=== PATIENT | female | born 1980 | race Caucasian/White ===

== ENCOUNTER 2023-10-28 08:46 | Outpatient (AMB) | payer MEDICARE, MEDICAID, SELFPAY ==
--- NOTE | 2023-10-28 08:56 | A.OFFPC_ITS ---
Vital Signs 10/28/23 09:03 Height 5 ft 2 in Weight 204 lb 4 oz BMI 37.4 BP 128/88 Blood Pressure Location Rt brachial Position Sitting Respiration 16 Pulse 83 Pulse Source Pulse Oximeter Temp 98 F Temp Source Oral Pulse Oximetry (%) 98 Oxygen Delivery Method Room Air Intake Visit Reasons: Est. Care Intake Note: New patient visit. Discuss MRI of thoracic spine. 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 Care HPI Details Patient is a 43-year-old female with a significant past medical history of chronic neck and back pain, fibromyalgia, fatty liver, GERD, claudication, hypothyroidism, hypertension, hyperlipidemia, poorly-controlled type 2 diabetes with complications including peripheral neuropathy and [facility] insulin use, anxiety, depression and insomnia. She is transferring from [facility] and following. I last saw her a couple of months ago. No notes available. Endo: Last A1c was 7.1. At our last visit I did increase her Trulicity to 3 mg. She is currently on Trulicity, metformin 1000 mg twice a day and insulin glargine 68 units nightly. Last visit I did increase the Lyrica for ongoing peripheral neuropathy discomfort. She is on an acei. Last eye exam is overdue. She does not currently follow with a multi craft maintenance technician but has been referred many times. She recently lost her left great toenail due to paronychia and had to cut most of the nail off. She states she would now like to see them. She checks her feet regularly. Denies any sores. She is on levothyroxine 50 mcg daily. Last TSH was WNL. Seeing weight loss center on 11/18. CV: Blood pressure today is 128/88. She is currently on lisinopril 20 mg and metoprolol 50 mg b.i.d.. Last LDL was elevated above goal. Increased atorvastatin to 40 mg. Goal is less than 70. At our last visit at [facility] we did discuss that some of her leg pain sounds like claudication. She is seeing vascular surgery on 11/04. Psych: She is on 40 mg of prozac, 60 mg of duloxetine and tolerating this well. She is also 100 mg of hydroxyzine at night for insomnia which was started at our last visit and tolerating well. No SI/HI. She still does not feel like she sleeps well at night. She has a hard time falling asleep and staying asleep but the hydroxyzine does help for least a couple hours. She typically wakes up because of her mind or because of the pain. Her also states that she snores all the time. She was supposed to follow up with behavioral health but states that she skipped her appointment because it was not with a psychiatrist. She states that she did not realize that if the see a therapist 1st. She has never been hospitalized for her mental health. Musculoskeletal: At the last visit the duloxetine was increased. She was also started on baclofen as she did not feel that the tizanidine or Flexeril is helpful. She found the baclofen to be helpful. She is on meloxicam 15 mg and has been on this for quite some time and tolerating well. I also increased the Lyrica to 200 mg twice a day at our last visit. She does not feel tired with the lyrica. She is following with [facility] and did recently have an MRI of her thoracic spine on 10/23. She was noted to have a subtle left subarticular disc protrusion minimally indenting the ventral thecal sac at T8-T9. otherwise, unremarkable. They are discussing a spinal cord stimulator placement. She states that her pain is still overall just poorly controlled. It causes her to have a hard time sleeping at night. -14 mm left renal cyst noted incidentall y. GI: continues on omeprazole 20 mg daily. No breakthrough sx. No blood in stool or difficulty swallowing. Mammo: UTD 2022 Pap: s/p partial hysterectomy [facility] Medical History (Updated 10/28/23 @ 09:51 by Bettie Day PA-C) Renal cyst, left Hypothyroidism Claudication of both lower extremities GERD with esophagitis Major depression, recurrent, chronic Insomnia Fibromyalgia Hyperlipidemia Fatty liver Poorly controlled type 2 diabetes mellitus with peripheral neuropathy Uncontrolled type 2 diabetes mellitus with hyperglycemia, with long-term current use of insulin Mild intellectual disability Bilateral hearing loss HTN (hypertension), benign Migraines Chronic low back pain with bilateral sciatica Chronic neck pain Mild persistent asthma in adult without complication Generalized anxiety disorder with panic attacks Family History (Updated 10/28/23 @ 09:35 by Shandra Strickland CMA) Mother HTN (hypertension) Diabetes Father HTN (hypertension) Hypercholesteremia Diabetes Cardiovascular disease Maternal Grandmother Cardiovascular disease Skin cancer Anxiety Depression Maternal Grandmother Lung cancer Other FHx: mental illness Social History (Updated 10/28/23 @ 09:14 by Shandra Strickland CMA) Housing: Apartment Patient Tobacco Use Status: Never used Tobacco e-Cigarette/Vaping Use: Never Used Second Hand Smoke Exposure: No service: No Current occupational status: disabled Cognitive needs: No Hearing needs: Yes Vision needs: No Questionnaire PHQ-9 Over the last 2 weeks, how often have you been bothered by any of the following problems? 1. Little interest or pleasure in doing things: nearly every day 2. Feeling down, depressed, or hopeless: nearly every day 3. Trouble falling or staying asleep, or sleeping too much: nearly every day 4. Feeling tired or having little energy: nearly every day 5. Poor appetite or overeating: nearly every day 6. Feeling bad about yourself - or that you are a failure or have let yourself or your family down: nearly every day 7. Trouble concentrating on things, such as reading the newspaper or watching television: nearly every day 8. Moving or speaking so slowly that other people could have noticed. Or the opposite - being so fidgety or restless that you have been moving around a lot more than usual: nearly every day 9. Thoughts that you would be better off or of hurting yourself in some way: nearly every day Total score: 27 Depression Screening Interpretation: Positive Depression Screening Follow-up: Existing condition, In treatment, Community Mental Health Worker F/U and Follow- up Visit Requested Depression Screening Done: Yes 35892 - PHQ-9 Billing: Yes Source: Developed by Drs. Kade Prince, Meghan Montero, Michael Zuniga and colleagues, with an educational manoj from [employer]. Thrive Questionnaire Date Thrive assessed: 10/28/23 I am a: Patient What is your living situation today?: I have a steady place to live Within the past 12 months, did the food you bought not last and you didn't have the money to get more?: Sometimes True Within the past 12 months, did you worry whether your food would run out before you got money to buy more?: Never true Do you have trouble paying for medicines?: Yes Do you have trouble getting transportation to medical appointments?: Yes Do you have trouble paying your heating and electricity bill?: Yes Do you have trouble taking care of your child, family member or friend?: No Do you have trouble with day-to-day activities such as bathing, preparing meals, shopping, managing finances, etc.?: Yes Are you currently unemployed and looking for a job?: No Are you interested in more education?: No Please select the resources that you would like help with: Utilities Currently or been in a relationship where the following occur: no concerns reported THRIVE Score: 3 AUDIT C Alcohol Use Questionnaire (AUDIT-C) 1. How often do you have a drink containing alcohol?: Never 3. How often do you have six or more drinks on one occasion?: Never Total Score: 0 Score Reviewed/Action Taken: Yes GIBSON-7 AMB Questionnaire GIBSON-7 Date GIBSON - 7 assessed: 10/28/23 Feeling nervous, anxious, or on edge: 3 = Nearly every day Not being able to stop or control worryin = Nearly every day Worrying too much about different things: 2 = More than half the days Trouble relaxin = More than half the days Being so restless that it is hard to sit still: 2 = More than half the days Becoming easily annoyed or irritable: 3 = Nearly every day Feeling afraid as if something awful might happen: 1 = Several days Total GIBSON-7 score (0-4 normal; 5-9 mild; 10-14 moderate; 15-21 severe): 16 Source: Developed by Drs. Kade Prince, Meghan Montero, Michael Zuniga and colleagues, with an educational manoj from [employer]. GIBSON-7 Assessment Billing GIBSON-7 Assessment Tool: GIBSON-7 Assessment 65211 ACT Questionnaire In the past 4 weeks, how much of the time did your asthma keep you from getting as much done at work, school or at home?: A little of the time During the past 4 weeks, how often have you had shortness of breath?: 1-2 times a week During the past 4 weeks, how often did your asthma symptoms wake you up at night or earlier than usual in the morning?: Not at all During the past 4 weeks, how often have you had to use your rescue inhaler or nebulizer medication?: Not at all How would you rate your asthma control during the past 4 weeks?: Well controlled ACT Interpretation: Positive Score: 22 Physical exam (Primary Care) Vital Signs: Last Vital Signs Temp 98 F 10/28/23 09:03 Pulse 83 10/28/23 09:03 Resp 16 10/28/23 09:03 BP 128/88 10/28/23 09:03 Pulse Ox 98 10/28/23 09:03 Oxygen Delivery Method Room Air 10/28/23 09:03 BMI result Body Mass Index 37.4 Tobacco/Smoking Status: Tobacco use Status Tobacco use date assessed 10/28/23 10/28/23 09:06 Patient Tobacco Use Status Never used Tobacco 10/28/23 09:06 e-Cigarette/Vaping Use Never Used 10/28/23 09:06 PHQ-9: PHQ-9 Score PHQ-9: Total score 27 10/28/23 09:31 Depression Screening Interpretation: Positive Depression Screening Follow-up: Existing condition, In treatment, Community Mental Health Worker F/U and Follow- up Visit Requested Thrive Assessment: Date of Thrive Assessment Date Thrive assessed 10/28/23 10/28/23 09:16 Currently or been in a relationship where the following occur: no concerns reported Const Orientation/consciousness: patient oriented x3 HENMT Ears: hearing grossly normal bilaterally Neck Thyroid: Thyroid normal Lymphatic: no lymphadenopathy noted Resp Auscultation: clear to auscultation bilaterally Cardio Rate: regular rate Rhythm: regular rhythm Heart sounds: S1 normal heart sound present and S2 normal heart sound present GI Inspection: Yes normal to inspection Palpation (GI): Soft to palpation and Other GI palpation findings present (nontender, no cva tenderness) Auscultation: normoactive bowel sounds Rectal Exam - Female: deferred Skin General skin exam: no rashes or lesions noted Neuro General: patient oriented x3, gait normal and no focal motor deficits Assessment and Plan Assessment & Plan (1) Poorly controlled type 2 diabetes mellitus with peripheral neuropathy: Code(s): E11.42 - Type 2 diabetes mellitus with diabetic polyneuropathy; E11.65 - Type 2 diabetes mellitus with hyperglycemia Plan: Diabetes is improving. Labs ordered today. Reminded her to get an eye exam. Phone numbers of places were provided in the office. I have referred her to Podiatry. (2) Uncontrolled type 2 diabetes mellitus with hyperglycemia, with long-term current use of insulin: Code(s): E11.65 - Type 2 diabetes mellitus with hyperglycemia; Z79.4 - termite control representative (current) use of insulin Plan: Denies hypoglycemic events (3) HTN (hypertension), benign: Code(s): I10 - Essential (primary) hypertension Plan: Slightly elevated above goal today. Repeat blood pressure was WNL at 120/72. Continue current regimen (4) Hyperlipidemia: Code(s): E78.5 - Hyperlipidemia, unspecified Qualifiers: Hyperlipidemia type: mixed hyperlipidemia Qualified Code(s): E78.2 - Mixed hyperlipidemia Plan: Continue atorvastatin 40 mg. We will check lipids and LFTs. Discussed her goals less than 70. She will be following with weight management and is going to be starting a diet. I have strongly encouraged lifestyle modifications and weight loss. (5) Major depression, recurrent, chronic: Code(s): F33.9 - Major depressive disorder, recurrent, unspecified Plan: Referred again to behavioral health. Discussed the importance of follow-up. Ad vised to seek emergent medical treatment should she develop any SI/HI. (6) Insomnia: Code(s): G47.00 - Insomnia, unspecified Qualifiers: Insomnia type: unspecified Qualified Code(s): G47.00 - Insomnia, unspecified Plan: referral to again. sleep study ordered. (7) Generalized anxiety disorder with panic attacks: Code(s): F41.1 - Generalized anxiety disorder; F41.0 - Panic disorder [episodic paroxysmal anxiety] Plan: See above (8) Chronic low back pain with bilateral sciatica: Code(s): M54.41 - Lumbago with sciatica, right side; M54.42 - Lumbago with sciatica, left side; G89.29 - Other chronic pain Qualifiers: Back pain laterality: bilateral Qualified Code(s): M54.42 - Lumbago with sciatica, left side; M54.41 - Lumbago with sciatica, right side; G89.29 - Other chronic pain Plan: Following with [facility]. Continue current regimen. (9) Hypothyroidism: Code(s): E03.9 - Hypothyroidism, unspecified Qualifiers: Hypothyroidism type: acquired Qualified Code(s): E03.9 - Hypothyroidism, unspecified Plan: We will monitor TSH. Continue levothyroxine 50 mcg. (10) Claudication of both lower extremities: Comment: following with vascular surgeon Dr. Guerra 11/04. Code(s): I73.9 - Peripheral vascular disease, unspecified (11) Renal cyst, left: Code(s): N28.1 - Cyst of kidney, acquired Plan: Ultrasound ordered Plan Sleep study ordered. Referral to Behavioral Health and Podiatry placed. She does have upcoming appointments with specialists. Labs ordered today. We will follow up pending test results. Advised to follow up in 2 months. Sooner if needed. Patient understands and agrees with the plan. Orders: Orders RT home sleep study Today E03.9 - Hypothyroidism, unspecified, E11.42 - Type 2 diabetes mellitus with diabetic polyneuropathy, E11.65 - Type 2 diabetes mellitus with hyperglycemia, E78.2 - Mixed hyperlipidemia, G47.00 - Insomnia, unspecified, I73.9 - Peripheral vascular disease, unspecified, R06.83 - Snoring, Z79.4 - intermediate (current) use of insulin Complete Blood Count Auto Diff Today E03.9 - Hypothyroidism, unspecified, E11.42 - Type 2 diabetes mellitus with diabetic polyneuropathy, E11.65 - Type 2 diabetes mellitus with hyperglycemia, E78.2 - Mixed hyperlipidemia, I73.9 - Pe ripheral vascular disease, unspecified, Z00.00 - Encounter for general adult medical examination without abnormal findings, Z79.4 - termite control representative (current) use of insulin Hemoglobin A1c Today E03.9 - Hypothyroidism, unspecified, E11.42 - Type 2 diabetes mellitus with diabetic polyneuropathy, E11.65 - Type 2 diabetes mellitus with hyperglycemia, E78.2 - Mixed hyperlipidemia, I73.9 - Peripheral vascular disease, unspecified, Z79.4 - termite control representative (current) use of insulin Lipid Panel Today E03.9 - Hypothyroidism, unspecified, E11.42 - Type 2 diabetes mellitus with diabetic polyneuropathy, E11.65 - Type 2 diabetes mellitus with hyperglycemia, E78.2 - Mixed hyperlipidemia, I73.9 - Peripheral vascular disease, unspecified, Z79.4 - termite control representative (current) use of insulin Vitamin B12 Today E03.9 - Hypothyroidism, unspecified, E11.42 - Type 2 diabetes mellitus with diabetic polyneuropathy, E11.65 - Type 2 diabetes mellitus with hyperglycemia, E78.2 - Mixed hyperlipidemia, I73.9 - Peripheral vascular disease, unspecified, Z79.4 - intermediate (current) use of insulin Ferritin Today E03.9 - Hypothyroidism, unspecified, E11.42 - Type 2 diabetes mellitus with diabetic polyneuropathy, E11.65 - Type 2 diabetes mellitus with hyperglycemia, E78.2 - Mixed hyperlipidemia, I73.9 - Peripheral vascular diseas e, unspecified, Z79.4 - termite control representative (current) use of insulin IRON PROFILE Today E03.9 - Hypothyroidism, unspecified, E11.42 - Type 2 diabetes mellitus with diabetic polyneuropathy, E11.65 - Type 2 diabetes mellitus with hyperglycemia, E78.2 - Mixed hyperlipidemia, I73.9 - Peripheral vascular disease, unspecified, Z79.4 - termite control representative (current) use of insulin Comprehensive [place]. Panel Fast Today E03.9 - Hypothyroidism, unspecified, E11.42 - Type 2 diabetes mellitus with diabetic polyneuropathy, E11.65 - Type 2 diabetes mellitus with hyperglycemia, E78.2 - Mixed hyperlipidemia, I73.9 - Peripheral vascular disease, unspecified, Z79.4 - termite control representative (current) use of insulin TSH reflex Free T4 Today E03.9 - Hypothyroidism, unspecified, E11.42 - Type 2 diabetes mellitus with diabetic polyneuropathy, E11.65 - Type 2 diabetes mellitus with hyperglycemia, E78.2 - Mixed hyperlipidemia, I73.9 - Peripheral vascular disease, unspecified, Z79.4 - termite control representative (current) use of insulin Microalbumin, Random (w Creat) Today E03.9 - Hypothyroidism, unspecified, E11.42 - Type 2 diabetes mellitus with diabetic polyneuropathy, E11.65 - Type 2 diabetes mellitus with hyperglycemia, E78.2 - Mixed hyperlipidemia, I73.9 - Peripheral vascular disease, unspecified, Z79.4 - termite control representative (current) use of insulin US renal LT Today N28.1 - Cyst of kidney, acquired Referrals Podiatry Referral E03.9 - Hypothyroidism, unspecified, E11.42 - Type 2 diabetes mellitus with diabetic polyneuropathy, E11.65 - Type 2 diabetes mellitus with hyperglycemia, E78.2 - Mixed hyperlipidemia, I73.9 - Peripheral vascular disease, unspecified, S91.209A - Unspecified open wound of unspecified toe(s) with damage to nail, initial encounter, Z79.4 - intermediate (current) use of insulin Behavioral Health Referral F33.9 - Major depressive disorder, recurrent, unspecified, G47.00 - Insomnia, unspecified Coding Level of Care Code Est Pt Level 5 (48988) Diagnoses Poorly controlled type 2 diabetes mellitus with peripheral neuropathy E11.42; E11.65 Uncontrolled type 2 diabetes mellitus with hyperglycemia, with long-term current use of insulin E11.65; Z79.4 HTN (hypertension), benign I10 Mixed hyperlipidemia E78.2 Hyperlipidemia type: mixed hyperlipidemia Major depression, recurrent, chronic F33.9 Insomnia, unspecified type G47.00 Insomnia type: unspecified Generalized anxiety disorder with panic attacks F41.1; F41.0 Chronic bilateral low back pain with bilateral sciatica M54.42; M54.41; G89.29 Back pain laterality: bilateral Acquired hypothyroidism E03.9 Hypothyroidism type: acquired Claudication of both lower extremities I73.9 Renal cyst, left N28.1 Additional Codes GIBSON-7 Assessment Billing - GIBSON-7 Assessment Tool: GIBSON-7 Assessment [id number] ([id number]) Time Spent (min) 65
[2023-10-28 09:03] VITALS: BP 128/88; PULSE 83; RESP 16; TEMP 36.6; O2SAT 98; BMI 37.4
== END 2023-10-28 10:03 | disposition home or self-care (01) ==
PROVIDERS: PCP Physician Assistant; Visit Provider Physician Assistant
DX: E11.42 Type 2 diabetes mellitus with diabetic polyneuropathy (principal); E11.65 Type 2 diabetes mellitus with hyperglycemia; Z79.4 Long term (current) use of insulin; F33.9 Major depressive disorder, recurrent, unspecified; I73.9 Peripheral vascular disease, unspecified; I10 Essential (primary) hypertension; E78.2 Mixed hyperlipidemia; G47.00 Insomnia, unspecified; F41.1 Generalized anxiety disorder; F41.0 Panic disorder [episodic paroxysmal anxiety]; M54.42 Lumbago with sciatica, left side; M54.41 Lumbago with sciatica, right side
CPT/HCPCS: 99215

== ENCOUNTER 2023-11-06 08:06 | Outpatient (REF) | payer MEDICARE, MEDICAID, SELFPAY ==
--- NOTE | ~2023-11-06 | US_ITS ---
EXAMINATION: US RETROPERITONEAL LIMITED (RENAL ONLY) CLINICAL INFORMATION: Cyst of kidney, acquired. COMPARISON: None available. TECHNIQUE: Real-time imaging of the kidneys. FINDINGS: RIGHT KIDNEY: 12.5 x 5.5 x 5.6 cm (SAG x AP x TRV). The kidney is normal in size, contour, and echogenicity. Renal cortical thickness is normal. No calculi or focal parenchymal lesions. No hydronephrosis. LEFT KIDNEY: 11.8 x 6.8 x 5.6 cm (SAG x AP x TRV). The kidney is normal in size, contour, and echogenicity. Renal cortical thickness is normal. No renal calculi or hydronephrosis. 1.3 x 1.0 x 0.8 cm simple cyst in the mid kidney is seen. No imaging follow-up is recommended. US/US renal BI IMPRESSION: Normal appearance of the right kidney. No significant finding in the left kidney.
== END 2023-11-06 08:07 | disposition home or self-care (01) ==
LOC: HO.US 08:06
PROVIDERS: PCP Physician Assistant; Visit Provider Physician Assistant
DX: N28.1 Cyst of kidney, acquired (principal)
CPT/HCPCS: 76775

== ENCOUNTER 2023-12-28 07:49 | Outpatient (REF) | payer MEDICARE, MEDICAID, SELFPAY ==
[2023-12-28 08:07] LABS: MANUAL DIFF FLAG NO
[2023-12-28 08:23] LABS: Basophils Percent Auto 0.4 % (0-2); Eosinophils Absolute Auto 0.1 X10*3/uL (0.0-0.4); Eosinophils Percent Auto 0.9 % (0-4); Hematocrit 41.8 % (37.0-47.0); Hemoglobin 14.1 g/dl (12.0-16.0); Imm Gran Abs Auto 0.03 X10*3/uL (0.00-0.03); Imm Gran Pct Auto 0.3 % (0.0-0.4); Lymphocytes Absolute Auto 3.3 X10*3/uL (1.2-4.9); Mean Corpuscular HGB Conc 33.7 g/dl (31.0-35.0); Mean Corpuscular Hemoglobin 30.8 pg (27.0-33.0); Mean Corpuscular Volume 91.3 fL (80.0-98.0); Mean Platelet Volume 10.2 fL (9.4-12.3); Monocytes Absolute Auto 0.6 X10*3/uL (0.1-1.2); Monocytes Percent Auto 6.1 % (2-11); Neutrophils Absolute Auto 5.2 x10*3/uL (2.0-8.3); Neutrophils Percent Auto 56.3 % (45-73); Platelet Count 225 X10*3/uL (160-400); Red Blood Count 4.58 X10*6/uL (4.20-5.50); Red Cell Distribution Width 12.2 % (11.0-16.0); White Blood Count 9.2 X10*3/uL (4.8-10.8)
[2023-12-28 08:30] LABS: Estimated Average Glucose 154 mg/dL
[2023-12-28 08:50] LABS: Microalbum/Creatinine Ratio Ur 5.7 ug/mg cr (<30)
[2023-12-28 08:53] LABS: Alanine Aminotransferase 23 U/L (0-31); Albumin Level 3.8 g/dL (3.5-5.0); Alkaline Phosphatase 54 U/L (39-117); Anion Gap 14 (12-20); Aspartate Amino Transferase 17 U/L (5-31); Bilirubin Total 1.5 mg/dL (0.0-1.0); Blood Urea Nitrogen 8 mg/dL (9-16); Calcium 8.3 mg/dL (8.4-10.2); Carbon Dioxide 28 mmol/L (22-29); Chloride 103 mmol/L (96-108); Cholesterol 139 mg/dL (<200); Estimated Glomerular Filt Rate > 60; Glucose Fasting 177 mg/dL (60-99); HDL Cholesterol 43 mg/dL (>40); Iron 109 mcg/dL (30-160); LDL Cholesterol Calculated 73 mg/dL (<100); Percent Iron Saturation 38 % (15-50); Potassium 3.7 mmol/L (3.3-5.1); Sodium 141 mmol/L (135-145); Total Iron Binding Capacity 289 mcg/dL (228-428); Total Protein 6.4 g/dL (6.5-8.0); Triglycerides 115 mg/dL (<150); Unsaturated Iron Binding 180 ug/dL
[2023-12-28 09:10] LABS: Ferritin 106 ng/mL (10-250); TSH reflex Free T4 1.66 uIU/mL (0.32-4.0)
[2023-12-28 09:12] LABS: Vitamin B12 442 pg/mL (200-900)
== END 2023-12-28 07:50 | disposition home or self-care (01) ==
LOC: HO.LAB 07:49
PROVIDERS: PCP Physician Assistant; Visit Provider Physician Assistant
DX: Z00.00 Encounter for general adult medical examination without abnormal findings (principal); E11.42 Type 2 diabetes mellitus with diabetic polyneuropathy; E11.65 Type 2 diabetes mellitus with hyperglycemia; E11.51 Type 2 diabetes mellitus with diabetic peripheral angiopathy without gangrene; E78.2 Mixed hyperlipidemia; E03.9 Hypothyroidism, unspecified; Z79.4 Long term (current) use of insulin
CPT/HCPCS: 36415; 80053; 80061; 82043; 82570; 82607; 82728; 83036; 83540; 84443; 85025

== ENCOUNTER 2023-12-30 12:01 | Outpatient (REF) | payer MEDICARE, MEDICAID, SELFPAY ==
[2023-12-30 12:55] LABS: Alanine Aminotransferase 21 U/L (0-31); Albumin Level 3.9 g/dL (3.5-5.0); Alkaline Phosphatase 53 U/L (39-117); Aspartate Amino Transferase 17 U/L (5-31); Bilirubin Direct 0.4 mg/dL (0.0-0.5); Bilirubin Total 1.1 mg/dL (0.0-1.0); Gamma Glutamyl Transpeptidase 21 U/L (7-33); Total Protein 6.6 g/dL (6.5-8.0)
== END 2023-12-30 12:02 | disposition home or self-care (01) ==
LOC: HO.LAB 12:01
PROVIDERS: PCP Physician Assistant; Visit Provider Physician Assistant
DX: R79.89 Other specified abnormal findings of blood chemistry (principal); E78.2 Mixed hyperlipidemia; K76.0 Fatty (change of) liver, not elsewhere classified
CPT/HCPCS: 36415; 80076; 82977

== ENCOUNTER 2024-01-13 08:58 | Outpatient (REF) | payer MEDICARE, MEDICAID, SELFPAY ==
--- NOTE | ~2024-01-13 | US_ITS ---
EXAMINATION: US ABDOMEN COMPLETE CLINICAL INFORMATION: Unspecified jaundice. COMPARISON: Renal ultrasound 11/06/2023. TECHNIQUE: Real-time imaging of the abdominal viscera. Limited visualization due to bowel gas. FINDINGS: PANCREAS: Limited visualization of pancreatic tail and head. Imaged portion of pancreatic body is unremarkable. ABDOMINAL AORTA: Limited visualization. Imaged portions are nonaneurysmal. INFERIOR VENA CAVA: Visualized portions are normal. LIVER: Increased hepatic parenchymal heterogeneity and echogenicity could be associated with hepatocellular disease/hepatic steatosis and substantially limits visualization. Correlation with liver function tests and clinical exam recommended to determine further management. GALLBLADDER: No gallstones. No gallbladder wall thickening. COMMON BILE DUCT: Normal in caliber measuring 0.3 cm in diameter. RIGHT KIDNEY: No hydronephrosis. No renal calculi. Limited visualization. The kidney measures 14.0 cm in maximum dimension. LEFT KIDNEY: Redemonstration of 1.4 x 1.2 x 1.2 cm dmeak-ec-pbo pole cyst with benign features. There is no indication for follow-up imaging. No hydronephrosis or renal calculi. The kidney measures 12.5 cm in maximum dimension. SPLEEN: Normal. The spleen measures 10.5 cm in maximum dimension. FREE FLUID: None. US/US abdomen complete IMPRESSION: Increased hepatic parenchymal heterogeneity and echogenicity could be associated with hepatocellular disease/hepatic steatosis and substantially limits visualization. Correlation with liver function tests and clinical exam recommended to determine further management.
== END 2024-01-13 08:59 | disposition home or self-care (01) ==
LOC: HO.US 08:58
PROVIDERS: PCP Physician Assistant; Visit Provider Physician Assistant
DX: K76.0 Fatty (change of) liver, not elsewhere classified (principal)
CPT/HCPCS: 76700

== ENCOUNTER 2024-02-06 10:41 | Outpatient (AMB) | payer MEDICARE, MEDICAID, SELFPAY ==
--- NOTE | 2024-02-06 10:53 | A.OFFPC_ITS ---
Vital Signs 02/06/24 10:56 Height 5 ft 2 in Weight 199 lb 2 oz BMI 36.4 BP 128/88 Blood Pressure Location Rt brachial Position Sitting Pulse 83 Pulse Source Pulse Oximeter Pulse Oximetry (%) 98 Oxygen Delivery Method Room Air Intake Visit Reasons: pre op Intake Note: Pre op with Dr Conte at [facility]. Spinal cord stimulator implant. Allergies peanuts Allergy (Mild, Uncoded 02/06/24 10:55) itch in throat shell fish Allergy (Mild, Uncoded 02/06/24 10:55) itch in throat Medication List - Last Reconciled 02/06/24 by Bettie Day PA-C [accu-check compact lancets ] albuterol sulfate 90 mcg/actuation (Ventolin HFA) inhalation atorvastatin mg PO baclofen 10 mg PO TID blood-glucose meter ([employer] Ultra2 Meter) As directed blood-glucose meter,continuous ([employer] G7 Client Support Coordinator) As directed blood-glucose sensor (Dexcom G7 Sensor device) As directed buspirone 10 mg PO BID diazepam mg PO duloxetine 60 mg PO DAILY epinephrine IM fluoxetine 40 mg PO DAILY fluticasone propion-salmeterol 100-50 mcg/dose (Advair Diskus) 1 inh inhalation BID [freestyle lancets ] [freestyle monitor ] [freestyle test strips ] glucose 16 grams (4 x 4 gram) PO Q15M PRN hydroxyzine HCl mg PO insulin glargine (Lantus Solostar U-100 Insulin) 68 units subcut levothyroxine mcg PO lidocaine 5% patches topical lisinopril mg PO meloxicam mg PO metformin 1,000 mg PO BID metoprolol tartrate 50 mg PO BID omeprazole 20 mg PO BID pen needle, diabetic (BD Ultra-Fine Mini Pen Needle) As directed pregabalin mg PO tirzepatide (Mounjaro) 2.5 mg (0.5 mL) subcut QWEEK 4 weeks Tobacco use date assessed: 10/28/23 Dental Screening Dental Screen Date: 10/28/23 HPI pre op HPI Details Patient is a 43-year-old female with a significant past medical history of fatty liver, type 2 diabetes, hypertension, migraines, fibromyalgia, dyslipidemia, GERD, and chronic pain presenting today for a pre op for a back stimulator. Musculoskeletal: She has the surgery planned for 02/19/24 at [facility] for a back stimulator by Dr. Conte. She states that she has a preop with them next week. She states that they are requesting a letter that it is safe for her to proceed with surgery. She denies having any chest pain, shortness a breath or dizziness. She is able to walk up and down a few flights of stairs without any chest pain, dizziness or shortness on breath. She states that she has only limited due to her back pain. She is on meloxicam for her pain and states that she knows she is supposed to avoid taking NSAIDs prior to her procedure. She says that she has already stopped it but has pain. CV: Bp today is 128/88. She is currently on metoprolol 50 mg twice a day, and lisinopril daily. Cholesterol is controlled with atorvastatin. Endo: last A1c was 7. She states her insurance didn't cover the ed. She thinks it may covered Dexcom. She is not really sure. She states that her One Touch meter broke. She has not been checking her blood sugars. She denies any hypoglycemic events. She states that she does not even experienced symptoms of hypoglycemia because her blood sugars have not been ?low ?in 20 years. She is currently on Lantus 68 units, does not take anything with meals, she is on metformin 1000 mg twice a day, and Trulicity 3 mg once a week again. She states that last month her insurance covered Mounjaro and she tolerated this much better than Trulicity. She hates being on the Trulicity because it causes diarrhea. She wants to switch back to the Mounjaro. She states that when she was on the Mounjaro she also lost 4 lb which is helpful for her chronic conditions, especially her back pain. Psych: She is stable. No SI/HI. [facility] Medical History (Updated 12/30/23 @ 09:01 by Bettie Day PA-C) Elevated bilirubin Renal cyst, left Hypothyroidism Claudication of both lower extremities GERD with esophagitis Major depression, recurrent, chronic Insomnia Fibromyalgia Hyperlipidemia Fatty liver Poorly controlled type 2 diabetes mellitus with peripheral neuropathy Uncontrolled type 2 diabetes mellitus with hyperglycemia, with long-term current use of insulin Mild intellectual disability Bilateral hearing loss HTN (hypertension), benign Migraines Chronic low back pain with bilateral sciatica Chronic neck pain Mild persistent asthma in adult without complication Generalized anxiety disorder with panic attacks Family History (Updated 10/28/23 @ 09:35 by Shandra Strickland CMA) Mother HTN (hypertension) Diabetes Father HTN (hypertension) Hypercholesteremia Diabetes Cardiovascular disease Maternal Grandmother Cardiovascular disease Skin cancer Anxiety Depression Maternal Grandmother Lung cancer Other FHx: mental illness Social History (Updated 10/28/23 @ 09:14 by Shandra Strickland CMA) Housing: Apartment Patient Tobacco Use Status: Never used Tobacco e-Cigarette/Vaping Use: Never Used Second Hand Smoke Exposure: No service: No Current occupational status: disabled Cognitive needs: No Hearing needs: Yes Vision needs: No Questionnaire Thrive Questionnaire Date Thrive assessed: 10/28/23 GIBSON-7 AMB Questionnaire GIBSON-7 Date GIBSON - 7 assessed: 10/28/23 Source: Developed by Drs. Kade Prince, Meghan Montero, Michael Zuniga and colleagues, with an educational manoj from [employer]. Physical exam (Primary Care) Vital Signs: Last Vital Signs Pulse 83 02/06/24 10:56 BP 128/88 02/06/24 10:56 Pulse Ox 98 02/06/24 10:56 Oxygen Delivery Method Room Air 02/06/24 10:56 BMI result Body Mass Index 36.4 BMI Assessment/Plan discussion: High BMI High, discussed plan: lifestyle, weight reduction and dietary Tobacco/Smoking Status: Tobacco use Status Tobacco use date assessed 10/28/23 02/06/24 11:03 Patient Tobacco Use Status Never used Tobacco 02/06/24 11:03 e-Cigarette/Vaping Use Never Used 02/06/24 11:03 Thrive Assessment: Date of Thrive Assessment Date Thrive assessed 10/28/23 02/06/24 11:03 Const Orientation/consciousness: patient oriented x3 HENMT Ears: hearing grossly normal bilaterally Neck Thyroid: Thyroid normal Lymphatic: no lymphadenopathy noted Resp Auscultation: clear to auscultation bilaterally Cardio Rate: regular rate Rhythm: regular rhythm Heart sounds: S1 normal heart sound present and S2 normal heart sound present GI Inspection: Yes normal to inspection Palpation (GI): Soft to palpation and Other GI palpation findings present (nontender, no cva tenderness) Auscultation: normoactive bowel sounds Rectal Exam - Female: deferred Skin General skin exam: no rashes or lesions noted Neuro General: patient oriented x3, gait normal and no focal motor deficits Office Procedures EKG Details: EKG today is normal sinus rhythm at a rate of 84 beats per minute with nonspecific STT wave abnormalities. No prior study to compare. EKG interpreted by myself and Dr. Abarca. [id number], Complete Results Reviewed Results Reviewed: Laboratory Tests 12/28/23 12/28/23 12/30/23 08:00 08:06 12:11 WBC 9.2 RBC 4.58 Hgb 14.1 Hct 41.8 Sodium 141 Potassium 3.7 Chloride 103 Hemoglobin A1c % 7.0 H Total Bilirubin 1.1 H AST 17 ALT 23 Total Protein 6.6 Albumin 3.9 Triglycerides 115 Cholesterol 139 LDL Cholesterol, Calc 73 HDL Cholesterol 43 Vitamin B12 442 TSH 1.66 Urine Creatinine 364.88 Urine Microalbumin 21.0 Microalb/Creat Ratio 5.7 US/US abdomen complete IMPRESSION: Increased hepatic parenchymal heterogeneity and echogenicity could be associated with hepatocellular disease/hepatic steatosis and substantially limits visualization. Correlation with liver function tests and clinical exam recommended to determine further management. Assessment and Plan Assessment & Plan (1) Poorly controlled type 2 diabetes mellitus with peripheral neuropathy: Code(s): E11.42 - Type 2 diabetes mellitus with diabetic polyneuropathy; E11.65 - Type 2 diabetes mellitus with hyperglycemia Plan: We will switch from Trulicity to Mounjaro. Mounjaro was more effective and caused last symptoms. Trulicity caused diarrhea. I will try to get Dexcom approved. I have ordered her a One-Touch glucometer to use. Glucose tabs ordered. Rules of 15 discussed. I have referred her to endocrinology. (2) Uncontrolled type 2 diabetes mellitus with hyperglycemia, with long-term current use of insulin: Code(s): E11.65 - Type 2 diabetes mellitus with hyperglycemia; Z79.4 - [facility] (current) use of insulin Plan: As above. Advised to stop the Mounjaro/Trulicity 1 week prior to surgery (3) Chronic low back pain with bilateral sciatica: Code(s): M54.41 - Lumbago with sciatica, right side; M54.42 - Lumbago with sciatica, left side; G89.29 - Other chronic pain Qualifiers: Back pain laterality: bilateral Qualified Code(s): M54.42 - Lumbago with sciatica, left side; M54.41 - Lumbago with sciatica, right side; G89.29 - Other chronic pain Plan: Following with Dr. Conte for a back stimulator. (4) HTN (hypertension), benign: Code(s): I10 - Essential (primary) hypertension Plan: WNL. Continue current regimen. (5) Pre-op exam: Code(s): Z01.818 - Encounter for other preprocedural examination Plan: EKG listed above. Patient is considered average risk for this surgery. Her Mets score is >4. 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) use of insulin diclofenac sodium 1% (Voltaren Arthritis Pain) apply to single knee, ankle, foot; for foot includes sole/toes/top of foot 4 grams topical QID 100 grams 3RF blood-glucose meter,continuous (Dexcom G7 Client Support Coordinator) As directed 1 ea 0RF E11.42 - Type 2 diabetes mellitus with diabetic polyneuropathy, E11.65 - Type 2 diabetes mellitus with hyperglycemia, Z79.4 - [facility] (current) use of insulin tirzepatide (Mounjaro) 2.5 mg (0.5 mL) subcut QWEEK 4 weeks 2 mL 3RF glucose until symptoms of low blood sugar are controlled 16 grams (4 x 4 gram) PO Q15M PRN 30 tabs 3RF hypoglycemia Coding Level of Care Code Est Pt Level 4 (82599) Complex EM visit Add On G2211 Diagnoses Poorly controlled type 2 diabetes mellitus with peripheral neuropathy E11.42; E11.65 Uncontrolled type 2 diabetes mellitus with hyperglycemia, with long-term current use of insulin E11.65; Z79.4 Chronic bilateral low back pain with bilateral sciatica M54.42; M54.41; G89.29 Back pain laterality: bilateral HTN (hypertension), benign I10 Pre-op exam Z01.818 CPT Codes EKG - CPT: [id number]-[id number], Complete ([id number])
[2024-02-06 10:56] VITALS: BP 128/88; PULSE 83; O2SAT 98; BMI 36.4
== END 2024-02-06 11:58 | disposition home or self-care (01) ==
PROVIDERS: PCP Physician Assistant; Visit Provider Physician Assistant
DX: E11.42 Type 2 diabetes mellitus with diabetic polyneuropathy (principal); E11.65 Type 2 diabetes mellitus with hyperglycemia; Z79.4 Long term (current) use of insulin; M54.42 Lumbago with sciatica, left side; M54.41 Lumbago with sciatica, right side; G89.29 Other chronic pain; I10 Essential (primary) hypertension; Z01.818 Encounter for other preprocedural examination
CPT/HCPCS: 93000; 99214; G2211

== ENCOUNTER 2024-02-07 09:30 | Outpatient (AMB) | payer MEDICARE, MEDICAID, SELFPAY ==
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
[2024-02-07 09:57] VITALS: PULSE 76; O2SAT 98
== END 2024-02-07 11:30 | disposition home or self-care (01) ==
PROVIDERS: PCP Physician Assistant; Visit Provider Nurse Practitioner Family
DX: G43.709 Chronic migraine without aura, not intractable, without status migrainosus (principal); G43.109 Migraine with aura, not intractable, without status migrainosus; R53.83 Other fatigue; G47.9 Sleep disorder, unspecified
CPT/HCPCS: 99204

== ENCOUNTER → 2024-02-07 09:30 | Outpatient (BNVA) | payer MEDICARE, MEDICAID, SELFPAY | PROVIDERS: PCP Physician Assistant; Visit Provider Nurse Practitioner Family | DX: G43.709 Chronic migraine without aura, not intractable, without status migrainosus (principal); R53.83 Other fatigue; G47.9 Sleep disorder, unspecified | CPT/HCPCS: 99202 ==

== ENCOUNTER → 2024-04-09 09:24 | Outpatient (BNVA) | payer MEDICARE, MEDICAID, SELFPAY | PROVIDERS: PCP Physician Assistant; Visit Provider Nurse Practitioner Adult Health ==

== ENCOUNTER 2024-04-23 10:09 | Outpatient (AMB) | payer MEDICARE, MEDICAID, SELFPAY ==
--- NOTE | 2024-04-23 10:25 | A.OFFPC_ITS ---
Vital Signs 04/23/24 10:27 04/23/24 10:28 Height 5 ft 2 in Weight 199 lb BMI 36.4 BP 134/98 H 136/98 H Blood Pressure Location Rt brachial Rt brachial Position Sitting Sitting Respiration 14 Pulse 74 Pulse Source Pulse Oximeter Temp 98.4 F Temp Source Oral Pulse Oximetry (%) 99 Oxygen Delivery Method Room Air Intake Visit Reasons: Multiple concerns, see triage Intake Note: Body aches, hard time swallowing food. Covid test negative on 04/21/24. Allergies peanuts Allergy (Mild, Uncoded 04/23/24 10:26) itch in throat shell fish Allergy (Mild, Uncoded 04/23/24 10:26) itch in throat Medication List - Last Reconciled 04/23/24 by Bettie Day PA-C [accu-check compact lancets ] albuterol sulfate 90 mcg/actuation (Ventolin HFA) inhalation atorvastatin mg PO baclofen 10 mg PO TID blood-glucose meter (Hylete Ultra2 Meter) As directed blood-glucose meter,continuous ([email or web address] G7 Preventive Medicine Officer) As directed blood-glucose sensor ([email or web address] G7 Sensor device) As directed buspirone 10 mg PO BID diazepam mg PO diclofenac sodium 1% (Voltaren Arthritis Pain) 4 grams topical QID duloxetine 60 mg PO DAILY epinephrine IM fluoxetine 40 mg PO DAILY fluticasone propion-salmeterol 100-50 mcg/dose (Advair Diskus) 1 inh inhalation BID [freestyle lancets ] [freestyle monitor ] [freestyle test strips ] galcanezumab-gnlm (Emgality Pen) 240 mg (2 mL) subcut ONCE 30 days galcanezumab-gnlm (Emgality Pen) 120 mg subcut ONCE 30 days glucose 16 grams (4 x 4 gram) PO Q15M PRN hydroxyzine HCl mg PO insulin glargine (Lantus Solostar U-100 Insulin) 68 units subcut levothyroxine mcg PO lidocaine 5% patches topical lisinopril mg PO magnesium oxide 400 mg PO BEDTIME 30 days meloxicam mg PO metformin 1,000 mg PO BID metoprolol tartrate 50 mg PO BID omeprazole 20 mg PO BID pen needle, diabetic (BD Ultra-Fine Mini Pen Needle) As directed pregabalin mg PO riboflavin (vitamin B2) 400 mg PO DAILY 30 days tirzepatide (Mounjaro) 2.5 mg (0.5 mL) subcut QWEEK 4 weeks tramadol 50 mg PO DAILY PRN 30 days ubrogepant (Ubrelvy) 50 - 100 mg (0.5 - 1 x 100 mg) PO ONCE PRN 30 days Tobacco use date assessed: 10/28/23 Dental Screening Dental Screen Date: 10/28/23 HPI Multiple concerns, see triage HPI Details Patient is a 44-year-old female with a significant past medical history of type 2 diabetes, hypertension, hyperlipidemia, anxiety, depression, fibromyalgia, migraines, presenting today for an acute problem visit. Reports feeling sick. She states that a week ago she started with bodyaches, headache and sinus pain and pressure. No fever or chills. No n/v/d. Today does not have any body aches but she still has sinus pain and pressure. She says it feels like she has a sinus infection. No coughing. GI: She does complain today that she feels like her food is getting stuck in her throat for the last few weeks. She has had to cut her food a lot smaller. She is using water to flush it down. No weight loss. This has been just the last few weeks. No abdominal pain, nausea or vomiting. She does have GERD and uses omeprazole. Endo: She missed her appointment in endocrinology. She states that she never picked up the Dexcom because it was not covered. She believes the freestyle Sam 3 will be covered. She is currently on Lantus 68 units nightly and states that when she checks her blood sugars in the mid afternoon her blood sugars are still high. She is not on any mealtime insulin. Denies any hypoglycemic events. States that she knows how to treat her low blood sugars as we reviewed last time and she has glucose tabs at home. She continues on metformin 1000 mg twice a day. She states that when she took Trulicity it was ineffective. Her insurance covered Mounjaro for a short time and then stopped covering it. She has never tried Ozempic. Her last A1c was 7. She was diagnosed with diabetes 5 or 6 years ago. Everyone in her family has type 2 diabetes. Last TSH was WNL. She is on levothyroxine 50 mcg. CV: Blood pressure today in the office is elevated at 136/98. States that it is similar at home. She is on lisinopril 20 mg daily and metoprolol 25 mg twice a day. Cholesterol is controlled with atorvastatin 40 mg. Psych: Has recently been following with behavioral health. She is currently on duloxetine 60 mg daily, Prozac 40 mg daily in buspirone 10 mg twice a day. She takes hydroxyzine at bedtime if needed. She states that she has an upcoming appointment with psychiatry but not until May. She just got reestablished in his currently following with a therapist. She states that she has a sees a therapist 3 times before they will cover this. Rheum: States that her fibromyalgia is managed with Lyrica 200 mg twice a day. She does well with meloxicam daily and baclofen twice a day. She follows with [facility] for her back and joint pains. [facility] Medical History (Updated 04/23/24 @ 11:13 by Bettie Day PA-C) Elevated bilirubin Renal cyst, left Hypothyroidism Claudication of both lower extremities GERD with esophagitis Major depression, recurrent, chronic Insomnia Fibromyalgia Hyperlipidemia Fatty liver Poorly controlled type 2 diabetes mellitus with peripheral neuropathy Uncontrolled type 2 diabetes mellitus with hyperglycemia, with long-term current use of insulin Mild intellectual disability Bilateral hearing loss HTN (hypertension), benign Migraines Chronic low back pain with bilateral sciatica Chronic neck pain Mild persistent asthma in adult without complication Generalized anxiety disorder with panic attacks Family History Mother HTN (hypertension) Diabetes Father HTN (hypertension) Hypercholesteremia Diabetes Cardiovascular disease Maternal Grandmother Cardiovascular disease Skin cancer Anxiety Depression Maternal Grandmother Lung cancer Other FHx: mental illness Social History Housing: Apartment Patient Tobacco Use Status: Never used Tobacco e-Cigarette/Vaping Use: Never Used Second Hand Smoke Exposure: No service: No Current occupational status: disabled Cognitive needs: No Hearing needs: Yes Vision needs: No Questionnaire PHQ-9 Over the last 2 weeks, how often have you been bothered by any of the following problems? 1. Little interest or pleasure in doing things: several days 2. Feeling down, depressed, or hopeless: several days 3. Trouble falling or staying asleep, or sleeping too much: more than half the days 4. Feeling tired or having little energy: nearly every day 5. Poor appetite or overeating: more than half the days 6. Feeling bad about yourself - or that you are a failure or have let yourself or your family down: nearly every day 7. Trouble concentrating on things, such as reading the newspaper or watching television: nearly every day 8. Moving or speaking so slowly that other people could have noticed. Or the opposite - being so fidgety or restless that you have been moving around a lot more than usual: nearly every day 9. Thoughts that you would be better off or of hurting yourself in some way: not at all Total score: 18 Source: Developed by Drs. Kade Prince, Meghan Montero, Michael Zuniga and colleagues, with an educational manoj from [employer]. Thrive Questionnaire Date Thrive assessed: 10/28/23 I am a: Patient What is your living situation today?: I have a steady place to live Within the past 12 months, did the food you bought not last and you didn't have the money to get more?: I choose not to answer this question Within the past 12 months, did you worry whether your food would run out before you got money to buy more?: I choose not to answer this question Do you have trouble paying for medicines?: Yes Do you have trouble getting transportation to medical appointments?: I choose not to answer this question Do you have trouble paying your heating and electricity bill?: Yes Do you have trouble taking care of your child, family member or friend?: No Do you have trouble with day-to-day activities such as bathing, preparing meals, shopping, managing finances, etc.?: Yes Are you currently unemployed and looking for a job?: No Are you interested in more education?: No Please select the resources that you would like help with: None Currently or been in a relationship where the following occur: No concerns reported THRIVE Score: 1 AUDIT C Alcohol Use Questionnaire (AUDIT-C) 1. How often do you have a drink containing alcohol?: Monthly or less 2. How many drinks containing alcohol do you have on a typical day when you are drinking?: 1 or 2 3. How often do you have six or more drinks on one occasion?: Never Total Score: 1 GIBSON-7 AMB Questionnaire GIBSON-7 Date GIBSON - 7 assessed: 10/28/23 Feeling nervous, anxious, or on edge: 3 = Nearly every day Not being able to stop or control worryin = Nearly every day Worrying too much about different things: 3 = Nearly every day Trouble relaxin = Nearly every day Being so restless that it is hard to sit still: 3 = Nearly every day Becoming easily annoyed or irritable: 3 = Nearly every day Feeling afraid as if something awful might happen: 0 = Not at all Total GIBSON-7 score (0-4 normal; 5-9 mild; 10-14 moderate; 15-21 severe): 18 Source: Developed by Drs. Kade Prince, Meghan Montero, Michael Zuniga and colleagues, with an educational manoj from [employer]. Physical exam (Primary Care) Vital Signs: Last Vital Signs Temp 98.4 F 04/23/24 10:27 Pulse 74 04/23/24 10:27 Resp 14 04/23/24 10:27 BP 136/98 H 04/23/24 10:28 Pulse Ox 99 04/23/24 10:27 Oxygen Delivery Method Room Air 04/23/24 10:27 BMI result Body Mass Index 36.4 Tobacco/Smoking Status: Tobacco use Status Tobacco use date assessed 10/28/23 04/23/24 10:30 Patient Tobacco Use Status Never used Tobacco 04/23/24 10:30 e-Cigarette/Vaping Use Never Used 04/23/24 10:30 PHQ-9: PHQ-9 Score PHQ-9: Total score 18 04/23/24 10:30 Thrive Assessment: Date of Thrive Assessment Date Thrive assessed 10/28/23 04/23/24 10:30 Currently or been in a relationship where the following occur: No concerns reported Const Orientation/consciousness: patient oriented x3 HENMT Other: TMs dome-shaped a small air-fluid levels bilaterally. Nasal mucosa erythematous and edematous. Purulent drainage noted. Maxillary sinus tenderness present. Ears: hearing grossly normal bilaterally Neck Thyroid: Thyroid normal Lymphatic: no lymphadenopathy noted Resp Auscultation: clear to auscultation bilaterally Cardio Rate: regular rate Rhythm: regular rhythm Heart sounds: S1 normal heart sound present and S2 normal heart sound present GI Inspection: Yes normal to inspection Palpation (GI): Soft to palpation and Other GI palpation findings present (nontender, no cva tenderness) Auscultation: normoactive bowel sounds Rectal Exam - Female: deferred Skin General skin exam: no rashes or lesions noted Neuro General: patient oriented x3, gait normal and no focal motor deficits Results Reviewed Results Reviewed: Laboratory Tests 12/28/23 12/30/23 08:06 12:11 WBC 9.2 RBC 4.58 Hgb 14.1 Hct 41.8 Plt Count 225 Creatinine 0.69 Estimated GFR > 60 Hemoglobin A1c % 7.0 H AST 17 ALT 21 Cholesterol 139 LDL Cholesterol, Calc 73 HDL Cholesterol 43 Coding Level of Care Code Est Pt Level 5 (40023) Complex EM visit Add On G2211 Diagnoses Uncontrolled type 2 diabetes mellitus with hyperglycemia, with long-term current use of insulin E11.65; Z79.4 HTN (hypertension), benign I10 Acquired hypothyroidism E03.9 Hypothyroidism type: acquired Dysphagia R13.10 GERD (gastroesophageal reflux disease) K21.9 Bacterial sinusitis J32.9; B96.89 Assessment & Plan Assessment & Plan (1) Uncontrolled type 2 diabetes mellitus with hyperglycemia, with long-term cur rent use of insulin: Code(s): E11.65 - Type 2 diabetes mellitus with hyperglycemia; Z79.4 - intermission coordinator (current) use of insulin Category: Medical Plan: 50 minutes spent today in [id number] time with patient reviewing a list of her concerns, reconciling medications, reviewing her last labs, discussing her diabetes, diet changes, the pathophysiology of diabetes in the differences between type 1 and type 2 diabetes. We also reviewed signs and symptoms of hypo and hyperglycemia. Reviewed risks of complications associated with diabetes including neuropathy, increased risk of stroke, heart attack, blindness, infection, amputations etc. We will switch from Lantus to Toujeo. Sam 3 ordered. We will start Ozempic. Discussed risks and benefits and adverse effects such as nausea, vomiting, increased risk of pancreatitis. Continue metformin. Short term follow up in a couple of weeks. Sooner if needed. Reviewed again signs and symptoms of hyper and hypoglycemia that would require emergent medical treatment. Diabetic labs ordered. (2) HTN (hypertension), benign: Code(s): I10 - Essential (primary) hypertension Category: Medical Plan: Increase lisinopril to 40 mg. Continue metoprolol. (3) Hypothyroidism: Code(s): E03.9 - Hypothyroidism, unspecified Category: Medical Qualifiers: Hypothyroidism type: acquired Qualified Code(s): E03.9 - Hypothyroidism, unspecified Plan: We will recheck. (4) Dysphagia: Code(s): R13.10 - Dysphagia, unspecified Category: Medical Plan: Barium swallow ordered. Referral to GI. (5) GERD (gastroesophageal reflux disease): Code(s): K21.9 - Gastro-esophageal reflux disease without esophagitis Category: Medical Plan: As above. (6) Bacterial sinusitis: Code(s): J32.9 - Chronic sinusitis, unspecified; B96.89 - Other specified bacterial agents as the cause of diseases classified elsewhere Plan: We will start on Flonase and Augmentin. Discussed risks and benefits and adverse effects of this medication including GI upset. Orders: Orders Hemoglobin A1c Today E03.9 - Hypothyroidism, unspecified, E11.65 - Type 2 diabetes mellitus with hyperglycemia, I10 - Essential (primary) hypertension, R13.10 - Dysphagia, unspecified, Z79.4 - intermission coordinator (current) use of insulin Comprehensive Met. Panel Today E03.9 - Hypothyroidism, unspecified, E11.65 - T ype 2 diabetes mellitus with hyperglycemia, I10 - Essential (primary) hypertension, R13.10 - Dysphagia, unspecified, Z79.4 - intermission coordinator (current) use of insulin Complete Blood Count Auto Diff Today E03.9 - Hypothyroidism, unspecified, E11.65 - Type 2 diabetes mellitus with hyperglycemia, I10 - Essential (primary) hypertension, R13.10 - Dysphagia, unspecified, Z79.4 - intermission coordinator (current) use of insulin TSH reflex Free T4 Today E03.9 - Hypothyroidism, unspecified, E11.65 - Type 2 diabetes mellitus with hyperglycemia, I10 - Essential (primary) hypertension, R13.10 - Dysphagia, unspecified, Z79.4 - residential (current) use of insulin B Type Natriuretic Peptide Today E03.9 - Hypothyroidism, unspecified, E11.65 - Type 2 diabetes mellitus with hyperglycemia, I10 - Essential (primary) hypertension, R13.10 - Dysphagia, unspecified, Z79.4 - intermission coordinator (current) use of insulin FL barium swallow Today E03.9 - Hypothyroidism, unspecified, E11.65 - Type 2 diabetes mellitus with hyperglycemia, I10 - Essential (primary) hypertension, R13.10 - Dysphagia, unspecified, Z79.4 - residential (current) use of insulin Referrals Gastroenterology Referral K21.9 - Gastro-esophageal reflux disease without esophagitis, R13.10 - Dysphagia, unspecified Medications: New blood-glucose sensor (FreeStyle Sam 3 Sensor device) Apply every 14 days As directed to monitor blood glucose 2 ea 11RF E11.9 - Type 2 diabetes mellitus without complications, Z79.4 - intermission coordinator (current) use of insulin duloxetine 60 mg PO DAILY 90 caps 3RF fluticasone propion-salmeterol 100-50 mcg/dose (Advair Diskus) 1 inh inhalation BID 60 ea 11RF lisinopril 40 mg PO DAILY 90 tabs 2RF amoxicillin-pot clavulanate 875-125 mg 1 tab PO BID 20 tabs 0RF fluoxetine 40 mg PO DAILY 90 caps 3RF insulin glargine U-300 conc (Toujeo Max U-300 SoloStar) 60 units (0.2 mL) subcut DAILY 6 mL 5RF pen needle, diabetic (BD Haleigh 2nd Gen Pen Needle) use daily As directed 100 ea 3RF E11.65 - Type 2 diabetes mellitus with hyperglycemia, Z79.4 - residential (current) use of insulin metformin 1,000 mg PO BID 180 tabs 3RF semaglutide (Ozempic) for 4 weeks 0.25 mg (0.368 mL) subcut QWEEK 3 mL 1RF fluticasone propionate 50 mcg/actuation (Flonase Allergy Relief) administer into each nostril 1 spray intranasal BID 16 grams 0RF Changed From baclofen 10 mg PO TID To baclofen 10 mg PO BID 60 tabs 11RF From buspirone 10 mg PO BID To buspirone 10 mg PO BID 90 days 180 tabs 3RF From hydroxyzine HCl PO To hydroxyzine HCl 50 mg PO DAILY 90 tabs 3RF From levothyroxine PO To levothyroxine 50 mcg PO DAILY 90 tabs 3RF From metoprolol tartrate 50 mg PO BID To metoprolol tartrate 25 mg PO BID 90 days 180 tabs 3RF From atorvastatin PO To atorvastatin 40 mg PO QPM 90 days 90 tabs 3RF From meloxicam PO To meloxicam 7.5 mg PO DAILY 90 tabs 3RF From pregabalin PO To pregabalin 200 mg PO BID 90 days 180 caps 2RF From albuterol sulfate 90 mcg/actuation (Ventolin HFA) inhalation To albuterol sulfate 90 mcg/actuation (Ventolin HFA) 2 puffs inhalation Q8H PRN 8.5 grams 2RF shortness of breath or wheezing From pregabalin 200 mg PO BID 90 days 180 caps 2RF To pregabalin 200 mg PO BID 30 days 60 caps 2RF Refilled diclofenac sodium 1% (Voltaren Arthritis Pain) apply to single knee, ankle, foot; for foot includes sole/toes/top of foot 4 grams topical QID 100 grams 3RF Discontinued blood-glucose sensor (Dexcom G7 Sensor device) Discontinued Reason: Doctor's Order As directed 3 ea 6RF E11.42 - Type 2 diabetes mellitus with diabetic polyneuropathy, E11.65 - Type 2 diabetes mellitus with hyperglycemia, Z79.4 - intermission coordinator (current) use of insulin blood-glucose meter,continuous (Dexcom G7 Preventive Medicine Officer) Discontinued Reason: Doctor's Order As directed 1 ea 0RF E11.42 - Type 2 diabetes mellitus with diabetic polyneuropathy, E11.65 - Type 2 diabetes mellitus with hyperglycemia, Z79.4 - intermission coordinator (current) use of insulin tirzepatide (Mounjaro) Discontinued Reason: Doctor's Order 2.5 mg (0.5 mL) subcut QWEEK 4 weeks 2 mL 3RF
[2024-04-23 10:27] VITALS: BP 134/98; PULSE 74; RESP 14; TEMP 36.9; O2SAT 99; BMI 36.4
[2024-04-23 10:28] VITALS: BP 136/98
== END 2024-04-23 11:16 | disposition home or self-care (01) ==
PROVIDERS: PCP Physician Assistant; Visit Provider Physician Assistant
DX: E11.65 Type 2 diabetes mellitus with hyperglycemia (principal); Z79.4 Long term (current) use of insulin; I10 Essential (primary) hypertension; E03.9 Hypothyroidism, unspecified; R13.10 Dysphagia, unspecified; K21.9 Gastro-esophageal reflux disease without esophagitis; J32.9 Chronic sinusitis, unspecified; B96.89 Other specified bacterial agents as the cause of diseases classified elsewhere

== ENCOUNTER → 2024-04-23 10:09 | Outpatient (BNVA) | payer MEDICARE, MEDICAID, SELFPAY | PROVIDERS: PCP Physician Assistant; Visit Provider Physician Assistant | DX: E11.65 Type 2 diabetes mellitus with hyperglycemia (principal); I10 Essential (primary) hypertension; E03.9 Hypothyroidism, unspecified; R13.10 Dysphagia, unspecified; K21.9 Gastro-esophageal reflux disease without esophagitis; J32.9 Chronic sinusitis, unspecified; B96.89 Other specified bacterial agents as the cause of diseases classified elsewhere; Z79.4 Long term (current) use of insulin | CPT/HCPCS: 36415; 80053; 82607; 82746; 83036; 83735; 83880; 83921; 84443; 85025; 86618; 96127; 99212 ==

== ENCOUNTER 2024-04-23 11:29 | Outpatient (REF) | payer MEDICARE, MEDICAID, SELFPAY ==
[2024-04-23 14:07] LABS: MANUAL DIFF FLAG NO
[2024-04-23 14:09] LABS: Basophils Percent Auto 0.3 % (0-2); Eosinophils Percent Auto 0.4 % (0-4); Hematocrit 42.9 % (37.0-47.0); Hemoglobin 14.7 g/dl (12.0-16.0); Imm Gran Abs Auto 0.02 X10*3/uL (0.00-0.03); Imm Gran Pct Auto 0.2 % (0.0-0.4); Lymphocytes Absolute Auto 3.2 X10*3/uL (1.2-4.9); Lymphocytes Percent Auto 31.4 % (20-40); Mean Corpuscular HGB Conc 34.3 g/dl (31.0-35.0); Mean Corpuscular Hemoglobin 31.1 pg (27.0-33.0); Mean Corpuscular Volume 90.9 fL (80.0-98.0); Mean Platelet Volume 10.6 fL (9.4-12.3); Monocytes Absolute Auto 0.5 X10*3/uL (0.1-1.2); Monocytes Percent Auto 4.7 % (2-11); Neutrophils Absolute Auto 6.3 x10*3/uL (2.0-8.3); Platelet Count 249 X10*3/uL (160-400); Red Blood Count 4.72 X10*6/uL (4.20-5.50); Red Cell Distribution Width 12.1 % (11.0-16.0); White Blood Count 10.1 X10*3/uL (4.8-10.8)
[2024-04-23 14:24] LABS: Estimated Average Glucose 174 mg/dL; Hemoglobin A1C 228.7983 umol/L; Hemoglobin A1c % 7.7 % (<6.0); Total Hemoglobin (HGBA1C) 3752.0872 umol/L
[2024-04-23 14:26] LABS: Alanine Aminotransferase 21 U/L (0-31); Albumin Level 4.1 g/dL (3.5-5.0); Alkaline Phosphatase 77 U/L (39-117); Anion Gap 12 (12-20); Aspartate Amino Transferase 15 U/L (5-31); Bilirubin Total 1.7 mg/dL (0.0-1.0); Blood Urea Nitrogen 7 mg/dL (9-16); Carbon Dioxide 28 mmol/L (22-29); Chloride 101 mmol/L (96-108); Estimated Glomerular Filt Rate > 60; Glucose Random 239 mg/dL (60-115); Magnesium 1.6 mg/dL (1.6-2.6); Potassium 3.8 mmol/L (3.3-5.1); Sodium 137 mmol/L (135-145); Total Protein 7.1 g/dL (6.5-8.0)
[2024-04-23 14:36] LABS: B Type Natriuretic Peptide 31 pg/mL (<100)
[2024-04-23 14:56] LABS: Folate 4.6 ng/mL (> or = 4.0); Vitamin B12 525 pg/mL (200-900)
[2024-04-25 03:18] LABS: Lyme Abs Screen <0.90 index
[2024-04-27 08:14] LABS: Methylmalonic Acid 130 nmol/L (55-335)
== END 2024-04-23 11:30 | disposition home or self-care (01) ==
LOC: HO.WFDLDS 11:29
PROVIDERS: Referring Provider Nurse Practitioner Family; Visit Provider Physician Assistant
DX: Z13.89 Encounter for screening for other disorder (principal)
CPT/HCPCS: 36415; 80053; 82607; 82746; 83036; 83735; 83880; 83921; 84443; 85025; 86617; 86618

== ENCOUNTER 2024-05-07 15:06 | Outpatient (AMB) | payer MEDICARE, MEDICAID, SELFPAY ==
--- NOTE | 2024-05-07 09:05 | A.OFFVIS_ITS ---
Vital Signs 05/07/24 15:13 Height 5 ft 2 in Weight 196 lb 3.382 oz BMI 35.9 BP 142/90 H Blood Pressure Location Rt brachial Position Sitting Pulse 99 Pulse Source Pulse Oximeter Intake Visit Reasons: T2DM/CONFIRMED Intake Note: NEW Patient presents today to establish treatment for Type 2 Diabetes Mellitus: Last Diabetic eye exam was on: 03/07/2024, Diabetes, next appt June Last Podiatry exam was on: Does not see a Data Management Manager Most recent HbA1c: 7.7%, 04/23/2024 Random Glucose- 117 mg/dL, Today Office Analyst Required: No Accompanied by: Self / Same As Patient Allergies peanuts Allergy (Mild, Uncoded 05/07/24 15:15) itch in throat shell fish Allergy (Mild, Uncoded 05/07/24 15:15) itch in throat HPI Comments Details: [age] YO female who is seen in consultation for T2DM at the request of PCP. Lantus insulin was recently changed to Toujeo by her PCP. most recent A1c 04/23/24 7.7% up from 7% earlier in the year. Initially diagnosed with T2DM 19 years ago gestational never went away Was initially started on treatment with: Metformin, trulicity ineffective and had nausea, diarrhea, fatigue and felt poorly. mounjaro: issues with insurance coverage:had worked well and was able to get A1C from 11% down to 7%. She was on this until mid February and glucose readings were in good control. Then was not able to get Mounjaro. She started trulicity again and is again having side effects. A prescription for ozempic was written by her PCP and that was not covered. Current regimen: Toujeo 60 units Metformin 1000 mg b.i.d. Running 200 average Reports low sugars never Has glucose tablets in case of low. Family history of T2DM in multiple relatives Has retinopathy: last eye exam 02/2024 to see if she may need laser treatment [Denies ] neuropathy, last foot exam today, sees podiatry. No nephropathy, on ENRIQUE-inhibitor Microalbumin 21.0 as measured on 12/2023. EGFR>60 04/2024 Has HLD, on statin. Last LDL 73 as measured on 12/30/2023. [Denies] CAD. Diet:trys to balance PFSH Medical History Elevated bilirubin Renal cyst, left Hypothyroidism Claudication of both lower extremities GERD with esophagitis Major depression, recurrent, chronic Insomnia Fibromyalgia Hyperlipidemia Fatty liver Poorly controlled type 2 diabetes mellitus with peripheral neuropathy Uncontrolled type 2 diabetes mellitus with hyperglycemia, with long-term current use of insulin Mild intellectual disability Bilateral hearing loss HTN (hypertension), benign Migraines Chronic low back pain with bilateral sciatica Chronic neck pain Mild persistent asthma in adult without complication Generalized anxiety disorder with panic attacks Family History Mother HTN (hypertension) Diabetes Father HTN (hypertension) Hypercholesteremia Diabetes Cardiovascular disease Maternal Grandmother Cardiovascular disease Skin cancer Anxiety Depression Maternal Grandmother Lung cancer Other FHx: mental illness Social History Housing: Apartment Patient Tobacco Use Status: Never used Tobacco e-Cigarette/Vaping Use: Never Used Second Hand Smoke Exposure: No service: No Current occupational status: disabled Cognitive needs: No Hearing needs: Yes Vision needs: No Physical Exam Vital Signs: Last Vital Signs Pulse 99 05/07/24 15:13 BP 142/90 H 05/07/24 15:13 BMI result Body Mass Index 35.9 Absence of Cushingoid features. Absence of acromegalic features. Neck exam reveals nl size thyroid about 15 gms. No thyroid nodules palpable. No carotid bruits present. Lungs CTA. Heart S1 S2, Reg R/R. No M/R/ G. Skin exam reveals absence of vitiligo or acanthosis nigricans. Abdominal exam reveals Soft NT/ND with NA BS. No organomegaly present. Const Other: Absence of Cushingoid features. Absence of acromegalic features. Neck exam reveals nl size thyroid about 15 gms. No thyroid nodules palpable. No carotid bruits present. Lungs CTA. Heart S1 S2, Reg R/R. No M/R G. Skin exam reveals absence of vitiligo or acanthosis nigricans. No edema Visual exam of foot performed. No ulcerations or open lesions. No inter digit maceration or fissuring. No onychomycosis, no callouses. Sensation intact to monofilament exam. Vibratory sensation is normal with 128 Hz tuning fork. Neck Other: . Extrem Other: Visual exam of foot performed. No ulcerations or open lesions. No onchomycosis, no callouses.Pulses 2 + distally Sensation intact to monofilament exam. Vibratory sensation sensed is intact with 128 Hz tuning fork Results Reviewed Results Reviewed: Laboratory Last Values Glucose (Clinic) 117 mg/dL (60-115) H 05/07/24 15:20 Assessment & Plan Assessment & Plan (1) Uncontrolled type 2 diabetes mellitus with hyperglycemia, with long-term current use of insulin: Code(s): E11.65 - Type 2 diabetes mellitus with hyperglycemia; Z79.4 - cloth washer back tender (current) use of insulin Category: Medical Plan: 44-year-old type 2 diabetic with retinopathy who previously was well controlled with an A1c of 7% on Mounjaro. Pre Mounjaro her A1c was 11%. Her A1c is again creeping upward in his at 7.7%. We will start the patient on Mounjaro and see her back in 2 months' time. The patient had an opportunity to ask questions regarding treatment plan. The patient expressed understanding and agreement with the above treatment plan. The patient is aware they should contact our office by phone for worsening glucose readings or for any low blood sugars which may warrant a change in diabetes medication. Compliance is encouraged with medications and any followup testing/consults which may have been ordered. Medications: New tirzepatide (Mounjaro) 5 mg (0.5 mL) subcut QWEEK 2 mL 11RF 28 days Discontinued semaglutide (Ozempic) for 4 weeks Discontinued Reason: Doctor's Order 0.25 mg (0.368 mL) subcut QWEEK 3 mL 1RF Patient Instructions: The patient was counseled to achieve a target A1C of 7% (154 avg). Fasting blood sugars should be 90-130 in the morning and less than 180 two hours after meals. Reviewed the relationship between poor diabetic control and the development of complications. The patient was counseled to always carry a source of sugar and on the rule of 15's: Take 3 glucose tablets and repeat again in 15 minutes if blood sugar is not in normal range. Continue to repeat every 15 minutes until blood sugar is normal. Coding Level of Care Code Est Pt Level 5 (70988) Complex EM visit Add On G2211 Diagnoses Uncontrolled type 2 diabetes mellitus with hyperglycemia, with long-term current use of insulin E11.65; Z79.4 Time Spent (min) 50 Comment Time spent reviewing labs/provider notes, face to face, chart doc
[2024-05-07 15:13] VITALS: BP 142/90; PULSE 99; BMI 35.9
[2024-05-07 15:25] LABS: Glucose, Whole Blood 117 mg/dL (60-115)
== END 2024-05-07 15:48 | disposition home or self-care (01) ==
PROVIDERS: PCP Physician Assistant; Visit Provider Nurse Practitioner Adult Health
DX: E11.65 Type 2 diabetes mellitus with hyperglycemia (principal); Z79.4 Long term (current) use of insulin
CPT/HCPCS: 99215; G2211

== ENCOUNTER → 2024-05-07 15:06 | Outpatient (BNVA) | payer MEDICARE, MEDICAID, SELFPAY | PROVIDERS: PCP Physician Assistant; Visit Provider Nurse Practitioner Adult Health | DX: E11.65 Type 2 diabetes mellitus with hyperglycemia (principal); Z79.4 Long term (current) use of insulin | CPT/HCPCS: 82947; 99212 ==

== ENCOUNTER → 2024-05-20 14:33 | Outpatient (REF) | payer MEDICARE, MEDICAID, SELFPAY | LOC: HO.SL 14:33 | PROVIDERS: PCP Physician Assistant; Visit Provider Nurse Practitioner Family | DX: G47.10 Hypersomnia, unspecified (principal); R06.81 Apnea, not elsewhere classified; R06.83 Snoring; R53.83 Other fatigue; G47.9 Sleep disorder, unspecified | CPT/HCPCS: 95806 ==

== ENCOUNTER → 2024-05-20 14:41 | Outpatient (BNV) | payer MEDICARE, MEDICAID, SELFPAY | PROVIDERS: PCP Physician Assistant; Visit Provider Psychiatry & Neurology Neurology | DX: R06.83 Snoring (principal) | CPT/HCPCS: 95806 ==

== ENCOUNTER 2024-07-29 10:48 | Outpatient (REF) | payer MEDICARE, MEDICAID, SELFPAY ==
--- NOTE | ~2024-07-29 | XR_ITS ---
CLINICAL HISTORY: M54.2 - Cervicalgia 5 views cervical spine Comparison: None Findings: Normal alignment. No acute fractures or dislocation. No significant degenerative change. No prevertebral soft tissue swelling. IMPRESSION: No acute findings. This document has been electronically signed by: Federico Catalan MD on 07/31/2024 07:58:14
== END 2024-07-29 10:49 | disposition home or self-care (01) ==
LOC: HO.XRAY 10:48
PROVIDERS: PCP Physician Assistant; Visit Provider Physician Assistant
DX: M54.2 Cervicalgia (principal); G89.29 Other chronic pain; M54.12 Radiculopathy, cervical region; M62.81 Muscle weakness (generalized); E11.65 Type 2 diabetes mellitus with hyperglycemia; E11.42 Type 2 diabetes mellitus with diabetic polyneuropathy
CPT/HCPCS: 72040; 96127; 99212

== ENCOUNTER 2024-07-29 10:48 | Outpatient (AMB) | payer MEDICARE, MEDICAID, SELFPAY ==
--- NOTE | 2024-07-29 11:00 | MHC.PC.OV ---
Vital Signs 07/29/24 11:02 Height 5 ft 2 in Weight 192 lb 2 oz BMI 35.1 BP 124/80 Blood Pressure Location Rt brachial Position Sitting Pulse 77 Pulse Source Pulse Oximeter Pulse Oximetry (%) 97 Oxygen Delivery Method Room Air Intake Visit Reasons: Sick visit Intake Note: Neck pain Non Destructive Evaluation Manager Required: No Allergies peanuts Allergy (Mild, Uncoded 07/29/24 11:01) itch in throat shell fish Allergy (Mild, Uncoded 07/29/24 11:01) itch in throat Medication List - Last Reconciled 07/29/24 by Bettie Day PA-C [accu-check compact lancets ] albuterol sulfate 90 mcg/actuation (Ventolin HFA) 2 puffs inhalation Q8H PRN albuterol sulfate 2.5 mg (3 mL) inhalation Q4-6H PRN atorvastatin 40 mg PO QPM 90 days baclofen 10 mg PO BID blood-glucose meter (Eqalixuch Ultra2 Meter) As directed blood-glucose sensor (FreeStyle Sam 3 Sensor device) Apply every 14 days As directed to monitor blood glucose buspirone 10 mg PO BID 90 days compressor, for nebulizer use As directed diclofenac sodium 1% (Voltaren Arthritis Pain) 4 grams topical QID duloxetine 60 mg PO DAILY epinephrine IM fluoxetine 40 mg PO DAILY fluticasone furoate-vilanterol 100-25 mcg/dose (Breo Ellipta) 1 inh inhalation DAILY 30 days fluticasone propionate 50 mcg/actuation 1 spray intranasal BID [freestyle lancets ] [freestyle monitor ] [freestyle test strips ] galcanezumab-gnlm (Emgality Pen) 240 mg (2 mL) subcut ONCE 30 days galcanezumab-gnlm (Emgality Pen) 120 mg subcut ONCE 30 days glucose 16 grams (4 x 4 gram) PO Q15M PRN hydroxyzine HCl 50 mg PO DAILY insulin glargine U-300 conc (Toujeo Max U-300 SoloStar) 60 units (0.2 mL) subcut DAILY levothyroxine 50 mcg PO DAILY lidocaine 5% patches topical lisinopril 40 mg PO DAILY magnesium oxide 400 mg PO BEDTIME 30 days meloxicam 7.5 mg PO DAILY metformin 1,000 mg PO BID metoprolol tartrate 25 mg PO BID 90 days nebulizer accessories use As directed omeprazole 20 mg PO BID pen needle, diabetic (BD Haleigh 2nd Gen Pen Needle) use daily As directed pregabalin 200 mg PO BID 30 days riboflavin (vitamin B2) 400 mg PO DAILY 30 days tramadol 50 mg PO DAILY PRN 30 days ubrogepant (Ubrelvy) 50 - 100 mg (0.5 - 1 x 100 mg) PO ONCE PRN 30 days Tobacco use date assessed: 10/28/23 Dental Screening Dental Screen Date: 10/28/23 HPI Sick visit HPI Details Patient is a 44-year-old female who presents today for an acute problem visit. She states that she has been experiencing an increase in her chronic neck pain. She complains today of neck pain that is radiating down her left arm. She denies any injury. She states it started the last couple weeks and has been worsening. She is following physiatry ([facility]) but has not seen them since summer time. She states that she can move her arm but at times it just feels weak and she thinks it is due to the pain. At times she is also getting numbness and tingling. No persistent symptoms. It does not appear to be affecting the right side. No chest pain or shortness on breath. She states a few years [facility] showed a pinched nerve from the cervical region. Her pain is at baseline managed with baclofen intermittently, tramadol once a day if needed, Lyrica 200 mg twice a day and meloxicam 7.5 mg. Endo: States that her blood sugars are around ?high 100s . She is tolerating the Mounjaro well at the 5 mg. She has noticed some weight loss with this. She is compliant with Toujeo 60 units, metformin 1000 mg twice a day. Denies any hypoglycemic events. CV: Blood pressure today in the office is 124/80. She is still compliant with the lisinopril 40 mg. Cholesterol is controlled with atorvastatin 40 mg. [facility] Medical History Elevated bilirubin Renal cyst, left Hypothyroidism Claudication of both lower extremities GERD with esophagitis Major depression, recurrent, chronic Insomnia Fibromyalgia Hyperlipidemia Fatty liver Poorly controlled type 2 diabetes mellitus with peripheral neuropathy Uncontrolled type 2 diabetes mellitus with hyperglycemia, with long-term current use of insulin Mild intellectual disability Bilateral hearing loss HTN (hypertension), benign Migraines Chronic low back pain with bilateral sciatica Chronic neck pain Mild persistent asthma in adult without complication Generalized anxiety disorder with panic attacks Family History Mother HTN (hypertension) Diabetes Father HTN (hypertension) Hypercholesteremia Diabetes Cardiovascular disease Maternal Grandmother Cardiovascular disease Skin cancer Anxiety Depression Maternal Grandmother Lung cancer Other FHx: mental illness Social History (Updated 07/29/24 @ 11:07 by Shandra Strickland CMA) Housing: Apartment Alcohol intake: never Patient Tobacco Use Status: Never used Tobacco e-Cigarette/Vaping Use: Never Used Second Hand Smoke Exposure: No service: No Current occupational status: disabled Cognitive needs: No Hearing needs: Yes Vision needs: No Questionnaire PHQ-9 Over the last 2 weeks, how often have you been bothered by any of the following problems? 1. Little interest or pleasure in doing things: nearly every day 2. Feeling down, depressed, or hopeless: more than half the days 3. Trouble falling or staying asleep, or sleeping too much: nearly every day 4. Feeling tired or having little energy: nearly every day 5. Poor appetite or overeating: several days 6. Feeling bad about yourself - or that you are a failure or have let yourself or your family down: more than half the days 7. Trouble concentrating on things, such as reading the newspaper or watching television: nearly every day 8. Moving or speaking so slowly that other people could have noticed. Or the opposite - being so fidgety or restless that you have been moving around a lot more than usual: more than half the days 9. Thoughts that you would be better off or of hurting yourself in some way: not at all Total score: 19 Depression Screening Interpretation: Positive Depression Screening Done: Yes [id number] - PHQ-9 Billing: Yes Source: Developed by Drs. Kade Prince, Meghan Montero, Michael Zuniga and colleagues, with an educational manoj from [employer]. Thrive Questionnaire Date Thrive assessed: 07/29/24 I am a: Patient What is your living situation today?: I have a steady place to live Within the past 12 months, did the food you bought not last and you didn't have the money to get more?: Sometimes True Within the past 12 months, did you worry whether your food would run out before you got money to buy more?: Sometimes True Do you have trouble paying for medicines?: Yes Do you have trouble getting transportation to medical appointments?: Yes Do you have trouble paying your heating and electricity bill?: Yes Do you have trouble taking care of your child, family member or friend?: No Do you have trouble with day-to-day activities such as bathing, preparing meals, shopping, managing finances, etc.?: Yes Are you currently unemployed and looking for a job?: Yes Are you interested in more education?: No Please select the resources that you would like help with: None Currently or been in a relationship where the following occur: No concerns reported THRIVE Score: 4 AUDIT C Alcohol Use Questionnaire (AUDIT-C) 1. How often do you have a drink containing alcohol?: Never Total Score: 0 GIBSON-7 AMB Questionnaire GIBSON-7 Date GIBSON - 7 assessed: 07/29/24 Feeling nervous, anxious, or on edge: 3 = Nearly every day Not being able to stop or control worryin = Nearly every day Worrying too much about different things: 3 = Nearly every day Trouble relaxin = Nearly every day Being so restless that it is hard to sit still: 3 = Nearly every day Becoming easily annoyed or irritable: 3 = Nearly every day Feeling afraid as if something awful might happen: 1 = Several days Total GIBSON-7 score (0-4 normal; 5-9 mild; 10-14 moderate; 15-21 severe): 19 Source: Developed by Drs. Kade Prince, Meghan Montero, Michael Zuniga and colleagues, with an educational manoj from [employer]. GIBSON-7 Assessment Billing GIBSON-7 Assessment Tool: GIBSON-7 Assessment 59089 Physical exam (Primary Care) Vital Signs: Last Vital Signs Pulse 77 07/29/24 11:02 BP 124/80 07/29/24 11:02 Pulse Ox 97 07/29/24 11:02 Oxygen Delivery Method Room Air 07/29/24 11:02 BMI result Body Mass Index 35.1 Tobacco/Smoking Status: Tobacco use Status Tobacco use date assessed 10/28/23 07/29/24 11:07 Patient Tobacco Use Status Never used Tobacco 07/29/24 11:07 e-Cigarette/Vaping Use Never Used 07/29/24 11:07 PHQ-9: PHQ-9 Score PHQ-9: Total score 19 07/29/24 11:07 Depression Screening Interpretation: Positive Thrive Assessment: Date of Thrive Assessment Date Thrive assessed 07/29/24 07/29/24 11:07 Currently or been in a relationship where the following occur: No concerns reported Const Orientation/consciousness: patient oriented x3 HENMT Ears: hearing grossly normal bilaterally Neck Neck: Yes normal visual inspection and Yes full ROM Thyroid: Thyroid normal Lymphatic: no lymphadenopathy noted Resp Auscultation: clear to auscultation bilaterally Cardio Rate: regular rate Rhythm: regular rhythm Heart sounds: S1 normal heart sound present and S2 normal heart sound present GI Inspection: Yes normal to inspection Palpation (GI): Soft to palpation and Other GI palpation findings present (nontender, no cva tenderness) Auscultation: normoactive bowel sounds Rectal Exam - Female: deferred Back/Spine/Pelvis Other: DTRs of the upper extremities are intact. There is full range of motion of the bilateral upper extremities. Strength of the left upper extremity when compared to the left is 4/5. Community Leader strength is 4/5. Sensation intact. Radial pulses 2+ bilaterally Cervical Spine: cervical ROM normal, cervical muscular tenderness and No Cervical spine tenderness Skin General skin exam: no rashes or lesions noted Neuro General: patient oriented x3, gait normal and no focal motor deficits Coding Level of Care Code Est Pt Level 4 (74142) Complex EM visit Add On G2211 Diagnoses Chronic neck pain M54.2; G89.29 Muscle weakness of left upper extremity M62.81 Poorly controlled type 2 diabetes mellitus with peripheral neuropathy E11.42; E11.65 Additional Codes GIBSON-7 Assessment Billing - GIBSON-7 Assessment Tool: GIBSON-7 Assessment 28503 ([id number]) PHQ-9 - 27931 - PHQ-9 Billing: Yes ([id number]) Assessment & Plan Assessment & Plan (1) Chronic neck pain: Code(s): M54.2 - Cervicalgia; G89.29 - Other chronic pain Category: Medical Plan: X-ray ordered today. We will try prednisone taper. Did discuss that this can elevate her blood sugars and to monitor this closely. I have advised her to contact her software quality automation engineer. (2) Muscle weakness of left upper extremity: Code(s): M62.81 - Muscle weakness (generalized) Category: Medical Plan: MRI ordered of the neck. (3) Poorly controlled type 2 diabetes mellitus with peripheral neuropathy: Code(s): E11.42 - Type 2 diabetes mellitus with diabetic polyneuropathy; E11.65 - Type 2 diabetes mellitus with hyperglycemia Category: Medical Plan: Increase Mounjaro. Continue regimen otherwise Plan Short term follow up within 1 month. Sooner if anything worsens or changes. Orders: Orders XR cervical spine 3V Today M54.2 - Cervicalgia MR cervical spine wo con Today M54.12 - Radiculopathy, cervical region, M62.81 - Muscle weakness (generalized) Medications: New prednisone take 3 tab po x 3 days, take 2 tab po x 3 days, 1 tab po x 3 days 18 tabs 0RF tirzepatide (Mounjaro) 7.5 mg (0.5 mL) subcut QWEEK 2 mL 4RF Changed From tramadol 50 mg PO DAILY 30 days PRN 30 tabs 0RF pain To tramadol 50 mg PO Q12H 30 days PRN 60 tabs 0RF pain Refilled tramadol 50 mg PO DAILY 30 days PRN 30 tabs 0RF pain Discontinued baclofen Discontinued Reason: Doctor's Order 10 mg PO BID 60 tabs 11RF
[2024-07-29 11:02] VITALS: BP 124/80; PULSE 77; O2SAT 97; BMI 35.1
== END 2024-07-29 12:02 | disposition home or self-care (01) ==
PROVIDERS: PCP Physician Assistant; Visit Provider Physician Assistant
DX: M54.2 Cervicalgia (principal); G89.29 Other chronic pain; M62.81 Muscle weakness (generalized); E11.42 Type 2 diabetes mellitus with diabetic polyneuropathy; E11.65 Type 2 diabetes mellitus with hyperglycemia

== ENCOUNTER → 2024-07-29 12:35 | Outpatient (BNV) | payer MEDICARE, MEDICAID, SELFPAY | PROVIDERS: PCP Physician Assistant; Visit Provider Specialist | DX: M54.2 Cervicalgia (principal) | CPT/HCPCS: 72040 ==

== ENCOUNTER 2024-08-11 17:36 | Outpatient (REF) | payer MEDICARE, MEDICAID, SELFPAY ==
--- OUTSIDE RECORDS SUMMARY | 2024-08-11 17:38 | XMS_ITS | Clinical Summary ---
Author Organization Patient Business [facility] Address [address] [place] [id number] Care Team Providers Care Terrazzo Helper Name Role Phone Esme Valdivia MD Primary Care Provider [phone] Allergies Active Allergy Reactions Criticality Noted Date Comments Peanut 01/14/2024 Shellfish Containing Products 2023 Medications Medication Sig Dispensed Refills Start Date End Date Status pen needle, diabetic (BD Ultra-Fine Short Pen Needle) 31 gauge x 5/16 needle B-D ULTRAFINE III SHORT PEN 31 G X 8 MM USE DIRECTED TO INJECT INSULIN EVERY NIGHT 06/30/2018 Active blood glucose ctl high,nml,low solution BLOOD GLUCOSE CALIBRATION (OT ULTRA/FASTTK CNTRL SOLN) SOLUTION 1 Each by In Vitro route daily. 11/09/2014 Active ciclopirox (PENLAC) 8 % solution Apply daily to nails clean medication residue off of nail plate every 3 days with rubbing alcohol 01/14/2024 Active clotrimazole (LOTRIMIN) 1 % cream Apply to skin and toenails daily for 12 weeks 01/14/2024 Active OneTouch Ultra Test test strip USE DIRECTED THREE TIMES DAILY 01/04/2017 Active glyBURIDE-metFORMIN (GLUCOVANCE) 2.5-500 mg per tablet Take 2 tablets by mouth 2 times daily (with meals). 05/15/2018 Active hydrOXYzine HCL (ATARAX) 25 mg tablet TAKE 1 TABLET BY MOUTH EVERY 8 HOURS NEEDED FOR ITCHING 04/02/2017 Active insulin glargine (Lantus Solostar U-100 Insulin) 100 unit/mL (3 mL) injection pen 22 untis at night 10/11/2016 Acti ve lisinopriL (PRINIVIL,ZESTRIL) 5 mg tablet TAKE 1 TABLET BY MOUTH DAILY 12/03/2017 Active LORazepam (ATIVAN) 1 mg tablet TAKE 1 TABLET BY MOUTH EVERY DAY 05/01/2017 Active nabumetone (RELAFEN) 500 mg tablet TAKE 1 TABLET BY MOUTH DAILY NEEDED FOR PAIN 12/19/2016 Active tirzepatide, weight loss, (Zepbound) 2.5 mg/0.5 mL injection Inject 2.5 mg into the skin once a week. 04/10/2024 Active traZODone (DESYREL) 50 mg tablet Take one tablet at bedtime 10/11/2016 Active albuterol HFA (Ventolin HFA) 90 mcg/actuation inhaler INHALE 2 PUFFS BY MOUTH FOUR TIMES DAILY NEEDED FOR COUGH OR WHEEZING 04/02/2017 Active ONETOUCH DELICA LANCETS MISC ONETOUCH DELICA LANCETS FINE MISC Apply 1 Stick topically 2 times daily. 11/09/2014 Active ONETOUCH ULTRASOFT LANCETS MISC 1 Each by Does not apply route 3 times daily. 11/09/2014 Active Active Problems Problem Noted Date Diagnosed Date Poorly controlled type 2 diabetes mellitus with neuropathy 06/13/2016 Noncompliance 06/12/2016 Obesity (BMI 30-39.9) 06/12/2016 Poorly controlled type 2 diabetes mellitus 04/28 Fatty liver 09/14/2010 Tension headache 11/24/2009 Hypertension 05/19/2009 Asthma 05/19/2009 Unspecified abnormal cytolog ical findings in specimens from cervix uteri 05/19/2009 Overview (06/30/2024): 2007 MANI. Patient follow with Dr Cruz Anxiety 05/19/2009 Insomnia 05/19/2009 Migraines 05/19/2009 Immunizations Name Administration Dates Next Due H1N1 Inj Preservative Free 04/28/2009 Influenza trivalent, 0.5mL, preservative free (Fluarix; FluLaval; Fluzone) ages 6mo and older (Afluria) 3 years and older 04/28/2013,07/30/2012,03/29/2010,04/14 Pfizer SARS-CoV-2 COVID-19, mRNA, LNP-S, preservative free 11/20/2020,10/30/2020 Pneumococcal polysaccharide 23 valent (Pneumovax 23) 2yo and older 04/28/2013 Td Tetanus diptheria (Tdvax) 7yo and older 07/15/2006 Tdap Tetanus diptheria acell ular pertussis (Boostrix; Adacel) 7yo and older 07/30/2012 Surgical History Surgery Date Site/Laterality Comments SECTION PROCEDURE: HISTORICAL DELIVERY; COMMENT: times 3 OTHER SURGICAL HISTORY PROCEDURE: VT DILATION & CURETTAGE DX&/THER NONOBSTETRIC CERVICAL BIOPSY W/ LOOP ELECTRODE EXCISION PROCEDURE: VT CONIZATION CERVIX W/WO D&C RPR ELTRD EXC; COMMENT: LEEP TUBAL LIGATION PROCEDURE: HISTORICAL TUBAL LIGATION WISDOM TOOTH EXTRACTION PROCEDURE: HISTORICAL WISDOM TEETH EXTRACTION Medical History Medical History Date Comments Hypothyroid 05/19/2009 DX:Hypothyroid Diabetes mellitus type II, c ontrolled ([facility]) 05/19/2009 DX:Diabetes mellitus type II , controlled ([facility]) Asthma 05/19/2009 DX:Asthma Migraines 05/19/2009 DX:Migraines Hypertension 05/19/2009 DX:Hypertension Insomnia 05/19/2009 DX:Insomnia Anxiety 05/19/2009 DX:Anxiety Historical Medical DX 05/19/2009 DX:Abnorma l Pap smear 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; 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, lyme neg Neuropathy DX:Neuropathy Family History Medical History Relation Name Comments Ovarian cancer Maternal Grandmother Pancreatic cancer Maternal Grandmother Diabetes Mother Relation Name Status Comments Aunt Alive SLE, paternal a unt Brother Alive DM Daughter Alive Maternal Grandmother Mother Alive djd, dm Son 1 Alive Son 2 Alive Son 3 Alive Social History Tobacco Use Types Packs/Day Years Used Date Smoking Tobacco: Never Smokeless Tobacco: Never Alcohol Use Standard Drinks/Week Comments No 0 (1 standard drink = 0.6 oz pur e alcohol) Sex and Gender Information Value Date Recorded Sex Assigned at Not on file Gender Identity Not on file Sexual Orientation Not on file Job Start Date Occupation Industry Not on file Not on file Not on file Obstetrics History Last Filed Vital Signs Vital Sign Reading Time Taken Comments Blood Pressure 138/88 01/28/2024 10:42 AM EDT Pulse 68 01/28/2024 10:42 AM EDT Temperature - - Respiratory Rate - - Oxygen Saturation - - Inhaled Oxygen Concentration - - Weight 91.2 kg (201 lb) 01/28/2024 10:42 AM EDT Height 160 cm (5' 3 ) 01/28/2024 10:42 AM EDT Body Mass Index 35.61 01/28/2024 10:42 AM EDT Plan of Treatment Health Maintenance Due Date Last Done Comments Breast Cancer Screening 1980 Diabetes: Annual Foot Exam 1990 Diabetes: Annual Retina Eye Exam 1990 Hepatitis B Vaccines (1 of 3 - 19+ 3-dose series) 1999 Cervical Cancer Screening: Pap Smear 2001 Pneumococcal Vaccine: Pediatrics (0 to 5 Years) and At-Risk Patients (6 to 64 Years) (2 of 2 - PCV) 04/28/2014 04/28/2013 Diabetes: Annual GFR (Glomerular Filtration Rate) 06/12/2017 06/12/2016 DTaP,Tdap,and Td Vaccines (4 - Td or Tdap) 07/30/2022 07/30/2012, 07/15/2006, 04/12/2005 Cholesterol Screening (Lipid Panel) 02/11/2024 11/09/2014 Depression Screening 02/11/2024 Diabetes: Annual Urine Albumin-Creatinine Ratio (uACR) 02/11/2024 06/12/2016 Diabetes: Blood Sugar Control Test (HGBA1C) 02/11/2024 06/12/2016 Hypertension/CHF/CAD Annual BMP Blood Test 02/11/2024 06/12/2016 Social Influencers of Health Screening 02/11/2024 COVID-19 Vaccine ( season) 2024 09/25/2021, 11/20/2020, 10/30/2020 Influenza Vaccine (#1) 2024 3, 07/30/2012, 03/29/2010, Additional history exists Hepatitis C Screening Completed 11/24/2009 HIV Screening Completed 04/28/2013 HIB Vaccines Aged Out No longer eligi ble based on patient's age to complete this topic HPV Vaccines Aged Out No longer eligi ble based on patient's age to complete this topic Hepatitis A Vaccines Aged Out No long er eligible based on patient's age to complete this topic IPV Vaccines Aged Out No longer eligi ble based on patient's age to complete this topic MMR Vaccines Aged Out No longer eligi ble based on patient's age to complete this topic Meningococcal ACWY Vaccine Aged Out N o longer eligible based on patient's age to complete this topic RSV Immunization Patients Under 20 months Aged Out No longer eligible based on patient's age to complete this topic Varicella Vaccines Aged Out No longer eligible based on patient's age to complete this topic Procedures Procedure Name Priority Date/Time Associated Diagnosis Comments LUTEINIZING HORMONE Routine 08/11/2024 1 0:12 AM EST Hot flashes Vaginal dryness FOLLICLE STIMULATING HORMONE Routine 08/11/2024 10:12 AM EST Hot flashes Vaginal dryness PROGESTERONE Routine 08/11/2024 10:12 AM EST Hot flashes Vaginal dryness SEX HORMONE BINDING GLOBULIN Routine 08/11/2024 10:12 AM EST Hot flashes Vaginal dryness ESTRADIOL Routine 08/11/2024 10:12 AM EST Hot flashes Vaginal dryness TESTOSTERONE FREE, BIOAVAILABLE AND TOTAL Routine 08/11/2024 10:12 AM EST Hot flashes Vaginal dryness URINE ALBUMIN CREATININE RATIO Routine 06/12/2016 ANNUAL BMP BLOOD TEST Routine 06/12/2016 HEMOGLOBIN A1C Routine 06/12/2016 LIPID PANEL Routine 11/09/2014 HIV SCREENING Routine 04/28/2013 HEPATITIS C SCREENING Routine 11/24/2009 from Last 3 Months or Most Recently Relevant to Health Maintenance Results * Testosterone free, bioavailable and total (08/11/2024 10:12 AM EST) Testosterone 14 9 - 48 ng/dL LAB CHEMISTRY METHOD 08/11/2024 12:54 PM EST [facility] Testosterone, Free 0.2 0.0 - 0.5 ng/dL LAB CHEMISTRY METHOD 08/11/2024 12:54 PM EST [facility] Testosterone, Bioavailable 4 1 - 9 ng/dL LAB CHEMISTRY METHOD 08/11/2024 12:54 PM [facility] Sex Hormone Binding 40.1 See Comment nmol/L LAB CHEMISTRY METHOD 08/11/2024 12:54 PM EST [facility] Comment: FEMALES: ??pre-menopausal ?? 10.8 - >180 ??post-menopausal ??23.2 - 159.1 MALES: ?? 21-49 years ? 14.6 - 94.6 ?? 50-89 years ? 21.6 - 113.1 CHILDREN: ??No established reference range Over the counter supplements containing high doses of biotin may interfere with this assay. ??If interference is suspected, patients should be retested after refraining from biotin supplements for 72 hours. Albumin 3.8 3.2 - 5.0 g/dL LAB CHEMISTRY METHOD 08/11/2024 12:54 PM [facility] Blood Venous blood specimen / Unknown Venipuncture / Unknown 08/11/2024 10:12 AM EST 08/11/2024 11:55 AM EST Mary Nunez MD LAB BLOOD ORDERA BLES Performing Organization Address City/State/[facility] Co de Phone Number [facility] [address] [place] [address], * Sex hormone binding globulin (08/11/2024 10:12 AM EST) Sex Hormone Binding 40.1 See Comment nmol/L LAB CHEMISTRY METHOD 08/11/2024 12:54 PM EST [facility] Comment: FEMALES: ??pre-menopausal ?? 10.8 - >180 ??post-menopausal ??23.2 - 159.1 MALES: ?? 21-49 years ? 14.6 - 94.6 ?? 50-89 years ? 21.6 - 113.1 CHILDREN: ??No established reference range Over the counter supplements containing high doses of biotin may interfere with this assay. ??If interference is suspected, patients should be retested after refraining from biotin supplements for 72 hours. Blood Venous blood specimen / Unknown Venipuncture / Unknown 08/11/2024 10:12 AM EST 08/11/2024 11:55 AM EST Mary Nunez MD LAB BLOOD ORDERA BLES Performing Organization Address [facility]/ZIP Co de Phone Number [facility] [address] [place] [address], * Progesterone (08/11/2024 10:12 AM EST) [facility] Progesterone 2.0 ng/mL LAB CHEMISTRY METHOD 08/11/2024 1:18 PM EST [facility] Comment: PROGESTERONE REFERENCE RANGES (NG/ML) FEMALES NORMALLY MENSTRUATING: FOLLICULAR PHASE 0.2 - ??1.7 MIDCYCLE PEAK ?2.3 - ??242 LUTEAL PHASE ? 8.8 - 21.6 POSTMENOPAUSAL ?<0.2 - ??0.9 : FIRST TRIMESTER ??11.4 - 41.0 SECOND TRIMESTER 13.5 - ??156 THIRD TRIMESTER ??51.4 - >200 This assay should not be used in patients taking DHEA supplements as part of IVF treatment. ??A metabolite (DHEA-S) of this supplement has been shown to cross- react with the progesterone assay and cause falsely elevated results. Blood Venous blood specimen / Unknown Venipuncture / Unknown 08/11/2024 10:12 AM EST 08/11/2024 11:55 AM EST Mary Nunez MD LAB BLOOD ORDERA BLES Performing Organization Address [facility]/ZIP Co de Phone Number [facility] [address] [place] [address], * Estradiol (08/11/2024 10:12 AM EST) Estradiol 47 See below pcg/mL LAB CHEMISTRY METHOD 08/11/2024 1:18 PM EST [facility] Comment: ESTRADIOL REFERENCE RANGES (PG/ML) FEMALES NORMALLY MENSTRUATING: FOLLICULAR PHASE 21.4 - 164.8 MIDCYCLE PEAK ?49.9 - 367.2 LUTEAL PHASE ? 40.2 - 259.0 POSTMENOPAUSAL: ON HRT ?<11 - 462.1 UNTREATED ? <11 - ??58.3 Fulvestrant has been shown to cross-react with the estradiol assay and cause falsely elevated results. For patients being treated with fulvestrant, Estradiol ultrasensitive should be ordered. ??This test is performed by LC/MS and is not expected to show cross reactivity to fulvestrant. Blood Venous blood specimen / Unknown Venipuncture / Unknown 08/11/2024 10:12 AM EST 08/11/2024 11:55 AM EST Mary Nunez MD LAB BLOOD ORDERA BLES [facility] [address] [place] [address], * Luteinizing hormone (08/11/2024 10:12 AM EST) Pathologist [facility] Luteinizing Hormone 1.8 See Comment mIU/mL LAB CHEMISTRY METHOD 08/11/2024 1:18 PM EST [facility] Blood Venous blood specimen / Unknown Venipuncture / Unknown 08/11/2024 10:12 AM EST 08/11/2024 11:55 AM EST Narrative [facility] - 08/11/2024 1:18 PM EST LH REFERENCE RANGES (MIU/ML) FEMALES NORMALLY MENSTRUATING: FOLLICULAR PHASE ??1.9 - 12.8 MIDCYCLE PEAK ?22.8 - 76.1 LUTEAL PHASE ?0.6 - 13.5 POSTMENOPAUSAL: ON HRT ?1.1 - ??52.4 UNTREATED ? 8.6 - ??61.8 Mary Nunez MD LAB BLOOD ORDERA BLES Performing Organization Address [facility] de Phone Number [facility] [address] [place] [address], * Follicle stimulating hormone (08/11/2024 10:12 AM EST) [facility] Follicle Stimulating Hormone 4.9 See Comment mIU/mL LAB CHEMISTRY METHOD 08/11/2024 1:18 PM EST [facility] Comment: FSH REFERENCE RANGES (MIU/ML) FEMALES NORMALLY MENSTRUATING: FOLLICULAR PHASE ??2.3 - 12.6 MIDCYCLE PEAK ? 5.2 - 17.5 LUTEAL PHASE ?1.7 - ??9.5 POSTMENOPAUSAL: ON HRT ?5.9 - ??72.8 UNTREATED ?12.7 - 132.2 Blood Venous blood specimen / Unknown Venipuncture / Unknown 08/11/2024 10:12 AM EST 08/11/2024 11:55 AM EST Mary Nunez MD LAB BLOOD ORDERA BLES Performing Organization Address [facility] Co de Phone Number [facility] [address] [place] [address], * Urine Albumin Creatinine Ratio (06/12/2016) Pathologist [facility] Urine Albumin Creatinine Ratio Abstracted Historical Provider MD KENNETH VALLADARES E * Annual BMP Blood Test (06/12/2016) Pathologist [facility] Annual BMP Blood Test Abstracted Historical Provider MD KENNETH VALLADARES E * (ABNORMAL) Hemoglobin A1c (06/12/2016) Pathologist [facility] Hemoglobin A1C 10.4(A) 4.0 - 6.0 % Blood Venous blood specimen / Unknown Historical Provider LAB BLOOD ORDERAB LES * Lipid panel (11/09/2014) Pathologist [facility] LDL/HDL Ratio 3 0 - 4 Triglycerides 146 0 - 150 mg/dL Cholesterol 161 0 - 200 mg/dL HDL 52 40 mg/dL LDL Cholesterol 80 0 - 100 mg/dL Blood Venous blood specimen / Unknown Historical Provider LAB BLOOD ORDERAB LES * HIV Screening (04/28/2013) Pathologist [facility] HIV Screening Abstracted Historical Provider MD COOPER MAINTENANC E * Hepatitis C Screening (11/24/2009) Pathologist [facility] Hepatitis C Screening Abstracted Historical Provider MD COOPER MAINTENANC E from Last 3 Months or Most Recently Relevant to Health Maintenance Care Teams Terrazzo Helper Relationship Specialty Start Date End Date Esme Valdivia MD [address] [place] [id number] PCP - General Internal Medicine 08/17/15
== END 2024-08-11 17:37 | disposition home or self-care (01) ==
LOC: HO.MRI 17:36
PROVIDERS: PCP Physician Assistant; Visit Provider Physician Assistant
DX: Z13.89 Encounter for screening for other disorder (principal)

== ENCOUNTER 2024-09-01 14:35 | Outpatient (REF) | payer MEDICARE, MEDICAID, SELFPAY ==
--- OUTSIDE RECORDS SUMMARY | 2024-09-01 15:35 | XMS_ITS | Clinical Summary ---
Author Organization Patient Business [facility] Address [address] [place] [id number] Care Team Providers Care Director Intelligence Analysis Programs Name Role Phone Esme Valdivia MD Primary Care Provider [phone] Allergies Active Allergy Reactions Criticality Noted Date Comments Peanut 01/14/2024 Shellfish Containing Products 2023 Medications pen needle, diabetic (BD Ultra-Fine Short Pen Needle) 31 gauge x 5/16 needle B-D ULTRAFINE III SHORT PEN 31 G X 8 MM USE DIRECTED TO INJECT INSULIN EVERY NIGHT 8 Active blood glucose ctl high,nml,low solution BLOOD GLUCOSE CALIBRATION (OT ULTRA/FASTTK CNTRL SOLN) SOLUTION 1 Each by In Vitro route daily. 5 Active ciclopirox (PENLAC) 8 % solution Apply daily to nails clean medication residue off of nail plate every 3 days with rubbing alcohol 4 Active clotrimazole (LOTRIMIN) 1 % cream Apply to skin and toenails daily for 12 weeks 4 Active OneTouch Ultra Test test strip USE DIRECTED THREE TIMES DAILY 7 Active glyBURIDE-metFO RMIN (GLUCOVANCE) 2.5-500 mg per tablet Take 2 tablets by mouth 2 times daily (with meals). 8 Active hydrOXYzine HCL (ATARAX) 25 mg tablet TAKE 1 TABLET BY MOUTH EVERY 8 HOURS NEEDED FOR ITCHING 7 Active insulin glargine (Lantus Solostar U-100 Insulin) 100 unit/mL (3 mL) injection pen 22 untis at night 7 Active lisinopriL (PRINIVIL,ZESTR IL) 5 mg tablet TAKE 1 TABLET BY MOUTH DAILY 8 Active LORazepam (ATIVAN) 1 mg tablet TAKE 1 TABLET BY MOUTH EVERY DAY 7 Active nabumetone (RELAFEN) 500 mg tablet TAKE 1 TABLET BY MOUTH DAILY NEEDED FOR PAIN 7 Active tirzepatide, weight loss, (Zepbound) 2.5 mg/0.5 mL injection Inject 2.5 mg into the skin once a week. 4 Active traZODone (DESYREL) 50 mg tablet Take one tablet at bedtime 7 Active albuterol HFA (Ventolin HFA) 90 mcg/actuation inhaler INHALE 2 PUFFS BY MOUTH FOUR TIMES DAILY NEEDED FOR COUGH OR WHEEZING 7 Active ONETOUCH DELICA LANCETS MISC ONETOUCH DELICA LANCETS FINE MISC Apply 1 Stick topically 2 times daily. 5 Active ONETOUCH ULTRASOFT LANCETS MISC 1 Each by Does not apply route 3 times daily. 5 Active Active Problems Problem Noted Date Diagnosed Date Poorly controlled type 2 diabetes mellitus with neuropathy 06/13/2016 Noncompliance 06/12/2016 Obesity (BMI 30-39.9) 06/12/2016 Poorly controlled type 2 diabetes mellitus 04/28 Fatty liver 09/14/2010 Tension headache 11/24/2009 Hypertension 05/19/2009 Asthma 05/19/2009 Unspecified abnormal cytolog ical findings in specimens from cervix uteri 05/19/2009 Overview (06/30/2024): 2006 MANI. Patient follow with Dr Cruz Anxiety 05/19/2009 Insomnia 05/19/2009 Migraines 05/19/2009 Encounters Date Type Department Care Team Description 08/12/2024 Lab Requisition [facility] - Main Lab [address] [facility] [place] [address] Mary Nunez MD Encounter for gynecological examination (general) (routine) without abnormal findings from Last 3 Months Immunizations Name Administration Dates Next Due H1N1 [...] COMMENT: times 3 OTHER SURGICAL HISTORY PROCEDURE: CO DILATION & CURETTAGE DX&/THER NONOBSTETRIC CERVICAL BIOPSY W/ LOOP ELECTRODE EXCISION PROCEDURE: CO CONIZATION CERVIX W/WO D&C RPR ELTRD EXC; COMMENT: LEEP TUBAL LIGATION PROCEDURE: HISTORICAL TUBAL LIGATION WISDOM TOOTH EXTRACTION PROCEDURE: HISTORICAL WISDOM TEETH EXTRACTION Medical History Medical History Date Comments Hypothyroid 05/19/2009 DX:Hypothyroid Diabetes mellitus type II, c ontrolled ([facility]) 05/19/2009 DX:Diabetes mellitus type II , controlled ([facility]) Asthma 05/19/2009 DX:Asthma Migraines 05/19/2009 DX:Migraines Hypertension [...] drink = 0.6 oz pur e alcohol) Comments Unknown Sex and Gender Information Value Date Recorded Sex Assigned at Not on file Legal Sex Female 10:25 AM EST Gender Identity Not on file Sexual Orientation Not on file Obstetrics History Last Filed [...] of 3 - 19+ 3-dose series) 1999 Pneumococcal Vaccine: Pediatrics (0 to 5 Years) [...] Hypertension/CHF/CAD Annual BMP Blood Test 02/11/2024 06/12/2016 Medicare Annual Wellness Visit 02/11/2024 Social Influencers of Health Screening 02/11/2024 COVID-19 Vaccine ( season) 2024 09/25/2021, 11/20/2020, 10/30/2020 Influenza Vaccine (#1) 2024 3, 07/30/2012, 03/29/2010, Additional history exists Cervical Cancer Screening: Pap Smear 08/11/2027 08/11/2024 Hepatitis C Screening Completed 11/24/2009 HIV Screening [...] patient's age to complete this topic Meningococcal B Vacine Aged Out No lo nger eligible based on patient's age to complete [...] 10:12 AM EST Hot flashes Vaginal dryness PAP SMEAR Routine 08/11/2024 12:00 AM EST Encounter for gynecological examination (general) (routine) without abnormal findings URINE ALBUMIN CREATININE RATIO Routine 06/12/2016 ANNUAL BMP BLOOD TEST Routine 06/12/2016 HEMOGLOBIN A1C Routine 06/12/2016 LIPID PANEL Routine 11/09/2014 HIV SCREENING Routine 04/28/2013 HEPATITIS C SCREENING Routine 11/24/2009 from Last 3 Months or Most Recently Relevant to Health Maintenance Results * Testosterone free, bioavailable and total (08/11/2024 10:12 AM EST) Pathologist [facility] Testosterone 14 9 - 48 ng/dL LAB CHEMISTRY METHOD 08/11/2024 12:54 PM [facility] Testosterone, Free 0.2 0.0 - 0.5 ng/dL LAB CHEMISTRY METHOD 08/11/2024 12:54 PM [facility] Testosterone, Bioavailable 4 1 - 9 ng/dL LAB CHEMISTRY METHOD 08/11/2024 12:54 PM [facility] Sex Hormone Binding 40.1 See Comment nmol/L LAB CHEMISTRY METHOD 08/11/2024 12:54 PM [facility] Comment: FEMALES: ??pre-menopausal ?? 10.8 - [...] g/dL LAB CHEMISTRY METHOD 08/11/2024 12:54 PM [facility] Blood Venous blood specimen / Unknown Venipuncture / Unknown 08/11/2024 10:12 AM EST 08/11/2024 11:55 AM EST Mary Nunez MD LAB BLOOD ORDERABLES Fin al Result Performing Organization Address [facility]/ZIP Co de Phone Number [facility] [address] [place] [address], * Sex hormone binding globulin (08/11/2024 10:12 AM EST) Sex Hormone Binding 40.1 See Comment nmol/L LAB CHEMISTRY METHOD 08/11/2024 12:54 PM EST [facility] Comment: FEMALES: ??pre-menopausal ?? 10.8 - [...] AM EST Mary Nunez MD LAB BLOOD ORDERABLES Fin al Result Performing Organization Address [facility]/ZIP Co de Phone Number [facility] [address] [place] [address], * Progesterone (08/11/2024 10:12 AM EST) Progesterone 2.0 ng/mL LAB CHEMISTRY METHOD 08/11/2024 1:18 PM EST [facility] Comment: PROGESTERONE REFERENCE RANGES (NG/ML) FEMALES [...] AM EST Mary Nunez MD LAB BLOOD ORDERABLES Fin al Result Performing Organization Address [facility] de Phone Number [facility] [address] [place] [address], * Estradiol (08/11/2024 10:12 AM EST) [facility] Estradiol 47 See below pcg/mL LAB CHEMISTRY METHOD 08/11/2024 1:18 PM EST [facility] Comment: ESTRADIOL REFERENCE RANGES (PG/ML) FEMALES [...] AM EST Mary Nunez MD LAB BLOOD ORDERABLES Fin al Result Performing Organization Address [facility]/ZIP Co de Phone Number [facility] [address] [place] [address], * Luteinizing hormone (08/11/2024 10:12 AM EST) Luteinizing Hormone 1.8 See Comment mIU/mL LAB CHEMISTRY METHOD 08/11/2024 1:18 PM EST [facility] Blood Venous blood specimen / Unknown Venipuncture / Unknown 08/11/2024 10:12 AM EST 08/11/2024 11:55 AM EST Narrative [facility] - 08/11/2024 1:18 PM EST LH REFERENCE RANGES (MIU/ML) FEMALES NORMALLY MENSTRUATING: FOLLICULAR PHASE ??1.9 - 12.8 MIDCYCLE PEAK ?22.8 - 76.1 LUTEAL PHASE ?0.6 - 13.5 POSTMENOPAUSAL: ON HRT ?1.1 - ??52.4 UNTREATED ? 8.6 - ??61.8 us Mary Nunez MD LAB BLOOD ORDERABLES Fin al Result [facility] [address] [place] [address], * Follicle stimulating hormone (08/11/2024 10:12 AM EST) Follicle Stimulating Hormone 4.9 See Comment mIU/mL LAB CHEMISTRY METHOD 08/11/2024 1:18 PM EST [facility] Comment: FSH REFERENCE RANGES (MIU/ML) FEMALES NORMALLY MENSTRUATING: FOLLICULAR PHASE ??2.3 - 12.6 MIDCYCLE PEAK ? 5.2 - 17.5 LUTEAL PHASE ?1.7 - ??9.5 POSTMENOPAUSAL: ON HRT ?5.9 - ??72.8 UNTREATED ?12.7 - 132.2 Blood Venous blood specimen / Unknown Venipuncture / Unknown 08/11/2024 10:12 AM EST 08/11/2024 11:55 AM EST Mary Nunez MD LAB BLOOD ORDERABLES Fin al Result [facility] [address] [place] [address], * Pap smear (08/11/2024 12:00 AM EST) Interpretation Negative for intraepithelial lesion or malignancy 08/17/2024 11:08 AM [facility] General Categorization Negative 08/17/2024 11:08 AM [facility] Other Findings Shift in brenton suggestive of bacterial vaginosis Keratotic cellular changes, hyperkeratosis 08/17/2024 11:08 AM [facility] Specimen Adequacy Satisfactory for evaluation 08/17/2024 11:08 AM [facility] Pap Methodology Liquid Based Pap Test 08/17/2024 11:08 AM [facility] Disclaimer Note: This pap test could not be imaged utilizing the [employer] System and required a manual review. The Pap test is a screening test which carries an inherent false negative rate. These test results should be correlated with the patient's clinical findings and history. This Pap test was processed using an automated screening system. Technical cytopathology services provided by [facility], at [address] [place] [address] (CLIA # [id number]/Melissa Reeves MD, Circuits Engineer.) 08/17/2024 11:08 AM [facility] Console Pap Interpretation Reported 08/17/2024 11:08 AM [facility] Brushing/Spatula Vaginal structure / Unknown 08/11/2024 08/12/2024 6:44 AM EST Mary Nunez MD LAB CYTOLOGY ORDERABLES Final Result [facility]) [facility] [address] [place] [address], [place] [phone] * Urine Albumin Creatinine Ratio (06/12/2016) Pathologist [facility] Urine Albumin Creatinine Ratio Abstracted Historical Provider HEALTH MAINTENANCE Final Result * Annual BMP Blood Test (06/12/2016) Pathologist [facility] Annual BMP Blood Test Abstracted Result [facility] Historical Provider HEALTH MAINTENANCE Final Result * (ABNORMAL) Hemoglobin A1c (06/12/2016) [facility] Hemoglobin A1C 10.4(A) 4.0 - 6.0 % Blood Venous blood specimen / Unknown Result [facility] Historical Provider LAB BLOOD ORDERABLES Mariel l Result * Lipid panel (11/09/2014) [facility] LDL/HDL Ratio 3 0 - 4 Triglycerides 146 0 - 150 mg/dL Cholesterol 161 0 - 200 mg/dL HDL 52 >=40 mg/dL LDL Cholesterol 80 0 - 100 mg/dL Blood Venous blood specimen / Unknown Historical Provider LAB BLOOD ORDERABLES Mariel l Result * HIV Screening (04/28/2013) [facility] HIV Screening Abstracted Historical Provider HEALTH MAINTENANCE Final Result * Hepatitis C Screening (11/24/2009) [facility] Hepatitis C Screening Abstracted Historical Provider HEALTH MAINTENANCE Final Result from Last 3 Months or Most Recently Relevant to Health Maintenance Insurance MEDICAID - [place] MEDICARE Care Teams Director Intelligence Analysis Programs Relationship Specialty Start Date End Date Esme Valdivia MD [address] [place] [id number] PCP - General Internal Medicine 08/17/15
--- OUTSIDE RECORDS SUMMARY | 2024-09-01 15:35 | XMS_ITS | Encounter Summary ---
Author Organization [facility] Address [address] [place] [address] Care Team Providers Care Senior It Security Analyst Name Role Phone Esme Valdivia MD Primary Care Provider [phone] Encounter Details Date Type Department Care Team (Latest Contact Info) Description 08/12/2024 Lab Requisition [facility] - Main Lab [address] [facility] [place] [address] Mary Nunez MD [address] [facility] [address] [place] [phone] Encounter for gynecological examination (general) (routine) without abnormal findings Social History Tobacco Use Types Packs/Day Years Used Date Smoking Tobacco: Never Smokeless Tobacco: Never Alcohol Use Standard Drinks/Week Comments No 0 (1 standard drink = 0.6 oz pur e alcohol) Comments Unknown Sex and Gender Information Value Date Recorded Sex Assigned at Not on file Legal Sex Female 10:25 AM EST Gender Identity Not on file Sexual Orientation Not on file documented as of this encounter Plan of Treatment Not on file documented as of this encounter Procedures Procedure Name Priority Date/Time Associated Diagnosis Comments PAP SMEAR Routine 08/11/2024 12:00 AM EST Encounter for gynecological examination (general) (routine) without abnormal findings documented in this encounter Results * Pap smear (08/11/2024 12:00 AM EST) Interpretation Negative for intraepithelial lesion or malignancy 08/17/2024 11:08 AM [facility] General Categorization Negative 08/17/2024 11:08 AM [facility] Other Findings Shift in brenton suggestive of bacterial vaginosis Keratotic cellular changes, hyperkeratosis 08/17/2024 11:08 AM [facility] Specimen Adequacy Satisfactory for evaluation 08/17/2024 11:08 AM [facility] Pap Methodology Liquid Based Pap Test 08/17/2024 11:08 AM [facility] Disclaimer Note: This pap test could not be imaged utilizing the [employer] System and required a manual review. The Pap test is a screening test which carries an inherent false negative rate. These test results should be correlated with the patient's clinical findings and history. This Pap test was processed using an automated screening system. Technical cytopathology services provided by [facility], at [address] [place] [address] (CLIA # [id number]/Melissa Reeves MD, Personnel And Payroll Technician.) 08/17/2024 11:08 AM [facility] Console Pap Interpretation Reported 08/17/2024 11:08 AM [facility] Brushing/Spatula Vaginal structure / Unknown 08/11/2024 08/12/2024 6:44 AM EST us Mary Nunez MD LAB CYTOLOGY ORDERABLES Final Result [facility]) [facility] [address] [place] [address], documented in this encounter Visit Diagnoses Diagnosis Encounter for gynecological examination (general) (routine) without abnormal findings documented in this encounter Care Teams Senior It Security Analyst Relationship Specialty Start Date End Date Esme Valdivia MD [address] [place] [phone] PCP - General Internal Medicine 08/17/15 documented as of this encounter
[2024-09-01 15:41] LABS: Appearance Urine Turbid; Color Urine Dark Yellow; Glucose Urine UA 100 mg/dL (Negative); Leukocyte Esterase Urine Negative (Negative); Nitrite Urine Negative (Negative); Specific Gravity - Urine >= 1.030 (1.005-1.025); UMIC TRIGGER UACC YES; Urine Blood Trace (Negative); Urine Ketones Trace mg/dL (Negative); Urine Protein 100 (2+) mg/dL (Neg-Trace)
[2024-09-01 15:54] LABS: Bacteria Urine 4+ (None Seen); Hyaline Casts Urine 0-2 /LPF (0-2); RBC Urine 0-2 /HPF (0-2); Squamous Epithelial Cell Urine >20 /HPF (0-2); WBC Urine 0-5 /HPF (0-5)
[2024-09-02 18:27] LABS: Homocysteine 13.6 umol/L (<10.4)
== END 2024-09-01 14:36 | disposition home or self-care (01) ==
LOC: HO.LAB 14:35
PROVIDERS: Nurse Practitioner Family; PCP Physician Assistant; Visit Provider Physician Assistant
DX: R20.0 Anesthesia of skin (principal); R53.83 Other fatigue; G43.109 Migraine with aura, not intractable, without status migrainosus; E11.42 Type 2 diabetes mellitus with diabetic polyneuropathy; E11.65 Type 2 diabetes mellitus with hyperglycemia; Z86.2 Personal history of diseases of the blood and blood-forming organs and certain disorders involving the immune mechanism; R25.2 Cramp and spasm; Z13.6 Encounter for screening for cardiovascular disorders
CPT/HCPCS: 36415; 81001; 83090

== ENCOUNTER 2024-09-09 15:34 | Outpatient (AMB) | payer MEDICARE, MEDICAID, SELFPAY ==
[2024-09-09 16:19] VITALS: BP 134/89; PULSE 78; O2SAT 98; BMI 33.7
--- NOTE | 2024-09-09 16:19 | HO.NEPHOV_ITS ---
Vital Signs 09/09/24 16:19 Height 5 ft 2 in Weight 184 lb BMI 33.7 BP 134/89 Blood Pressure Location Lt brachial Position Sitting Pulse 78 Pulse Source Pulse Oximeter Pulse Oximetry (%) 98 Oxygen Delivery Method Room Air Intake Visit Reasons: INP: Hematuria/Proteinuria Electrocardiograph Operator Required: No Accompanied by: Spouse Allergies peanuts Allergy (Mild, Uncoded 10/15/24 08:28) itch in throat shell fish Allergy (Mild, Uncoded 10/15/24 08:28) itch in throat Do you need a note to return to daycare/school/sports/work: No HPI Comments Details: I had the privilege of seeing Anushka who is a 44 year old female for consultation and follow up of renal cyst, hypertension and H/O protienuria. She has DM and HTN for a long time and has been on medical management. Her BP has been close to goal on metoprolol as well as lisinopril. She denies using excess jackie PO NSAID's. She is currently on Toujeo 60 units, metformin 1000 mg twice a day and Mounjaro 7.5 mg weekly. She states that the addition of the Mounjaro feels very effective. Blood sugars have finally been closer to a normal range. She does have a history of hypothyroidism in his on levothyroxine 50 mcg. She has H/O urinary incontinence and microscopic hematuria & has seen Urology. She has no flank pain, macroscopic hematuria, recurrent UTI's, renal calculi, epistaxis, photosensitivity, new skin rashes or joint swelling. Her serum creatinine has been normal. 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 Mild intellectual disability Bilateral hearing loss HTN (hypertension), benign Migraines Chronic low back pain with bilateral sciatica Chronic neck pain Mild persistent asthma in adult without complication Generalized anxiety disorder with panic attacks Family History Mother HTN (hypertension) Diabetes Father HTN (hypertension) Hypercholesteremia Diabetes Cardiovascular disease Maternal Grandmother Cardiovascular disease Skin cancer Anxiety Depression Maternal Grandmother Lung cancer Other FHx: mental illness Social History Housing: Apartment Alcohol intake: never Patient Tobacco Use Status: Never used Tobacco e-Cigarette/Vaping Use: Never Used Second Hand Smoke Exposure: No service: No Current occupational status: disabled Cognitive needs: No Hearing needs: Yes Vision needs: No Review of Systems Const All systems reviewed & are unremarkable except as noted in HPI and below Physical Exam Vital Signs: Last Vital Signs Pulse 78 09/09/24 16:19 BP 134/89 09/09/24 16:19 Pulse Ox 98 09/09/24 16:19 Oxygen Delivery Method Room Air 09/09/24 16:19 BMI result Body Mass Index 33.7 Const General: comfortable and no acute distress Orientation/consciousness: patient oriented x3 HEENT Head: Yes normocephalic Mouth: Normal oral and palatal mucosa present Eyes EOM: EOMs intact bilaterally Neck Neck: Yes supple Resp Auscultation: clear to auscultation bilaterally Cardio Jugular venous distension: no JVD Rate: regular rate GI Palpation (GI): Soft to palpation Auscultation: normal bowel sounds General: Yes no CVA tenderness Back/Spine/Pelvis Back: no CVA tenderness Skin General skin exam: no rashes or lesions noted Neuro General: patient oriented x3 and moves all extremities Extrem General: Yes no pedal edema Results Reviewed Nephrology Results: Hgb 13.8 g/dl (12.0-16.0) 09/10/24 WBC 9.1 X10*3/uL (4.8-10.8) 09/10/24 Plt Count 240 X10*3/uL (160-400) 09/10/24 Sodium 141 mmol/L (135-145) 09/10/24 Potassium 3.9 mmol/L (3.3-5.1) 09/10/24 Chloride 105 mmol/L (96-108) 09/10/24 Carbon Dioxide 30 mmol/L (22-29) H 09/10/24 BUN 8 mg/dL (9-16) L 09/10/24 Creatinine 0.66 mg/dL (0.5-1.4) 09/10/24 Urine Protein Trace mg/dL (Neg-Trace) 09/10/24 Assessment & Plan Assessment & Plan (1) Renal cyst, left: Code(s): N28.1 - Cyst of kidney, acquired Category: Medical (2) Proteinuria: Code(s): R80.9 - Proteinuria, unspecified Category: Medical Qualifiers: Proteinuria type: other Qualified Code(s): R80.8 - Other proteinuria (3) HTN (hypertension), benign: Code(s): I10 - Essential (primary) hypertension Category: Medical Plan Anushka has benign renal cyst by imaging. She has no flank pain, night sweats, renal calculi, macroscopic hematuria. She has no H/O cyst infection or cyst rupture. She has no family H/O cystic renal disease, ESRD or renal transplantation. She has normal renal function. Her BP needs to be kept at goal. She is tolerating ACEI well. She needs to loose more weight. She had some proteinuria likely from diabetes & hypertension. I have ordered W/U including 24 hour urine collection. I did not make any medication changes. All these have been explained in detail. Answered all questions. Further management is pending evolving data Orders: Orders Protein, 24 Hr Urine Group 3 Weeks N28.1 - Cyst of kidney, acquired, R80.9 - Proteinuria, unspecified UA and rflx microscopic 09/10/24 N28.1 - Cyst of kidney, acquired, R80.9 - Proteinuria, unspecified Creatinine 09/10/24 N28.1 - Cyst of kidney, acquired, R80.9 - Proteinuria, unspecified Electrolytes 09/10/24 N28.1 - Cyst of kidney, acquired, R80.9 - Proteinuria, unspecified Complete Blood Count Auto Diff 09/10/24 N28.1 - Cyst of kidney, acquired, R80.9 - Proteinuria, unspecified Anti DNA DS Antibody 09/10/24 N28.1 - Cyst of kidney, acquired, R80.9 - Proteinuria, unspecified Myeloperoxidase Antibody 09/10/24 N28.1 - Cyst of kidney, acquired, R80.9 - Proteinuria, unspecified Anti Glomerular Basement Memb 09/10/24 N28.1 - Cyst of kidney, acquired, R80.9 - Proteinuria, unspecified Complement C3 09/10/24 N28.1 - Cyst of kidney, acquired, R80.9 - Proteinuria, unspecified Complement C4 09/10/24 N28.1 - Cyst of kidney, acquired, R80.9 - Proteinuria, unspecified Phospholipase A2 Receptor Pnl 09/10/24 N28.1 - Cyst of kidney, acquired, R80.9 - Proteinuria, unspecified Prothrombin Time INR 09/10/24 N28.1 - Cyst of kidney, acquired, R80.9 - Proteinuria, unspecified Blood Urea Nitrogen 09/10/24 N28.1 - Cyst of kidney, acquired, R80.9 - Proteinuria, unspecified Immunofixation Pnl, Serum 09/10/24 N28.1 - Cyst of kidney, acquired, R80.9 - Proteinuria, unspecified Immunofixation, Random Urine 09/10/24 N28.1 - Cyst of kidney, acquired, R80.9 - Proteinuria, unspecified Proteinase 3 PR3 Antibodies 09/10/24 N28.1 - Cyst of kidney, acquired, R80.9 - Proteinuria, unspecified Coding Level of Care Code New Pt Level 4 (96031) Diagnoses Renal cyst, left N28.1 Other proteinuria R80.8 Proteinuria type: other HTN (hypertension), benign I10
--- OUTSIDE RECORDS SUMMARY | 2024-09-09 19:08 | XMS_ITS | Encounter Summary ---
Author Organization [facility] Address [address] [place] [address] Care Team Providers Care Sales Route Driver Helper Name Role Phone Esme Valdivia MD Primary Care Provider [phone] Encounter Details Date Type Department Care Team (Latest Contact Info) Description 08/12/2024 Lab Requisition [facility] - Main Lab 299 [facility] [place] [address] Mary Nunez MD 299 [facility] [address] [place] [phone] Encounter for gynecological examination (general) (routine) without [...] intraepithelial lesion or malignancy 08/17/2024 11:08 AM [facility] General Categorization Negative 08/17/2024 11:08 AM [facility] Other Findings Shift in brenton suggestive of bacterial vaginosis Keratotic cellular changes, hyperkeratosis 08/17/2024 11:08 AM [facility] Specimen Adequacy Satisfactory for evaluation 08/17/2024 11:08 AM [facility] Pap Methodology Liquid Based Pap Test 08/17/2024 11:08 AM [facility] Disclaimer Note: This pap test could not be imaged utilizing the [employer] System and required a manual review. The Pap test is a screening test which carries an inherent false negative rate. These test results should be correlated with the patient's clinical findings and history. This Pap test was processed using an automated screening system. Technical cytopathology services provided by [facility], at [address] [place] [address] (CLIA # [id number]/Melissa Reeves MD, Medical Record Technician.) 08/17/2024 11:08 AM [facility] Console Pap Interpretation Reported 08/17/2024 11:08 AM [facility] Brushing/Spatula Vaginal structure / Unknown 08/11/2024 08/12/2024 6:44 AM EST us Mary Nunez MD LAB CYTOLOGY ORDERABLES Final Result [facility] [address] [place] [address], documented in this encounter Visit Diagnoses Diagnosis Encounter for gynecological examination (general) (routine) without abnormal findings documented in this encounter Care Teams Sales Route Driver Helper Relationship Specialty Start Date End Date Esme Valdivia MD [address] [place] [id number] PCP - General Internal Medicine 08/17/15 documented as of this encounter
--- OUTSIDE RECORDS SUMMARY | 2024-09-09 19:08 | XMS_ITS | Clinical Summary ---
Author Organization Patient Business [facility] Address [address] [place] [phone] Care Team Providers Care Data Modeling Architect Name Role Phone Esme Valdivia MD Primary Care Provider [phone] Allergies Active Allergy Reactions Criticality Noted Date [...] Department Care Team Description 08/12/2024 Lab Requisition [facility] - Main Lab 299 [facility] [place] [address] Mary Nunez MD Encounter for [...] COMMENT: times 3 OTHER SURGICAL HISTORY PROCEDURE: [place] DILATION & CURETTAGE DX&/THER NONOBSTETRIC CERVICAL BIOPSY W/ LOOP ELECTRODE EXCISION PROCEDURE: DC CONIZATION CERVIX W/WO D&C RPR ELTRD EXC; COMMENT: LEEP TUBAL LIGATION PROCEDURE: HISTORICAL TUBAL LIGATION WISDOM TOOTH EXTRACTION PROCEDURE: HISTORICAL WISDOM TEETH EXTRACTION Medical History Medical History Date Comments Hypothyroid 05/19/2009 DX:Hypothyroid Diabetes mellitus type II, c ontrolled ([facility]) 05/19/2009 DX:Diabetes mellitus type II , controlled ([facility]) Asthma 05/19/2009 DX:Asthma Migraines 05/19/2009 [...] and total (08/11/2024 10:12 AM EST) Pathologist [facility] Testosterone 14 9 - 48 ng/dL LAB CHEMISTRY METHOD 08/11/2024 12:54 PM [facility] Testosterone, Free 0.2 0.0 - 0.5 ng/dL LAB CHEMISTRY METHOD 08/11/2024 12:54 PM [facility] Testosterone, Bioavailable 4 1 - 9 ng/dL LAB CHEMISTRY METHOD 08/11/2024 12:54 PM [facility] Sex Hormone Binding 40.1 See Comment nmol/L LAB CHEMISTRY METHOD 08/11/2024 12:54 PM [facility] Comment: FEMALES: ??pre-menopausal [...] g/dL LAB CHEMISTRY METHOD 08/11/2024 12:54 PM [facility] Blood Venous blood specimen / Unknown Venipuncture / Unknown 08/11/2024 10:12 AM EST 08/11/2024 11:55 AM EST Mary Nunez MD LAB BLOOD ORDERABLES Fin al Result Performing Organization Address [facility]/ZIP Co de Phone Number [facility] [address] [place] [address], * Sex hormone binding globulin (08/11/2024 10:12 AM EST) Sex Hormone Binding 40.1 See Comment nmol/L LAB CHEMISTRY METHOD 08/11/2024 12:54 PM EST [facility] Comment: FEMALES: ??pre-menopausal ?? 10.8 [...] ORDERABLES Fin al Result Performing Organization Address [facility]/ZIP Co de Phone Number [facility] [address] [place] [address], * Progesterone (08/11/2024 10:12 AM EST) Progesterone 2.0 ng/mL LAB CHEMISTRY METHOD 08/11/2024 1:18 PM EST [facility] Comment: PROGESTERONE REFERENCE RANGES (NG/ML) [...] ORDERABLES Fin al Result Performing Organization Address [facility] de Phone Number [facility] [address] [place] [address], * Estradiol (08/11/2024 10:12 AM EST) [facility] Estradiol 47 See below pcg/mL LAB CHEMISTRY METHOD 08/11/2024 1:18 PM EST [facility] Comment: ESTRADIOL REFERENCE RANGES (PG/ML) [...] ORDERABLES Fin al Result Performing Organization Address [facility]/ZIP Co de Phone Number [facility] [address] [place] [address], * Luteinizing hormone (08/11/2024 10:12 AM EST) Luteinizing Hormone 1.8 See Comment mIU/mL LAB CHEMISTRY METHOD 08/11/2024 1:18 PM EST [facility] Blood Venous blood specimen / Unknown Venipuncture / Unknown 08/11/2024 10:12 AM EST 08/11/2024 11:55 AM EST Narrative [facility] - 08/11/2024 1:18 PM EST LH REFERENCE RANGES (MIU/ML) FEMALES NORMALLY MENSTRUATING: FOLLICULAR PHASE ??1.9 - 12.8 MIDCYCLE PEAK ?22.8 - 76.1 LUTEAL PHASE ?0.6 - 13.5 POSTMENOPAUSAL: ON HRT ?1.1 - ??52.4 UNTREATED ? 8.6 - ??61.8 us Mary Nunez MD LAB BLOOD ORDERABLES Fin al Result [facility] [address] [place] [address], * Follicle stimulating hormone (08/11/2024 10:12 AM EST) Follicle Stimulating Hormone 4.9 See Comment mIU/mL LAB CHEMISTRY METHOD 08/11/2024 1:18 PM EST [facility] Comment: FSH REFERENCE RANGES (MIU/ML) FEMALES NORMALLY MENSTRUATING: FOLLICULAR PHASE ??2.3 - 12.6 MIDCYCLE PEAK ? 5.2 - 17.5 LUTEAL PHASE ?1.7 - ??9.5 POSTMENOPAUSAL: ON HRT ?5.9 - ??72.8 UNTREATED ?12.7 - 132.2 Blood Venous blood specimen / Unknown Venipuncture / Unknown 08/11/2024 10:12 AM EST 08/11/2024 11:55 AM EST Mary Nunez MD LAB BLOOD ORDERABLES Fin al Result [facility] [address] [place] [address], * Pap smear (08/11/2024 12:00 AM EST) Interpretation Negative for intraepithelial lesion or malignancy 08/17/2024 11:08 AM [facility] General Categorization Negative 08/17/2024 11:08 AM [facility] Other Findings Shift in brenton suggestive of bacterial vaginosis Keratotic cellular changes, hyperkeratosis 08/17/2024 11:08 AM [facility] Specimen Adequacy Satisfactory for evaluation 08/17/2024 11:08 AM [facility] Pap Methodology Liquid Based Pap Test 08/17/2024 11:08 AM [facility] Disclaimer Note: This pap test could not be imaged utilizing the [employer] Imaging System and required a manual review. The Pap test is a screening test which carries an inherent false negative rate. These test results should be correlated with the patient's clinical findings and history. This Pap test was processed using an automated screening system. Technical cytopathology services provided by [facility], at [address] [place] [address] (CLIA # [id number]/Melissa Reeves MD, Quality Assurance Supervisor Chassis.) 08/17/2024 11:08 AM [facility] Console Pap Interpretation Reported 08/17/2024 11:08 AM [facility] Brushing/Spatula Vaginal structure / Unknown 08/11/2024 08/12/2024 6:44 AM EST Mary Nunez MD LAB CYTOLOGY ORDERABLES Final Result [facility] [address] [place] [address], [place] [phone] * Urine Albumin Creatinine Ratio (06/12/2016) Pathologist [facility] Urine Albumin Creatinine Ratio Abstracted Historical Provider HEALTH MAINTENANCE Final Result * Annual BMP Blood Test (06/12/2016) Pathologist [facility] Annual BMP Blood Test Abstracted Result [facility] Historical Provider HEALTH MAINTENANCE Final Result * (ABNORMAL) Hemoglobin A1c (06/12/2016) [facility] Hemoglobin A1C 10.4(A) 4.0 - 6.0 % Blood Venous blood specimen / Unknown Result [facility] Historical Provider LAB BLOOD ORDERABLES Mariel l Result * Lipid panel (11/09/2014) [facility] LDL/HDL Ratio 3 0 - 4 Triglycerides 146 0 - 150 mg/dL Cholesterol 161 0 - 200 mg/dL HDL 52 >=40 mg/dL LDL Cholesterol 80 0 - 100 mg/dL Blood Venous blood specimen / Unknown Historical Provider LAB BLOOD ORDERABLES Mariel l Result * HIV Screening (04/28/2013) [facility] HIV Screening Abstracted Historical Provider HEALTH MAINTENANCE Final Result * Hepatitis C Screening (11/24/2009) [facility] Hepatitis C Screening Abstracted Historical Provider HEALTH MAINTENANCE Final Result from Last 3 Months or Most Recently Relevant to Health Maintenance Insurance MEDICAID - [place] MEDICARE Care Teams Data Modeling Architect Relationship Specialty Start Date End Date Esme Valdivia MD [address] [place] [phone] PCP - General Internal Medicine 08/17/15
== END 2024-09-09 16:51 | disposition home or self-care (01) ==
PROVIDERS: PCP Physician Assistant; Referring Provider Physician Assistant; Visit Provider Internal Medicine Nephrology
DX: N28.1 Cyst of kidney, acquired (principal); R80.8 Other proteinuria; I10 Essential (primary) hypertension
CPT/HCPCS: 99204

== ENCOUNTER 2024-09-09 15:34 | Outpatient (REF) | payer MEDICARE, MEDICAID, SELFPAY ==
--- OUTSIDE RECORDS SUMMARY | 2024-09-10 08:03 | XMS_ITS | Encounter Summary ---
Author Organization [facility] Address [address] [place] [address] Care Team Providers Care Automatic Wheel Line Operator Name Role Phone Esme Valdivia MD Primary Care Provider [phone] Encounter Details Date Type Department Care Team (Latest Contact Info) Description 08/12/2024 Lab Requisition [facility] - Main Lab [address] [facility] [place] [address] Mary Nunez MD 299 [facility] [address] [place] [phone] Encounter for gynecological examination (general) (routine) without [...] test could not be imaged utilizing the [employer] Imaging System and required a manual review. The Pap test is a screening test which carries an inherent false negative rate. These test results should be correlated with the patient's clinical findings and history. This Pap test was processed using an automated screening system. Technical cytopathology services provided by [facility], at [address] [place] [address] (CLIA # [id number]/Melissa Reeves MD, Immersion Metal Cleaner.) 08/17/2024 11:08 AM [facility] Console Pap Interpretation Reported 08/17/2024 11:08 AM [facility] Brushing/Spatula Vaginal structure / Unknown 08/11/2024 08/12/2024 6:44 AM EST us Mary Nunez MD LAB CYTOLOGY ORDERABLES Final Result [facility] [address] [place] [address], documented in this encounter Visit Diagnoses Diagnosis Encounter for gynecological examination (general) (routine) without abnormal findings documented in this encounter Care Teams Automatic Wheel Line Operator Relationship Specialty Start Date End Date Esme Valdivia MD [address] [place] [phone] PCP - General Internal Medicine 08/17/15 documented as of this encounter
--- OUTSIDE RECORDS SUMMARY | 2024-09-10 08:03 | XMS_ITS | Clinical Summary ---
Author Organization Patient Business [facility] Address [address] [place] [phone] Care Team Providers Care Classification Clerk Name Role Phone Esme Valdivia MD Primary Care Provider [phone] Allergies Active Allergy Reactions Criticality Noted Date [...] Department Care Team Description 08/12/2024 Lab Requisition [facility] - Main Lab 299 [facility] [place] [address] Mary Nunez MD Encounter for [...] COMMENT: times 3 OTHER SURGICAL HISTORY PROCEDURE: [place] DILATION & CURETTAGE DX&/THER NONOBSTETRIC CERVICAL BIOPSY W/ LOOP ELECTRODE EXCISION PROCEDURE: [place] CONIZATION CERVIX W/WO D&C RPR ELTRD EXC; COMMENT: LEEP TUBAL LIGATION PROCEDURE: HISTORICAL TUBAL LIGATION WISDOM TOOTH EXTRACTION PROCEDURE: HISTORICAL WISDOM TEETH EXTRACTION Medical History Medical History Date Comments Hypothyroid 05/19/2009 DX:Hypothyroid Diabetes mellitus type II, c ontrolled ([facility]) 05/19/2009 DX:Diabetes mellitus type II , controlled ([facility]) Asthma 05/19/2009 DX:Asthma Migraines 05/19/2009 DX:Migraines Hypertension [...] and total (08/11/2024 10:12 AM EST) Pathologist [facility] Testosterone 14 9 - 48 ng/dL LAB CHEMISTRY METHOD 08/11/2024 12:54 PM [facility] Testosterone, Free 0.2 0.0 - 0.5 ng/dL LAB CHEMISTRY METHOD 08/11/2024 12:54 PM [facility] Testosterone, Bioavailable 4 1 - 9 ng/dL LAB CHEMISTRY METHOD 08/11/2024 12:54 PM [facility] Sex Hormone Binding 40.1 See Comment nmol/L LAB CHEMISTRY METHOD 08/11/2024 12:54 PM [facility] Comment: FEMALES: ??pre-menopausal ?? 10.8 [...] g/dL LAB CHEMISTRY METHOD 08/11/2024 12:54 PM [facility] Blood Venous blood specimen / Unknown Venipuncture / Unknown 08/11/2024 10:12 AM EST 08/11/2024 11:55 AM EST Mary Nunez MD LAB BLOOD ORDERABLES Fin al Result Performing Organization Address [facility]/ZIP Co de Phone Number [facility] [address] [place] [address], * Sex hormone binding globulin (08/11/2024 10:12 AM EST) Sex Hormone Binding 40.1 See Comment nmol/L LAB CHEMISTRY METHOD 08/11/2024 12:54 PM EST [facility] Comment: FEMALES: ??pre-menopausal ?? 10.8 [...] ORDERABLES Fin al Result Performing Organization Address [facility]/ZIP Co de Phone Number [facility] [address] [place] [address], * Progesterone (08/11/2024 10:12 AM EST) Progesterone 2.0 ng/mL LAB CHEMISTRY METHOD 08/11/2024 1:18 PM EST [facility] Comment: PROGESTERONE REFERENCE RANGES (NG/ML) [...] ORDERABLES Fin al Result Performing Organization Address [facility] de Phone Number [facility] [address] [place] [address], * Estradiol (08/11/2024 10:12 AM EST) [facility] Estradiol 47 See below pcg/mL LAB CHEMISTRY METHOD 08/11/2024 1:18 PM EST [facility] Comment: ESTRADIOL REFERENCE RANGES (PG/ML) [...] ORDERABLES Fin al Result Performing Organization Address [facility]/ZIP Co de Phone Number [facility] [address] [place] [address], * Luteinizing hormone (08/11/2024 10:12 AM EST) Luteinizing Hormone 1.8 See Comment mIU/mL LAB CHEMISTRY METHOD 08/11/2024 1:18 PM EST [facility] Blood Venous blood specimen / Unknown Venipuncture / Unknown 08/11/2024 10:12 AM EST 08/11/2024 11:55 AM EST Narrative [facility] - 08/11/2024 1:18 PM EST LH REFERENCE RANGES (MIU/ML) FEMALES NORMALLY MENSTRUATING: FOLLICULAR PHASE ??1.9 - 12.8 MIDCYCLE PEAK ?22.8 - 76.1 LUTEAL PHASE ?0.6 - 13.5 POSTMENOPAUSAL: ON HRT ?1.1 - ??52.4 UNTREATED ? 8.6 - ??61.8 us Mary Nunez MD LAB BLOOD ORDERABLES Fin al Result [facility] [address] [place] [address], * Follicle stimulating hormone (08/11/2024 10:12 AM EST) Follicle Stimulating Hormone 4.9 See Comment mIU/mL LAB CHEMISTRY METHOD 08/11/2024 1:18 PM EST [facility] Comment: FSH REFERENCE RANGES (MIU/ML) FEMALES NORMALLY MENSTRUATING: FOLLICULAR PHASE ??2.3 - 12.6 MIDCYCLE PEAK ? 5.2 - 17.5 LUTEAL PHASE ?1.7 - ??9.5 POSTMENOPAUSAL: ON HRT ?5.9 - ??72.8 UNTREATED ?12.7 - 132.2 Blood Venous blood specimen / Unknown Venipuncture / Unknown 08/11/2024 10:12 AM EST 08/11/2024 11:55 AM EST Mary Nunez MD LAB BLOOD ORDERABLES Fin al Result [facility] [address] [place] [address], * Pap smear (08/11/2024 12:00 AM EST) [...] test could not be imaged utilizing the [employer] Imaging System and required a manual review. The Pap test is a screening test which carries an inherent false negative rate. These test results should be correlated with the patient's clinical findings and history. This Pap test was processed using an automated screening system. Technical cytopathology services provided by [facility], at [address] [place] [address] (CLIA # [id number]/Melissa Reeves MD, Cylinder Press Operator.) 08/17/2024 11:08 AM [facility] Console Pap Interpretation Reported 08/17/2024 11:08 AM [facility] Brushing/Spatula Vaginal structure / Unknown 08/11/2024 08/12/2024 6:44 AM EST Mary Nunez MD LAB CYTOLOGY ORDERABLES Final Result [facility] [address] [place] [address], [place] [phone] * Urine Albumin Creatinine Ratio (06/12/2016) Pathologist [facility] Urine Albumin Creatinine Ratio Abstracted Historical Provider HEALTH MAINTENANCE Final Result * Annual BMP Blood Test (06/12/2016) Pathologist [facility] Annual BMP Blood Test Abstracted Result [facility] Historical Provider HEALTH MAINTENANCE Final Result * (ABNORMAL) Hemoglobin A1c (06/12/2016) [facility] Hemoglobin A1C 10.4(A) 4.0 - 6.0 % Blood Venous blood specimen / Unknown Result [facility] Historical Provider LAB BLOOD ORDERABLES Mariel l Result * Lipid panel (11/09/2014) [facility] LDL/HDL Ratio 3 0 - 4 Triglycerides 146 0 - 150 mg/dL Cholesterol 161 0 - 200 mg/dL HDL 52 >=40 mg/dL LDL Cholesterol 80 0 - 100 mg/dL Blood Venous blood specimen / Unknown Historical Provider LAB BLOOD ORDERABLES Mariel l Result * HIV Screening (04/28/2013) [facility] HIV Screening Abstracted Historical Provider HEALTH MAINTENANCE Final Result * Hepatitis C Screening (11/24/2009) [facility] Hepatitis C Screening Abstracted Historical Provider HEALTH MAINTENANCE Final Result from Last 3 Months or Most Recently Relevant to Health Maintenance Insurance [place] - [place]ARE Care Teams Classification Clerk Relationship Specialty Start Date End Date Esme Valdivia MD [address] [place] [id number] PCP - General Internal Medicine 08/17/15
== END 2024-09-09 15:35 | disposition home or self-care (01) ==
LOC: HO.LAB 15:34
PROVIDERS: PCP Physician Assistant; Referring Provider Physician Assistant; Visit Provider Internal Medicine Nephrology
DX: N28.1 Cyst of kidney, acquired (principal); I10 Essential (primary) hypertension; R80.8 Other proteinuria; E11.9 Type 2 diabetes mellitus without complications; Z79.4 Long term (current) use of insulin; Z79.84 Long term (current) use of oral hypoglycemic drugs; Z79.899 Other long term (current) drug therapy
CPT/HCPCS: 99202

== ENCOUNTER 2024-09-10 07:27 | Outpatient (REF) | payer MEDICARE, MEDICAID, SELFPAY ==
--- NOTE | ~2024-09-10 | CT_ITS ---
EXAMINATION: CT SOFT TISSUE NECK WITHOUT CONTRAST CLINICAL INFORMATION: Other chronic pain. No further clinical information provided. COMPARISON: None available. TECHNIQUE: Spiral CT imaging of the neck was performed in the axial plane, without IV contrast. Multiplanar reformatted images were constructed from the axial data set. This CT examination was performed using dose optimization techniques as appropriate, variously including the following: *Automated exposure control *Adjustment of mA and/or kV according to patient size (this includes techniques or standardized protocols for targeted exams where dose is matched to indication/reason for exam; i.e. extremities or head) *Use of iterative reconstruction technique FINDINGS: Please note, evaluation of neck soft tissue structures is significantly limited without the benefit of IV contrast. Lymph Nodes: -None enlarged by size criteria. There are normal reactive appearing anterior and posterior cervical chain lymph nodes. Carotid Sheath Structures: -Normal. Salivary Glands: -Normal unenhanced appearance. No lesions. Mucosal Space: -Limited evaluation without contrast. Grossly normal in appearance. -Epiglottis, area epiglottic folds, and oropharyngeal/hypopharyngeal structures appear normal. Visceral Space: -Thyroid gland: Mildly bulky in appearance without definite definable nodule on this noncontrast exam. -Suggestion of mild thickening of the superior esophagus, which esophagitis is a consideration. -Normal larynx and laryngeal structures. -Visceral space otherwise normal.. Retropharangeal Space: - Normal. Parapharyngeal Fat Planes: -Normal. Dress Fitter Spaces: -Normal. Imaged Intracranial Contents: -No mass effect or edema. No remarkable findings. -Skull base is normal. Globes and Orbits: -Normal. Paranasal Sinuses/Mastoids/Tympanic Spaces: -Normally aerated bilaterally. Lung Apices and Superior Mediastinal Structures: -Imaged lung apices are clear and superior mediastinal structures are normal. Bony Structures: Cervical spine: -There is straightening of the normal lordosis, nonspecific. There is a small osteophyte immediately inferior to the anterior C1 ring, without soft tissue surrounding abnormality (series 5, image 45). This is likely degenerative. Differential consideration is calcific tendinopathy of the longus coli muscle, although this usually has accompanying soft tissue abnormalities. -There are no subluxations. There is normal facet alignment. There is no significant degenerative facet change.-Disc spaces are largely preserved with only minimal narrowing. Allowing for modality, there is no significant neural foraminal or central canal encroachment identified. No large disc herniation. -Normal TM joint alignment with minimal degenerative change. CT/CT soft tissue neck wo IV con IMPRESSION: 1. No acute or abnormal findings in the neck soft tissues. Limited soft tissue neck exam without the benefit of IV contrast. 2. Mildly bulky appearing thyroid gland without discrete nodules seen on this noncontrast exam. 3. No acute findings of the cervical spine. See above. 4. If symptoms of neck pain continue, depending on type and location, correlation with MRI of the cervical spine or MR soft tissue neck could be considered. Electronically signed by: Jose Luis Guerra MD 09/10/2024 08:35 AM [place]
[2024-09-10 08:16] LABS: MANUAL DIFF FLAG NO
[2024-09-10 08:32] LABS: Anion Gap 10 (12-20); Blood Urea Nitrogen 8 mg/dL (9-16); Carbon Dioxide 30 mmol/L (22-29); Chloride 105 mmol/L (96-108); Estimated Glomerular Filt Rate > 60; Potassium 3.9 mmol/L (3.3-5.1); Sodium 141 mmol/L (135-145)
[2024-09-10 09:18] LABS: Basophils Absolute Auto 0.1 X10*3/uL (0.0-0.2); Basophils Percent Auto 0.5 % (0-2); Eosinophils Percent Auto 0.3 % (0-4); Hematocrit 38.9 % (37.0-47.0); Hemoglobin 13.8 g/dl (12.0-16.0); Imm Gran Abs Auto 0.02 X10*3/uL (0.00-0.03); Imm Gran Pct Auto 0.2 % (0.0-0.4); Lymphocytes Absolute Auto 2.9 X10*3/uL (1.2-4.9); Lymphocytes Percent Auto 32.2 % (20-40); Mean Corpuscular HGB Conc 35.5 g/dl (31.0-35.0); Mean Corpuscular Hemoglobin 32.1 pg (27.0-33.0); Mean Corpuscular Volume 90.5 fL (80.0-98.0); Mean Platelet Volume 10.3 fL (9.4-12.3); Monocytes Absolute Auto 0.5 X10*3/uL (0.1-1.2); Monocytes Percent Auto 5.2 % (2-11); Neutrophils Absolute Auto 5.6 x10*3/uL (2.0-8.3); Neutrophils Percent Auto 61.6 % (45-73); Platelet Count 240 X10*3/uL (160-400); Red Cell Distribution Width 12.8 % (11.0-16.0); White Blood Count 9.1 X10*3/uL (4.8-10.8)
[2024-09-10 09:24] LABS: INTERNATIONAL NORM RATIO 0.9 (0.9-1.1)
[2024-09-10 09:31] LABS: Appearance Urine Hazy; Color Urine Yellow; Glucose Urine UA 100 mg/dL (Negative); Leukocyte Esterase Urine Negative (Negative); Nitrite Urine Negative (Negative); PH >= 9.0 (5.0-9.0); Specific Gravity - Urine 1.015 (1.005-1.025); Urine Blood Negative (Negative); Urine Ketones Trace mg/dL (Negative); Urine Protein Trace mg/dL (Neg-Trace)
[2024-09-11 19:18] LABS: Complement C3 142 mg/dL (83-193); IgA 238 mg/dL (47-310); IgG 956 mg/dL (600-1640); IgM 100 mg/dL (50-300)
== END 2024-09-10 07:28 | disposition home or self-care (01) ==
LOC: HO.CT 07:27
PROVIDERS: Absent Provider Internal Medicine Nephrology; PCP Physician Assistant; Visit Provider Physician Assistant
DX: M54.2 Cervicalgia (principal); N28.1 Cyst of kidney, acquired; R80.9 Proteinuria, unspecified; G89.29 Other chronic pain
CPT/HCPCS: 70490; 80051; 81003; 82565; 82784; 83520; 84520; 85025; 85610; 86021; 86160; 86225; 86255; 86334; 86335

== ENCOUNTER → 2024-09-10 07:28 | Outpatient (BNV) | payer MEDICARE, MEDICAID, SELFPAY | PROVIDERS: Absent Provider Internal Medicine Nephrology; PCP Physician Assistant; Visit Provider Radiology Diagnostic Radiology | DX: M54.2 Cervicalgia (principal); G89.29 Other chronic pain | CPT/HCPCS: 70490 ==

== ENCOUNTER 2024-09-10 11:01 | Outpatient (AMB) | payer MEDICARE, MEDICAID, SELFPAY ==
--- NOTE | 2024-09-10 11:11 | A.OFFPC_ITS ---
Vital Signs 09/10/24 11:15 09/10/24 11:23 Height 5 ft 2 in Weight 184 lb BMI 33.7 BP 130/100 H 142/98 H Blood Pressure Location Rt brachial Rt brachial Position Sitting Sitting Respiration 14 Pulse 77 Pulse Source Pulse Oximeter Pulse Oximetry (%) 99 Oxygen Delivery Method Room Air Intake Visit Reasons: neck pain Intake Note: Follow up Acetaldehyde Converter Operator Required: No Allergies peanuts Allergy (Mild, Uncoded 09/10/24 11:11) itch in throat shell fish Allergy (Mild, Uncoded 09/10/24 11:11) itch in throat Medication List - Last Reconciled 09/10/24 by Bettie Day PA-C [accu-check compact lancets ] albuterol sulfate 90 mcg/actuation (Ventolin HFA) 2 puffs inhalation Q8H PRN albuterol sulfate 2.5 mg (3 mL) inhalation Q4-6H PRN atorvastatin 40 mg PO QPM 90 days blood-glucose meter (CABIRI - [employer] Ultra2 Meter) As directed blood-glucose sensor (FreeStyle Sam 3 Sensor device) Apply every 14 days As directed to monitor blood glucose buspirone 10 mg PO BID 90 days compressor, for nebulizer use As directed cyanocobalamin (vitamin B-12) 500 mcg PO DAILY 30 days diclofenac sodium 1% (Voltaren Arthritis Pain) 4 grams topical QID duloxetine 60 mg PO DAILY epinephrine IM estradiol transdermal estradiol 0.01%(0.1mg/gram) vaginal estradiol cypionate 5 mg IM Q4W fluoxetine 40 mg PO DAILY fluticasone furoate-vilanterol 100-25 mcg/dose (Breo Ellipta) 1 inh inhalation Q24H fluticasone propionate 50 mcg/actuation 1 spray intranasal BID folic acid 400 mcg PO DAILY 30 days [freestyle lancets ] [freestyle monitor ] [freestyle test strips ] galcanezumab-gnlm (Emgality Pen) 240 mg (2 mL) subcut ONCE 30 days galcanezumab-gnlm (Emgality Pen) 120 mg subcut ONCE 30 days glucose 16 grams (4 x 4 gram) PO Q15M PRN hydroxyzine HCl 50 mg PO DAILY insulin glargine U-300 conc (Toujeo Max U-300 SoloStar) 60 units (0.2 mL) subcut DAILY levothyroxine 50 mcg PO DAILY lisinopril 40 mg PO DAILY magnesium oxide 400 mg PO BEDTIME 30 days meloxicam 7.5 mg PO DAILY metformin 1,000 mg PO BID metoprolol tartrate 25 mg PO BID 90 days nebulizer accessories use As directed omeprazole 20 mg PO BID pen needle, diabetic (BD Haleigh 2nd Gen Pen Needle) use daily As directed pregabalin 200 mg PO BID 30 days riboflavin (vitamin B2) 400 mg PO DAILY 30 days tirzepatide (Mounjaro) 7.5 mg (0.5 mL) subcut QWEEK tramadol 50 mg PO Q12H PRN 30 days ubrogepant (Ubrelvy) 50 - 100 mg (0.5 - 1 x 100 mg) PO ONCE PRN 30 days Tobacco use date assessed: 10/28/23 Dental Screening Dental Screen Date: 10/28/23 HPI neck pain HPI Details History of Present Illness The patient is a 44-year-old female presenting for a follow-up visit primarily to address ongoing management of chronic conditions. neuro: The patient has a history of elevated homocysteine levels, which were previously addressed by neurology with the prescription of Vitamin B12 supplements. GI: The patient reports consistent symptoms indicative of gastroesophageal reflux, with a history suggestive of acid reflux, but has not yet established care with a decal transferrer. She also has rescheduled her barium swallow multiple times. She says that she stopped taking the omeprazole despite it being effective because there were no refills. Musculoskeletal: Had a neck CT this morning for ongoing neck pain. This is ordered by myself as she is also following with [facility] for this. - The CT showed degeneration however mi ld. It also showed possible enlargement of the thyroid gland. No discrete nodule noted. Uro: The patient's urinary issues, reported as polyuria coupled with incontinence symptoms, are under workup, with anticipated follow-up involving urologist input to further assess these symptoms. Psych: For anxiety, previous attempts inclusive of buspirone and fluoxetine therapies rendered ineffective, prompting dosage adjustments to buspirone and reconsideration for escalated mental health support by psychiatry. The patient has experienced barriers in accessing consistent psychiatric evaluation for medication management and further assessment. Health Maintenance - Omeprazole restarted for acid reflux m anagement. - Regular monitoring of blood glucose le vels. - Planned ultrasound examination of thyr oid for goiter evaluation. - Rehabilitation and physical therapy bustos ggested for neck and shoulder symptoms due to cervical degenerative changes. - Vitamin B12 supplementation continues for elevated homocysteine levels. - Psychosocial intervention through psyc hiatry referral reinforced for anxiety management. - Ongoing use of levothyroxine for hypot hyroidism treatment. Social History - Attempts to cease consumption of dark sodas. - Dietary intake modifications aimed at improving diabetes control. - Barriers to effective psychiatric foll ow-up noted due to inconsistencies in scheduling. - Sedentary lifestyle possibly limited b y chronic pain associated with neck condition. Review of Systems - GI: Reports dysphagia and chronic symp toms consistent with acid reflux. - Urogenital: Reports symtoms of polyuri a and inability to hold urine. - Musculoskeletal: Reports neck stiffnes s and enduring pain suggestive of limited motion. - Psychological: Reports persistent anxi ety with ongoing pharmacotherapy adjustments. - Endocrine: Reports cold intolerance, p ossible symptoms of secondary hypothyroid manifestations. Physical Exam General: Well developed, well nourished, in no acute distress. Appears stated age. Cardiac: RRR, no murmurs Lungs: clear, equal breath sounds Abdomen: soft, nontender, no CVA tenderness Extremities: no edema Neuro: alert, oriented x3, mood appropriate Plan - Follow-up thyroid ultrasound to assess suspected enlargement and review current thyroid function tests to adjust levothyroxine dosage accordingly. - Management of acid reflux by restartin g omeprazole and recommendation for GI specialist consultation to further evaluate symptoms of esophagitis. - Polyuria and incontinence to be furthe r assessed by urology, pending consultation. - Anxiety to be managed through increase d buspirone dosage to 15 mg twice daily, with psychiatry referral for comprehensive mental health treatment. - Evaluation of neck pain and related ce rvical spine changes suggests physical therapy as a suitable intervention for symptomatic relief. - Start physical therapy for the neck p ain. Continue following with [facility] Medical History Elevated bilirubin Renal cyst, left Hypothyroidism Claudication of both lower extremities GERD with esophagitis Major depression, recurrent, chronic Insomnia Fibromyalgia Hyperlipidemia Fatty liver Poorly controlled type 2 diabetes mellitus with peripheral neuropathy Uncontrolled type 2 diabetes mellitus with hyperglycemia, with long-term current use of insulin Mild intellectual disability Bilateral hearing loss HTN (hypertension), benign Migraines Chronic low back pain with bilateral sciatica Chronic neck pain Mild persistent asthma in adult without complication Generalized anxiety disorder with panic attacks Family History Mother HTN (hypertension) Diabetes Father HTN (hypertension) Hypercholesteremia Diabetes Cardiovascular disease Maternal Grandmother Cardiovascular disease Skin cancer Anxiety Depression Maternal Grandmother Lung cancer Other FHx: mental illness Social History (Updated 09/10/24 @ 11:19 by Shandra Strickland CMA) Housing: Apartment Alcohol intake: never Patient Tobacco Use Status: Never used Tobacco e-Cigarette/Vaping Use: Never Used Second Hand Smoke Exposure: No Use of substances other than those prescribed or required for medical reasons: No service: No Current occupational status: disabled Cognitive needs: No Hearing needs: Yes Vision needs: No Questionnaire Thrive Questionnaire Date Thrive assessed: 07/29/24 I am a: Patient What is your living situation today?: I have a steady place to live Within the past 12 months, did the food you bought not last and you didn't have the money to get more?: Sometimes True Within the past 12 months, did you worry whether your food would run out before you got money to buy more?: Sometimes True Do you have trouble paying for medicines?: Yes Do you have trouble getting transportation to medical appointments?: Yes Do you have trouble paying your heating and electricity bill?: Yes Do you have trouble taking care of your child, family member or friend?: No Do you have trouble with day-to-day activities such as bathing, preparing meals, shopping, managing finances, etc.?: Yes Are you currently unemployed and looking for a job?: Yes Are you interested in more education?: No Please select the resources that you would like help with: None Currently or been in a relationship where the following occur: No concerns reported THRIVE Score: 4 GIBSON-7 AMB Questionnaire GIBSON-7 Date GIBSON - 7 assessed: 07/29/24 Source: Developed by Drs. Kade Prince, Meghan Montero, Michael Zuniga and colleagues, with an educational manoj from [employer]. Physical exam (Primary Care) Vital Signs: Last Vital Signs Pulse 77 09/10/24 11:15 Resp 14 09/10/24 11:15 BP 142/98 H 09/10/24 11:23 Pulse Ox 99 09/10/24 11:15 Oxygen Delivery Method Room Air 09/10/24 11:15 BMI result Body Mass Index 33.7 Tobacco/Smoking Status: Tobacco use Status Tobacco use date assessed 10/28/23 09/10/24 11:19 Patient Tobacco Use Status Never used Tobacco 09/10/24 11:19 e-Cigarette/Vaping Use Never Used 09/10/24 11:19 Thrive Assessment: Date of Thrive Assessment Date Thrive assessed 07/29/24 09/10/24 11:19 Currently or been in a relationship where the following occur: No concerns reported Results Reviewed Results Reviewed: Report Number: [id number]: Total DLP = 374.00 mGy-cm EXAMINATION: CT SOFT TISSUE NECK WITHOUT CONTRAST CLINICAL INFORMATION: Other chronic pain. No further clinical information provided. COMPARISON: None available. TECHNIQUE: Spiral CT imaging of the neck was performed in the axial plane, without IV contrast. Multiplanar reformatted images were constructed from the axial data set. This CT examination was performed using dose optimization techniques as appropriate, variously including the following: *Automated exposure control *Adjustment of mA and/or kV according to patient size (this includes techniques or standardized protocols for targeted exams where dose is matched to indication/reason for exam; i.e. extremities or head) *Use of iterative reconstruction technique FINDINGS: Please note, evaluation of neck soft tissue structures is significantly limited without the benefit of IV contrast. Lymph Nodes: -None enlarged by size criteria. There are normal reactive appearing anterior and posterior cervical chain lymph nodes. Carotid Sheath Structures: -Normal. Salivary Glands: -Normal unenhanced appearance. No lesions. Mucosal Space: -Limited evaluation without contrast. Grossly normal in appearance. -Epiglottis, area epiglottic folds, and oropharyngeal/hypopharyngeal structures appear normal. Visceral Space: -Thyroid gland: Mildly bulky in appearance without definite definable nodule on this noncontrast exam. -Suggestion of mild thickening of the superior esophagus, which esophagitis is a consideration. -Normal larynx and laryngeal structures. -Visceral space otherwise normal.. Retropharangeal Space: - Normal. Parapharyngeal Fat Planes: -Normal. Insulation Hoseman Spaces: -Normal. Imaged Intracranial Contents: -No mass effect or edema. No remarkable findings. -Skull base is normal. Globes and Orbits: -Normal. Paranasal Sinuses/Mastoids/Tympanic Spaces: -Normally aerated bilaterally. Lung Apices and Superior Mediastinal Structures: -Imaged lung apices are clear and superior mediastinal structures are normal. Bony Structures: Cervical spine: -There is straightening of the normal lordosis, nonspecific. There is a small osteophyte immediately inferior to the anterior C1 ring, without soft tissue surrounding abnormality (series 5, image 45). This is likely degenerative. Differential consideration is calcific tendinopathy of the longus coli muscle, although this usually has accompanying soft tissue abnormalities. -There are no subluxations. There is normal facet alignment. There is no significant degenerative facet change.-Disc spaces are largely preserved with only minimal narrowing. Allowing for modality, there is no significant neural foraminal or central canal encroachment identified. No large disc herniation. -Normal TM joint alignment with minimal degenerative change. CT/CT soft tissue neck wo IV con IMPRESSION: 1. No acute or abnormal findings in the neck soft tissues. Limited soft tissue neck exam without the benefit of IV contrast. 2. Mildly bulky appearing thyroid gland without discrete nodules seen on this noncontrast exam. 3. No acute findings of the cervical spine. See above. 4. If symptoms of neck pain continue, depending on type and location, correlation with MRI of the cervical spine or MR soft tissue neck could be considered. Laboratory Tests 09/10/24 08:14 Sodium 141 Potassium 3.9 Chloride 105 Creatinine 0.66 Estimated GFR > 60 Coding Level of Care Code Est Pt Level 4 (26112) Complex EM visit Add On G2211 Diagnoses GERD (gastroesophageal reflux disease) K21.9 Chronic neck pain M54.2; G89.29 Chronic bilateral low back pain with bilateral sciatica M54.42; M54.41; G89.29 Back pain laterality: bilateral HTN (hypertension), benign I10 Acquired hypothyroidism E03.9 Hypothyroidism type: acquired Generalized anxiety disorder with panic attacks F41.1; F41.0 Insomnia, unspecified type G47.00 Insomnia type: unspecified Major depression, recurrent, chronic F33.9 Assessment & Plan Assessment & Plan (1) GERD (gastroesophageal reflux disease): Code(s): K21.9 - Gastro-esophageal reflux disease without esophagitis Category: Medical (2) Chronic neck pain: Code(s): M54.2 - Cervicalgia; G89.29 - Other chronic pain Category: Medical (3) Chronic low back pain with bilateral sciatica: Code(s): M54.41 - Lumbago with sciatica, right side; M54.42 - Lumbago with sciatica, left side; G89.29 - Other chronic pain Category: Medical Qualifiers: Back pain laterality: bilateral Qualified Code(s): M54.42 - Lumbago with sciatica, left side; M54.41 - Lumbago with sciatica, right side; G89.29 - Other chronic pain (4) HTN (hypertension), benign: Code(s): I10 - Essential (primary) hypertension Category: Medical (5) Hypothyroidism: Code(s): E03.9 - Hypothyroidism, unspecified Category: Medical Qualifiers: Hypothyroidism type: acquired Qualified Code(s): E03.9 - Hypothyroidism, unspecified (6) Generalized anxiety disorder with panic attacks: Code(s): F41.1 - Generalized anxiety disorder; F41.0 - Panic disorder [episodic paroxysmal anxiety] Category: Medical (7) Insomnia: Code(s): G47.00 - Insomnia, unspecified Category: Medical Qualifiers: Insomnia type: unspecified Qualified Code(s): G47.00 - Insomnia, unspecified (8) Major depression, recurrent, chronic: Code(s): F33.9 - Major depressive disorder, recurrent, unspecified Category: Medical Plan . Orders: Orders PT Evaluation and Treatment Today G89.29 - Other chronic pain, M54.2 - Cervicalgia, M54.41 - Lumbago with sciatica, right side, M54.42 - Lumbago with sciatica, left side thyroid Today E03.9 - Hypothyroidism, unspecified, E04.9 - Nontoxic goiter, unspecified TSH reflex Free T4 Today E03.9 - Hypothyroidism, unspecified Referrals Psychiatry Referral F33.9 - Major depressive disorder, recurrent, unspecified, F41.0 - Panic disorder [episodic paroxysmal anxiety], F41.1 - Generalized anxiety disorder, G47.00 - Insomnia, unspecified Medications: New omeprazole 20 mg PO DAILY 90 caps 0RF buspirone 15 mg PO BID 180 tabs 3RF Discontinued buspirone Discontinued Reason: Doctor's Order 10 mg PO BID 90 days 180 tabs 3RF fluoxetine Discontinued Reason: Doctor's Order 40 mg PO DAILY 90 caps 3RF
[2024-09-10 11:15] VITALS: BP 130/100; PULSE 77; RESP 14; O2SAT 99; BMI 33.7
[2024-09-10 11:23] VITALS: BP 142/98
--- OUTSIDE RECORDS SUMMARY | 2024-09-10 13:15 | XMS_ITS | Clinical Summary ---
Author Organization Patient Business [facility] Address [address] [place] [id number] Care Team Providers Care Sofa Back Upholsterer Name Role Phone Esme Valdivia MD Primary Care Provider Allergies Active Allergy Reactions Criticality Noted Date [...] Department Care Team Description 08/12/2024 Lab Requisition [facility] - Main Lab [address] [facility] [place] [address] Mary Nunez MD Encounter for [...] DX:Hypothyroid Diabetes mellitus type II, c ontrolled ([facility]) 05/19/2009 DX:Diabetes mellitus type II , controlled ([facility]) Asthma 05/19/2009 DX:Asthma Migraines 05/19/2009 DX:Migraines Hypertension [...] and total (08/11/2024 10:12 AM EST) Pathologist [facility] Testosterone 14 9 - 48 ng/dL LAB CHEMISTRY METHOD 08/11/2024 12:54 PM [facility] Testosterone, Free 0.2 0.0 - 0.5 ng/dL LAB CHEMISTRY METHOD 08/11/2024 12:54 PM [facility] Testosterone, Bioavailable 4 1 - 9 ng/dL LAB CHEMISTRY METHOD 08/11/2024 12:54 PM [facility] Sex Hormone Binding 40.1 See Comment nmol/L LAB CHEMISTRY METHOD 08/11/2024 12:54 PM [facility] Comment: FEMALES: ??pre-menopausal ?? 10.8 [...] g/dL LAB CHEMISTRY METHOD 08/11/2024 12:54 PM [facility] Blood Venous blood specimen / Unknown Venipuncture / Unknown 08/11/2024 10:12 AM EST 08/11/2024 11:55 AM EST Mary Nunez MD LAB BLOOD ORDERABLES Fin al Result Performing Organization Address [facility]/ZIP Co de Phone Number [facility] [address] [place] [address], * Sex hormone binding globulin (08/11/2024 10:12 AM EST) Sex Hormone Binding 40.1 See Comment nmol/L LAB CHEMISTRY METHOD 08/11/2024 12:54 PM EST [facility] Comment: FEMALES: ??pre-menopausal ?? 10.8 [...] ORDERABLES Fin al Result Performing Organization Address [facility]/ZIP Co de Phone Number [facility] [address] [place] [address], * Progesterone (08/11/2024 10:12 AM EST) Progesterone 2.0 ng/mL LAB CHEMISTRY METHOD 08/11/2024 1:18 PM EST [facility] Comment: PROGESTERONE REFERENCE RANGES (NG/ML) [...] ORDERABLES Fin al Result Performing Organization Address [facility] de Phone Number [facility] [address] [place] [address], * Estradiol (08/11/2024 10:12 AM EST) [facility] Estradiol 47 See below pcg/mL LAB CHEMISTRY METHOD 08/11/2024 1:18 PM EST [facility] Comment: ESTRADIOL REFERENCE RANGES (PG/ML) [...] ORDERABLES Fin al Result Performing Organization Address [facility]/ZIP Co de Phone Number [facility] [address] [place] [address], * Luteinizing hormone (08/11/2024 10:12 AM EST) Luteinizing Hormone 1.8 See Comment mIU/mL LAB CHEMISTRY METHOD 08/11/2024 1:18 PM EST [facility] Blood Venous blood specimen / Unknown Venipuncture / Unknown 08/11/2024 10:12 AM EST 08/11/2024 11:55 AM EST Narrative [facility] - 08/11/2024 1:18 PM EST LH REFERENCE RANGES (MIU/ML) FEMALES NORMALLY MENSTRUATING: FOLLICULAR PHASE ??1.9 - 12.8 MIDCYCLE PEAK ?22.8 - 76.1 LUTEAL PHASE ?0.6 - 13.5 POSTMENOPAUSAL: ON HRT ?1.1 - ??52.4 UNTREATED ? 8.6 - ??61.8 us Mary Nunez MD LAB BLOOD ORDERABLES Fin al Result [facility] [address] [place] [address], * Follicle stimulating hormone (08/11/2024 10:12 AM EST) Follicle Stimulating Hormone 4.9 See Comment mIU/mL LAB CHEMISTRY METHOD 08/11/2024 1:18 PM EST [facility] Comment: FSH REFERENCE RANGES (MIU/ML) FEMALES NORMALLY MENSTRUATING: FOLLICULAR PHASE ??2.3 - 12.6 MIDCYCLE PEAK ? 5.2 - 17.5 LUTEAL PHASE ?1.7 - ??9.5 POSTMENOPAUSAL: ON HRT ?5.9 - ??72.8 UNTREATED ?12.7 - 132.2 Blood Venous blood specimen / Unknown Venipuncture / Unknown 08/11/2024 10:12 AM EST 08/11/2024 11:55 AM EST Mary Nunez MD LAB BLOOD ORDERABLES Fin al Result [facility] [address] [place] [address], * Pap smear (08/11/2024 12:00 AM EST) Interpretation Negative for intraepithelial lesion or malignancy 08/17/2024 11:08 AM [facility] General Categorization Negative 08/17/2024 11:08 AM [facility] Other Findings Shift in brenton suggestive of bacterial vaginosis Keratotic cellular changes, hyperkeratosis 08/17/2024 11:08 AM [facility] Specimen Adequacy Satisfactory for evaluation 08/17/2024 11:08 AM [facility] Pap Methodology Liquid Based Pap Test 08/17/2024 11:08 AM [facility] Disclaimer Note: This pap test could not be imaged utilizing the [employer] System and required a manual review. The Pap test is a screening test which carries an inherent false negative rate. These test results should be correlated with the patient's clinical findings and history. This Pap test was processed using an automated screening system. Technical cytopathology services provided by [facility], at [address] [place] [address] (CLIA # [id number]/Melissa Reeves MD, Rolling Mill Operator Helper.) 08/17/2024 11:08 AM [facility] Console Pap Interpretation Reported 08/17/2024 11:08 AM [facility] Brushing/Spatula Vaginal structure / Unknown 08/11/2024 08/12/2024 6:44 AM EST Mary Nunez MD LAB CYTOLOGY ORDERABLES Final Result [facility] [address] [place] [address], [place] [phone] * Urine Albumin Creatinine Ratio (06/12/2016) Pathologist [facility] Urine Albumin Creatinine Ratio Abstracted Historical Provider HEALTH MAINTENANCE Final Result * Annual BMP Blood Test (06/12/2016) Pathologist Critical [facility] hospital Annual BMP Blood Test Abstracted Result [facility] Historical Provider HEALTH MAINTENANCE Final Result * (ABNORMAL) Hemoglobin A1c (06/12/2016) [facility] Hemoglobin A1C 10.4(A) 4.0 - 6.0 % Blood Venous blood specimen / Unknown Result [facility] Historical Provider LAB BLOOD ORDERABLES Mariel l Result * Lipid panel (11/09/2014) [facility] LDL/HDL Ratio 3 0 - 4 Triglycerides 146 0 - 150 mg/dL Cholesterol 161 0 - 200 mg/dL HDL 52 >=40 mg/dL LDL Cholesterol 80 0 - 100 mg/dL Blood Venous blood specimen / Unknown Historical Provider LAB BLOOD ORDERABLES Mariel l Result * HIV Screening (04/28/2013) [facility] HIV Screening Abstracted Historical Provider HEALTH MAINTENANCE Final Result * Hepatitis C Screening (11/24/2009) [facility] Hepatitis C Screening Abstracted Historical Provider HEALTH MAINTENANCE Final Result from Last 3 Months or Most Recently Relevant to Health Maintenance Insurance MEDICAID - [place] MEDICARE Care Teams Sofa Back Upholsterer Relationship Specialty Start Date End Date Esme Valdivia MD [address] [place] [id number] PCP - General Internal Medicine 08/17/15
--- OUTSIDE RECORDS SUMMARY | 2024-09-10 13:15 | XMS_ITS | Encounter Summary ---
Author Organization [facility] Address [address] [place] [address] Care Team Providers Care Safety And Security Officer Name Role Phone Esme Valdivia MD Primary Care Provider [phone] Encounter Details Date Type Department Care Team (Latest Contact Info) Description 08/12/2024 Lab Requisition [facility] - Main Lab [address] [facility] [place] [address] Mary Nunez MD 299 [facility] [address] [place] [phone] Encounter for gynecological examination (general) (routine) without [...] intraepithelial lesion or malignancy 08/17/2024 11:08 AM [facility] General Categorization Negative 08/17/2024 11:08 AM [facility] Other Findings Shift in brenton suggestive of bacterial vaginosis Keratotic cellular changes, hyperkeratosis 08/17/2024 11:08 AM [facility] Specimen Adequacy Satisfactory for evaluation 08/17/2024 11:08 AM [facility] Pap Methodology Liquid Based Pap Test 08/17/2024 11:08 AM [facility] Disclaimer Note: This pap test could not be imaged utilizing the [employer] System and required a manual review. The Pap test is a screening test which carries an inherent false negative rate. These test results should be correlated with the patient's clinical findings and history. This Pap test was processed using an automated screening system. Technical cytopathology services provided by [facility], at [address] [place] [address] (CLIA # [id number]/Melissa Reeves MD, Superintendent Division.) 08/17/2024 11:08 AM [facility] Console Pap Interpretation Reported 08/17/2024 11:08 AM [facility] Brushing/Spatula Vaginal structure / Unknown 08/11/2024 08/12/2024 6:44 AM EST us Mary Nunez MD LAB CYTOLOGY ORDERABLES Final Result [facility]) [facility] [address] [place] [address], documented in this encounter Visit Diagnoses Diagnosis Encounter for gynecological examination (general) (routine) without abnormal findings documented in this encounter Care Teams Safety And Security Officer Relationship Specialty Start Date End Date Esme Valdivia MD [address] [place] [id number] PCP - General Internal Medicine 08/17/15 documented as of this encounter
== END 2024-09-10 14:13 | disposition home or self-care (01) ==
PROVIDERS: PCP Physician Assistant; Visit Provider Physician Assistant
DX: K21.9 Gastro-esophageal reflux disease without esophagitis (principal); F33.9 Major depressive disorder, recurrent, unspecified; M54.2 Cervicalgia; G89.29 Other chronic pain; M54.42 Lumbago with sciatica, left side; M54.41 Lumbago with sciatica, right side; I10 Essential (primary) hypertension; E03.9 Hypothyroidism, unspecified; F41.1 Generalized anxiety disorder; F41.0 Panic disorder [episodic paroxysmal anxiety]; G47.00 Insomnia, unspecified

== ENCOUNTER 2024-10-12 16:10 | Outpatient (REF) | payer MEDICARE, MEDICAID, SELFPAY ==
--- NOTE | ~2024-10-12 | US_ITS ---
EXAMINATION: US THYROID HISTORY: E03.9 - Hypothyroidism, unspecified TECHNIQUE: Real-time grayscale ultrasound imaging was performed and images were reviewed. COMPARISON: There are no prior studies for comparison. FINDINGS: SIZE: The right thyroid lobe measures 5.0 x 2.6 x 2.1 cm. The left thyroid lobe measures 3.9 x 2.0 x 1.6 cm. The isthmus measures 4 mm. FLOW: Flow to the gland is normal. ECHOGENICITY: The echotexture of the gland is heterogeneous. NODULES: There are nodules bilaterally with imaging characteristics as follows: Nodule #: 1 Location: Midportion of the right thyroid lobe measuring 7 x 3 x 6 mm. Shape: Wider than tall (0 points) Margins: Ill-defined (0 points) Echotexture: Indeterminate (1 point) Composition: Mixed (1 point) Calcifications: None (0 points) Total points: 2 TIRADS: TR2: Not suspicious Nodule #: 2 Location: Lower pole of the right thyroid lobe measuring 13 x 11 x 14 mm. Shape: Wider than tall (0 points) Margins: Smooth (0 points) Echotexture: Isoechoic (1 point) Composition: Solid (2 points) Calcifications: None (0 points) Total points: 3 TIRADS: TR3: Mildly suspicious. Nodule #: 3 Location: Left isthmus measuring 8 x 4 x 7 mm. Shape: Wider than tall (0 points) Margins: Smooth (0 points) Echotexture: Hypoechoic (2 points) Composition: Mixed (1 point) Calcifications: None (0 points) Total points: 3 TIRADS: TR3: Mildly suspicious. US/US thyroid IMPRESSION: Scattered bilateral thyroid nodules as described. Please see ACR TI-RADS guidelines below. ACR TI-RADS Guidelines TR1 (0 points): Benign, No follow-up or biopsy required TR2 (2 points): Not Suspicious, No biopsy or follow up indicated TR3 (3 points): Mildly Suspicious, FNA if >= 2.5 cm, Follow if >= 1.5 cm TR4 (4-6 points): Moderately Suspicious, FNA if >= 1.5 cm, Follow if >= 1.0 cm TR5 (>=7 points): Highly Suspicious, FNA if >= 1.0 cm, Follow if >= 0.5 cm Electronically signed by: Kade Gomez MD 10/13/2024 07:58 AM EDT
--- OUTSIDE RECORDS SUMMARY | 2024-10-12 17:52 | XMS_ITS | Encounter Summary ---
Author Organization [facility] Address [address] [place] [address] Care Team Providers Care Pot Fluxer Name Role Phone Esme Valdivia MD Primary Care Provider [phone] Encounter Details Date Type Department Care Team (Latest Contact Info) Description 08/12/2024 Lab Requisition [facility] - Main Lab 299 [facility] [place] [address] Mary Nunez MD 299 [facility] [address] [place] [phone] Encounter for gynecological examination (general) (routine) without [...] intraepithelial lesion or malignancy 08/17/2024 11:08 AM [facility] General Categorization Negative 08/17/2024 11:08 AM [facility] Other Findings Shift in brenton suggestive of bacterial vaginosis Keratotic cellular changes, hyperkeratosis 08/17/2024 11:08 AM [facility] Specimen Adequacy Satisfactory for evaluation 08/17/2024 11:08 AM [facility] Pap Methodology Liquid Based Pap Test 08/17/2024 11:08 AM [facility] Disclaimer Note: This pap test could not be imaged utilizing the [employer] Imaging System and required a manual review. The Pap test is a screening test which carries an inherent false negative rate. These test results should be correlated with the patient's clinical findings and history. This Pap test was processed using an automated screening system. Technical cytopathology services provided by [facility], at [address] [place] [address] (CLIA # [id number]/Melissa Reeves MD, Instrumentation Fitter.) 08/17/2024 11:08 AM [facility] Console Pap Interpretation Reported 08/17/2024 11:08 AM [facility] Brushing/Spatula Vaginal structure / Unknown 08/11/2024 08/12/2024 6:44 AM EST us Mary Nunez MD LAB CYTOLOGY ORDERABLES Final Result [facility]) [facility] [address] [place] [address], documented in this encounter Visit Diagnoses Diagnosis Encounter for gynecological examination (general) (routine) without abnormal findings documented in this encounter Care Teams Pot Fluxer Relationship Specialty Start Date End Date Esme Valdivia MD [address] [place] [phone] PCP - General Internal Medicine 08/17/15 documented as of this encounter
--- OUTSIDE RECORDS SUMMARY | 2024-10-12 17:52 | XMS_ITS | Clinical Summary ---
Author Organization [facility] Address [address] [place] [phone] Care Team Providers Care Clinical Resource Nurse Name Role Phone Esme Valdivia MD Primary Care Provider [phone] Allergies Active Allergy Reactions Criticality Noted Date [...] Department Care Team Description 08/12/2024 Lab Requisition [facility] - Main Lab 299 [facility] [place] [address] Mary Nunez MD Encounter for [...] COMMENT: times 3 OTHER SURGICAL HISTORY PROCEDURE: MS DILATION & CURETTAGE DX&/THER NONOBSTETRIC CERVICAL BIOPSY W/ LOOP ELECTRODE EXCISION PROCEDURE: MS CONIZATION CERVIX W/WO D&C RPR ELTRD EXC; COMMENT: LEEP TUBAL LIGATION PROCEDURE: HISTORICAL TUBAL LIGATION WISDOM TOOTH EXTRACTION PROCEDURE: HISTORICAL WISDOM TEETH EXTRACTION Medical History Medical History Date Comments Hypothyroid 05/19/2009 DX:Hypothyroid Diabetes mellitus type II, c ontrolled ([facility]) 05/19/2009 DX:Diabetes mellitus type II , controlled ([facility]) Asthma 05/19/2009 DX:Asthma Migraines 05/19/2009 DX:Migraines [...] and total (08/11/2024 10:12 AM EST) Pathologist [facility] [place] Testosterone 14 9 - 48 ng/dL LAB [...] al Result Performing Organization Address [facility]/ZIP Co de Phone Number [facility] [address] [place] [address], * Sex hormone binding globulin (08/11/2024 10:12 AM EST) Sex Hormone Binding 40.1 See Comment nmol/L LAB CHEMISTRY METHOD 08/11/2024 12:54 PM EST [facility] Comment: FEMALES: ??pre-menopausal [...] al Result Performing Organization Address [facility]/ZIP Co de Phone Number [facility] [address] [place] [address], * Progesterone (08/11/2024 10:12 AM EST) Progesterone 2.0 ng/mL LAB CHEMISTRY METHOD 08/11/2024 1:18 PM EST [facility] Comment: PROGESTERONE REFERENCE RANGES (NG/ML) [...] al Result Performing Organization Address [facility] de Phone Number [facility] [address] [place] [address], * Estradiol (08/11/2024 10:12 AM EST) [facility] Estradiol 47 See below pcg/mL LAB CHEMISTRY METHOD 08/11/2024 1:18 PM EST [facility] Comment: ESTRADIOL REFERENCE RANGES (PG/ML) [...] al Result Performing Organization Address [facility]/ZIP Co de Phone Number [facility] [address] [place] [address], * Luteinizing hormone (08/11/2024 10:12 AM EST) Luteinizing Hormone 1.8 See Comment mIU/mL LAB CHEMISTRY METHOD 08/11/2024 1:18 PM EST [facility] Blood Venous blood specimen / Unknown Venipuncture / Unknown 08/11/2024 10:12 AM EST 08/11/2024 11:55 AM EST Narrative [facility] - 08/11/2024 1:18 PM EST LH REFERENCE RANGES (MIU/ML) FEMALES NORMALLY MENSTRUATING: FOLLICULAR PHASE ??1.9 - 12.8 MIDCYCLE PEAK ?22.8 - 76.1 LUTEAL PHASE ?0.6 - 13.5 POSTMENOPAUSAL: ON HRT ?1.1 - ??52.4 UNTREATED ? 8.6 - ??61.8 us Mary Nunez MD LAB BLOOD ORDERABLES Fin al Result [facility] [address] [place] [address], * Follicle stimulating hormone (08/11/2024 10:12 AM EST) Follicle Stimulating Hormone 4.9 See Comment mIU/mL LAB CHEMISTRY METHOD 08/11/2024 1:18 PM EST [facility] Comment: FSH REFERENCE RANGES (MIU/ML) FEMALES NORMALLY MENSTRUATING: FOLLICULAR PHASE ??2.3 - 12.6 MIDCYCLE PEAK ? 5.2 - 17.5 LUTEAL PHASE ?1.7 - ??9.5 POSTMENOPAUSAL: ON HRT ?5.9 - ??72.8 UNTREATED ?12.7 - 132.2 Blood Venous blood specimen / Unknown Venipuncture / Unknown 08/11/2024 10:12 AM EST 08/11/2024 11:55 AM EST Mary Nunez MD LAB BLOOD ORDERABLES Fin al Result [facility] [address] [place] [address], * Pap smear (08/11/2024 12:00 AM EST) [...] test could not be imaged utilizing the [employer] System and required a manual review. The Pap test is a screening test which carries an inherent false negative rate. These test results should be correlated with the patient's clinical findings and history. This Pap test was processed using an automated screening system. Technical cytopathology services provided by [facility], at [address] [place] [address] (CLIA # [id number]/Melissa Reeves MD, Remodeler.) 08/17/2024 11:08 AM [facility] Console Pap Interpretation Reported 08/17/2024 11:08 AM [facility] Brushing/Spatula Vaginal structure / Unknown 08/11/2024 08/12/2024 6:44 AM EST Mary Nunez MD LAB CYTOLOGY ORDERABLES Final Result [facility]) [facility] [address] [place] [address], [place] [phone] * Urine Albumin Creatinine Ratio (06/12/2016) Pathologist [facility] Urine Albumin Creatinine Ratio Abstracted Historical Provider HEALTH MAINTENANCE Final Result * Annual BMP Blood Test (06/12/2016) Pathologist [facility] Annual BMP Blood Test Abstracted Result [facility] Historical Provider HEALTH MAINTENANCE Final Result * (ABNORMAL) Hemoglobin A1c (06/12/2016) [facility] Hemoglobin A1C 10.4(A) 4.0 - 6.0 % Blood Venous blood specimen / Unknown Result [facility] Historical Provider LAB BLOOD ORDERABLES Mariel l Result * Lipid panel (11/09/2014) [facility] LDL/HDL Ratio 3 0 - 4 Triglycerides 146 0 - 150 mg/dL Cholesterol 161 0 - 200 mg/dL HDL 52 >=40 mg/dL LDL Cholesterol 80 0 - 100 mg/dL Blood Venous blood specimen / Unknown Historical Provider LAB BLOOD ORDERABLES Mariel l Result * HIV Screening (04/28/2013) [facility] HIV Screening Abstracted Historical Provider HEALTH MAINTENANCE Final Result * Hepatitis C Screening (11/24/2009) [facility] Hepatitis C Screening Abstracted Historical Provider HEALTH MAINTENANCE Final Result from Last 3 Months or Most Recently Relevant to Health Maintenance Insurance [address] [place] [address] MEDICAID - [place] MEDICARE Care Teams Clinical Resource Nurse Relationship Specialty Start Date End Date Esme Valdivia MD [address] [place] [id number] PCP - General Internal Medicine 08/17/15
== END 2024-10-12 16:11 | disposition home or self-care (01) ==
LOC: HO.US 16:10
PROVIDERS: PCP Physician Assistant; Visit Provider Physician Assistant
DX: E03.9 Hypothyroidism, unspecified (principal); E04.9 Nontoxic goiter, unspecified
CPT/HCPCS: 76536

== ENCOUNTER → 2024-10-12 16:13 | Outpatient (BNV) | payer MEDICARE, MEDICAID, SELFPAY | PROVIDERS: PCP Physician Assistant; Visit Provider Radiology Diagnostic Radiology | DX: E04.2 Nontoxic multinodular goiter (principal) | CPT/HCPCS: 76536 ==

== ENCOUNTER 2024-10-14 15:02 | Outpatient (AMB) | payer MEDICARE, MEDICAID, SELFPAY ==
--- NOTE | 2024-10-14 15:07 | A.OFFPC_ITS ---
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 CV: Blood pressure today in the office is 132/86. She is currently on metoprolol 25 mg twice a day and lisinopril 40 mg daily. Checks her blood pressures at home and states that they are a little bit on the higher side there is well. Cholesterol is controlled with atorvastatin 40 mg. neuro: Following with urology for migraines. She is on Emgality as a preventative. GI: She has a barium swallow scheduled next week. She states that she has been more compliant with the omeprazole but does not know that this is working for her.. Musculoskeletal: Had a neck CT this morning for ongoing neck pain. Following closely with [facility]. Pain is managed with tramadol and Lyrica. - The CT showed degeneration however mi ld. It also showed possible enlargement of the thyroid gland. No discrete nodule noted. Endo: Dm-following with endocrinology for her diabetes which has been recently better managed. She is currently on Toujeo 60 units, metformin 1000 mg twice a day and Mounjaro 7.5 mg weekly. She states that the addition of the Mounjaro feels very effective. Blood sugars have finally been closer to a normal range. Thyroid-recent neck CT did show enlargement of the thyroid gland. A subsequent thyroid ultrasound was done this week which showed to mildly suspicious nodules and 1 small nodule. She does have a history of hypothyroidism in his on levothyroxine 50 mcg. Last TSH was WNL. Uro: Following with urology for mixed urinary incontinence and microscopic hematuria. Nephrology: Following with Nephrology for the proteinuria. Psych: She is supposed to be following with Psychiatry. She is currently on duloxetine 60 mg daily, hydroxyzine 50 mg daily for anxiety, and buspirone 15 mg twice a day. No SI/HI. Mammo: due -ordered today Pap: Follows with gynecology, s/p partial hysterectomy. [facility] Medical History Elevated bilirubin Renal cyst, left Hypothyroidism Claudication of both lower extremities GERD with esophagitis Major depression, recurrent, chronic Insomnia Fibromyalgia Hyperlipidemia Fatty liver Poorly controlled type 2 diabetes mellitus with peripheral neuropathy Mild intellectual disability Bilateral hearing loss HTN (hypertension), benign Migraines Chronic low back pain with bilateral sciatica Chronic neck pain Mild persistent asthma in adult without complication Generalized anxiety disorder with panic attacks Family History Mother HTN (hypertension) Diabetes Father HTN (hypertension) Hypercholesteremia Diabetes Cardiovascular disease Maternal Grandmother Cardiovascular disease Skin cancer Anxiety Depression Maternal Grandmother Lung cancer Other FHx: mental illness Social History Housing: Apartment Alcohol intake: never Patient Tobacco Use Status: Never used Tobacco e-Cigarette/Vaping Use: Never Used Second Hand Smoke Exposure: No service: No Current occupational status: disabled Cognitive needs: No Hearing needs: Yes Vision needs: No Questionnaire PHQ-9 Over the last 2 weeks, how often have you been bothered by any of the following problems? 1. Little interest or pleasure in doing things: nearly every day 2. Feeling down, depressed, or hopeless: nearly every day 3. Trouble falling or staying asleep, or sleeping too much: nearly every day 4. Feeling tired or having little energy: nearly every day 5. Poor appetite or overeating: nearly every day 6. Feeling bad about yourself - or that you are a failure or have let yourself or your family down: more than half the days 7. Trouble concentrating on things, such as reading the newspaper or watching television: nearly every day 8. Moving or speaking so slowly that other people could have noticed. Or the opposite - being so fidgety or restless that you have been moving around a lot more than usual: nearly every day 9. Thoughts that you would be better off or of hurting yourself in some way: several days Total score: 24 Depression Screening Interpretation: Positive Depression Screening Follow-up: Existing condition, In treatment, Community Mental Health Worker F/U and Follow- up Visit Requested Depression Screening Done: Yes 13272 - PHQ-9 Billing: Yes Source: Developed by Drs. Kade Prince, Meghan Montero, Michael Zuniga and colleagues, with an educational manoj from [employer]. Thrive Questionnaire Date Thrive assessed: 07/29/24 I am a: Patient What is your living situation today?: I have a steady place to live Within the past 12 months, did the food you bought not last and you didn't have the money to get more?: Sometimes True Within the past 12 months, did you worry whether your food would run out before you got money to buy more?: Sometimes True Do you have trouble paying for medicines?: Yes Do you have trouble getting transportation to medical appointments?: Yes Do you have trouble paying your heating and electricity bill?: Yes Do you have trouble taking care of your child, family member or friend?: No Do you have trouble with day-to-day activities such as bathing, preparing meals, shopping, managing finances, etc.?: Yes Are you currently unemployed and looking for a job?: Yes Are you interested in more education?: No Please select the resources that you would like help with: None Currently or been in a relationship where the following occur: No concerns reported THRIVE Score: 4 AUDIT C Alcohol Use Questionnaire (AUDIT-C) 2. How many drinks containing alcohol do you have on a typical day when you are drinking?: 1 or 2 3. How often do you have six or more drinks on one occasion?: Never Total Score: 0 Score Reviewed/Action Taken: Yes GIBSON-7 AMB Questionnaire GIBSON-7 Date GIBSON - 7 assessed: 07/29/24 Feeling nervous, anxious, or on edge: 3 = Nearly every day Not being able to stop or control worryin = Nearly every day Worrying too much about different things: 3 = Nearly every day Trouble relaxin = Nearly every day Being so restless that it is hard to sit still: 3 = Nearly every day Becoming easily annoyed or irritable: 3 = Nearly every day Feeling afraid as if something awful might happen: 3 = Nearly every day Total GIBSON-7 score (0-4 normal; 5-9 mild; 10-14 moderate; 15-21 severe): 21 Source: Developed by Drs. Kade Prince, Meghan Montero, Michael Zuniga and colleagues, with an educational manoj from [employer]. GIBSON-7 Assessment Billing GIBSON-7 Assessment Tool: GIBSON-7 Assessment 27963 Physical exam (Primary Care) Vital Signs: Last Vital Signs Pulse 73 10/14/24 15:17 Resp 14 10/14/24 15:17 BP 132/86 10/14/24 15:30 Pulse Ox 98 10/14/24 15:17 Oxygen Delivery Method Room Air 10/14/24 15:17 BMI result Body Mass Index 33.5 Tobacco/Smoking Status: Tobacco use Status Tobacco use date assessed 10/14/24 10/14/24 15:15 Patient Tobacco Use Status Never used Tobacco 10/14/24 15:32 e-Cigarette/Vaping Use Never Used 10/14/24 15:32 PHQ-9: PHQ-9 Score PHQ-9: Total score 24 10/14/24 15:45 Depression Screening Interpretation: Positive Depression Screening Follow-up: Existing condition, In treatment, Community Mental Health Worker F/U and Follow- up Visit Requested Thrive Assessment: Date of Thrive Assessment Date Thrive assessed 07/29/24 10/14/24 15:08 Currently or been in a relationship where the following occur: No concerns reported Const Orientation/consciousness: patient oriented x3 HENMT Ears: hearing grossly normal bilaterally and TM's normal bilaterally General nose exam: No nasal polyps present Face and sinus: Yes sinuses nontender Mouth: Normal oral and palatal mucosa present Eyes Pupils: Equal, round and reactive pupils present EOM: EOMs intact bilaterally Neck Neck: Yes full ROM and Yes no lymphadenopathy Thyroid: Thyroid normal Chest Chest palpation & inspection: normal inspection of the chest Resp Auscultation: clear to auscultation bilaterally Cardio Rate: regular rate Rhythm: regular rhythm Heart sounds: S1 normal heart sound present and S2 normal heart sound present Peripheral pulses: Peripheral pulses 2+ throughout GI Other: Soft, nontender Auscultation: normal bowel sounds Rectal Exam - Female: deferred General: Yes no CVA tenderness Back/Spine/Pelvis Other: Nontender Back: no CVA tenderness Skin General skin exam: no rashes or lesions noted Neuro General: patient oriented x3, gait normal, CN's II-XI intact bilaterally and deep tendon reflexes 2+ bilaterally Cranial nerves: Yes Equal, round and reactive pupils present Motor exam (neuro): 5/5 motor strength present throughout Sensory Exam: double simultaneous stimulation for sensation normal Coordination: [id number]-pa-nwno test normal and Romberg test negative Extrem General: Yes normal to inspection and Yes full ROM Psych Affect: normal affect Attitude: cooperative Thought process: Normal thought process present Thought content: Normal thought content present Insight: Good insight present (Psych) Judgement: Good judgement present (Psych) Coding Level of Care Code Est Pt Level 3 (12730) Est Pt Prev Care 40-64y(50947) Diagnoses Routine general medical examination at a health care facility Z00.00 HTN (hypertension), benign I10 Poorly controlled type 2 diabetes mellitus with peripheral neuropathy E11.42; E11.65 Dysphagia R13.10 Multiple thyroid nodules E04.2 Additional Codes GIBSON-7 Assessment Billing - GIBSON-7 Assessment Tool: GIBSON-7 Assessment 95966 ([id number]) PHQ-9 - 20992 - PHQ-9 Billing: Yes ([id number]) Assessment & Plan Assessment & Plan (1) Routine general medical examination at a health care facility: Code(s): Z00.00 - Encounter for general adult medical examination without abnormal findings Plan: Health maintenance reviewed. Mammogram ordered. Labs ordered today. We will follow up pending test results (2) HTN (hypertension), benign: Code(s): I10 - Essential (primary) hypertension Category: Medical Plan: Add amlodipine. Continue with the lisinopril and the metoprolol. Follow up in 1 month to be reassessed. Sooner if needed. (3) Poorly controlled type 2 diabetes mellitus with peripheral neuropathy: Code(s): E11.42 - Type 2 diabetes mellitus with diabetic polyneuropathy; E11.65 - Type 2 diabetes mellitus with hyperglycemia Category: Medical Plan: Currently under better control but not quite at goal. Continue following with endocrinology. (4) Dysphagia: Code(s): R13.10 - Dysphagia, unspecified Category: Medical Plan: Barium swallow scheduled next week. We will follow up pending test results. (5) Multiple thyroid nodules: Code(s): E04.2 - Nontoxic multinodular goiter Category: Medical Plan: I have referred her to endocrinology. Orders: Orders MM screening mammo BI 10/14/24 Z12.31 - Encounter for screening mammogram for malignant neoplasm of breast TSH reflex Free T4 10/14/24 E04.2 - Nontoxic multinodular goiter, E11.42 - Type 2 diabetes mellitus with diabetic polyneuropathy, E11.65 - Type 2 diabetes mellitus with hyperglycemia, I10 - Essential (primary) hypertension, R13.10 - Dysphagia, unspecified, Z00.00 - Encounter for general adult medical examination without abnormal findings Lipid Panel 10/14/24 E04.2 - Nontoxic multinodular goiter, E11.42 - Type 2 diabetes mellitus with diabetic polyneuropathy, E11.65 - Type 2 diabetes mellitu s with hyperglycemia, I10 - Essential (primary) hypertension, R13.10 - Dysphagia, unspecified, Z00.00 - Encounter for general adult medical examination without abnormal findings Comprehensive [place]. Panel Fast 10/14/24 E04.2 - Nontoxic multinodular goiter, E11.42 - Type 2 diabetes mellitus with diabetic polyneuropathy, E11.65 - Type 2 diabetes mellitus with hyperglycemia, I10 - Essential (primary) hypertension, R13.10 - Dysphagia, unspecified, Z00.00 - Encounter for general adult medical examination without abnormal findings Complete Blood Count Auto Diff 10/14/24 E04.2 - Nontoxic multinodular goiter, E11.42 - Type 2 diabetes mellitus with diabetic polyneuropathy, E11.65 - Type 2 diabetes mellitus with hyperglycemia, I10 - Essential (primary) hypertension, R13.10 - Dysphagia, unspecified, Z00.00 - Encounter for general adult medical examination without abnormal findings Hemoglobin A1c 10/14/24 E04.2 - Nontoxic multinodular goiter, E11.42 - Type 2 diabetes mellitus with diabetic polyneuropathy, E11.65 - Type 2 diabetes mellitus with hyperglycemia, I10 - Essential (primary) hypertension, R13.10 - Dysphagia, unspecified, R73.01 - Impaired fasting glucose, Z00.00 - Encounter for general adult medical examination without abnormal findings Microalbumin, Random (w Creat) 10/14/24 E04.2 - Nontoxic multinodular goiter, E11.42 - Type 2 diabetes mellitus with diabetic polyneuropathy, E11.65 - Type 2 diabetes mellitus with hyperglycemia, I10 - Essential (primary) hypertension, R13.10 - Dysphagia, unspecified, Z00.00 - Encounter for general adult medical examination without abnormal findings Medications: New amlodipine 5 mg PO DAILY 90 tabs 1RF
[2024-10-14 15:17] VITALS: BP 142/94; PULSE 73; RESP 14; O2SAT 98; BMI 33.5
[2024-10-14 15:30] VITALS: BP 132/86
--- OUTSIDE RECORDS SUMMARY | 2024-10-14 17:32 | XMS_ITS | Encounter Summary ---
Author Organization [facility] Address [address] [place] [address] Care Team Providers Care Drum Sprayer Name Role Phone Esme Valdivia MD Primary Care Provider [phone] Encounter Details Date Type Department Care Team (Latest Contact Info) Description 08/12/2024 Lab Requisition [facility] - Main Lab [address] [facility] [place] [address] Mary Nunez MD [address] [facility] [address] [place] [phone] Encounter for gynecological examination (general) (routine) without [...] intraepithelial lesion or malignancy 08/17/2024 11:08 AM [facility] General Categorization Negative 08/17/2024 11:08 AM [facility] Other Findings Shift in brenton suggestive of bacterial vaginosis Keratotic cellular changes, hyperkeratosis 08/17/2024 11:08 AM [facility] Specimen Adequacy Satisfactory for evaluation 08/17/2024 11:08 AM [facility] Pap Methodology Liquid Based Pap Test 08/17/2024 11:08 AM [facility] Disclaimer Note: This pap test could not be imaged utilizing the [employer] Imaging System and required a manual review. The Pap test is a screening test which carries an inherent false negative rate. These test results should be correlated with the patient's clinical findings and history. This Pap test was processed using an automated screening system. Technical cytopathology services provided by [facility], at [address] [place] [address] (CLIA # [id number]/Melissa Reeves MD, Senior Computer Specialist.) 08/17/2024 11:08 AM [facility] Console Pap Interpretation Reported 08/17/2024 11:08 AM [facility] Brushing/Spatula Vaginal structure / Unknown 08/11/2024 08/12/2024 6:44 AM EST us Mary Nunez MD LAB CYTOLOGY ORDERABLES Final Result [facility]) [facility] [address] [place] [address], documented in this encounter Visit Diagnoses Diagnosis Encounter for gynecological examination (general) (routine) without abnormal findings documented in this encounter Care Teams Drum Sprayer Relationship Specialty Start Date End Date Esme Valdivia MD [address] [place] [id number] PCP - General Internal Medicine 08/17/15 documented as of this encounter
--- OUTSIDE RECORDS SUMMARY | 2024-10-14 17:32 | XMS_ITS | Clinical Summary ---
Author Organization Patient Business [facility] Address [address] [place] [id number] Care Team Providers Care Sole Leveler Machine Name Role Phone Esme Valdivia MD Primary Care Provider [phone] Allergies Active Allergy Reactions Criticality Noted Date [...] Department Care Team Description 08/12/2024 Lab Requisition [facility] - Main Lab [address] [facility] [place] [address] Mary Nunez MD Encounter for [...] COMMENT: times 3 OTHER SURGICAL HISTORY PROCEDURE: DE DILATION & CURETTAGE DX&/THER NONOBSTETRIC CERVICAL BIOPSY W/ LOOP ELECTRODE EXCISION PROCEDURE: DE CONIZATION CERVIX W/WO D&C RPR ELTRD EXC; COMMENT: LEEP TUBAL LIGATION PROCEDURE: HISTORICAL TUBAL LIGATION WISDOM TOOTH EXTRACTION PROCEDURE: HISTORICAL WISDOM TEETH EXTRACTION Medical History Medical History Date Comments Hypothyroid 05/19/2009 DX:Hypothyroid Diabetes mellitus type II, c ontrolled ([facility]) 05/19/2009 DX:Diabetes mellitus type II , controlled ([facility]) Asthma 05/19/2009 DX:Asthma Migraines 05/19/2009 DX:Migraines [...] total (08/11/2024 10:12 AM EST) Pathologist [facility] Testosterone 14 9 - 48 ng/dL LAB CHEMISTRY METHOD 08/11/2024 12:54 PM [facility] Testosterone, Free 0.2 0.0 - 0.5 ng/dL LAB CHEMISTRY METHOD 08/11/2024 12:54 PM [facility] Testosterone, Bioavailable 4 1 - 9 ng/dL LAB CHEMISTRY METHOD 08/11/2024 12:54 PM [facility] Sex Hormone Binding 40.1 See Comment nmol/L LAB CHEMISTRY METHOD 08/11/2024 12:54 PM [facility] Comment: FEMALES: ??pre-menopausal ?? [...] g/dL LAB CHEMISTRY METHOD 08/11/2024 12:54 PM [facility] Blood Venous blood specimen / Unknown Venipuncture / Unknown 08/11/2024 10:12 AM EST 08/11/2024 11:55 AM EST Mary Nunez MD LAB BLOOD ORDERABLES Fin al Result Performing Organization Address [facility]/ZIP Co de Phone Number [facility] [address] [place] [address], * Sex hormone binding globulin (08/11/2024 10:12 AM EST) Sex Hormone Binding 40.1 See Comment nmol/L LAB CHEMISTRY METHOD 08/11/2024 12:[address] [facility] Comment: FEMALES: ??pre-menopausal ?? 10.8 [...] al Result Performing Organization Address [facility]/ZIP Co de Phone Number [facility] [address] [place] [address], * Progesterone (08/11/2024 10:12 AM EST) Progesterone 2.0 ng/mL LAB CHEMISTRY METHOD 08/11/2024 1:[address] [facility] Comment: PROGESTERONE REFERENCE RANGES (NG/ML) [...] al Result Performing Organization Address [facility] de Phone Number [facility] [address] [place] [address], * Estradiol (08/11/2024 10:12 AM EST) [facility] Estradiol 47 See below pcg/mL LAB CHEMISTRY METHOD 08/11/2024 1:[address] [facility] Comment: ESTRADIOL REFERENCE RANGES (PG/ML) [...] al Result Performing Organization Address [facility]/ZIP Co de Phone Number [facility] [address] [place] [address], * Luteinizing hormone (08/11/2024 10:12 AM EST) Luteinizing Hormone 1.8 See Comment mIU/mL LAB CHEMISTRY METHOD 08/11/2024 1:[address] [facility] Blood Venous blood specimen / Unknown Venipuncture / Unknown 08/11/2024 10:12 AM EST 08/11/2024 11:[address] [facility] - 08/11/2024 1:18 PM EST LH REFERENCE RANGES (MIU/ML) FEMALES NORMALLY MENSTRUATING: FOLLICULAR PHASE ??1.9 - 12.8 MIDCYCLE PEAK ?22.8 - 76.1 LUTEAL PHASE ?0.6 - 13.5 POSTMENOPAUSAL: ON HRT ?1.1 - ??52.4 UNTREATED ? 8.6 - ??61.8 us Mary Nunez MD LAB BLOOD ORDERABLES Fin al Result [facility] [address] [place] [address], * Follicle stimulating hormone (08/11/2024 10:12 AM EST) Follicle Stimulating Hormone 4.9 See Comment mIU/mL LAB CHEMISTRY METHOD 08/11/2024 1:[address] [facility] Comment: FSH REFERENCE RANGES (MIU/ML) FEMALES NORMALLY MENSTRUATING: FOLLICULAR PHASE ??2.3 - 12.6 MIDCYCLE PEAK ? 5.2 - 17.5 LUTEAL PHASE ?1.7 - ??9.5 POSTMENOPAUSAL: ON HRT ?5.9 - ??72.8 UNTREATED ?12.7 - 132.2 Blood Venous blood specimen / Unknown Venipuncture / Unknown 08/11/2024 10:12 AM EST 08/11/2024 11:55 AM EST Mary Nunez MD LAB BLOOD ORDERABLES Fin al Result [facility] [address] [place] [address], * Pap smear (08/11/2024 12:00 AM EST) [...] test could not be imaged utilizing the [employer] System and required a manual review. The Pap test is a screening test which carries an inherent false negative rate. These test results should be correlated with the patient's clinical findings and history. This Pap test was processed using an automated screening system. Technical cytopathology services provided by [facility], at [address] [place] [address] (CLIA # [id number]/Melissa Reeves MD, Post Office Clerk.) 08/17/2024 11:08 AM [facility] Console Pap Interpretation Reported 08/17/2024 11:08 AM [facility] Brushing/Spatula Vaginal structure / Unknown 08/11/2024 08/12/2024 6:44 AM EST Mary Nunez MD LAB CYTOLOGY ORDERABLES Final Result [facility] ([facility]) [facility] [address] [place] [address], [place] [phone] * Urine Albumin Creatinine Ratio (06/12/2016) Pathologist [facility] Urine Albumin Creatinine Ratio Abstracted Historical Provider HEALTH MAINTENANCE Final Result * Annual BMP Blood Test (06/12/2016) Pathologist [facility] Annual BMP Blood Test Abstracted Result [facility] Historical Provider HEALTH MAINTENANCE Final Result * (ABNORMAL) Hemoglobin A1c (06/12/2016) [facility] Hemoglobin A1C 10.4(A) 4.0 - 6.0 % Blood Venous blood specimen / Unknown Result [facility] Historical Provider LAB BLOOD ORDERABLES Mariel l Result * Lipid panel (11/09/2014) [facility] LDL/HDL Ratio 3 0 - 4 Triglycerides 146 0 - 150 mg/dL Cholesterol 161 0 - 200 mg/dL HDL 52 >=40 mg/dL LDL Cholesterol 80 0 - 100 mg/dL Blood Venous blood specimen / Unknown Historical Provider LAB BLOOD ORDERABLES Mariel l Result * HIV Screening (04/28/2013) [facility] HIV Screening Abstracted Historical Provider HEALTH MAINTENANCE Final Result * Hepatitis C Screening (11/24/2009) [facility] Hepatitis C Screening Abstracted Historical Provider HEALTH MAINTENANCE Final Result from Last 3 Months or Most Recently Relevant to Health Maintenance Insurance [id number] [place] [address] MEDICAID - [place] MEDICARE Care Teams Sole Leveler Machine Relationship Specialty Start Date End Date Esme Valdivia MD [address] [place] [id number] PCP - General Internal Medicine 08/17/15
== END 2024-10-14 16:08 | disposition home or self-care (01) ==
LOC: HO.HMCFM 15:03
PROVIDERS: PCP Physician Assistant; Visit Provider Physician Assistant
DX: Z00.00 Encounter for general adult medical examination without abnormal findings (principal); I10 Essential (primary) hypertension; E11.42 Type 2 diabetes mellitus with diabetic polyneuropathy; E11.65 Type 2 diabetes mellitus with hyperglycemia; R13.10 Dysphagia, unspecified; E04.2 Nontoxic multinodular goiter

== ENCOUNTER → 2024-10-14 15:02 | Outpatient (BNVA) | payer MEDICARE, MEDICAID, SELFPAY | PROVIDERS: PCP Physician Assistant; Visit Provider Physician Assistant | DX: Z00.01 Encounter for general adult medical examination with abnormal findings (principal); I10 Essential (primary) hypertension; E11.42 Type 2 diabetes mellitus with diabetic polyneuropathy; E11.65 Type 2 diabetes mellitus with hyperglycemia; R13.10 Dysphagia, unspecified; E04.2 Nontoxic multinodular goiter | CPT/HCPCS: 96127; 99212; 99396 ==

== ENCOUNTER 2024-10-15 07:46 | Outpatient (AMB) | payer MEDICARE, MEDICAID, SELFPAY ==
--- OUTSIDE RECORDS SUMMARY | 2024-10-15 07:51 | XMS_ITS | Clinical Summary ---
Author Organization Patient Business [facility] Address [address] [place] [id number] Care Team Providers Care Supervisor [employer]intering [employer] Name Role Phone Esme Valdivia MD Primary Care Provider [phone] Allergies Active Allergy Reactions Criticality Noted Date [...] Department Care Team Description 08/12/2024 Lab Requisition [facility] - Main Lab [address] [facility] [place] [address] Mary Nunez MD Encounter for [...] DX:Hypothyroid Diabetes mellitus type II, c ontrolled ([facility]) 05/19/2009 DX:Diabetes mellitus type II , controlled ([facility]) Asthma 05/19/2009 DX:Asthma Migraines 05/19/2009 [...] total (08/11/2024 10:12 AM EST) Pathologist [facility] Testosterone 14 9 - 48 ng/dL LAB CHEMISTRY METHOD 08/11/2024 12:54 PM [facility] Testosterone, Free 0.2 0.0 - 0.5 ng/dL LAB CHEMISTRY METHOD 08/11/2024 12:54 PM [facility] Testosterone, Bioavailable 4 1 - 9 ng/dL LAB CHEMISTRY METHOD 08/11/2024 12:54 PM [facility] Sex Hormone Binding 40.1 See Comment nmol/L LAB CHEMISTRY METHOD 08/11/2024 12:54 PM [facility] Comment: FEMALES: ??pre-menopausal ?? [...] g/dL LAB CHEMISTRY METHOD 08/11/2024 12:54 PM [facility] Blood Venous blood specimen / Unknown Venipuncture / Unknown 08/11/2024 10:12 AM EST 08/11/2024 11:55 AM EST Mary Nunez MD LAB BLOOD ORDERABLES Fin al Result Performing Organization Address [facility]/ZIP Co de Phone Number [facility] [address] [place] [address], * Sex hormone binding globulin (08/11/2024 10:12 [...] ORDERABLES Fin al Result Performing Organization Address [facility]/ZIP Co de Phone Number [facility] [address] [place] [address], * Progesterone (08/11/2024 10:12 AM EST) Progesterone [...] ORDERABLES Fin al Result Performing Organization Address [facility] de Phone Number [facility] [address] [place] [address], * Estradiol (08/11/2024 10:12 AM EST) [facility] Estradiol 47 See below pcg/mL LAB CHEMISTRY [...] ORDERABLES Fin al Result Performing Organization Address [facility]/ZIP Co de Phone Number [facility] [address] [place] [address], * Luteinizing hormone (08/11/2024 10:12 AM EST) [...] Result [facility] [address] [place] [address], * Follicle stimulating hormone (08/11/2024 10:12 AM [...] Result [facility] [address] [place] [address], * Pap smear (08/11/2024 12:00 AM EST) Interpretation Negative for intraepithelial lesion or malignancy 08/17/2024 11:08 AM [facility] General Categorization Negative 08/17/2024 11:08 AM [facility] Other Findings Shift in brenton suggestive of bacterial vaginosis Keratotic cellular changes, hyperkeratosis 08/17/2024 11:08 AM [facility] Specimen Adequacy Satisfactory for evaluation 08/17/2024 11:08 AM [facility] Pap Methodology Liquid Based Pap Test 08/17/2024 11:08 AM [facility] Disclaimer Note: This pap test could not be imaged utilizing the [employer] System and required a manual review. The Pap test is a screening test which carries an inherent false negative rate. These test results should be correlated with the patient's clinical findings and history. This Pap test was processed using an automated screening system. Technical cytopathology services provided by [facility], at [address] [place] [address] (CLIA # [id number]/Melissa Reeves MD, Medical Policy Specialist.) 08/17/2024 11:08 AM [facility] Console Pap Interpretation Reported 08/17/2024 11:08 AM [facility] Brushing/Spatula Vaginal structure / Unknown 08/11/2024 08/12/2024 6:44 AM EST Mary Nunez MD LAB CYTOLOGY ORDERABLES Final Result [facility] [address] [place] [address], [place] [phone] * Urine Albumin Creatinine Ratio (06/12/2016) Pathologist [facility] Urine Albumin Creatinine Ratio Abstracted Historical Provider HEALTH MAINTENANCE Final Result * Annual BMP Blood Test (06/12/2016) Pathologist [facility] Annual BMP Blood Test Abstracted Result [facility] Historical Provider HEALTH MAINTENANCE Final Result * (ABNORMAL) Hemoglobin A1c (06/12/2016) [facility] Hemoglobin A1C 10.4(A) 4.0 - 6.0 % Blood Venous blood specimen / Unknown Result [facility] Historical Provider LAB BLOOD ORDERABLES Mariel l Result * Lipid panel (11/09/2014) [facility] LDL/HDL Ratio 3 0 - 4 Triglycerides 146 0 - 150 mg/dL Cholesterol 161 0 - 200 mg/dL HDL 52 >=40 mg/dL LDL Cholesterol 80 0 - 100 mg/dL Blood Venous blood specimen / Unknown Historical Provider LAB BLOOD ORDERABLES Mariel l Result * HIV Screening (04/28/2013) [facility] HIV Screening Abstracted Historical Provider HEALTH MAINTENANCE Final Result * Hepatitis C Screening (11/24/2009) [facility] Hepatitis C Screening Abstracted Historical Provider HEALTH MAINTENANCE Final Result from Last 3 Months or Most Recently Relevant to Health Maintenance Insurance [address] [place] [address] MEDICAID - [place] MEDICARE Care Teams Supervisor [employer] Relationship Specialty Start Date End Date Esme Valdivia MD [address] [place] [id number] PCP - General Internal Medicine 08/17/15
--- OUTSIDE RECORDS SUMMARY | 2024-10-15 07:51 | XMS_ITS | Encounter Summary ---
Author Organization [facility] Address [address] [place] [address] Care Team Providers Care Rod Straightener Name Role Phone Esme Valdivia MD Primary Care Provider [phone] Encounter Details Date Type Department Care Team (Latest Contact Info) Description 08/12/[address] [facility] - Main Lab [address] [facility] [place] [address] Mary Nunez MD [address] [facility] [address] [place] [phone] Encounter for gynecological examination (general) (routine) without [...] intraepithelial lesion or malignancy 08/17/2024 11:08 AM [facility] General Categorization Negative 08/17/2024 11:08 AM [facility] Other Findings Shift in brenton suggestive of bacterial vaginosis Keratotic cellular changes, hyperkeratosis 08/17/2024 11:08 AM [facility] Specimen Adequacy Satisfactory for evaluation 08/17/2024 11:08 AM [facility] Pap Methodology Liquid Based Pap Test 08/17/2024 11:08 AM [facility] Disclaimer Note: This pap test could not be imaged utilizing the [employer] System and required a manual review. The Pap test is a screening test which carries an inherent false negative rate. These test results should be correlated with the patient's clinical findings and history. This Pap test was processed using an automated screening system. Technical cytopathology services provided by [facility], at [address] [place] [address] (CLIA # [id number]/Melissa Reeves MD, Specialty Department Supervisor.) 08/17/2024 11:08 AM [facility] Console Pap Interpretation Reported 08/17/2024 11:08 AM [facility] Brushing/Spatula Vaginal structure / Unknown 08/11/2024 08/12/2024 6:44 AM EST us Mary Nunez MD LAB CYTOLOGY ORDERABLES Final Result [facility] [address] [place] [address], documented in this encounter Visit Diagnoses Diagnosis Encounter for gynecological examination (general) (routine) without abnormal findings documented in this encounter Care Teams Rod Straightener Relationship Specialty Start Date End Date Esme Valdivia MD [address] [place] [id number] PCP - General Internal Medicine 08/17/15 documented as of this encounter
--- NOTE | 2024-10-15 07:59 | A.OFFVIS_ITS ---
Intake Visit Reasons: microscopic hematuria Intake Note: New Patient presents for initial visit for microscopic hematuria Urology Medications: estrace cream Blood Thinner: none Smoker: never Senior Materials Analyst Required: No Accompanied by: Self / Same As Patient Allergies peanuts Allergy (Mild, Uncoded 10/15/24 08:28) itch in throat shell fish Allergy (Mild, Uncoded 10/15/24 08:28) itch in throat Medication List - Last Reconciled 10/15/24 by DENTON LevinBC [accu-check compact lancets ] albuterol sulfate 90 mcg/actuation (Ventolin HFA) 2 puffs inhalation Q8H PRN albuterol sulfate 2.5 mg (3 mL) inhalation Q4-6H PRN amlodipine 5 mg PO DAILY atorvastatin 40 mg PO QPM 90 days benzonatate 100 mg PO TID PRN blood-glucose meter (ZeroPoint Clean Tech Ultra2 Meter) As directed blood-glucose sensor (FreeStyle Sam 3 Sensor device) Apply every 14 days As directed to monitor blood glucose buspirone 15 mg PO BID compressor, for nebulizer use As directed cyanocobalamin (vitamin B-12) 500 mcg PO DAILY 30 days diclofenac sodium 1% (Voltaren Arthritis Pain) 4 grams topical QID duloxetine 60 mg PO DAILY epinephrine IM estradiol transdermal estradiol 0.01%(0.1mg/gram) vaginal fluticasone furoate-vilanterol 100-25 mcg/dose (Breo Ellipta) 1 inh inhalation Q24H fluticasone propionate 50 mcg/actuation 1 spray intranasal BID folic acid 400 mcg PO DAILY 30 days [freestyle lancets ] [freestyle monitor ] [freestyle test strips ] galcanezumab-gnlm (Emgality Pen) 240 mg (2 mL) subcut ONCE 30 days glucose 16 grams (4 x 4 gram) PO Q15M PRN hydroxyzine HCl 50 mg PO DAILY insulin glargine U-300 conc (Toujeo Max U-300 SoloStar) 60 units (0.2 mL) subcut DAILY levothyroxine 50 mcg PO DAILY lisinopril 40 mg PO DAILY magnesium oxide 400 mg PO BEDTIME 30 days meloxicam 7.5 mg PO DAILY metformin 1,000 mg PO BID metoprolol tartrate 25 mg PO BID 90 days nebulizer accessories use As directed omeprazole 20 mg PO DAILY pen needle, diabetic (BD Haleigh 2nd Gen Pen Needle) use daily As directed pregabalin 200 mg PO BID 30 days riboflavin (vitamin B2) 400 mg PO DAILY 30 days tirzepatide (Mounjaro) 7.5 mg (0.5 mL) subcut QWEEK tramadol 50 mg PO Q12H PRN 30 days ubrogepant (Ubrelvy) 50 - 100 mg (0.5 - 1 x 100 mg) PO ONCE PRN 30 days HPI Comments Details: Venessa is a very pleasant 44-year-old female patient of Dr. Day. She has a past medical history of renal cysts, hypothyroidism, GERD, depression, insomnia, fibromyalgia, hyperlipidemia, type 2 diabetes, neuropathy, mild intellectual disability, bilateral hearing last, hypertension, migraines, chronic low-back pain with bilateral sciatica, anxiety, and mild persistent a sthma. She presents to the office today as a new patient for microscopic hematuria. In discussion with the patient today she reports previously following up with a urologist many years ago through [facility] as well as [facility] for symptoms of overactive bladder and underwent potential cystoscopy under sedation however does not recall findings. In office urinalysis results reviewed with the patient today no microscopic hematuria noted. In review of patient's chart it does appear patient with recent abdominal ultrasound 02/04 noting kidneys bilateral kidneys with no hydronephrosis or renal calculi. Redemonstration of 1.4 cm upper to mid pole cyst with benign features. She reports feeling symptoms of urinary urgency, urinary frequency, and mixed urinary incontinence. We discussed at length potential causes of these lower urinary tract symptoms as well as microscopic hematuria. We discussed further treatment options and risks and benefits of these treatment options. We discussed importance of management and diabetes for improvement in lower urinary tract symptoms as well as overall health and well-being. In review of patient's chart it appears A1c 05/07 7.7. PVR 39 mL. We discussed bladder triggers/irritants. She otherwise offers no other issues or concerns at this time. Plan Patient was informed and verbally consented to the use of an ambient scribe for clinic note documentation during this visit. Discussion Notes In our consultation, I addressed the ongoing urinary symptoms and management options. A pharmaceutical therapy was chosen for overactive bladder symptoms, ensuring patient consent, which I documented. We explored pelvic floor therapy as a potential adjunct treatment. Future steps include scheduled bladder ultrasonography, with subsequent evaluation. I elaborated on alternative interventions should initial treatments prove insufficient, outlining both non- invasive and surgical options. We agreed to monitor symptoms post-medication initiation, with a follow-up scheduled after diagnostic results. The patient understood the proposed diagnostic and therapeutic pathways, consenting to proceed with the agreed plan. [facility] Medical History Elevated bilirubin Renal cyst, left Hypothyroidism Claudication of both lower extremities GERD with esophagitis Major depression, recurrent, chronic Insomnia Fibromyalgia Hyperlipidemia Fatty liver Poorly controlled type 2 diabetes mellitus with peripheral neuropathy Mild intellectual disability Bilateral hearing loss HTN (hypertension), benign Migraines Chronic low back pain with bilateral sciatica Chronic neck pain Mild persistent asthma in adult without complication Generalized anxiety disorder with panic attacks Family History Mother HTN (hypertension) Diabetes Father HTN (hypertension) Hypercholesteremia Diabetes Cardiovascular disease Maternal Grandmother Cardiovascular disease Skin cancer Anxiety Depression Maternal Grandmother Lung cancer Other FHx: mental illness Social History Housing: Apartment Alcohol intake: never Patient Tobacco Use Status: Never used Tobacco e-Cigarette/Vaping Use: Never Used Second Hand Smoke Exposure: No service: No Current occupational status: disabled Cognitive needs: No Hearing needs: Yes Vision needs: No Review of Systems Const All systems reviewed & are unremarkable except as noted in HPI and below Physical Exam Const General: cooperative, healthy appearing, comfortable, no acute distress, well developed, alert and awake Orientation/consciousness: patient oriented x3 Limitations: no limitations HEENT Head: Yes normal to inspection, Yes normocephalic and Yes atraumatic Ears: hearing grossly normal bilaterally Eyes General: appearance normal, both eyes and all related structures Neck Neck: Yes normal visual inspection and Yes trachea midline Chest Chest palpation & inspection: normal inspection of the chest Resp Effort & Inspection: normal respiratory effort and able to speak in complete sentences Cardio Rate: regular rate GI Inspection: Yes normal to inspection General: Yes no CVA tenderness Back/Spine/Pelvis Back: no CVA tenderness Skin General skin exam: no rashes or lesions noted Neuro General: patient oriented x3 Extrem General: Yes normal to inspection Psych Appearance: grossly normal and well kempt Mental Status: mental status grossly normal Speech and movement: Normal speech and movement present and Clear speech present Affect: normal affect Attitude: cooperative Thought process: Normal thought process present Thought content: Normal thought content present Insight: Fair insight present (Psych) Judgement: Fair judgement present (Psych) Office Procedures Post Void Residual Post Residual Void Post Void Residual (PVR): 39 [id number] Void Residual by ultrasound Results AMB Urinalysis, Automated UA Leukoctes 0 Frank/uL Last Edit by Mohini Aparicio on 10/15/24 08:21 UA Nitrite Last Edit by Riane-channelkrysten BarajasPiperScout on 10/15/24 08:21 UA Urobilinogen 0.2 mg/dL Last Edit by Mohini Aparicio on 10/15/24 08:21 UA Protein 15 mg/dL Last Edit by Riane-channelkrysten BarajasPiperScout on 10/15/24 08:21 UA pH 8.0 Last Edit by Riane-channelkrysten Aparicio on 10/15/24 08:21 UA Blood 0 Gerson/uL Last Edit by Riane-channelkrysten Aparicio on 10/15/24 08:21 UA Specific Sunbright 1.010 Last Edit by [employer] JennPiperScout on 10/15/24 08:21 UA Ketone Last Edit by Riane-channelkrysten Aparicio on 10/15/24 08:21 UA Bilirubin 1 mg/dL Last Edit by [employer] JennPiperScout on 10/15/24 08:21 UA Glucose 0 mg/dL Last Edit by [employer] on 10/15/24 08:21 Results Reviewed Results Reviewed: Laboratory Last Values Urine pH (Auto) 8.0 10/15/24 08:17 Specific Sunbright (Auto) 1.010 10/15/24 08:17 Urine Protein (Auto) 15 mg/dL 10/15/24 08:17 Glucose (UA)(Auto) 0 mg/dL 10/15/24 08:17 Urine Blood (Auto) 0 Gerson/uL 10/15/24 08:17 Urine Bilirubin (Auto) 1 mg/dL 10/15/24 08:17 Urine Urobilinogen (Auto) 0.2 mg/dL 10/15/24 08:17 Leukocyte Esterase (Auto) 0 Frank/uL 10/15/24 08:17 Date of Service: 01/13/24 Procedure(s): US abdomen complete FINDINGS: PANCREAS: Limited visualization of pancreatic tail and head. Imaged portion of pancreatic body is unremarkable. ABDOMINAL AORTA: Limited visualization. Imaged portions are nonaneurysmal. INFERIOR VENA CAVA: Visualized portions are normal. LIVER: Increased hepatic parenchymal heterogeneity and echogenicity could be associated with hepatocellular disease/hepatic steatosis and substantially limits visualization. Correlation with liver function tests and clinical exam recommended to determine further management. GALLBLADDER: No gallstones. No gallbladder wall thickening. COMMON BILE DUCT: Normal in caliber measuring 0.3 cm in diameter. RIGHT KIDNEY: No hydronephrosis. No renal calculi. Limited visualization. The kidney measures 14.0 cm in maximum dimension. LEFT KIDNEY: Redemonstration of 1.4 x 1.2 x 1.2 cm mmorb-sw-aqo pole cyst with benign features. There is no indication for follow-up imaging. No hydronephrosis or renal calculi. The kidney measures 12.5 cm in maximum dimension. SPLEEN: Normal. The spleen measures 10.5 cm in maximum dimension. FREE FLUID: None. IMPRESSION: Increased hepatic parenchymal heterogeneity and echogenicity could be associated with hepatocellular disease/hepatic steatosis and substantially limits visualization. Correlation with liver function tests and clinical exam recommended to determine further management. Assessment & Plan Assessment & Plan (1) Lower urinary tract symptoms: Code(s): R39.9 - Unspecified symptoms and signs involving the genitourinary system Category: Medical (2) Renal cyst, left: Code(s): N28.1 - Cyst of kidney, acquired Category: Medical (3) Microscopic hematuria: Code(s): R31.29 - Other microscopic hematuria Category: Medical (4) Mixed incontinence urge and stress: Code(s): N39.46 - Mixed incontinence Category: Medical Plan In office urinalysis results reviewed with the patient today; as noted above. PVR 39 mL. Will obtain bladder ultrasound for further assessment evaluation. Recent abdominal ultrasound results reviewed with the patient today; as noted above. We discussed at length potential causes of lower urinary tract symptoms patient was experiencing as well as further treatment options and risks and benefits of these treatment options. We discussed bladder triggers/irritants. We discussed importance of management and diabetes for improvement lower urinary tract symptoms as well as overall health and well-being. Start oxybutynin as discussed and prescribed. We discussed potential near future in office urodynamics for further assessment evaluation. Follow-up in 1-3 months with imaging and PVR; or sooner with any issues, concerns, and or questions. Orders: Orders AMB Urinalysis Automated Today Z13.9 - Encounter for screening, unspecified US bladder Today R39.12 - Poor urinary stream AMB Post Void Residual by ultrasound Today Z13.9 - Encounter for screening, unspecified Medications: New oxybutynin chloride ER 10 mg PO DAILY 30 days 30 tabs 3RF N32.81 - Overactive bladder Patient Instructions: The patient had an opportunity to ask questions regarding the treatment plan. All questions were answered. Physical exam, labs, and imaging were discussed and reviewed in detail. As well as risks, benefits, and discussion of treatment choices. No major barriers to understanding were identified. The patient expressed understanding and agreement with the above treatment plan. The patient was made aware they should contact our office by phone for worsening of their current condition, the appearance of new symptoms, or with any questions or concerns. Compliance is encouraged with any medications and follow up testing that is ordered. It is a privilege to be allowed the opportunity to participate in? your urological care.? Again, if you have any questions or concerns If you have any questions or concerns please do not hesitate to contact me. The office is [phone]. This note is constructed using voice recognition software. While every effort has been made to ensure accuracy glaze handler errors may have been included. Yours sincerely, REECE Levin Coding Level of Care Code New Pt Level 4 (29383) Diagnoses Lower urinary tract symptoms R39.9 Renal cyst, left N28.1 Microscopic hematuria R31.29 Mixed incontinence urge and stress N39.46 CPT Codes Post Residual Void - PVR CPT Code: 27611-Dhpl Void Residual by ultrasound ([id number])
== END 2024-10-15 08:27 | disposition home or self-care (01) ==
LOC: HO.HUSH 07:47
PROVIDERS: PCP Physician Assistant; Visit Provider Nurse Practitioner Family
DX: R39.9 Unspecified symptoms and signs involving the genitourinary system (principal); N28.1 Cyst of kidney, acquired; R31.29 Other microscopic hematuria; N39.46 Mixed incontinence; Z13.9 Encounter for screening, unspecified
CPT/HCPCS: 99204

== ENCOUNTER 2024-10-15 07:46 | Outpatient (REF) | payer MEDICARE, MEDICAID, SELFPAY ==
--- OUTSIDE RECORDS SUMMARY | 2024-10-15 09:07 | XMS_ITS | Encounter Summary ---
Author Organization [facility] Address [address] [place] [address] Care Team Providers Care Ethnology Professor Name Role Phone Esme Valdivia MD Primary Care Provider [phone] Encounter Details Date Type Department Care Team (Latest Contact Info) Description 08/12/2024 Lab Requisition [facility] - Main Lab 299 [facility] [place] [address] Mary Nunez MD 299 [facility] [address] [place] [phone] Encounter for gynecological examination (general) (routine) without [...] intraepithelial lesion or malignancy 08/17/2024 11:08 AM [facility] General Categorization Negative 08/17/2024 11:08 AM [facility] Other Findings Shift in brenton suggestive of bacterial vaginosis Keratotic cellular changes, hyperkeratosis 08/17/2024 11:08 AM [facility] Specimen Adequacy Satisfactory for evaluation 08/17/2024 11:08 AM [facility] Pap Methodology Liquid Based Pap Test 08/17/2024 11:08 AM [facility] Disclaimer Note: This pap test could not be imaged utilizing the [employer] Imaging System and required a manual review. The Pap test is a screening test which carries an inherent false negative rate. These test results should be correlated with the patient's clinical findings and history. This Pap test was processed using an automated screening system. Technical cytopathology services provided by [facility], at [address] [place] [address] (CLIA # [id number]/Melissa Reeves MD, Systems Software Designer.) 08/17/2024 11:08 AM [facility] Console Pap Interpretation Reported 08/17/2024 11:08 AM [facility] Brushing/Spatula Vaginal structure / Unknown 08/11/2024 08/12/2024 6:44 AM EST us Mary Nunez MD LAB CYTOLOGY ORDERABLES Final Result [facility]) [facility] [address] [place] [address], documented in this encounter Visit Diagnoses Diagnosis Encounter for gynecological examination (general) (routine) without abnormal findings documented in this encounter Care Teams Ethnology Professor Relationship Specialty Start Date End Date Esme Valdivia MD [address] [place] [address] PCP - General Internal Medicine 08/17/15 documented as of this encounter
--- OUTSIDE RECORDS SUMMARY | 2024-10-15 09:07 | XMS_ITS | Clinical Summary ---
Author Organization [facility] Address [address] [place] [address] Care Team Providers Care Youth Program Director Name Role Phone Esme Valdivia MD Primary Care Provider [phone] Allergies Active Allergy Reactions Criticality Noted Date [...] Department Care Team Description 08/12/2024 Lab Requisition [facility] - Main Lab 299 [facility] [place] [address] Mary Nunez MD Encounter for [...] COMMENT: times 3 OTHER SURGICAL HISTORY PROCEDURE: [place] DILATION & CURETTAGE DX&/THER NONOBSTETRIC CERVICAL BIOPSY W/ LOOP ELECTRODE EXCISION PROCEDURE: SC CONIZATION CERVIX W/WO D&C RPR ELTRD EXC; COMMENT: LEEP TUBAL LIGATION PROCEDURE: HISTORICAL TUBAL LIGATION WISDOM TOOTH EXTRACTION PROCEDURE: HISTORICAL WISDOM TEETH EXTRACTION Medical History Medical History Date Comments Hypothyroid 05/19/2009 DX:Hypothyroid Diabetes mellitus type II, c ontrolled ([facility]) 05/19/2009 DX:Diabetes mellitus type II , controlled ([facility]) Asthma 05/19/2009 DX:Asthma Migraines [...] season) 2024 09/25/2021, 11/20/2020, 10/30/2020 Influenza Vaccine (Season Ended) 2025 04/28/2013, 07/30/2012, 03/29/2010, Additional history exists Cervical Cancer [...] (08/11/2024 10:12 AM EST) Pathologist [facility] Testosterone 14 9 - 48 ng/dL LAB CHEMISTRY METHOD 08/11/2024 12:54 PM [facility] Testosterone, Free 0.2 0.0 - 0.5 ng/dL LAB CHEMISTRY METHOD 08/11/2024 12:54 PM [facility] Testosterone, Bioavailable 4 1 - 9 ng/dL LAB CHEMISTRY METHOD 08/11/2024 12:54 PM [facility] Sex Hormone Binding 40.1 See Comment nmol/L LAB CHEMISTRY METHOD 08/11/2024 12:54 PM [facility] Comment: FEMALES: ??pre-menopausal ?? 10.8 [...] g/dL LAB CHEMISTRY METHOD 08/11/2024 12:54 PM [facility] Blood Venous blood specimen / Unknown Venipuncture / Unknown 08/11/2024 10:12 AM EST 08/11/2024 11:55 AM EST Mary Nunez MD LAB BLOOD ORDERABLES Fin al Result Performing Organization Address [facility]/ZIP Co de Phone Number [facility] [address] [place] [address], * Sex hormone binding globulin (08/11/2024 10:12 [...] ORDERABLES Fin al Result Performing Organization Address [facility] Co de Phone Number [facility] [address] [place] [address], * Progesterone (08/11/2024 10:12 AM EST) Progesterone [...] ORDERABLES Fin al Result Performing Organization Address [facility] de Phone Number [facility] [address] [place] [address], * Estradiol (08/11/2024 10:12 AM EST) [facility] Estradiol 47 See below pcg/mL LAB [...] ORDERABLES Fin al Result Performing Organization Address [facility]/ZIP Co de Phone Number [facility] [address] [place] [address], * Luteinizing hormone (08/11/2024 10:12 AM EST) [...] al Result [facility] [address] [place] [address], * Follicle stimulating hormone (08/11/2024 10:12 AM [...] 10:12 AM EST 08/11/2024 11:55 AM EST us Mary Nunez MD LAB BLOOD ORDERABLES Fin al Result [facility] [address] [place] [address], * Pap smear (08/11/2024 12:00 AM EST) Interpretation Negative for intraepithelial lesion or malignancy 08/17/2024 11:08 AM EST [facility] General Categorization Negative 08/17/2024 11:08 [...] test could not be imaged utilizing the [employer] Imaging System and required a manual review. The Pap test is a screening test which carries an inherent false negative rate. These test results should be correlated with the patient's clinical findings and history. This Pap test was processed using an automated screening system. Technical cytopathology services provided by [facility], at [address] [place] [address] (CLIA # [id number]/Melissa Reeves MD, Dental Hygienist Mobile Coordinator.) 08/17/2024 11:08 AM [facility] Console Pap Interpretation Reported 08/17/2024 11:08 AM [facility] Brushing/Spatula Vaginal structure / Unknown 08/11/2024 08/12/2024 6:44 AM EST Mary Nunez MD LAB CYTOLOGY ORDERABLES Final Result [facility]) [facility] [address] [place] [address], [place] [phone] * Urine Albumin Creatinine Ratio (06/12/2016) Pathologist [facility] Urine Albumin Creatinine Ratio Abstracted Historical Provider HEALTH MAINTENANCE Final Result * Annual BMP Blood Test (06/12/2016) Pathologist [facility] Annual BMP Blood Test Abstracted Result [facility] Provider HEALTH MAINTENANCE Final Result * (ABNORMAL) Hemoglobin A1c (06/12/2016) [facility] Hemoglobin A1C 10.4(A) 4.0 - 6.0 % Blood Venous blood specimen / Unknown Result [facility] Historical Provider LAB BLOOD ORDERABLES Mariel l Result * Lipid panel (11/09/2014) [facility] LDL/HDL Ratio 3 0 - 4 Triglycerides 146 0 - 150 mg/dL Cholesterol 161 0 - 200 mg/dL HDL 52 >=40 mg/dL LDL Cholesterol 80 0 - 100 mg/dL Blood Venous blood specimen / Unknown Result [facility] Historical Provider LAB BLOOD ORDERABLES Mariel l Result * HIV Screening (04/28/2013) [facility] HIV Screening Abstracted Historical Provider HEALTH MAINTENANCE Final Result * Hepatitis C Screening (11/24/2009) [facility] Hepatitis C Screening Abstracted Result [facility] Historical Provider HEALTH MAINTENANCE Final Result from Last 3 Months or Most Recently Relevant to Health Maintenance Insurance [address] [place] [phone] MEDICAID - [place] MEDICARE Care Teams Youth Program Director Relationship Specialty Start Date End Date Esme Valdivia MD [address] [place] [address] PCP - General Internal Medicine 08/17/15
[2024-10-15 17:07] LABS: Urine Cytology See Pathology rpt
== END 2024-10-15 07:47 | disposition home or self-care (01) ==
LOC: HO.LNP 07:46
PROVIDERS: PCP Physician Assistant; Visit Provider Nurse Practitioner Family
DX: R31.29 Other microscopic hematuria (principal); R39.9 Unspecified symptoms and signs involving the genitourinary system; Z13.9 Encounter for screening, unspecified; N32.81 Overactive bladder; Z79.899 Other long term (current) drug therapy
CPT/HCPCS: 51798; 81003; 88112; 99202

== ENCOUNTER 2024-11-17 14:43 | Outpatient (REF) | payer MEDICARE, MEDICAID, SELFPAY ==
--- NOTE | ~2024-11-17 | US_ITS ---
EXAMINATION: US BLADDER HISTORY: R39.12 - Poor urinary stream COMPARISON: There are no prior studies for comparison. FINDINGS: Sonographic examination of the urinary bladder was performed before and after voiding. Before voiding, the urinary bladder measured 7.7 x 7.6 x 5.8, for an estimated volume of176 mL. After voiding, the urinary bladder measured 3.6 x 3.6 x 1.6, for an estimated volume of 11 mL. No intrinsic bladder abnormality is identified. Bilateral ureteral jets are identified. US/US bladder IMPRESSION: Unremarkable ultrasound evaluation of the urinary bladder. Post void bladder residual of 11 mL. Electronically signed by: Kade Gomez MD 11/17/2024 03:04 PM EDT
--- OUTSIDE RECORDS SUMMARY | 2024-11-17 15:55 | XMS_ITS | Encounter Summary ---
Author Organization [facility] Address [address] [place] [address] Care Team Providers Care Rn Neurosurgical Name Role Phone Esme Valdivia MD Primary Care Provider [phone] Encounter Details Date Type Department Care Team (Latest Contact Info) Description 08/12/2024 Lab Requisition [facility] - Main Lab 299 [facility] [place] [address] Mary Nunez MD 299 [facility] [address] [place] [phone] Encounter for gynecological examination (general) (routine) without [...] test could not be imaged utilizing the [employer] Imaging System and required a manual review. The Pap test is a screening test which carries an inherent false negative rate. These test results should be correlated with the patient's clinical findings and history. This Pap test was processed using an automated screening system. Technical cytopathology services provided by [facility], at [address] [place] [address] (CLIA # [id number]/Melissa Reeves MD, Carpenter Repair.) 08/17/2024 11:08 AM [facility] Console Pap Interpretation Reported 08/17/2024 11:08 AM [facility] Brushing/Spatula Vaginal structure / Unknown 08/11/2024 08/12/2024 6:44 AM EST us Mary Nunez MD LAB CYTOLOGY ORDERABLES Final Result [facility]) [facility] [address] [place] [address], documented in this encounter Visit Diagnoses Diagnosis Encounter for gynecological examination (general) (routine) without abnormal findings documented in this encounter Care Teams Rn Neurosurgical Relationship Specialty Start Date End Date Esme Valdivia MD [address] [place] [address] PCP - General Internal Medicine 08/17/15 documented as of this encounter
--- OUTSIDE RECORDS SUMMARY | 2024-11-17 15:55 | XMS_ITS | Clinical Summary ---
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 V24, [facility] V28) 06/13/2016 Noncompliance 06/12/2016 Obesity (BMI 30-39.9) 06/12/2016 Poorly controlled type 2 peg betes mellitus ([facility] V24, [facility] V28) 04/28/2013 Fatty liver 09/14/2010 Tension headache 11/24/2009 Hypertension 05/19/2009 Asthma 05/19/2009 Unspecified abnormal cytolog ical findings in specimens from cervix uteri 05/19/2009 Overview (06/30/2024): Melani SINGLETON. Patient follow with Dr Anthony Velazquez 05/19/2009 Insomnia 05/19/2009 Migraines 05/19/2009 Immunizations Name [...] COMMENT: times 3 OTHER SURGICAL HISTORY PROCEDURE: [place] DILATION & CURETTAGE DX&/THER NONOBSTETRIC CERVICAL BIOPSY W/ LOOP ELECTRODE EXCISION PROCEDURE: [place] CONIZATION CERVIX W/WO D&C RPR ELTRD EXC; COMMENT: LEEP TUBAL LIGATION PROCEDURE: HISTORICAL TUBAL LIGATION WISDOM TOOTH EXTRACTION PROCEDURE: HISTORICAL WISDOM TEETH EXTRACTION Medical History Medical History Date Comments Hypothyroid 05/19/2009 DX:Hypothyroid Diabetes mellitus type II, c ontrolled ([facility] V24, [facility] V28) 05/19/2009 DX:Diabetes mellitus type I I, controlled ([facility]) [...] age to complete this topic Meningococcal B Vaccine Aged Out No l onger eligible based on patient's age to complete [...] Recently Relevant to Health Maintenance Results * Pap smear (08/11/2024 12:00 AM EST) Interpretation Negative for intraepithelial lesion or malignancy 08/17/2024 11:08 AM EST [facility] General Categorization Negative 08/17/2024 11:08 AM EST [facility]) [facility] Other Findings Shift in brenton suggestive of bacterial vaginosis Keratotic cellular changes, hyperkeratosis 08/17/2024 11:08 AM [facility] Specimen Adequacy Satisfactory for evaluation 08/17/2024 11:08 AM [facility] Pap Methodology Liquid Based Pap Test 08/17/2024 11:08 AM [facility] Disclaimer Note: This pap test could not be imaged utilizing the [employer] Imaging System and required a manual review. The Pap test is a screening test which carries an inherent false negative rate. These test results should be correlated with the patient's clinical findings and history. This Pap test was processed using an automated screening system. Technical cytopathology services provided by [facility], at [address] [place] [address] (CLIA # [id number]/Melissa Reeves MD, Manufacturing Scheduler.) 08/17/2024 11:08 AM [facility] Console Pap Interpretation Reported 08/17/2024 11:08 AM [facility] Brushing/Spatula Vaginal structure / Unknown 08/11/2024 08/12/2024 6:44 AM EST Mary Nunez MD LAB CYTOLOGY ORDERABLES Final Result [facility] [address] [place] [address], * Urine Albumin Creatinine Ratio (06/12/2016) Urine Albumin Creatinine Ratio Abstracted Historical Provider HEALTH MAINTENANCE Final Result * Annual BMP Blood Test (06/12/2016) Pathologist [facility] Annual BMP Blood Test Abstracted Historical Provider HEALTH MAINTENANCE Final Result * (ABNORMAL) Hemoglobin A1c (06/12/2016) Hemoglobin A1C 10.4(A) 4.0 - 6.0 % Blood Venous blood specimen / Unknown Historical Provider LAB BLOOD ORDERABLES Mariel l Result * Lipid panel (11/09/2014) Pathologist [facility] LDL/HDL Ratio 3 0 - 4 Triglycerides 146 0 - 150 mg/dL Cholesterol 161 0 - 200 mg/dL HDL 52 >=40 mg/dL LDL Cholesterol 80 0 - 100 mg/dL Blood Venous blood specimen / Unknown Result [facility] Historical Provider LAB BLOOD ORDERABLES Mariel l Result * HIV Screening (04/28/2013) Pathologist [facility] HIV Screening Abstracted [facility] Provider HEALTH MAINTENANCE Final Result * Hepatitis C Screening (11/24/2009) Pathologist [facility] Hepatitis C Screening Abstracted [facility] Provider HEALTH MAINTENANCE Final Result from Last 3 Months or Most Recently Relevant to Health Maintenance Insurance [place]ICARE Care Teams Ring Striker Relationship Specialty Start Date End Date Esme Valdivia MD [address] [place] [address] PCP - General Internal Medicine 08/17/15
== END 2024-11-17 14:44 | disposition home or self-care (01) ==
LOC: HO.HMGCX 14:43
PROVIDERS: PCP Physician Assistant; Visit Provider Nurse Practitioner Family
DX: R39.12 Poor urinary stream (principal)
CPT/HCPCS: 76857

== ENCOUNTER → 2024-11-17 14:44 | Outpatient (BNV) | payer MEDICARE, MEDICAID, SELFPAY | PROVIDERS: PCP Physician Assistant; Visit Provider Radiology Diagnostic Radiology | DX: R39.14 Feeling of incomplete bladder emptying (principal) | CPT/HCPCS: 76857 ==

== ENCOUNTER 2024-11-27 09:32 | Outpatient (REF) | payer MEDICARE, MEDICAID, SELFPAY ==
--- NOTE | ~2024-11-27 | FL_ITS ---
EXAMINATION: XR BARIUM SWALLOW CLINICAL INFORMATION: Dysphagia COMPARISON: None available. TECHNIQUE: Routine barium swallow was performed in upright and lying position. FINDINGS: Following administration of thick barium normal propagation of bolus from the oral cavity through the pharynx, esophagus into stomach without any obstruction, narrowing or stricture. No extrinsic compression seen. On oral administration of solid food/saltine crackers coated with barium there is normal oral mastication and propagation of food through the esophagus into stomach. On placing patient in prone position and oral administration of thin barium there is good distention of entire stomach without any obstruction or narrowing. On supine position there is a small sliding hiatal hernia without gastroesophageal reflux. FLUOROSCOPY TIME: 2 minutes 50 seconds DOSE AREA PRODUCT: 64.91 uGy-m2 (microgray-meter squared) FL/FL barium swallow IMPRESSION: Small sliding hiatal hernia without gastroesophageal reflux. Widely patent esophagus without any of obstruction or intraluminal filling defect. Electronically signed by: Niraj Reynolds MD 11/27/2024 11:53 AM EDT
--- OUTSIDE RECORDS SUMMARY | 2024-11-27 09:45 | XMS_ITS | Encounter Summary ---
Author Organization [facility] Address [address] [place] [address] Care Team Providers Care Residential Care Officer Name Role Phone Esme Valdivia MD Primary Care Provider [phone] Encounter Details Date Type Department Care Team (Latest Contact Info) Description 08/12/2024 Lab Requisition [facility] - Main Lab 299 [facility] [place] [address] Mary Nunez MD 299 [facility] [address] [place] [phone] Encounter for gynecological examination (general) (routine) without [...] intraepithelial lesion or malignancy 08/17/2024 11:08 AM [facility] General Categorization Negative 08/17/2024 11:08 AM [facility] Other Findings Shift in brenton suggestive of bacterial vaginosis Keratotic cellular changes, hyperkeratosis 08/17/2024 11:08 AM [facility] Specimen Adequacy Satisfactory for evaluation 08/17/2024 11:08 AM [facility] Pap Methodology Liquid Based Pap Test 08/17/2024 11:08 AM [facility] Disclaimer Note: This pap test could not be imaged utilizing the [employer] Imaging System and required a manual review. The Pap test is a screening test which carries an inherent false negative rate. These test results should be correlated with the patient's clinical findings and history. This Pap test was processed using an automated screening system. Technical cytopathology services provided by [facility], at [address] [place] [address] (CLIA # [id number]/Melissa Reeves MD, Iuss Analyst.) 08/17/2024 11:08 AM [facility] Console Pap Interpretation Reported 08/17/2024 11:08 AM [facility] Brushing/Spatula Vaginal structure / Unknown 08/11/2024 08/12/2024 6:44 AM EST us Mary Nunez MD LAB CYTOLOGY ORDERABLES Final Result [facility]) [facility] [address] [place] [address], documented in this encounter Visit Diagnoses Diagnosis Encounter for gynecological examination (general) (routine) without abnormal findings documented in this encounter Care Teams Residential Care Officer Relationship Specialty Start Date End Date Esme Valdivia MD [address] [place] [address] PCP - General Internal Medicine 08/17/15 documented as of this encounter
--- OUTSIDE RECORDS SUMMARY | 2024-11-27 09:45 | XMS_ITS | Clinical Summary ---
Author Organization [facility] Address [address] [place] [address] Care Team Providers Care Support Coordinator Name Role Phone Esme Valdivia MD Primary Care Provider [phone] Allergies Active Allergy Reactions Criticality Noted Date [...] type 2 peg betes mellitus with neuropathy ([facility] V24, [facility] V28) 06/13/2016 Noncompliance 06/12/2016 Obesity (BMI 30-39.9) 06/12/2016 Poorly controlled type 2 peg betes mellitus ([facility] V24, [facility] V28) 04/28/2013 Fatty liver 09/14/2010 Tension headache [...] COMMENT: times 3 OTHER SURGICAL HISTORY PROCEDURE: [place] DILATION & CURETTAGE DX&/THER NONOBSTETRIC CERVICAL BIOPSY W/ LOOP ELECTRODE EXCISION PROCEDURE: [place] CONIZATION CERVIX W/WO D&C RPR ELTRD EXC; COMMENT: LEEP TUBAL LIGATION PROCEDURE: HISTORICAL TUBAL LIGATION WISDOM TOOTH EXTRACTION PROCEDURE: HISTORICAL WISDOM TEETH EXTRACTION Medical History Medical History Date Comments Hypothyroid 05/19/2009 DX:Hypothyroid Diabetes mellitus type II, c ontrolled ([facility] V24, [facility] V28) 05/19/2009 DX:Diabetes mellitus type I I, controlled ([facility]) Asthma 05/19/2009 DX:Asthma Migraines 05/19/2009 DX:Migraines [...] or malignancy 08/17/2024 11:08 AM EST [facility] General Categorization Negative 08/17/2024 11:[address] [facility] ([facility]) [facility] Other Findings Shift in brenton suggestive of bacterial vaginosis Keratotic cellular changes, hyperkeratosis 08/17/2024 11:08 AM [facility] Specimen Adequacy Satisfactory for evaluation 08/17/2024 11:08 AM [facility] Pap Methodology Liquid Based Pap Test 08/17/2024 11:08 AM [facility] Disclaimer Note: This pap test could not be imaged utilizing the [employer] Imaging System and required a manual review. The Pap test is a screening test which carries an inherent false negative rate. These test results should be correlated with the patient's clinical findings and history. This Pap test was processed using an automated screening system. Technical cytopathology services provided by [facility], at [address] [place] [address] (CLIA # [id number]/Melissa Reeves MD, Corduroy Cutter Operator.) 08/17/2024 11:08 AM [facility] Console Pap Interpretation Reported 08/17/2024 11:08 AM [facility] Brushing/Spatula Vaginal structure / Unknown 08/11/2024 08/12/2024 6:44 AM EST Mary Nunez MD LAB CYTOLOGY ORDERABLES Final Result [facility] [address] [place] [address], * Urine Albumin Creatinine Ratio (06/12/2016) Urine Albumin Creatinine Ratio Abstracted Historical Provider HEALTH MAINTENANCE Final Result * Annual BMP Blood Test (06/12/2016) Pathologist [facility] Annual BMP Blood Test Abstracted Historical Provider HEALTH MAINTENANCE Final Result * (ABNORMAL) Hemoglobin A1c (06/12/2016) Hemoglobin A1C 10.4(A) 4.0 - 6.0 % Blood Venous blood specimen / Unknown Historical Provider LAB BLOOD ORDERABLES Mariel l Result * Lipid panel (11/09/2014) Pathologist [facility] LDL/HDL Ratio 3 0 - 4 Triglycerides 146 0 - 150 mg/dL Cholesterol 161 0 - 200 mg/dL HDL 52 >=40 mg/dL LDL Cholesterol 80 0 - 100 mg/dL Blood Venous blood specimen / Unknown Result [facility] Historical Provider LAB BLOOD ORDERABLES Mariel l Result * HIV Screening (04/28/2013) Pathologist [facility] HIV Screening Abstracted [facility] Provider HEALTH MAINTENANCE Final Result * Hepatitis C Screening (11/24/2009) Pathologist [facility] Hepatitis C Screening Abstracted [facility] Provider HEALTH MAINTENANCE Final Result from Last 3 Months or Most Recently Relevant to Health Maintenance Insurance [place] - [place] MEDICARE Care Teams Support Coordinator Relationship Specialty Start Date End Date Esme Valdivia MD [address] [place] [address] PCP - General Internal Medicine 08/17/15
== END 2024-11-27 09:33 | disposition home or self-care (01) ==
LOC: HO.XRAY 09:32
PROVIDERS: PCP Physician Assistant; Visit Provider Physician Assistant
DX: R13.10 Dysphagia, unspecified (principal); E03.9 Hypothyroidism, unspecified; I10 Essential (primary) hypertension; E11.65 Type 2 diabetes mellitus with hyperglycemia; Z79.4 Long term (current) use of insulin
CPT/HCPCS: 74220

== ENCOUNTER → 2024-11-27 09:35 | Outpatient (BNV) | payer MEDICARE, MEDICAID, SELFPAY | PROVIDERS: PCP Physician Assistant; Visit Provider Radiology Diagnostic Radiology | DX: R13.10 Dysphagia, unspecified (principal) | CPT/HCPCS: 74246 ==

== ENCOUNTER 2025-02-24 09:47 | Emergency (ER) | payer MEDICARE, MEDICAID, SELFPAY ==
[2025-02-24] VITALS (7 sets, daily range): BP systolic 151–182; BP diastolic 89–99; PULSE 71–85; RESP 12–18; TEMP 36.7; O2SAT 97–98; BMI 32.7
--- NOTE | ~2025-02-24 | XR_ITS ---
EXAMINATION: XR CHEST CLINICAL INFORMATION: CP COMPARISON: None available. TECHNIQUE: 2 views of the chest were obtained. FINDINGS: Pulmonary reticular pattern. No consolidation, pleural fissure pneumothorax. No hyperinflation. Cardiomediastinal silhouette size is normal with a round shaped cardiac apex. There are 2 electrode neurostimulator device overlapping the mid to lower thoracic spine and tip ends at T8 level. XR/XR chest 2V IMPRESSION: No acute airspace disease. Probable hypertensive cardiomyopathy Electronically signed by: Everardo Mace MD 02/24/2025 12:30 PM EDT
--- NOTE | 2025-02-24 09:48 | ECG_ITS ---
Test Reason : CP Blood Pressure : */* mmHG Vent. Rate : 79 BPM Atrial Rate : 79 BPM P-R Int : 132 ms QRS Dur : 88 ms QT Int : 396 ms P-R-T Axes : 29 4 16 degrees QTcB Int : 454 ms Normal sinus rhythm Cannot rule out Anterior infarct , age undetermined Abnormal ECG No previous ECGs available Referred By: Generic ED Physician Electronically Signed By: Jasbir Benítez
--- NOTE | 2025-02-24 10:27 | ED.CHESTPAIN ---
HPI - Chest Pain General Chief Complaint: Chest Pain Stated Complaint: CP, Dizzy, Headache Time Seen by Provider: 02/24/25 10:17 Source: patient and RN notes reviewed Mode of arrival: ambulatory Limitations: no limitations History of Present Illness ED Provider: Lissett Pina PA-C HPI narrative: This is a 44-year-old female, with a past medical history of thyroid nodules, hypothyroidism, GERD, fibromyalgia, hyperlipidemia, diabetes, hypertension, 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 Patient reports that over the last 2 days she has had constant chest pain which waxes and wanes in severity. States that the pain worsens with exertion. Patient also endorses some dizziness, and headache. She also reports numbness and tingling down her left arm. She denies any recent illness. No fevers or chills. No cough. She denies any abdominal pain, vomiting or diarrhea. No urinary symptoms. Denies taking any medications at home to treat her current symptoms. She denies any recent travel, surgery, or hospitalizations. She is a nonsmoker. No history of drug or alcohol use. No other complaints or concerns at this time. MD complaint: chest pain Pertinent past history: coronary artery disease Onset (ago): day(s) Timing of current episode: constant Prior episodes: No Onset: during exertion Pain location: substernal Pain radiation: left arm Severity: moderate Quality: aching Relieving factors: nothing Exacerbating factors: exertion Associated symptoms: nausea Risk Factors Coronary artery disease risk factors: diabetes, hyperlipidemia, hypertension and family history of CAD before age 50 Thoracic aortic dissection risk factors: none Related Data On Oral Contraceptives: No Home Medications ?Medication ?Instructions ?Recorded ?Confirmed accu-check compact lancets 10/28/23 10/15/24 epinephrine 0.3 mg/0.3 mL IM 10/28/23 10/15/24 injection, auto-injector freestyle lancets 10/28/23 10/15/24 freestyle monitor 10/28/23 10/15/24 freestyle test strips 10/28/23 10/15/24 estradiol 0.01% (0.1 mg/gram) vaginal 09/10/24 10/15/24 vaginal cream estradiol 0.05 mg/24 hr semiweekly transdermal 09/10/24 10/15/24 transdermal patch Previous Rx's ?Medication ?Instructions ?Recorded blood-glucose meter (OneTouch #1 ea 02/06/24 Ultra2 Meter) glucose 4 gram chewable tablet 16 g (4 x 4 gram) PO Q15M PRN 02/06/24 hypoglycemia #30 tabs magnesium oxide 400 mg (241.3 mg 400 mg PO BEDTIME 30 days #30 tabs 02/07/24 magnesium) tablet riboflavin (vitamin B2) 400 mg 400 mg PO DAILY 30 days #30 tabs 02/07/24 tablet ubrogepant 100 mg tablet (Ubrelvy) 50 - 100 mg (0.5 - 1 x 100 mg) PO 04/04/24 ONCE PRN migraine headache 30 days #16 tabs galcanezumab-gnlm 120 mg/mL 240 mg (2 mL) subcut ONCE 30 days 04/08/24 subcutaneous pen injector #2 mL (Emgality Pen) albuterol sulfate 90 mcg/actuation 2 puff inhalation Q8H PRN 04/23/24 aerosol inhaler (Ventolin HFA) shortness of breath or wheezing #8.5 grams atorvastatin 40 mg tablet 40 mg PO QPM 90 days #90 tabs 04/23/24 blood-glucose sensor (FreeStyle #2 ea 04/23/24 Sam 3 Sensor device) diclofenac sodium 1 % topical gel 4 g topical QID #100 grams 04/23/24 (Voltaren Arthritis Pain) duloxetine 60 mg capsule,delayed 60 mg PO DAILY #90 caps 04/23/24 release hydroxyzine HCl 50 mg tablet 50 mg PO DAILY #90 tabs 04/23/24 levothyroxine 50 mcg tablet 50 mcg PO DAILY #90 tabs 04/23/24 meloxicam 7.5 mg tablet 7.5 mg PO DAILY #90 tabs 04/23/24 metformin 1,000 mg tablet 1,000 mg PO BID #180 tabs 04/23/24 metoprolol tartrate 25 mg tablet 25 mg PO BID 90 days #180 tabs 04/23/24 pen needle, diabetic 32 gauge x #100 ea 04/23/24 (BD Haleigh 2nd Gen Pen Needle) pregabalin 200 mg capsule 200 mg PO BID 30 days #60 caps 04/23/24 fluticasone propionate 50 1 spray intranasal BID #48 mL 05/15/24 mcg/actuation nasal spray,suspension albuterol sulfate 2.5 mg/3 mL 2.5 mg (3 mL) inhalation Q4-6H PRN 07/17/24 (0.083 %) solution for nebulization shortness of breath or wheezing #90 mL nebulizer accessories #1 ea 07/17/24 fluticasone furoate 100 1 inh inhalation Q24H #60 ea 08/26/24 mcg-vilanterol 25 mcg/dose inhalation powder (Breo Ellipta) cyanocobalamin (vitamin B-12) 500 500 mcg PO DAILY 30 days #30 tabs 09/09/24 mcg tablet buspirone 15 mg tablet 15 mg PO BID #180 tabs 09/10/24 benzonatate 100 mg capsule 100 mg PO TID PRN cough #30 caps 09/16/24 compressor, for nebulizer #1 ea 09/16/24 amlodipine 5 mg tablet 5 mg PO DAILY #90 tabs 10/14/24 diazepam 2 mg tablet (Valium) 2 mg PO BID PRN anxiety #5 tabs 10/23/24 diazepam 5 mg tablet (Valium) 5 mg PO BID PRN anxiety 5 days #5 10/23/24 tabs insulin glargine U-300 conc 300 60 unit (0.2 mL) subcut DAILY #6 mL 10/30/24 unit/mL (3 mL) subcutaneous pen (Toujeo Max U-300 SoloStar) folic acid 400 mcg tablet 400 mcg PO DAILY 30 days #30 tabs 12/02/24 tramadol 50 mg tablet 50 mg PO Q12H PRN pain 30 days #60 12/02/24 tabs omeprazole 20 mg capsule,delayed 20 mg PO DAILY #90 caps 12/14/24 release lisinopril 40 mg tablet 40 mg PO DAILY #90 tabs 01/11/25 oxybutynin chloride 10 mg 10 mg PO DAILY 30 days #30 tabs 01/11/25 tablet,extended release 24 hr tirzepatide 7.5 mg/0.5 mL 7.5 mg (0.5 mL) subcut QWEEK #2 mL 02/04/25 subcutaneous pen injector (Gene) Allergies Allergy/AdvReac Type Severity Reaction Status Date / Time peanuts Allergy Mild itch in Uncoded 02/24/25 09:58 throat shell fish Allergy Mild itch in Uncoded 02/24/25 09:58 throat Review of Systems Review of Systems: Yes all other systems are reviewed and are negative Constitutional: Constitutional: Reports as per [facility] Past Medical History Medical History Elevated bilirubin Renal cyst, left Hypothyroidism Claudication of both lower extremities GERD with esophagitis Major depression, recurrent, chronic Insomnia Fibromyalgia Hyperlipidemia Fatty liver Poorly controlled type 2 diabetes mellitus with peripheral neuropathy Mild intellectual disability Bilateral hearing loss HTN (hypertension), benign Migraines Chronic low back pain with bilateral sciatica Chronic neck pain Mild persistent asthma in adult without complication Generalized anxiety disorder with panic attacks Family History Family History Mother HTN (hypertension) Diabetes Father HTN (hypertension) Hypercholesteremia Diabetes Cardiovascular disease Maternal Grandmother Cardiovascular disease Skin cancer Anxiety Depression Maternal Grandmother Lung cancer Other FHx: mental illness Social History Social History Housing: Apartment Alcohol intake: never Patient Tobacco Use Status: Never used Tobacco e-Cigarette/Vaping Use: Never Used Second Hand Smoke Exposure: No service: No Current occupational status: disabled Cognitive needs: No Hearing needs: Yes Vision needs: No Physical Exam Vital Signs: Vital Signs: Last Vital Signs Temp 98.0 F 02/24/25 16:04 Pulse 71 02/24/25 16:04 Resp 18 02/24/25 16:04 BP 156/91 H 02/24/25 16:04 Pulse Ox 97 02/24/25 16:04 O2 Del Method Room Air 02/24/25 16:04 BMI result Body Mass Index 32.7 Const: General: cooperative, comfortable and no acute distress Orientation/consciousness: patient oriented x3 Limitations: no limitations HEENT: Head: Yes normal to inspection, Yes normocephalic and Yes atraumatic Ears: hearing grossly normal bilaterally General nose exam: Normal external nose present Face and sinus: Yes normal facial exam Mouth: Normal oral and palatal mucosa present, oropharynx normal and moist mucous membranes Throat: Yes posterior oropharynx normal Eyes: General: appearance normal, both eyes and all related structures Eyelids: Yes eyelids normal Conjunctivae: conjunctivae normal Sclerae: sclerae normal Pupils: Equal, round and reactive pupils present EOM: EOMs intact bilaterally Neck: Neck: Yes normal visual inspection, Yes full ROM and Yes no lymphadenopathy Lymphatic: no lymphadenopathy noted Chest: Chest palpation & inspection: normal inspection of the chest Resp: Effort & Inspection: normal respiratory effort and able to speak in complete sentences Auscultation: clear to auscultation bilaterally, no crackles, no rales, no rhonchi and no wheezes Cardio: Rate: regular rate Rhythm: regular rhythm Heart sounds: S1 normal heart sound present and S2 normal heart sound present GI: Inspection: Yes normal to inspection Skin: General skin exam: no rashes or lesions noted Trauma: no lacerations or abrasions Wounds: no wounds Neuro: General: patient oriented x3 and moves all extremities Cranial nerves: Yes Equal, round and reactive pupils present Extrem: General: Yes normal to inspection Right upper extremity: normal to inspection Left upper extremity: normal to inspection Right lower extremity: normal to inspection Left lower extremity: normal to inspection Medications Administered Discontinued Medications Generic Name Dose Route Start Last Admin Trade Name Freq PRN Reason Stop Dose Admin Acetaminophen 1,000 mg in 100 mls @ 400 mls/hr 02/24/25 11:16 02/24/25 13:24 Ofirmev IV 02/24/25 11:30 Infused ONCE ONE Infusion Sodium Chloride 1,000 mls @ 999 mls/hr 02/24/25 11:16 02/24/25 13:25 Ns IV 02/24/25 12:16 Infused .Q1H1M ONE Infusion Medical Decision Making Medical Decision Making [facility] Narrative: This is a 44-year-old female, with a past medical history of thyroid nodules, hypothyroidism, GERD, fibromyalgia, hyperlipidemia, diabetes, hypertension, 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 On arrival, patient hypertensive at 182/96, all other vital signs within normal limits. She is speaking in full sentences under no acute distress. Differential diagnoses include NSTEMI, STEMI, costochondritis, pneumothorax. Plan: Labs, EKG, chest x-ray, we will continue to closely monitor. 1313 - labs returned, she has no leukocytosis, stable H&H, T bili 1.8 (similar to previous), D-dimer negative at 159, troponin less than 2.7, will repeat trop. Pt reporting pain slightly improved, will continue to monitor. 1515 - 2nd troponin negative. Patient's overall workup today was reassuring. Discussed workup with pt. advised to follow up w/ pcp and given return precautions. She understands and agrees with plan. Pt stable for d.c. Differential Diagnosis Differential Diagnoses: The differential diagnosis associated with the presentation includes see above Lab Data MDM Lab Attestation statement: I reviewed the patient's lab results. No leukocytosis, stable H&H, chemistry revealing slight elevation in T bili at 1.8, similar to previous. 02/24/25 10:28 02/24/25 10:28 Labs: Lab Results 02/24/25 02/24/25 02/24/25 Range/Units 10:28 11:25 14:18 WBC 7.8 (4.8-10.8) X10*3/uL RBC 4.35 (4.20-5.50) X10*6/uL Hgb 14.1 (12.0-16.0) g/dl Hct 40.1 (37.0-47.0) % MCV 92.2 (80.0-98.0) fL MCH 32.4 (27.0-33.0) pg MCHC 35.2 H (31.0-35.0) g/dl RDW 12.1 (11.0-16.0) % Plt Count 243 (160-400) X10*3/uL MPV 9.6 (9.4-12.3) fL Immature Gran % (Auto) 0.3 (0.0-0.4) % Neut % (Auto) 63.8 (45-73) % Lymph % (Auto) 30.2 (20-40) % [place] % (Auto) 4.4 (2-11) % Eos % (Auto) 0.9 (0-4) % Baso % (Auto) 0.4 (0-2) % Lymph # (Auto) 2.3 (1.2-4.9) X10*3/uL [place] # (Auto) 0.3 (0.1-1.2) X10*3/uL Eos # (Auto) 0.1 (0.0-0.4) X10*3/uL Baso # (Auto) 0.0 (0.0-0.2) X10*3/uL Abs Immat Gran (auto) 0.02 (0.00-0.03) X10*3/uL Absolute Neuts (auto) 5.0 (2.0-8.3) x10*3/uL Absolute Nucleated RBC 0.000 (0.0-0.012) X10*3/uL Nucleated RBC % (auto) 0.0 (0.0-0.2) /100WBC D-Dimer High Sensitivty 159 NG/ML Sodium 141 (135-145) mmol/L Potassium 3.9 (3.3-5.1) mmol/L Chloride 107 (96-108) mmol/L Carbon Dioxide 25 (22-29) mmol/L Anion Gap 13 (12-20) BUN 8 L (9-16) mg/dL Creatinine 0.67 (0.5-1.4) mg/dL Estim Creat Clear Calc 105.7 Estimated GFR > 60 Random Glucose 100 (60-115) mg/dL Calcium 8.5 (8.4-10.2) mg/dL Total Bilirubin 1.8 H (0.0-1.0) mg/dL AST 18 (5-31) U/L ALT 12 (0-31) U/L Alkaline Phosphatase 44 (39-117) U/L Troponin I High Sens < 2.7 < 2.7 (<3.5-17.0) ng/L Total Protein 6.9 (6.5-8.0) g/dL Albumin 4.4 (3.5-5.0) g/dL Independent Interpretation I performed an independent interpretation of an: EKG Interpretation: EKG normal sinus rhythm at a ventricular rate of 79 beats per minute, CT interval 132, QT QTC 396/454. No STEMI Radiology Impression Discussion of test interpretation with radiology: I have reviewed the radiologist's reading. Radiologist Impression: COMPARISON: None available. TECHNIQUE: 2 views of the chest were obtained. FINDINGS: Pulmonary reticular pattern. No consolidation, pleural fissure pneumothorax. No hyperinflation. Cardiomediastinal silhouette size is normal with a round shaped cardiac apex. There are 2 electrode neurostimulator device overlapping the mid to lower thoracic spine and tip ends at T8 level. XR/XR chest 2V IMPRESSION: No acute airspace disease. Probable hypertensive cardiomyopathy Electronically signed by: Everardo Mace MD 02/24/2025 12:30 PM EDT RP Dictated By: Everardo Jackson MD Scores Heart Score History: -0- slightly suspicious ECG: -0- normal Age: -0- < or = 45 Risk factory: -2- 3 or more risk factors or treated atherosclerosis Troponin: -0- < or = normal limit Score: 2 Risk: 1.7% Discharge Plan Discharge Clinical Impression: Chest pain Patient Disposition: Home, Self-Care Instructions: Chest Pain (ED), Noncardiac Chest Pain (ED), Chest Wall Pain (ED) Additional Instructions: You were seen in the ER today and your overall workup was reasurring. It is unclear what is causing you to have the symptoms however we were able to rule out that this was not a heart attack. It is very important that you prioritized doing well hydrated, getting plenty of rest, and returning with any new or worsening symptoms. 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 Call today to make an appointment. If any new or worsening symptoms occur including but not limited to severe chest pain, shortness of breath, please seek emergent care. Prescriptions: No Action Ubrelvy 100 mg tablet 50 - 100 mg PO ONCE PRN (Reason: migraine headache) 30 Days Qty: 16 3RF Rx Instructions: take at onset of migraine, may repeat in 2hrs (may take w/ Tylenol) Emgality Pen 120 mg/mL pen injector 240 mg subcut ONCE 30 Days Qty: 2 0RF Rx Instructions: Loading dose: 120 mg subcu injection x2 in alternate sites (total 240 mg). To be followed by maintenance dose of 120 mg subcu q.month. fluticasone propionate 50 mcg/actuation spray,suspension 1 spray intranasal BID Qty: 48 1RF (DME) nebulizer accessories Misc See Rx Instructions .Route Qty: 1 0RF Rx Instructions: use As directed albuterol sulfate 2.5 mg /3 mL (0.083 %) solution for nebulization 2.5 mg inhalation Q4-6H PRN (Reason: shortness of breath or wheezing) Qty: 90 0RF fluticasone furoate-vilanterol [Breo Ellipta] 100-25 mcg/dose blister with device 1 inh inhalation Q24H Qty: 60 2RF cyanocobalamin (vitamin B-12) 500 mcg tablet 500 mcg PO DAILY 30 Days Qty: 30 6RF (DME) compressor, for nebulizer Device See Rx Instructions .Route Qty: 1 0RF Rx Instructions: use As directed benzonatate 100 mg capsule 100 mg PO TID PRN (Reason: cough) Qty: 30 0RF diazepam [Valium] 2 mg tablet 2 mg PO BID PRN (Reason: anxiety) Qty: 5 0RF diazepam [Valium] 5 mg tablet 5 mg PO BID PRN (Reason: anxiety) 5 Days Qty: 5 0RF insulin glargine U-300 conc [Toujeo Max U-300 SoloStar] 300 unit/mL (3 mL) insulin pen 60 unit subcut DAILY Qty: 6 5RF tramadol 50 mg tablet 50 mg PO Q12H PRN (Reason: pain) 30 Days Qty: 60 0RF folic acid 400 mcg tablet 400 mcg PO DAILY 30 Days Qty: 30 6RF omeprazole 20 mg capsule,delayed release(DR/EC) 20 mg PO DAILY Qty: 90 0RF oxybutynin chloride 10 mg tablet extended release 24hr 10 mg PO DAILY 30 Days Qty: 30 3RF lisinopril 40 mg tablet 40 mg PO DAILY Qty: 90 1RF Mounjaro 7.5 mg/0.5 mL pen injector 7.5 mg subcut QWEEK Qty: 2 4RF (DME) blood-glucose meter [OneTouch Ultra2 Meter] Misc See Rx Instructions .Route Qty: 1 0RF Rx Instructions: As directed glucose 4 gram tablet,chewable 16 g PO Q15M PRN (Reason: hypoglycemia) Qty: 30 3RF Rx Instructions: until symptoms of low blood sugar are controlled epinephrine 0.3 mg/0.3 mL auto-injector IM (DME) freestyle monitor 0 .Route .MEDSUPPLY (DME) freestyle lancets 0 .Route .MEDSUPPLY (DME) accu-check compact lancets 0 .Route .MEDSUPPLY (DME) freestyle test strips 0 .Route .MEDSUPPLY riboflavin (vitamin B2) 400 mg tablet 400 mg PO DAILY 30 Days Qty: 30 6RF magnesium oxide 400 mg (241.3 mg magnesium) tablet 400 mg PO BEDTIME 30 Days Qty: 30 6RF Rx Instructions: may hold for loose stools (DME) FreeStyle Sam 3 Sensor Device See Rx Instructions .ROUTE .MEDSUPPLY Qty: 2 11RF Rx Instructions: Apply every 14 days As directed to monitor blood glucose atorvastatin 40 mg tablet 40 mg PO QPM 90 Days Qty: 90 3RF diclofenac sodium [Voltaren Arthritis Pain] 1 % gel 4 g topical QID Qty: 100 3RF Rx Instructions: apply to single knee, ankle, foot; for foot includes sole/toes/top of foot duloxetine 60 mg capsule,delayed release(DR/EC) 60 mg PO DAILY Qty: 90 3RF hydroxyzine HCl 50 mg tablet 50 mg PO DAILY Qty: 90 3RF (DME) pen needle, diabetic [BD Haleigh 2nd Gen Pen Needle] 32 gauge x 5/32 needle See Rx Instructions .Route Qty: 100 3RF Rx Instructions: use daily As directed levothyroxine 50 mcg tablet 50 mcg PO DAILY Qty: 90 3RF meloxicam 7.5 mg tablet 7.5 mg PO DAILY Qty: 90 3RF metformin 1,000 mg tablet 1,000 mg PO BID Qty: 180 3RF metoprolol tartrate 25 mg tablet 25 mg PO BID 90 Days Qty: 180 3RF albuterol sulfate [Ventolin HFA] 90 mcg/actuation HFA aerosol inhaler 2 puff inhalation Q8H PRN (Reason: shortness of breath or wheezing) Qty: 8.5 2RF pregabalin 200 mg capsule 200 mg PO BID 30 Days Qty: 60 2RF amlodipine 5 mg tablet 5 mg PO DAILY Qty: 90 1RF estradiol 0.01 % (0.1 mg/gram) cream vaginal estradiol 0.05 mg/24 hr patch semiweekly transdermal buspirone 15 mg tablet 15 mg PO BID Qty: 180 3RF Interventions: ED Discharge Assessment Last Done: 02/24/25 16:04 Discharge Date/Time: 02/24/25 16:05 Print Language: Yakut
[2025-02-24 10:32] LABS: MANUAL DIFF FLAG NO
[2025-02-24 10:34] LABS: Hematocrit 40.1 % (37.0-47.0); Hemoglobin 14.1 g/dl (12.0-16.0); Imm Gran Abs Auto 0.02 X10*3/uL (0.00-0.03); Imm Gran Pct Auto 0.3 % (0.0-0.4); Lymphocytes Absolute Auto 2.3 X10*3/uL (1.2-4.9); Mean Corpuscular HGB Conc 35.2 g/dl (31.0-35.0); Mean Corpuscular Hemoglobin 32.4 pg (27.0-33.0); Mean Corpuscular Volume 92.2 fL (80.0-98.0); NRBC Abs Auto 0.000 X10*3/uL (0.0-0.012); NRBC Pct Auto 0.0 /100WBC (0.0-0.2); Platelet Count 243 X10*3/uL (160-400); Red Blood Count 4.35 X10*6/uL (4.20-5.50); White Blood Count 7.8 X10*3/uL (4.8-10.8)
[2025-02-24 10:56] LABS: Alanine Aminotransferase 12 U/L (0-31); Albumin Level 4.4 g/dL (3.5-5.0); Alkaline Phosphatase 44 U/L (39-117); Anion Gap 13 (12-20); Aspartate Amino Transferase 18 U/L (5-31); Blood Urea Nitrogen 8 mg/dL (9-16); Calcium 8.5 mg/dL (8.4-10.2); Carbon Dioxide 25 mmol/L (22-29); Chloride 107 mmol/L (96-108); Creatinine Clr Calc Pharmacy 105.7; Estimated Glomerular Filt Rate > 60; Potassium 3.9 mmol/L (3.3-5.1); Sodium 141 mmol/L (135-145); Total Protein 6.9 g/dL (6.5-8.0)
[2025-02-24 11:08] LABS: Troponin-I High Sensitivity < 2.7 ng/L (<3.5-17.0)
--- OUTSIDE RECORDS SUMMARY | 2025-02-24 11:17 | XMS_ITS | Clinical Summary ---
Author Organization Patient Business [facility] Address [address] [place] [id number] Care Team Providers Care Instrument Sterilizer Name Role Phone Esme Valdivia MD Primary Care Provider [phone] Allergies Active Allergy Reactions Criticality Noted Date [...] type 2 peg betes mellitus with neuropathy ([facility] V24, [facility] V28) 06/13/2016 Noncompliance 06/12/2016 Obesity (BMI 30-39.9) 06/12/2016 Poorly controlled type 2 peg betes mellitus ([facility] V24, [facility] V28) 04/28/2013 Fatty liver 09/14/2010 [...] COMMENT: times 3 OTHER SURGICAL HISTORY PROCEDURE: NC DILATION & CURETTAGE DX&/THER NONOBSTETRIC CERVICAL BIOPSY W/ LOOP ELECTRODE EXCISION PROCEDURE: NC CONIZATION CERVIX W/WO D&C RPR ELTRD EXC; COMMENT: LEEP TUBAL LIGATION PROCEDURE: HISTORICAL TUBAL LIGATION WISDOM TOOTH EXTRACTION PROCEDURE: HISTORICAL WISDOM TEETH EXTRACTION Medical History Medical History Date Comments Hypothyroid 05/19/2009 DX:Hypothyroid Diabetes mellitus type II, c ontrolled ([facility] V24, [facility] V28) 05/19/2009 DX:Diabetes mellitus type I I, controlled ([facility]) Asthma 05/19/2009 [...] 5 Years) and At-Risk Patients (6 to 49 Years) (2 of 2 - PCV) 04/28/2014 04/28/2013 Diabetes: Annual GFR (Glomerular Filtration Rate) 06/12/2017 06/12/2016 DTaP,Tdap,and Td Vaccines (4 - Td or Tdap) 07/30/2022 07/30/2012, 07/15/2006, 04/12/2005 Cholesterol Screening (Lipid Panel) 02/11/2024 11/09/2014 Diabetes: Annual Urine Albumin-Creatinine Ratio (uACR) 02/11/2024 06/12/2016 Diabetes: Blood Sugar Control Test (HGBA1C) 02/11/2024 06/12/2016 Hypertension/CHF/CAD Annual BMP Blood Test 02/11/2024 06/12/2016 Medicare Annual Wellness Visit 02/11/2024 Social Influencers of Health Screening 02/11/2024 COVID-19 Vaccine ( season) 2024 09/25/2021, 11/20/2020, 10/30/2020 Depression Screening 07/15/2024 Influenza Vaccine (#1) 2025 3, 07/30/2012, 03/29/2010, Additional history exists Cervical [...] or malignancy 08/17/2024 11:08 AM EST RADHA PABLO [place] ([facility]) [facility] General Categorization Negative 08/17/2024 11:08 AM EST [facility] Other Findings Shift in brenton suggestive of bacterial vaginosis Keratotic cellular changes, hyperkeratosis 08/17/2024 11:08 AM [facility] Specimen Adequacy Satisfactory for evaluation 08/17/2024 11:08 AM [facility] Pap Methodology Liquid Based Pap Test 08/17/2024 11:08 AM [facility] Disclaimer Note: This pap test could not be imaged utilizing the [employer] Imaging System and required a manual review. The Pap test is a screening test which carries an inherent false negative rate. These test results should be correlated with the patient's clinical findings and history. This Pap test was processed using an automated screening system. Technical cytopathology services provided by [facility], at [address] [place] [id number] (CLIA # [id number]/Melissa Reeves MD, Hollow Core Door Frame Assembler.) 08/17/2024 11:08 AM [facility] Console Pap Interpretation Reported 08/17/2024 11:08 AM [facility] Brushing/Spatula Vaginal structure / Unknown 08/11/2024 08/12/2024 6:44 AM EST Mary Nunez MD LAB CYTOLOGY ORDERABLES Final Result [facility] [address] [place] [address], * Urine Albumin Creatinine Ratio (06/12/2016) Urine Albumin Creatinine Ratio Abstracted Historical Provider HEALTH MAINTENANCE Final Result * Annual BMP Blood Test (06/12/2016) Pathologist [facility] Annual BMP Blood Test Abstracted Historical Provider HEALTH MAINTENANCE Final Result * (ABNORMAL) Hemoglobin A1c (06/12/2016) Hemoglobin A1C 10.4(A) 4.0 - 6.0 % Blood Venous blood specimen / Unknown Historical Provider LAB BLOOD ORDERABLES Mariel l Result * Lipid panel (11/09/2014) Pathologist [facility] LDL/HDL Ratio 3 0 - 4 Triglycerides 146 0 - 150 mg/dL Cholesterol 161 0 - 200 mg/dL HDL 52 >=40 mg/dL LDL Cholesterol 80 0 - 100 mg/dL Blood Venous blood specimen / Unknown Result [facility] Historical Provider LAB BLOOD ORDERABLES Mariel l Result * HIV Screening (04/28/2013) Pathologist [facility] HIV Screening Abstracted [facility] Provider HEALTH MAINTENANCE Final Result * Hepatitis C Screening (11/24/2009) Pathologist [facility] Hepatitis C Screening Abstracted [facility] Provider HEALTH MAINTENANCE Final Result from Last 3 Months or Most Recently Relevant to Health Maintenance Insurance MEDICA[place] - [place] MEDICARE Care Teams Instrument Sterilizer Relationship Specialty Start Date End Date Esme Valdivia MD [address] [place] [phone] PCP - General Internal Medicine 08/17/15
[2025-02-24 11:41] LABS: D Dimer High Sensitivity 159 NG/ML
[2025-02-24 14:47] LABS: Troponin-I High Sensitivity < 2.7 ng/L (<3.5-17.0)
== END 2025-02-24 16:05 | disposition home or self-care (01) ==
PROVIDERS: Physician Assistant Medical; Emergency Provider Emergency Medicine; PCP Physician Assistant
DX: R07.89 Other chest pain (principal); R51.9 Headache, unspecified; R42 Dizziness and giddiness; R11.0 Nausea; I25.10 Atherosclerotic heart disease of native coronary artery without angina pectoris; I10 Essential (primary) hypertension; Z79.899 Other long term (current) drug therapy
CPT/HCPCS: 36415; 71046; 80053; 84484; 85025; 85379; 93005; 96361; 96374; 99284; 99285; J0131

== ENCOUNTER → 2025-02-24 09:48 | Outpatient (BNV) | payer MEDICARE, MEDICAID, SELFPAY | PROVIDERS: Emergency Provider Emergency Medicine; PCP Physician Assistant; Visit Provider Internal Medicine Cardiovascular Disease | DX: R94.31 Abnormal electrocardiogram [ECG] [EKG] (principal); R07.89 Other chest pain | CPT/HCPCS: 93010 ==

== ENCOUNTER → 2025-02-24 11:46 | Outpatient (BNV) | payer MEDICARE, MEDICAID, SELFPAY | PROVIDERS: Emergency Provider Emergency Medicine; PCP Physician Assistant; Visit Provider Radiology Diagnostic Radiology | DX: R07.9 Chest pain, unspecified (principal) | CPT/HCPCS: 71046 ==

== ENCOUNTER 2025-03-03 15:34 | Outpatient (AMB) | payer MEDICARE, MEDICAID, SELFPAY ==
--- NOTE | 2025-03-03 15:21 | A.OFFPC_ITS ---
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 Required: No Allergies peanuts Allergy (Mild, Uncoded 03/03/25 15:21) itch in throat shell fish Allergy (Mild, Uncoded 03/03/25 15:21) itch in throat Medication List - Last Reconciled 03/03/25 by Bettie Day PA-C [accu-check compact lancets ] albuterol sulfate 90 mcg/actuation (Ventolin HFA) 2 puffs inhalation Q8H PRN albuterol sulfate 2.5 mg (3 mL) inhalation Q4-6H PRN amlodipine 5 mg PO DAILY atorvastatin 40 mg PO QPM 90 days blood-glucose meter ([employer] Ultra2 Meter) As directed blood-glucose sensor (FreeStyle Sam 3 Sensor device) Apply every 14 days As directed to monitor blood glucose buspirone 15 mg PO BID compressor, for nebulizer use As directed cyanocobalamin (vitamin B-12) 500 mcg PO DAILY 30 days diclofenac sodium 1% (Voltaren Arthritis Pain) 4 grams topical QID duloxetine 60 mg PO DAILY epinephrine IM estradiol transdermal estradiol 0.01%(0.1mg/gram) vaginal fluticasone furoate-vilanterol 100-25 mcg/dose (Breo Ellipta) 1 inh inhalation Q24H fluticasone propionate 50 mcg/actuation 1 spray intranasal BID folic acid 400 mcg PO DAILY 30 days [freestyle lancets ] [freestyle monitor ] [freestyle test strips ] galcanezumab-gnlm (Emgality Pen) 240 mg (2 mL) subcut ONCE 30 days glucose 16 grams (4 x 4 gram) PO Q15M PRN hydroxyzine HCl 50 mg PO DAILY insulin glargine U-300 conc (Toujeo Max U-300 SoloStar) 60 units (0.2 mL) subcut DAILY levothyroxine 50 mcg PO DAILY lisinopril 40 mg PO DAILY lorazepam 0.5 mg PO DAILY PRN 30 days magnesium oxide 400 mg PO BEDTIME 30 days meloxicam 7.5 mg PO DAILY metformin 1,000 mg PO BID metoprolol tartrate 25 mg PO BID 90 days nebulizer accessories use As directed omeprazole 20 mg PO DAILY oxybutynin chloride ER 10 mg PO DAILY 30 days pen needle, diabetic (BD Haleigh 2nd Gen Pen Needle) use daily As directed pregabalin 200 mg PO BID 30 days riboflavin (vitamin B2) 400 mg PO DAILY 30 days tirzepatide (Mounjaro) 7.5 mg (0.5 mL) subcut QWEEK tramadol 50 mg PO Q12H PRN 30 days ubrogepant (Ubrelvy) 50 - 100 mg (0.5 - 1 x 100 mg) PO ONCE PRN 30 days Tobacco use date assessed: 10/14/24 Dental Screening Dental Screen Date: 10/28/23 HPI anxiety medication review HPI Details The patient is a 44-year-old female presenting for an ed f/u. CV: Blood pressure is managed with antihypertensives. She says that they have been elevated more recently. She says that she recently went to the ER because she had chest pain and shortness a breath. She had a chest x-ray which showed hypertensive cardiomyopathy. She is currently on metoprolol 25 mg twice a day and lisinopril 40 mg daily. Checks her blood pressures at home and states that they are a little bit on the higher side there is well. Cholesterol is controlled with atorvastatin 40 mg. neuro: Following with urology for migraines. She is on Emgality as a preventative. Endo: Dm-following with endocrinology for her diabetes which has been recently better managed. She is currently on Toujeo 60 units, metformin 1000 mg twice a day and Mounjaro 7.5 mg weekly. She states that the addition of the Mounjaro feels very effective. Blood sugars have finally been closer to a normal range. Thyroid-recent neck CT did show enlargement of the thyroid gland. A subsequent thyroid ultrasound was done this week which showed to mildly suspicious nodules and 1 small nodule. She does have a history of hypothyroidism in his on levothyroxine 50 mcg. Last TSH was WNL. Uro: Following with urology for mixed urinary incontinence and microscopic hematuria. Nephrology: Following with Nephrology for the proteinuria. Psych: She is supposed to be following with Psychiatry. She is currently on duloxetine 60 mg daily, hydroxyzine 50 mg daily for anxiety, and buspirone 15 mg twice a day. No SI/HI. She states that her anxiety has been exacerbated and sh e wonders if that is why she had the chest pain. She says that she is finding herself having panic attacks but now she is even more anxious because of the abnormalities noted on imaging with her heart. Mammo: due -ordered today Pap: Follows with gynecology, s/p partial hysterectomy. [facility] Medical History Elevated bilirubin Renal cyst, left Hypothyroidism Claudication of both lower extremities GERD with esophagitis Major depression, recurrent, chronic Insomnia Fibromyalgia Hyperlipidemia Fatty liver Poorly controlled type 2 diabetes mellitus with peripheral neuropathy Mild intellectual disability Bilateral hearing loss HTN (hypertension), benign Migraines Chronic low back pain with bilateral sciatica Chronic neck pain Mild persistent asthma in adult without complication Generalized anxiety disorder with panic attacks Family History Mother HTN (hypertension) Diabetes Father HTN (hypertension) Hypercholesteremia Diabetes Cardiovascular disease Maternal Grandmother Cardiovascular disease Skin cancer Anxiety Depression Maternal Grandmother Lung cancer Other FHx: mental illness Social History Housing: Apartment Alcohol intake: never Patient Tobacco Use Status: Never used Tobacco e-Cigarette/Vaping Use: Never Used Second Hand Smoke Exposure: No service: No Current occupational status: disabled Cognitive needs: No Hearing needs: Yes Vision needs: No Questionnaire PHQ-9 Over the last 2 weeks, how often have you been bothered by any of the following problems? 1. Little interest or pleasure in doing things: nearly every day 2. Feeling down, depressed, or hopeless: nearly every day 3. Trouble falling or staying asleep, or sleeping too much: nearly every day 4. Feeling tired or having little energy: nearly every day 5. Poor appetite or overeating: nearly every day 6. Feeling bad about yourself - or that you are a failure or have let yourself or your family down: more than half the days 7. Trouble concentrating on things, such as reading the newspaper or watching television: nearly every day 8. Moving or speaking so slowly that other people could have noticed. Or the opposite - being so fidgety or restless that you have been moving around a lot more than usual: nearly every day 9. Thoughts that you would be better off or of hurting yourself in some way: not at all Total score: 23 Depression Screening Interpretation: Positive Depression Screening Done: Yes 69170 - PHQ-9 Billing: Yes Source: Developed by Drs. Kade Prince, Meghan Montero, Michael Zuniga and colleagues, with an educational manoj from [employer]. Thrive Questionnaire Date Thrive assessed: 07/29/24 GIBSON-7 AMB Questionnaire GIBSON-7 Date GIBSON - 7 assessed: 03/03/25 Feeling nervous, anxious, or on edge: 3 = Nearly every day Not being able to stop or control worryin = Nearly every day Worrying too much about different things: 3 = Nearly every day Trouble relaxin = More than half the days Being so restless that it is hard to sit still: 2 = More than half the days Becoming easily annoyed or irritable: 3 = Nearly every day Feeling afraid as if something awful might happen: 3 = Nearly every day Total GIBSON-7 score (0-4 normal; 5-9 mild; 10-14 moderate; 15-21 severe): 19 Source: Developed by Drs. Kade Prince, Meghan Montero, Michael Zuniga and colleagues, with an educational manoj from [employer]. Physical exam (Primary Care) Tobacco/Smoking Status: Tobacco use Status Tobacco use date assessed 10/14/24 03/03/25 15:30 Patient Tobacco Use Status Never used Tobacco 03/03/25 15:30 e-Cigarette/Vaping Use Never Used 03/03/25 15:30 PHQ-9: PHQ-9 Score PHQ-9: Total score 23 03/03/25 15:49 Depression Screening Interpretation: Positive Thrive Assessment: Date of Thrive Assessment Date Thrive assessed 07/29/24 03/03/25 15:30 Telehealth Telehealth Telehealth Platform: Telephone Location of provider rendering services: practice address Location of patient: address on file Patient Identification confirmed using: Name, : Yes Telehealth method: voice only Patient verbally consented to treatment: Yes Patient verbally consented to billing insurance company: Yes Patient informed of any privacy concerns related to visit: Yes Minutes spent on Phone/Video with Pt.: 20 Results Reviewed Results Reviewed: Laboratory Tests 02/24/25 02/24/25 10:28 14:18 WBC 7.8 RBC 4.35 Hgb 14.1 Hct 40.1 Plt Count 243 Creatinine 0.67 Estimated GFR > 60 Random Glucose 100 Calcium 8.5 AST 18 ALT 12 Alkaline Phosphatase 44 Troponin I High Sens < 2.7 < 2.7 XR/XR chest 2V IMPRESSION: No acute airspace disease. Probable hypertensive cardiomyopathy Coding Level of Care Code Tele Est Pt Level 3 (74919) Diagnoses HTN (hypertension), benign I10 Hypertensive cardiomyopathy I11.9; I43 Chest pain R07.9 Generalized anxiety disorder with panic attacks F41.1; F41.0 Major depression, recurrent, chronic F33.9 Additional Codes PHQ-9 - 83026 - PHQ-9 Billing: Yes ([id number]) Assessment & Plan Assessment & Plan (1) HTN (hypertension), benign: Code(s): I10 - Essential (primary) hypertension Category: Medical Plan: We will add amlodipine. Advised short term follow up so I can reassess her in person. Continue with the metoprolol and the lisinopril. (2) Hypertensive cardiomyopathy: Code(s): I11.9 - Hypertensive heart disease without heart failure; I43 - Cardiomyopathy in diseases classified elsewhere Category: Medical Plan: Echo ordered. This was noted on imaging. (3) Chest pain: Code(s): R07.9 - Chest pain, unspecified Plan: Stress tests ordered. We will follow up pending test results. (4) Generalized anxiety disorder with panic attacks: Code(s): F41.1 - Generalized anxiety disorder; F41.0 - Panic disorder [episodic paroxysmal anxiety] Category: Medical Plan: Referral again to Psychiatry Has been having increased panic. We will prescribe lorazepam to use if needed for breakthrough panic attacks. She will continue with the hydroxyzine, buspirone and Cymbalta (5) Major depression, recurrent, chronic: Code(s): F33.9 - Major depressive disorder, recurrent, unspecified Category: Medical Plan: As above. Orders: Orders CA stress test 03/03/25 I10 - Essential (primary) hypertension, I11.9 - Hyp ertensive heart disease without heart failure, I43 - Cardiomyopathy in diseases classified elsewhere Complete Blood Count Auto Diff 03/03/25 E11.42 - Type 2 diabetes mellitus with diabetic polyneuropathy, E11.65 - Type 2 diabetes mellitus with hyperglycemia, I10 - Essential (primary) hypertension, I11.9 - Hypertensive heart disease without heart failure, I43 - Cardiomyopathy in diseases classified elsewhere Comprehensive [place]. Panel Fast 03/03/25 E11.42 - Type 2 diabetes mellitus with diabetic polyneuropathy, E11.65 - Type 2 diabetes mellitus with hyperglycemia, I10 - Essential (primary) hypertension, I11.9 - Hypertensive heart disease without heart failure, I43 - Cardiomyopathy in diseases classified elsewhere Hemoglobin A1c 03/03/25 E11.42 - Type 2 diabetes mellitus with diabetic polyneuropathy, E11.65 - Type 2 diabetes mellitus with hyperglycemia, I10 - Essential (primary) hypertension, I11.9 - Hypertensive heart disease without heart failure, I43 - Cardiomyopathy in diseases classified elsewhere, R73.01 - Impaired fasting glucose Lipid Panel 03/03/25 E11.42 - Type 2 diabetes mellitus with diabetic polyneuropathy, E11.65 - Type 2 diabetes mellitus with hyperglycemia, I10 - Essential (primary) hypertension, I11.9 - Hypertensive heart disease without heart failure, I43 - Cardiomyopathy in diseases classified elsewhere CA echo transthoracic complete 03/03/25 I10 - Essential (primary) hypertension, I11.9 - Hypertensive heart disease without heart failure, I43 - Cardiomyopathy in diseases classified elsewhere NM cardiolite stress test 03/03/25 I10 - Essential (primary) hypertension, I11.9 - Hypertensive heart disease without heart failure, I43 - Cardiomyopathy in diseases classified elsewhere, R07.9 - Chest pain, unspecified TSH reflex Free T4 03/03/25 E11.42 - Type 2 diabetes mellitus with diabetic polyneuropathy, E11.65 - Type 2 diabetes mellitus with hyperglycemia, I10 - Essential (primary) hypertension, I11.9 - Hypertensive heart disease without heart failure, I43 - Cardiomyopathy in diseases classified elsewhere Referrals Psychiatry Referral F33.9 - Major depressive disorder, recurrent, unspecified, F41.0 - Panic disorder [episodic paroxysmal anxiety], F41.1 - Generalized anxiety disorder Cardiology Referral I10 - Essential (primary) hypertension, I11.9 - Hypertensive heart disease without heart failure, I43 - Cardiomyopathy in diseases classified elsewhere Medications: New amlodipine 5 mg PO DAILY 90 tabs 0RF lorazepam 0.5 mg PO DAILY PRN 30 tabs 0RF anxiety 30 days
--- OUTSIDE RECORDS SUMMARY | 2025-03-03 16:22 | XMS_ITS | Clinical Summary ---
Author Organization Patient Business [facility] Address [address] [place] [phone] Care Team Providers Care Pump Runner Name Role Phone Esme Valdivia MD Primary Care Provider [phone] Allergies Active Allergy Reactions Criticality Noted Date [...] type 2 peg betes mellitus with neuropathy ([facility] V24, [facility] V28) 06/13/2016 Noncompliance 06/12/2016 Obesity (BMI 30-39.9) 06/12/2016 Poorly controlled type 2 peg betes mellitus ([facility] V24, [facility] V28) 04/28/2013 Fatty liver 09/14/2010 Tension [...] type II, c ontrolled ([facility] V24, [facility] V28) 05/19/2009 DX:Diabetes mellitus type I I, controlled ([facility]) Asthma 05/19/2009 DX:Asthma Migraines 05/19/2009 DX:Migraines [...] malignancy 08/17/2024 11:08 AM EST RADHA PABLO [place] ([facility]) [facility] General Categorization Negative 08/17/2024 11:08 AM EST [facility] Other Findings Shift in brenton suggestive of bacterial vaginosis Keratotic cellular changes, hyperkeratosis 08/17/2024 11:08 AM [facility] Specimen Adequacy Satisfactory for evaluation 08/17/2024 11:08 AM [facility] Pap Methodology Liquid Based Pap Test 08/17/2024 11:08 AM [facility] Disclaimer Note: This pap test could not be imaged utilizing the [employer] Imaging System and required a manual review. The Pap test is a screening test which carries an inherent false negative rate. These test results should be correlated with the patient's clinical findings and history. This Pap test was processed using an automated screening system. Technical cytopathology services provided by [facility], at [address] [place] [id number] (CLIA # [id number]/Melissa Reeves MD, Parking Inspector.) 08/17/2024 11:08 AM [facility] Console Pap Interpretation Reported 08/17/2024 11:08 AM [facility] Brushing/Spatula Vaginal structure / Unknown 08/11/2024 08/12/2024 6:44 AM EST Mary Nunez MD LAB CYTOLOGY ORDERABLES Final Result [facility] [address] [place] [address], * Urine Albumin Creatinine Ratio (06/12/2016) Urine Albumin Creatinine Ratio Abstracted Historical Provider HEALTH MAINTENANCE Final Result * Annual BMP Blood Test (06/12/2016) Pathologist [facility] Annual BMP Blood Test Abstracted Historical Provider HEALTH MAINTENANCE Final Result * (ABNORMAL) Hemoglobin A1c (06/12/2016) Hemoglobin A1C 10.4(A) 4.0 - 6.0 % Blood Venous blood specimen / Unknown Historical Provider LAB BLOOD ORDERABLES Mariel l Result * Lipid panel (11/09/2014) Pathologist [facility] LDL/HDL Ratio 3 0 - 4 Triglycerides 146 0 - 150 mg/dL Cholesterol 161 0 - 200 mg/dL HDL 52 >=40 mg/dL LDL Cholesterol 80 0 - 100 mg/dL Blood Venous blood specimen / Unknown Result [facility] Historical Provider LAB BLOOD ORDERABLES Mariel l Result * HIV Screening (04/28/2013) Pathologist [facility] HIV Screening Abstracted [facility] Provider HEALTH MAINTENANCE Final Result * Hepatitis C Screening (11/24/2009) Pathologist [facility] Hepatitis C Screening Abstracted [facility] Provider HEALTH MAINTENANCE Final Result from Last 3 Months or Most Recently Relevant to Health Maintenance Insurance MEDICA[place] - [place] MEDICARE Care Teams Pump Runner Relationship Specialty Start Date End Date Esme Valdivia MD [address] [place] [id number] PCP - General Internal Medicine 08/17/15
== END 2025-03-03 17:05 | disposition home or self-care (01) ==
LOC: HO.HMCFM 15:34
PROVIDERS: PCP Physician Assistant; Visit Provider Physician Assistant
DX: I10 Essential (primary) hypertension (principal); I11.9 Hypertensive heart disease without heart failure; I43 Cardiomyopathy in diseases classified elsewhere; R07.9 Chest pain, unspecified; F41.1 Generalized anxiety disorder; F41.0 Panic disorder [episodic paroxysmal anxiety]; F33.9 Major depressive disorder, recurrent, unspecified

== ENCOUNTER → 2025-03-03 15:34 | Outpatient (BNVA) | payer MEDICARE, MEDICAID, SELFPAY | PROVIDERS: PCP Physician Assistant; Visit Provider Physician Assistant | DX: I11.9 Hypertensive heart disease without heart failure (principal); I43 Cardiomyopathy in diseases classified elsewhere; R07.9 Chest pain, unspecified; F41.1 Generalized anxiety disorder; F41.0 Panic disorder [episodic paroxysmal anxiety]; F33.9 Major depressive disorder, recurrent, unspecified | CPT/HCPCS: 96127 ==

== ENCOUNTER 2025-03-05 09:39 | Outpatient (REF) | payer MEDICARE, MEDICAID, SELFPAY ==
--- OUTSIDE RECORDS SUMMARY | 2025-03-05 09:44 | XMS_ITS | Clinical Summary ---
Author Organization Patient Business [facility] Address [address] [place] [id number] Care Team Providers Care Boarding House Cook Name Role Phone Esme Valdivia MD Primary Care Provider [phone] Allergies Active Allergy Reactions Criticality Noted Date [...] type 2 peg betes mellitus with neuropathy ([facility] V24, [facility] V28) 06/13/2016 Noncompliance 06/12/2016 Obesity (BMI 30-39.9) 06/12/2016 Poorly controlled type 2 peg betes mellitus ([facility] V24, [facility] V28) 04/28/2013 Fatty liver 09/14/2010 [...] COMMENT: times 3 OTHER SURGICAL HISTORY PROCEDURE: MD DILATION & CURETTAGE DX&/THER NONOBSTETRIC CERVICAL BIOPSY W/ LOOP ELECTRODE EXCISION PROCEDURE: MD CONIZATION CERVIX W/WO D&C RPR ELTRD EXC; COMMENT: LEEP TUBAL LIGATION PROCEDURE: HISTORICAL TUBAL LIGATION WISDOM TOOTH EXTRACTION PROCEDURE: HISTORICAL WISDOM TEETH EXTRACTION Medical History Medical History Date Comments Hypothyroid 05/19/2009 DX:Hypothyroid Diabetes mellitus type II, c ontrolled ([facility] V24, [facility] V28) 05/19/2009 DX:Diabetes mellitus type I I, controlled ([facility]) Asthma 05/19/2009 DX:Asthma Migraines 05/19/2009 [...] malignancy 08/17/2024 11:08 AM EST RADHA PABLO [place] ([facility]) [facility] General Categorization Negative 08/17/2024 11:08 AM EST [facility] Other Findings Shift in brenton suggestive of bacterial vaginosis Keratotic cellular changes, hyperkeratosis 08/17/2024 11:08 AM [facility] Specimen Adequacy Satisfactory for evaluation 08/17/2024 11:08 AM [facility] Pap Methodology Liquid Based Pap Test 08/17/2024 11:08 AM [facility] Disclaimer Note: This pap test could not be imaged utilizing the [employer] Imaging System and required a manual review. The Pap test is a screening test which carries an inherent false negative rate. These test results should be correlated with the patient's clinical findings and history. This Pap test was processed using an automated screening system. Technical cytopathology services provided by [facility], at [address] [place] [address] (CLIA # [id number]/Melissa Reeves MD, Weight Clerk.) 08/17/2024 11:08 AM [facility] Console Pap Interpretation Reported 08/17/2024 11:08 AM [facility] Brushing/Spatula Vaginal structure / Unknown 08/11/2024 08/12/2024 6:44 AM EST Mary Nunez MD LAB CYTOLOGY ORDERABLES Final Result [facility] [address] [place] [address], * Urine Albumin Creatinine Ratio (06/12/2016) Urine Albumin Creatinine Ratio Abstracted Historical Provider HEALTH MAINTENANCE Final Result * Annual BMP Blood Test (06/12/2016) Pathologist [facility] Annual BMP Blood Test Abstracted Historical Provider [...] Blood Venous blood specimen / Unknown Result [facility] Historical Provider LAB BLOOD ORDERABLES Mariel l Result * HIV Screening (04/28/2013) Pathologist [facility] HIV Screening Abstracted [facility] Provider HEALTH MAINTENANCE Final Result * Hepatitis C Screening (11/24/2009) Pathologist [facility] Hepatitis C Screening Abstracted [facility] Provider HEALTH MAINTENANCE Final Result from Last 3 Months or Most Recently Relevant to Health Maintenance Insurance [place] - [place] MEDICARE Care Teams Boarding House Cook Relationship Specialty Start Date End Date Esme Valdivia MD [address] [place] [phone] PCP - General Internal Medicine 08/17/15
[2025-03-05 10:04] LABS: MANUAL DIFF FLAG NO
[2025-03-05 10:25] LABS: Hematocrit 40.6 % (37.0-47.0); Hemoglobin 14.2 g/dl (12.0-16.0); Imm Gran Abs Auto 0.01 X10*3/uL (0.00-0.03); Imm Gran Pct Auto 0.1 % (0.0-0.4); Lymphocytes Absolute Auto 2.8 X10*3/uL (1.2-4.9); Mean Corpuscular HGB Conc 35.0 g/dl (31.0-35.0); Mean Corpuscular Hemoglobin 32.5 pg (27.0-33.0); Mean Corpuscular Volume 92.9 fL (80.0-98.0); NRBC Abs Auto 0.000 X10*3/uL (0.0-0.012); NRBC Pct Auto 0.0 /100WBC (0.0-0.2); Platelet Count 241 X10*3/uL (160-400); Red Blood Count 4.37 X10*6/uL (4.20-5.50); White Blood Count 8.4 X10*3/uL (4.8-10.8)
[2025-03-05 10:44] LABS: Appearance Urine Clear; Glucose Urine UA Negative (Negative); PH 6.5 (5.0-9.0); Specific Gravity - Urine 1.025 (1.005-1.025); UMIC TRIGGER UACC YES
[2025-03-05 10:57] LABS: Hemoglobin A1C 136.5414 umol/L; Total Hemoglobin (HGBA1C) 3792.4873 umol/L
[2025-03-05 11:11] LABS: Alanine Aminotransferase 14 U/L (0-31); Albumin Level 4.4 g/dL (3.5-5.0); Alkaline Phosphatase 41 U/L (39-117); Anion Gap 11 (12-20); Aspartate Amino Transferase 22 U/L (5-31); Blood Urea Nitrogen 8 mg/dL (9-16); Calcium 8.8 mg/dL (8.4-10.2); Carbon Dioxide 28 mmol/L (22-29); Chloride 104 mmol/L (96-108); Cholesterol 177 mg/dL (<200); Estimated Glomerular Filt Rate > 60; HDL Cholesterol 54 mg/dL (>40); Potassium 3.8 mmol/L (3.3-5.1); Sodium 139 mmol/L (135-145); Total Protein 6.8 g/dL (6.5-8.0); Triglycerides 116 mg/dL (<150)
[2025-03-05 11:44] LABS: Microalbum/Creatinine Ratio Ur 5.4 ug/mg cr (<30)
== END 2025-03-05 09:40 | disposition home or self-care (01) ==
LOC: HO.LAB 09:39
PROVIDERS: PCP Physician Assistant; Visit Provider Physician Assistant
DX: Z00.00 Encounter for general adult medical examination without abnormal findings (principal); E11.42 Type 2 diabetes mellitus with diabetic polyneuropathy; E11.65 Type 2 diabetes mellitus with hyperglycemia; I11.9 Hypertensive heart disease without heart failure; I43 Cardiomyopathy in diseases classified elsewhere; E04.2 Nontoxic multinodular goiter; R13.10 Dysphagia, unspecified; E03.9 Hypothyroidism, unspecified
CPT/HCPCS: 36415; 80053; 80061; 81001; 82043; 82570; 83036; 84443; 85025

== ENCOUNTER 2025-03-29 12:45 | Outpatient (REF) | payer MEDICARE, MEDICAID, SELFPAY ==
--- NOTE | ~2025-03-29 | US_ITS ---
EXAMINATION(S): 1. MM DIAGNOSTIC DIGITAL BREAST TOMOSYNTHESIS, BILATERAL 2. Targeted ultrasound of the right breast 3. Targeted ultrasound of the left breast CLINICAL INFORMATION: Right breast lump at 11:00. Left breast lump at 2:00 COMPARISON: left mammogram on June 13, 2023, and bilateral mammogram on July 13, 2022. TECHNIQUE: Digital breast tomosynthesis is performed in both the mediolateral oblique and craniocaudal views along with computer-aided detection (CAD). Synthesized 2D images are generated from the tomosynthesis. Spot compression tomosynthesis were obtained. Skin BB marker was placed in each breast, indicating the location of the palpable concern per patient. FINDINGS: BREAST COMPOSITION: The breasts are heterogeneously dense, which may obscure small masses (ACR BI-RADS breast composition Category c). RIGHT BREAST: No significant masses, suspicious calcifications or other abnormalities are seen. In particular, no suspicious mammographic findings adjacent to the skin BB marker placed in the upper outer quadrant. Targeted ultrasound of the right breast was performed at the location of the palpable concern. The survey along the 11:00 and 2:00 axis did not reveal suspicious sonographic findings. LEFT BREAST: -No suspicious mammographic findings adjacent to the skin BB marker placed in the upper outer quadrant. -Asymmetry in the upper breast middle depth is pliable with spot compression; this correlates with the asymmetry described in June 2022. -Asymmetry on the CC view associated with possible suggestion of architectural distortion in the central breast/retroareolar plane middle depth, better seen on the full-field CC 32/62, is not well seen with spot compression. -No suspicious calcifications are seen. Targeted ultrasound of the left breast was performed at the location of the palpable concern. The survey performed along the 2:00 axis did not reveal suspicious sonographic findings. Targeted ultrasound of the left breast was performed at the location of the focal asymmetry in the upper breast middle depth. The survey performed throughout the 11:00-1:00 axis did not reveal suspicious sonographic correlate. US/US breast BI limited mamm only IMPRESSION: RIGHT BREAST: Negative, no evidence of malignancy. In particular, no imaging findings to accounts for patient's palpable concern. Clinical follow-up is recommended. Otherwise, normal interval follow-up mammogram is recommended in 12 months. LEFT BREAST: 1. No imaging findings to accounts for patient's palpable concern. Clinical follow-up is recommended. 2. Asymmetry with possible architectural distortion in the central breast middle depth on the CC view, probably located in the upper breast on the MLO view, without sonographic correlate. Probably benign. A 6 month follow-up left breast mammogram is recommended. Please remove the nipple piercing before the imaging for better evaluation. ASSESSMENT: BI-RADS 3 - Probably benign finding(s) - 6 month follow-up suggested RECOMMENDATION: 6 Month F/U Results were provided to the patient at time of visit by the technologist. This patient's information was entered into a reminder system with a target due date for their next mammogram. Electronically signed by: Eyal Huerta MD 03/29/2025 05:48 PM EDT
--- OUTSIDE RECORDS SUMMARY | 2025-03-29 17:30 | XMS_ITS | Encounter Summary ---
Author Organization [facility] Address [address] [place] [address] Care Team Providers Care Relocation Counselor Name Role Phone Esme Valdivia MD Primary Care Provider [phone] Encounter Details Date Type Department Care Team (Latest Contact Info) Description 08/12/2024 Lab Requisition [facility] - Main Lab [address] [facility] [place] [address] Mary Nunez MD [address] [facility] [address] [place] [phone] Encounter for gynecological examination (general) (routine) without [...] lesion or malignancy 08/17/2024 11:08 AM [facility] General Categorization Negative 08/17/2024 11:08 AM [facility] Other Findings Shift in brenton suggestive of bacterial vaginosis Keratotic cellular changes, hyperkeratosis 08/17/2024 11:08 AM [facility] Specimen Adequacy Satisfactory for evaluation 08/17/2024 11:08 AM [facility] Pap Methodology Liquid Based Pap Test 08/17/2024 11:08 AM [facility] Disclaimer Note: This pap test could not be imaged utilizing the [employer] Imaging System and required a manual review. The Pap test is a screening test which carries an inherent false negative rate. These test results should be correlated with the patient's clinical findings and history. This Pap test was processed using an automated screening system. Technical cytopathology services provided by [facility], at [address] [place] [address] (CLIA # [id number]/Melissa Reeves MD, [employer] Agent.) 08/17/2024 11:08 AM [facility] Console Pap Interpretation Reported 08/17/2024 11:08 AM [facility] Brushing/Spatula Vaginal structure / Unknown 08/11/2024 08/12/2024 6:44 AM EST us Mary Nunez MD LAB CYTOLOGY ORDERABLES Final Result [facility]) [facility] [address] [place] [address], documented in this encounter Visit Diagnoses Diagnosis Encounter for gynecological examination (general) (routine) without abnormal findings documented in this encounter Care Teams Relocation Counselor Relationship Specialty Start Date End Date Esme Valdivia MD [address] [place] [phone] PCP - General Internal Medicine 08/17/15 documented as of this encounter
--- OUTSIDE RECORDS SUMMARY | 2025-03-29 17:30 | XMS_ITS | Clinical Summary ---
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 ([facility] V24, [facility] V28) 06/13/2016 Noncompliance 06/12/2016 Obesity (BMI 30-39.9) 06/12/2016 Poorly controlled type 2 peg betes mellitus ([facility] V24, [facility] V28) 04/28/2013 Fatty liver 09/14/2010 Tension headache [...] COMMENT: times 3 OTHER SURGICAL HISTORY PROCEDURE: MO DILATION & CURETTAGE DX&/THER NONOBSTETRIC CERVICAL BIOPSY W/ LOOP ELECTRODE EXCISION PROCEDURE: MO CONIZATION CERVIX W/WO D&C RPR ELTRD EXC; COMMENT: LEEP TUBAL LIGATION PROCEDURE: HISTORICAL TUBAL LIGATION WISDOM TOOTH EXTRACTION PROCEDURE: HISTORICAL WISDOM TEETH EXTRACTION Medical History Medical History Date Comments Hypothyroid 05/19/2009 DX:Hypothyroid Diabetes mellitus type II, c ontrolled ([facility] V24, [facility] V28) 05/19/2009 DX:Diabetes mellitus type I I, controlled ([facility]) Asthma 05/19/2009 DX:Asthma Migraines 05/19/2009 DX:Migraines Hypertension [...] 02/11/2024 Social Influencers of Health Screening 02/11/2024 Depression Screening 07/15/2024 COVID-19 Vaccine ( season) 2025 09/25/2021, 11/20/2020, 10/30/2020 Influenza Vaccine (#1) 2025 3, 07/30/2012, 03/29/2010, [...] malignancy 08/17/2024 11:08 AM EST RADHA PABLO [place] ([facility]) [facility] General Categorization Negative 08/17/2024 11:08 AM EST [facility] Other Findings Shift in brenton suggestive of bacterial vaginosis Keratotic cellular changes, hyperkeratosis 08/17/2024 11:08 AM [facility] Specimen Adequacy Satisfactory for evaluation 08/17/2024 11:08 AM [facility] Pap Methodology Liquid Based Pap Test 08/17/2024 11:08 AM [facility] Disclaimer Note: This pap test could not be imaged utilizing the [employer] Imaging System and required a manual review. The Pap test is a screening test which carries an inherent false negative rate. These test results should be correlated with the patient's clinical findings and history. This Pap test was processed using an automated screening system. Technical cytopathology services provided by [facility], at [address] [place] [id number] (CLIA # [id number]/Melissa Reeves MD, Developmental Services Worker.) 08/17/2024 11:08 AM [facility] Console Pap Interpretation Reported 08/17/2024 11:08 AM [facility] Brushing/Spatula Vaginal structure / Unknown 08/11/2024 08/12/2024 6:44 AM EST Mary Nunez MD LAB CYTOLOGY ORDERABLES Final Result [facility] [address] [place] [address], * Urine Albumin Creatinine Ratio (06/12/2016) Urine Albumin Creatinine Ratio Abstracted Historical Provider HEALTH MAINTENANCE Final Result * Annual BMP Blood Test (06/12/2016) Pathologist [facility] Annual BMP Blood Test Abstracted Historical Provider HEALTH MAINTENANCE Final Result * (ABNORMAL) Hemoglobin A1c (06/12/2016) Hemoglobin A1C 10.4(A) 4.0 - 6.0 % Blood Venous blood specimen / Unknown Historical Provider LAB BLOOD ORDERABLES Mariel l Result * Lipid panel (11/09/2014) Pathologist [facility] LDL/HDL Ratio 3 0 - 4 Triglycerides 146 0 - 150 mg/dL Cholesterol 161 0 - 200 mg/dL HDL 52 >=40 mg/dL LDL Cholesterol 80 0 - 100 mg/dL Blood Venous blood specimen / Unknown Result [facility] Historical Provider LAB BLOOD ORDERABLES Mariel l Result * HIV Screening (04/28/2013) Pathologist [facility] HIV Screening Abstracted [facility] Provider HEALTH MAINTENANCE Final Result * Hepatitis C Screening (11/24/2009) Pathologist [facility] Hepatitis C Screening Abstracted [facility] Provider HEALTH MAINTENANCE Final Result from Last 3 Months or Most Recently Relevant to Health Maintenance [place] Care Teams Natural Sciences Department Chair Relationship Specialty Start Date End Date Esme Valdivia MD [address] [place] [phone] PCP - General Internal Medicine 08/17/15
== END 2025-03-29 12:46 | disposition home or self-care (01) ==
LOC: HO.MAMMO 12:45
PROVIDERS: PCP Physician Assistant; Visit Provider Physician Assistant
DX: N63.11 Unspecified lump in the right breast, upper outer quadrant (principal)
CPT/HCPCS: 76642; 77062; 77066

== ENCOUNTER → 2025-03-29 13:00 | Outpatient (BNV) | payer MEDICARE, MEDICAID, SELFPAY | PROVIDERS: PCP Physician Assistant; Visit Provider Radiology Body Imaging | DX: R92.8 Other abnormal and inconclusive findings on diagnostic imaging of breast (principal) | CPT/HCPCS: 76642; 77066; G0279 ==

== ENCOUNTER → 2025-04-09 10:40 | Outpatient (REF) | payer MEDICARE, MEDICAID, SELFPAY ==
--- NOTE | 2025-04-09 10:42 | CA_ITS ---
Transthoracic Echocardiogram Patient (Last, First, Middle): Anushka Bro, Gender: Female Date of : 1980 Age: 44 Procedure Date: 04/09/2025 Procedure Type: Transthoracic Echocardiogram Location: OP Height: 157.48 cm Weight: 81.65 kg BSA: 1.83 m2 Heart Rate: bpm BP: 154 / 90 mmHg Aircraft Charter Dispatcher: TO Referring MD: Bettie Day PA-C Symptoms: I11.9 - Hypertensive heart disease without heart failure Study Quality: Adequate with contrast Conclusions: - Normal left ventricular size and systolic function. The visually estimated ejection fraction is between 55-60%. - E/E prime ratio is between 8 and 15 consistent with indeterminate filling pressures. - Normal right ventricular cavity size and systolic function. - There is mild dilatation of the ascending aorta measuring 3.40 cm. Findings Procedure Information Contrast agent, definity, is being given per protocol without apparent complications. Left Ventricle Normal left ventricular size and systolic function. The visually estimated ejection fraction is between 55-60%. There is no evidence of regional wall motion abnormalities. Abnormal diastolic function is noted. Spectral Doppler is indicative of an impaired relaxation filling pattern. E/E prime ratio is between 8 and 15 consistent with indeterminate filling pressures. There is mild septal asymmetric hypertrophy. Right Ventricle Normal right ventricular cavity size and systolic function. Atria The left atrium is likely dilated. The right atrium is normal in size. Aortic Valve Normal aortic valve structure and function. There is no aortic valve stenosis. There is no aortic valve regurgitation. Mitral Valve Normal mitral valve structure and function. There is no mitral valve regurgitation. There is no mitral valve stenosis. Pulmonic Valve The pulmonic valve is normal. There is no pulmonic valve regurgitation. Tricuspid Valve Normal tricuspid valve structure. There is trace tricuspid valve regurgitation. Normal right atrial pressure. There is no evidence of pulmonary hypertension. Great Vessels There is mild dilatation of the ascending aorta measuring 3.40 cm. The visualized portions of the pulmonary artery and branches are normal. Venous The inferior vena cava is normal in size and collapses greater than 50% with inspiration. Pericardium/Pleural There is no evidence of pericardial effusion. Prior Study Comparison No prior study available for comparison. Measurements 2D Linear Measurements IVSd: 0.77 0.6-0.9/0.6-1.0 cm LVIDd: 4.54 3.9-5.3/4.2-5.9 cm LVIDd Index: 2.48 2.4-3.2/2.2-3.1 cm/m2 LVIDs: 3.18 2.0-3.6 cm LVPWd: 0.83 0.7-1.1 cm LA Diam: 3.30 2.7-3.8/3.0-4.0 cm LAIDs Index: 1.80 1.5-2.3 cm/m2 LV Mass: 143.65 67-162/88-224 g LV Mass Index: 78.50 43-95/49-115 g/m2 LVOT Diam: 2.30 3.0+(-)1.3 cm 2D Systolic Function EF 4C: 55.00 >55% EF 2C: 54.20 >55% EF BiP: 55.50 >55% Mitral Valve MV Pk E: 0.50 MV PK A: 0.53 MV Decel Time: 237.00 E/A: 0.90 E'Lateral: 6.74 E'Medial: 4.90 E/E' Med: 10.10 E/E' Lat: 7.40 PHT: 69.00 MVA PHT: 3.19 Decel [place]: 2.10 Aortic Valve AoV Pk Rodger: 1.25 AoV Mn Rodger: 0.90 AoV VTI: 0.28 AoV Pk Grad: 6.00 Aov Mn Grad: 4.00 VIVIANE Cont.VTI: 2.34 LVOT LVOT Pk Rodger: 0.79 LVOT Mn Rodger: 0.51 LVOT VTI: 0.16 LVOT Pk Grad: 2.00 LVOT Mn Grad: 1.00 LVOT Diam: 2.30 LVOT Area: 4.15 Diastolic Function MV Pk E: 0.50 MV Pk A: 0.53 E/A: 0.90 E'Medial: 4.90 E/E' Med: 10.10 E' Laterial: 6.74 E/E' Lat: 7.40 Right Ventricle TAPSE (mm): 16.50 TVS' Rodger: 10.30 Tricuspid Valve TR Pk Rodger: 1.93 TR Pk Grad: 15.00 RA Press: 3.00 RVSP: 18.00 Great Vessels Aorta Sinus of Valsalva: 3.08 2.0-3.5 cm Ao Asc: 3.40 2.1-3.4 cm Updated in Other Vendor System with Status of Final Jasbir Benítez MD electronically signed on 04/12/2025 9:06:57 AM with status of Final
--- OUTSIDE RECORDS SUMMARY | 2025-04-09 12:10 | XMS_ITS | Clinical Summary ---
Author Organization Patient Business [facility] Address [address] [place] [phone] Care Team Providers Care Cutter And Presser Name Role Phone sEme Valdivia MD Primary Care Provider [phone] Allergies Active Allergy Reactions Criticality Noted Date [...] type 2 peg betes mellitus with neuropathy ([facility] V24, [facility] V28) 06/13/2016 Noncompliance 06/12/2016 Obesity (BMI 30-39.9) 06/12/2016 Poorly controlled type 2 peg betes mellitus ([facility] V24, [facility] V28) 04/28/2013 Fatty liver 09/14/2010 [...] COMMENT: times 3 OTHER SURGICAL HISTORY PROCEDURE: CT DILATION & CURETTAGE DX&/THER NONOBSTETRIC CERVICAL BIOPSY W/ LOOP ELECTRODE EXCISION PROCEDURE: CT CONIZATION CERVIX W/WO D&C RPR ELTRD EXC; COMMENT: LEEP TUBAL LIGATION PROCEDURE: HISTORICAL TUBAL LIGATION WISDOM TOOTH EXTRACTION PROCEDURE: HISTORICAL WISDOM TEETH EXTRACTION Medical History Medical History Date Comments Hypothyroid 05/19/2009 DX:Hypothyroid Diabetes mellitus type II, c ontrolled ([facility] V24, [facility] V28) 05/19/2009 DX:Diabetes mellitus type I I, controlled ([facility]) Asthma 05/19/2009 DX:Asthma Migraines 05/19/2009 [...] malignancy 08/17/2024 11:08 AM EST RADHA PABLO [place] ([facility]) [facility] General Categorization Negative 08/17/2024 11:08 AM EST [facility] Other Findings Shift in [place] suggestive of bacterial vaginosis Keratotic cellular changes, hyperkeratosis 08/17/2024 11:08 AM [facility] Specimen Adequacy Satisfactory for evaluation 08/17/2024 11:08 AM [facility] Pap Methodology Liquid Based Pap Test 08/17/2024 11:08 AM [facility] Disclaimer Note: This pap test could not be imaged utilizing the [employer] Imaging System and required a manual review. The Pap test is a screening test which carries an inherent false negative rate. These test results should be correlated with the patient's clinical findings and history. This Pap test was processed using an automated screening system. Technical cytopathology services provided by [facility], at [address] [place] [id number] (CLIA # [id number]/Melissa Reeves MD, Garbage Collector.) 08/17/2024 11:08 AM [facility] Console Pap Interpretation Reported 08/17/2024 11:08 AM [facility] Brushing/Spatula Vaginal structure / Unknown 08/11/2024 08/12/2024 6:44 AM EST Mary Nunez MD LAB CYTOLOGY ORDERABLES Final Result [facility] [address] [place] [address], * Urine Albumin Creatinine Ratio (06/12/2016) Urine Albumin Creatinine Ratio Abstracted Historical Provider HEALTH MAINTENANCE Final Result * Annual BMP Blood Test (06/12/2016) Pathologist [facility] Annual BMP Blood Test Abstracted Historical Provider [...] Blood Venous blood specimen / Unknown Result [facility] Historical Provider LAB BLOOD ORDERABLES Mariel l Result * HIV Screening (04/28/2013) Pathologist [facility] HIV Screening Abstracted [facility] Provider HEALTH MAINTENANCE Final Result * Hepatitis C Screening (11/24/2009) Pathologist [facility] Hepatitis C Screening Abstracted [facility] Provider HEALTH MAINTENANCE Final Result from Last 3 Months or Most Recently Relevant to Health Maintenance Insurance [place]ARE Care Teams Cutter And Presser Relationship Specialty Start Date End Date Esme Valdivia MD [address] [place] [phone] PCP - General Internal Medicine 08/17/15
--- OUTSIDE RECORDS SUMMARY | 2025-04-09 12:10 | XMS_ITS | Encounter Summary ---
Author Organization [facility] Address [address] [place] [address] Care Team Providers Care Per Diem Interpreter Name Role Phone Esme Valdivia MD Primary Care Provider [phone] Encounter Details Date Type Department Care Team (Latest Contact Info) Description 08/12/2024 Lab Requisition [facility] Main Lab [address] [facility] [place] [address] Mary Nunez MD 299 [facility] [address] [place] [phone] Encounter for gynecological examination (general) (routine) without [...] intraepithelial lesion or malignancy 08/17/2024 11:08 AM [facility] General Categorization Negative 08/17/2024 11:08 AM [facility] Other Findings Shift in brenton suggestive of bacterial vaginosis Keratotic cellular changes, hyperkeratosis 08/17/2024 11:08 AM [facility] Specimen Adequacy Satisfactory for evaluation 08/17/2024 11:08 AM [facility] Pap Methodology Liquid Based Pap Test 08/17/2024 11:08 AM [facility] Disclaimer Note: This pap test could not be imaged utilizing the Luminate Imaging System and required a manual review. The Pap test is a screening test which carries an inherent false negative rate. These test results should be correlated with the patient's clinical findings and history. This Pap test was processed using an automated screening system. Technical cytopathology services provided by [facility], at [address] [place] [address] (CLIA # [id number]/Melissa Reeves MD, Payroll Auditor.) 08/17/2024 11:08 AM [facility] Console Pap Interpretation Reported 08/17/2024 11:08 AM [facility] Brushing/Spatula Vaginal structure / Unknown 08/11/2024 08/12/2024 6:44 AM EST us Mary Nunez MD LAB CYTOLOGY ORDERABLES Final Result [facility]) [facility] [address] [place] [address], documented in this encounter Visit Diagnoses Diagnosis Encounter for gynecological examination (general) (routine) without abnormal findings documented in this encounter Care Teams Per Diem Interpreter Relationship Specialty Start Date End Date Esme Valdivia MD [address] [place] [phone] PCP - General Internal Medicine 08/17/15 documented as of this encounter
== END ==
LOC: HO.CARD 10:40
PROVIDERS: PCP Physician Assistant; Visit Provider Physician Assistant
DX: I11.9 Hypertensive heart disease without heart failure (principal); I43 Cardiomyopathy in diseases classified elsewhere
CPT/HCPCS: 93306; Q9957

== ENCOUNTER → 2025-04-09 10:42 | Outpatient (BNV) | payer MEDICARE, MEDICAID, SELFPAY | PROVIDERS: PCP Physician Assistant; Visit Provider Internal Medicine Cardiovascular Disease | DX: I42.2 Other hypertrophic cardiomyopathy (principal); I77.810 Thoracic aortic ectasia; I11.9 Hypertensive heart disease without heart failure | CPT/HCPCS: 93306 ==

== ENCOUNTER 2025-05-06 13:31 | Outpatient (AMB) | payer MEDICARE, MEDICAID, SELFPAY ==
--- NOTE | 2025-05-06 13:37 | MHC.PC.OV ---
Vital Signs 05/06/25 13:46 Height 5 ft 2 in Weight 176 lb 6 oz BMI 32.3 BP 142/92 H Blood Pressure Location Rt brachial Position Sitting Respiration 18 Pulse 68 Pulse Source Pulse Oximeter Temp 98.3 F Temp Source Oral Pulse Oximetry (%) 98 Oxygen Delivery Method Room Air Intake Visit Reasons: review labs, imaging and to recheck bp Intake Note: review labs, imaging, and recheck BP. Patient would like to have lungs checked, exposed to flu and pneumonia. Engine Maintenance Mechanic Required: No Allergies peanuts Allergy (Mild, Uncoded 03/03/25 15:21) itch in throat shell fish Allergy (Mild, Uncoded 03/03/25 15:21) itch in throat Medication List - Last Reconciled 05/06/25 by Bettie Day PA-C [accu-check compact lancets ] albuterol sulfate 90 mcg/actuation (Ventolin HFA) 2 puffs inhalation Q8H PRN albuterol sulfate 2.5 mg (3 mL) inhalation Q4-6H PRN amlodipine 5 mg PO DAILY atorvastatin 40 mg PO QPM 90 days blood-glucose meter (The Resumatoruch Ultra2 Meter) As directed blood-glucose sensor (FreeStyle Sam 3 Sensor device) Apply every 14 days As directed to monitor blood glucose buspirone 15 mg PO BID compressor, for nebulizer use As directed cyanocobalamin (vitamin B-12) 500 mcg PO DAILY 30 days diclofenac sodium 1% (Voltaren Arthritis Pain) 4 grams topical QID duloxetine 60 mg PO DAILY epinephrine IM estradiol transdermal estradiol 0.01%(0.1mg/gram) vaginal fluticasone furoate-vilanterol 100-25 mcg/dose (Breo Ellipta) 1 inh inhalation Q24H fluticasone propionate 50 mcg/actuation 1 spray intranasal BID folic acid 400 mcg PO DAILY 30 days [freestyle lancets ] [freestyle monitor ] [freestyle test strips ] galcanezumab-gnlm (Emgality Pen) 240 mg (2 mL) subcut ONCE 30 days glucose 16 grams (4 x 4 gram) PO Q15M PRN hydroxyzine HCl 50 mg PO DAILY levothyroxine 50 mcg PO DAILY lisinopril 40 mg PO DAILY lorazepam 0.5 mg PO DAILY PRN 30 days magnesium oxide 400 mg PO BEDTIME 30 days meloxicam 7.5 mg PO DAILY metoprolol tartrate 25 mg PO BID 90 days nebulizer accessories use As directed omeprazole 20 mg PO DAILY oxybutynin chloride ER 10 mg PO DAILY 30 days pen needle, diabetic (BD Haleigh 2nd Gen Pen Needle) use daily As directed pregabalin 200 mg PO BID 30 days riboflavin (vitamin B2) 400 mg PO DAILY 30 days tirzepatide (Mounjaro) 7.5 mg (0.5 mL) subcut QWEEK tramadol 50 mg PO Q12H PRN 30 days ubrogepant (Ubrelvy) 50 - 100 mg (0.5 - 1 x 100 mg) PO ONCE PRN 30 days Tobacco use date assessed: 05/06/25 Dental Screening Dental Screen Date: 05/06/25 Did you have a dental visit in the last 12 months?: Yes Did you have a dental problem in the last 6 months where you did not have access to dental care?: No Was dental information given to patient?: Patient has dentist HPI review labs, imaging and to recheck bp HPI Details The patient is a 45-year-old female presenting for a follow up. [place] sick for the past week with sinus congestion, fever, chills, sore throat, cough and ear pain. She has not tried any otc medication. She is using albuterol q 6 hrs. She states that it just does not feel like she is getting better. CV: Blood pressure is 142/92. She is currently on metoprolol 25 mg twice a day, amlodipine and lisinopril 40 mg daily. Stress test is booked next month. has f/u with cardiology. Chest pains are unchanged. Not currently present. neuro: Following with urology for migraines. She is on Emgality as a preventative. Endo: Dm-following with endocrinology for her diabetes which has been recently better managed. Her last A1c was 5.9. She is on just Mounjaro 7.5 mg weekly and doing well with this. Thyroid-recent neck CT did show enlargement of the thyroid gland. A subsequent thyroid ultrasound was done this week which showed to mildly suspicious nodules and 1 small nodule. She does have a history of hypothyroidism in his on levothyroxine 50 mcg. Last TSH was WNL. Uro: Following with urology for mixed urinary incontinence and microscopic hematuria. Nephrology: Following with Nephrology for the proteinuria. Psych: She is supposed to be following with Psychiatry. She is currently on duloxetine 60 mg daily, hydroxyzine 50 mg daily for anxiety, and buspirone 15 mg twice a day. No SI/HI. Mammo: UTD, repeat in Jul Pap: Follows with gynecology, s/p partial hysterectomy. [facility] Medical History Elevated bilirubin Renal cyst, left Hypothyroidism Claudication of both lower extremities GERD with esophagitis Major depression, recurrent, chronic Insomnia Fibromyalgia Hyperlipidemia Fatty liver Poorly controlled type 2 diabetes mellitus with peripheral neuropathy Mild intellectual disability Bilateral hearing loss HTN (hypertension), benign Migraines Chronic low back pain with bilateral sciatica Chronic neck pain Mild persistent asthma in adult without complication Generalized anxiety disorder with panic attacks Family History Mother HTN (hypertension) Diabetes Father HTN (hypertension) Hypercholesteremia Diabetes Cardiovascular disease Maternal Grandmother Cardiovascular disease Skin cancer Anxiety Depression Maternal Grandmother Lung cancer Other FHx: mental illness Social History (Updated 05/06/25 @ 13:47 by Saqib Baugh MA) Housing: Apartment Alcohol intake: never Patient Tobacco Use Status: Never used Tobacco e-Cigarette/Vaping Use: Never Used Second Hand Smoke Exposure: No service: No Current occupational status: disabled Cognitive needs: No Hearing needs: Yes Vision needs: No Questionnaire Thrive Questionnaire Date Thrive assessed: 07/29/24 I am a: Patient What is your living situation today?: I have a steady place to live Within the past 12 months, did the food you bought not last and you didn't have the money to get more?: Sometimes True Within the past 12 months, did you worry whether your food would run out before you got money to buy more?: Sometimes True Do you have trouble paying for medicines?: Yes Do you have trouble getting transportation to medical appointments?: Yes Do you have trouble paying your heating and electricity bill?: Yes Do you have trouble taking care of your child, family member or friend?: No Do you have trouble with day-to-day activities such as bathing, preparing meals, shopping, managing finances, etc.?: Yes Are you currently unemployed and looking for a job?: Yes Are you interested in more education?: No Please select the resources that you would like help with: None Currently or been in a relationship where the following occur: No concerns reported THRIVE Score: 4 GIBSON-7 AMB Questionnaire GIBSON-7 Date GIBSON - 7 assessed: 03/03/25 Source: Developed by Drs. Kade Prince, Meghan Montero, Michael Zuniga and colleagues, with an educational manoj from [employer]. Physical exam (Primary Care) Vital Signs: Last Vital Signs Temp 98.3 F 05/06/25 13:46 Pulse 68 05/06/25 13:46 Resp 18 05/06/25 13:46 BP 142/92 H 05/06/25 13:46 Pulse Ox 98 05/06/25 13:46 Oxygen Delivery Method Room Air 05/06/25 13:46 BMI result Body Mass Index 32.3 Tobacco/Smoking Status: Tobacco use Status Tobacco use date assessed 05/06/25 05/06/25 13:46 Patient Tobacco Use Status Never used Tobacco 05/06/25 13:47 e-Cigarette/Vaping Use Never Used 05/06/25 13:47 Thrive Assessment: Date of Thrive Assessment Date Thrive assessed 07/29/24 05/06/25 13:46 Currently or been in a relationship where the following occur: No concerns reported Const Orientation/consciousness: patient oriented x3 HENMT Other: Nasal mucosa erythematous and edematous. Sinus tenderness present. TMs are dome-shaped a small air-fluid levels Ears: hearing grossly normal bilaterally Neck Thyroid: Thyroid normal Lymphatic: no lymphadenopathy noted Resp Auscultation: clear to auscultation bilaterally Cardio Rate: regular rate Rhythm: regular rhythm Heart sounds: S1 normal heart sound present and S2 normal heart sound present GI Inspection: Yes normal to inspection Palpation (GI): Soft to palpation and Other GI palpation findings present (nontender, no cva tenderness) Auscultation: normoactive bowel sounds Rectal Exam - Female: deferred Skin General skin exam: no rashes or lesions noted Neuro General: patient oriented x3, gait normal and no focal motor deficits Results Reviewed Results Reviewed: Laboratory Tests 03/05/25 03/05/25 10:00 10:02 WBC 8.4 RBC 4.37 Hgb 14.2 Hct 40.6 Plt Count 241 Sodium 139 Potassium 3.8 Chloride 104 Carbon Dioxide 28 Anion Gap 11 L BUN 8 L Creatinine 0.69 Estimated GFR > 60 Estimat Average Glucose 108 Hemoglobin A1c % 5.4 Calcium 8.8 Total Bilirubin 1.4 H AST 22 ALT 14 Alkaline Phosphatase 41 Triglycerides 116 Cholesterol 177 LDL Cholesterol, Calc 100 H HDL Cholesterol 54 Urine Creatinine 462.12 Urine Microalbumin 25.0 Microalb/Creat Ratio 5.4 Conclusions: - Normal left ventricular size and systolic function. The visually estimated ejection fraction is between 55-60%. - E/E prime ratio is between 8 and 15 consistent with indeterminate filling pressures. - Normal right ventricular cavity size and systolic function. - There is mild dilatation of the ascending aorta measuring 3.40 cm. Coding Level of Care Code Est Pt Level 4 (62325) Complex EM visit Add On G2211 Diagnoses HTN (hypertension), benign I10 Major depression, recurrent, chronic F33.9 Acquired hypothyroidism E03.9 Hypothyroidism type: acquired Asthma with acute exacerbation J45.901 Bacterial sinusitis J32.9; B96.89 Assessment & Plan Assessment & Plan (1) HTN (hypertension), benign: Code(s): I10 - Essential (primary) hypertension Category: Medical Plan: Increase amlodipine to 10 mg (2) Major depression, recurrent, chronic: Code(s): F33.9 - Major depressive disorder, recurrent, unspecified Category: Medical Plan: Continue current regimen (3) Hypothyroidism: Code(s): E03.9 - Hypothyroidism, unspecified Category: Medical Qualifiers: Hypothyroidism type: acquired Qualified Code(s): E03.9 - Hypothyroidism, unspecified Plan: Continue levothyroxine (4) Asthma with acute exacerbation: Code(s): J45.901 - Unspecified asthma with (acute) exacerbation Category: Medical Plan: Prednisone taper ordered. She will let me know if anything worsens or changes (5) Bacterial sinusitis: Code(s): J32.9 - Chronic sinusitis, unspecified; B96.89 - Other specified bacterial agents as the cause of diseases classified elsewhere Category: Medical Plan: We will start Augmentin. Medications: New amoxicillin-pot clavulanate 875-125 mg 1 tab PO Q12H 20 tabs 0RF nebulizer accessories (Champion Choice Nebulizer Kit-Adult) Nebulizer to use As directed every 6 hrs prn wheezing, sob, cough 1 ea 0RF J45.901 - Unspecified asthma with (acute) exacerbation amlodipine 10 mg PO DAILY 90 tabs 0RF prednisone take 3 tab po x 3 days, take 2 tab po x 3 days, 1 tab po x 3 days 18 tabs 0RF benzonatate 100 mg PO TID PRN 30 caps 0RF cough Discontinued amlodipine Discontinued Reason: Doctor's Order 5 mg PO DAILY 90 tabs 0RF
[2025-05-06 13:46] VITALS: BP 142/92; PULSE 68; RESP 18; TEMP 36.8; O2SAT 98; BMI 32.3
--- OUTSIDE RECORDS SUMMARY | 2025-05-06 17:05 | XMS_ITS | Encounter Summary ---
Author Organization [facility] Address [address] [place] [address] Care Team Providers Care Car Refinisher Name Role Phone Esme Valdivia MD Primary Care Provider [phone] Encounter Details Date Type Department Care Team (Latest Contact Info) Description 08/12/2024 Lab Requisition [facility] - Main Lab [address] [facility] [place] [place] [address] Mary Nunez MD 299 [facility] [address] [place] [phone] Encounter for gynecological examination (general) (routine) without [...] test could not be imaged utilizing the enModus Imaging System and required a manual review. The Pap test is a screening test which carries an inherent false negative rate. These test results should be correlated with the patient's clinical findings and history. This Pap test was processed using an automated screening system. Technical cytopathology services provided by [facility], at [address] [place] [address] (CLIA # [id number]/Melissa Reeves MD, Heel Boom Operator.) 08/17/2024 11:08 AM [facility] Console Pap Interpretation Reported 08/17/2024 11:08 AM [facility] Brushing/Spatula Vaginal structure / Unknown 08/11/2024 08/12/2024 6:44 AM EST us Mary Nunez MD LAB CYTOLOGY ORDERABLES Final Result [facility]) [facility] [address] [place] [address], documented in this encounter Visit Diagnoses Diagnosis Encounter for gynecological examination (general) (routine) without abnormal findings documented in this encounter Care Teams Car Refinisher Relationship Specialty Start Date End Date Esme Valdivia MD [address] [place] [phone] PCP - General Internal Medicine 08/17/15 documented as of this encounter
--- OUTSIDE RECORDS SUMMARY | 2025-05-06 17:05 | XMS_ITS | Clinical Summary ---
Author Organization [facility] Address [address] [place] [phone] Care Team Providers Care Home Aide Name Role Phone Esme Valdivia MD Primary Care Provider [phone] Allergies Active Allergy Reactions Criticality Noted Date [...] type 2 peg betes mellitus with neuropathy ([facility] V24, [facility] V28) 06/13/2016 Noncompliance 06/12/2016 Obesity (BMI 30-39.9) 06/12/2016 Poorly controlled type 2 peg betes mellitus ([facility] V24, [facility] V28) 04/28/2013 Fatty liver 09/14/2010 Tension headache 11/24/2009 Hypertension 05/19/2009 Asthma 05/19/2009 Unspecified abnormal cytolog ical findings in specimens from cervix uteri 05/19/2009 Overview (06/30/2024): Melani SINGLETON. Patient follow with Dr Anthony Velazquez 05/19/2009 Insomnia 05/19/2009 Migraines 05/19/2009 Immunizations Immunization Administration Dates Next Due H1N1 Inj Preservative [...] DX:Hypothyroid Diabetes mellitus type II, c ontrolled ([facility] V24, [facility] V28) 05/19/2009 DX:Diabetes mellitus type I I, controlled ([facility]) Asthma 05/19/2009 DX:Asthma Migraines 05/19/2009 DX:Migraines Hypertension [...] Last Done Comments Breast Cancer Screening 1980 Colorectal Cancer Screening: Colonoscopy 1980 Diabetes: Annual Foot Exam 1990 Diabetes: Annual Retina Eye Exam 1990 Hepatitis B Vaccines (1 of 3 - 19+ 3-dose series) 1999 HPV Vaccines (1 - 3-dose SCDM series) 2007 Pneumococcal Vaccine: Pediatrics (0 to 5 Years) [...] 02/11/2024 Depression Screening 07/15/2024 COVID-19 Vaccine ( - season) 2025 09/25/2021, 11/20/2020, 10/30/2020 Influenza Vaccine (#1) 2025 3, 07/30/2012, 03/29/2010, Additional history exists Cervical Cancer Screening: Pap Smear 08/11/2027 08/11/2024 RSV Immunization Adult Patients (1 - 1-dose 75+ series) 2055 Hepatitis C Screening Completed 11/24/2009 HIV Screening [...] or malignancy 08/17/2024 11:08 AM EST [facility] General Categorization Negative 08/17/2024 11:08 AM [...] test could not be imaged utilizing the Seiratherm Imaging System and required a manual review. The Pap test is a screening test which carries an inherent false negative rate. These test results should be correlated with the patient's clinical findings and history. This Pap test was processed using an automated screening system. Technical cytopathology services provided by [facility], at [address] [place] [id number] (CLIA # [id number]/Melissa Reeves MD, Agricultural Production Engineer.) 08/17/2024 11:08 AM [facility] Console Pap Interpretation Reported 08/17/2024 11:08 AM [facility] Brushing/Spatula Vaginal structure / Unknown 08/11/2024 08/12/2024 6:44 AM EST Mary Nunez MD LAB CYTOLOGY ORDERABLES Final Result [facility] [address] [place] [id number], * Urine Albumin Creatinine Ratio (06/12/2016) Pathologist [facility] Urine Albumin Creatinine Ratio Abstracted Historical Provider HEALTH MAINTENANCE Final Result * Annual BMP Blood Test (06/12/2016) Pathologist [facility] Annual BMP Blood Test Abstracted Historical Provider HEALTH MAINTENANCE Final Result * (ABNORMAL) Hemoglobin A1c (06/12/2016) Pathologist [facility] Hemoglobin A1C 10.4(A) 4.0 - 6.0 % Blood Venous blood specimen / Unknown Result [facility] Provider LAB BLOOD ORDERABLES Mariel l Result * Lipid panel (11/09/2014) [facility] LDL/HDL Ratio 3 0 - 4 Triglycerides 146 0 - 150 mg/dL Cholesterol 161 0 - 200 mg/dL HDL 52 >=40 mg/dL LDL Cholesterol 80 0 - 100 mg/dL Blood Venous blood specimen / Unknown [facility] Provider LAB BLOOD ORDERABLES Mariel l Result * HIV Screening (04/28/2013) [facility] HIV Screening Abstracted [facility] Provider HEALTH MAINTENANCE Final Result * Hepatitis C Screening (11/24/2009) [facility] Hepatitis C Screening Abstracted [facility] Provider HEALTH MAINTENANCE Final Result from Last 3 Months or Most Recently Relevant to Health Maintenance Insurance MEDICAID - [place] MEDICARE Care Teams Home Aide Relationship Specialty Start Date End Date Esme Valdivia MD [address] [place] [address] PCP - General Internal Medicine 08/17/15
== END 2025-05-06 14:20 | disposition home or self-care (01) ==
LOC: HO.HMCFM 13:32
PROVIDERS: PCP Physician Assistant; Visit Provider Physician Assistant
DX: I10 Essential (primary) hypertension (principal); F33.9 Major depressive disorder, recurrent, unspecified; E03.9 Hypothyroidism, unspecified; J45.901 Unspecified asthma with (acute) exacerbation; J32.9 Chronic sinusitis, unspecified; B96.89 Other specified bacterial agents as the cause of diseases classified elsewhere

== ENCOUNTER → 2025-05-06 13:31 | Outpatient (BNVA) | payer MEDICARE, MEDICAID, SELFPAY | PROVIDERS: PCP Physician Assistant; Visit Provider Physician Assistant | DX: I10 Essential (primary) hypertension (principal); F33.9 Major depressive disorder, recurrent, unspecified; G43.909 Migraine, unspecified, not intractable, without status migrainosus; E03.9 Hypothyroidism, unspecified; J45.901 Unspecified asthma with (acute) exacerbation; J32.9 Chronic sinusitis, unspecified; B96.89 Other specified bacterial agents as the cause of diseases classified elsewhere | CPT/HCPCS: 99212 ==

== ENCOUNTER 2025-05-14 07:48 | Outpatient (AMB) | payer MEDICARE, MEDICAID, SELFPAY ==
--- OUTSIDE RECORDS SUMMARY | 2025-05-14 07:50 | XMS_ITS | Clinical Summary ---
Author Organization Patient Business [facility] Address [address] [place] [address] Care Team Providers Care Aerospace Manager Name Role Phone Esme Valdivia MD Primary Care Provider [phone] Allergies Active Allergy Reactions Criticality Noted Date [...] 2 peg betes mellitus with neuropathy ([facility] V24, [facility] V28) 06/13/2016 Noncompliance 06/12/2016 Obesity (BMI 30-39.9) 06/12/2016 Poorly controlled type 2 peg betes mellitus ([facility] V24, [facility] V28) 04/28/2013 Fatty liver 09/14/2010 Tension [...] COMMENT: times 3 OTHER SURGICAL HISTORY PROCEDURE: [place] DILATION & CURETTAGE DX&/THER NONOBSTETRIC CERVICAL BIOPSY W/ LOOP ELECTRODE EXCISION PROCEDURE: [place] CONIZATION CERVIX W/WO D&C RPR ELTRD EXC; COMMENT: LEEP TUBAL LIGATION PROCEDURE: HISTORICAL TUBAL LIGATION WISDOM TOOTH EXTRACTION PROCEDURE: HISTORICAL WISDOM TEETH EXTRACTION Medical History Medical History Date Comments Hypothyroid 05/19/2009 DX:Hypothyroid Diabetes mellitus type II, c ontrolled ([facility] V24, [facility] V28) 05/19/2009 DX:Diabetes mellitus type I I, controlled ([facility]) Asthma 05/19/2009 DX:Asthma Migraines 05/19/2009 DX:Migraines [...] AM EST RAD[facility] ([facility]) [facility] General Categorization Negative 08/17/2024 11:08 AM [facility] Other Findings Shift in brenton suggestive of bacterial vaginosis Keratotic cellular changes, hyperkeratosis 08/17/2024 11:08 AM [facility] Specimen Adequacy Satisfactory for evaluation 08/17/2024 11:08 AM [facility] Pap Methodology Liquid Based Pap Test 08/17/2024 11:08 AM [facility] Disclaimer Note: This pap test could not be imaged utilizing the [employer] Imaging System and required a manual review. The Pap test is a screening test which carries an inherent false negative rate. These test results should be correlated with the patient's clinical findings and history. This Pap test was processed using an automated screening system. Technical cytopathology services provided by [facility], at [address] [place] [id number] (CLIA # [id number]/Melissa Reeves MD, Client Technical Specialist.) 08/17/2024 11:08 AM [facility] Console Pap Interpretation Reported 08/17/2024 11:08 AM [facility] Brushing/Spatula Vaginal structure / Unknown 08/11/2024 08/12/2024 6:44 AM EST Mary Nunez MD LAB CYTOLOGY ORDERABLES Final Result [facility] [address] [place] [id number], * Urine Albumin Creatinine Ratio (06/12/2016) Pathologist Count includes the [facility] Urine Albumin Creatinine Ratio Abstracted Historical Provider HEALTH MAINTENANCE Final Result * Annual BMP Blood Test (06/12/2016) Pathologist Count includes the [facility] Annual BMP Blood Test Abstracted Historical Provider HEALTH MAINTENANCE Final Result * (ABNORMAL) Hemoglobin A1c (06/12/2016) Pathologist [facility] Hemoglobin A1C 10.4(A) 4.0 - 6.0 % Blood Venous blood specimen / Unknown Result [facility] Provider LAB BLOOD ORDERABLES Mariel l Result * Lipid panel (11/09/2014) [facility] LDL/HDL Ratio 3 0 - 4 Triglycerides 146 0 - 150 mg/dL Cholesterol 161 0 - 200 mg/dL HDL 52 >=40 mg/dL LDL Cholesterol 80 0 - 100 mg/dL Blood Venous blood specimen / Unknown [facility] Provider LAB BLOOD ORDERABLES Mariel l Result * HIV Screening (04/28/2013) [facility] HIV Screening Abstracted [facility] Provider HEALTH MAINTENANCE Final Result * Hepatitis C Screening (11/24/2009) [facility] Hepatitis C Screening Abstracted [facility] Provider HEALTH MAINTENANCE Final Result from Last 3 Months or Most Recently Relevant to Health Maintenance Insurance [place]ICA[place] - [place] MEDICARE Care Teams Aerospace Manager Relationship Specialty Start Date End Date Esme Valdivia MD [address] [place] [address] PCP - General Internal Medicine 08/17/15
--- OUTSIDE RECORDS SUMMARY | 2025-05-14 07:50 | XMS_ITS | Encounter Summary ---
Author Organization [facility] Address [address] [place] [address] Care Team Providers Care Pbx Operator Name Role Phone Esme Valdivia MD Primary Care Provider [phone] Encounter Details Date Type Department Care Team (Latest Contact Info) Description 08/12/2024 Lab Requisition [facility] - Main Lab [address] [facility] [place] [address] Mary Nunez MD 299 [facility] [address] [place] [id number] Encounter for gynecological examination (general) (routine) without [...] test could not be imaged utilizing the [employer] System and required a manual review. The Pap test is a screening test which carries an inherent false negative rate. These test results should be correlated with the patient's clinical findings and history. This Pap test was processed using an automated screening system. Technical cytopathology services provided by [facility], at [address] [place] [address] (CLIA # [id number]/Melissa Reeves MD, Hull Drafter.) 08/17/2024 11:08 AM [facility] Console Pap Interpretation Reported 08/17/2024 11:08 AM [facility] Brushing/Spatula Vaginal structure / Unknown 08/11/2024 08/12/2024 6:44 AM EST us Mary Nunez MD LAB CYTOLOGY ORDERABLES Final Result [facility]) [facility] [address] [place] [address], documented in this encounter Visit Diagnoses Diagnosis Encounter for gynecological examination (general) (routine) without abnormal findings documented in this encounter Care Teams Pbx Operator Relationship Specialty Start Date End Date Esme Valdivia MD [address] [place] [phone] PCP - General Internal Medicine 08/17/15 documented as of this encounter
--- NOTE | 2025-05-14 08:20 | MHC.OFFWIV ---
Intake Vital Signs 05/14/25 08:30 Height 5 ft 2 in Weight 173 lb BMI 31.6 BP 140/98 H Blood Pressure Location Rt brachial Position Sitting Respiration 15 Pulse 86 Pulse Source Pulse Oximeter Temp 98.3 F Temp Source Oral Pulse Oximetry (%) 95 Oxygen Delivery Method Room Air Intake Visit Reasons: ep cough positive for covid [phone] Intake Note: Pt is here today tested positive yesterday for COVID home test: nasal congestion and bodyaches: hx bates palsy Patient Tobacco Use Status: Never used Tobacco Allergies peanuts Allergy (Mild, Uncoded 03/03/25 15:21) itch in throat shell fish Allergy (Mild, Uncoded 03/03/25 15:21) itch in throat HPI HPI Comments History of Present Illness Details History - The patient is a 45-year-old female presenting with symptoms of COVID-19 infection and sinusitis. - COVID-19 infection: The patient tested positive for COVID-19 yesterday after experiencing symptoms for a week and a half, including body aches and facial droop which is her baseline but it is painful on the left side of her sinus. - Sinusitis: Diagnosed last week with sinusitis and ear infection, treated with Augmentin and prednisone. Still taking both. - Asthma: History of asthma with current exacerbation, experiencing shortness of breath despite using a rescue inhaler. Review of Systems - General: Reports body aches. - Neurological: Reports facial droop (baseline [place] Palsy) - Respiratory: Reports dyspnea and cough. - ENT: Reports facial pain and sinus pressure. All systems reviewed and are unremarkable except as noted in HPI Physical Exam General: Cooperative, healthy appearing, comfortable and no acute distress Orientation/consciousness: Patient oriented x3 Limitations: No limitations Head: Normal to inspection Ears: Hearing grossly normal bilaterally, wearing hearing aids bilat, external ears normal, EAC's normal bilaterally and TM's slight erythema bilaterally Nose: Normal external nose present, Normal nares present and No nasal discharge present Face and sinus: slight facial droop on left side and sinuses TTP maxillary L>R Mouth: Normal oral and palatal mucosa present and moist mucous membranes Throat: tonsils normal, no exudates, uvula midline, posterior oropharynx erythema Eyes: Appearance normal, both eyes and all related structures Neck: Normal visual inspection, full ROM Respiratory: Clear to auscultation bilaterally. Normal respiratory effort, able to speak in complete sentences, actively coughing, no respiratory distress, not tachypneic, no tripod positioning and no use of accessory muscles Cardiovascular: Regular rate and rhythm. Normal S1 and S2 Skin: No rashes or lesions noted Neuro: Patient oriented x3, left arm weakness noted Extremities: Normal to inspection and Yes no clubbing, cyanosis or edema PFSH Medical History Elevated bilirubin Renal cyst, left Hypothyroidism Claudication of both lower extremities GERD with esophagitis Major depression, recurrent, chronic Insomnia Fibromyalgia Hyperlipidemia Fatty liver Poorly controlled type 2 diabetes mellitus with peripheral neuropathy Mild intellectual disability Bilateral hearing loss HTN (hypertension), benign Migraines Chronic low back pain with bilateral sciatica Chronic neck pain Mild persistent asthma in adult without complication Generalized anxiety disorder with panic attacks Family History Mother HTN (hypertension) Diabetes Father HTN (hypertension) Hypercholesteremia Diabetes Cardiovascular disease Maternal Grandmother Cardiovascular disease Skin cancer Anxiety Depression Maternal Grandmother Lung cancer Other FHx: mental illness Social History (Updated 05/06/25 @ 13:47 by Saqib Baugh MA) Housing: Apartment Alcohol intake: never Patient Tobacco Use Status: Never used Tobacco e-Cigarette/Vaping Use: Never Used Second Hand Smoke Exposure: No service: No Current occupational status: disabled Cognitive needs: No Hearing needs: Yes Vision needs: No Physical Exam Vital Signs: Last Vital Signs Temp 98.3 F 05/14/25 08:30 Pulse 86 05/14/25 08:30 Resp 15 05/14/25 08:30 BP 140/98 H 05/14/25 08:30 Pulse Ox 95 05/14/25 08:30 Oxygen Delivery Method Room Air 05/14/25 08:30 BMI result Body Mass Index 31.6 Assessment & Plan Assessment & Plan (1) COVID-19: Code(s): U07.1 - COVID-19 Plan: Plan Patient was informed and verbally consented to the use of an ambient scribe for clinic note documentation during this visit. - VSS, pt well appearing and PE unremarkable. - Supportive care recommended, including continued use of Tessalon Perles for cough management. - Paxlovid was prescribed, advised not to take statin while taking Paxlovid and pt states she is not currently on Ubrevly due to insurance issues, last inj was many months ago. - Continue current antibiotic therapy with Augmentin. - Use of Flonase and Neti pot recommended to alleviate sinus symptoms. - Nebulizer therapy recommended to improve respiratory symptoms. Pt has RX from PCP. - Continue use of rescue inhaler as needed. Medications: New nirmatrelvir-ritonavir 300 mg (150 mg x 2)-100 mg (Paxlovid) take TWO 150 mg tablets of nirmatrelvir with ONE 100 mg tablet of ritonavir twice daily for 5 days PO 30 ea 0RF Coding Level of Care Code Est Pt Level 3 (54432) Diagnoses COVID-19 U07.1
[2025-05-14 08:30] VITALS: BP 140/98; PULSE 86; RESP 15; TEMP 36.8; O2SAT 95; BMI 31.6
== END 2025-05-14 08:56 | disposition home or self-care (01) ==
PROVIDERS: PCP Physician Assistant; Visit Provider Physician Assistant
DX: U07.1 COVID-19 (principal)

== ENCOUNTER → 2025-05-14 07:48 | Outpatient (BNVA) | payer MEDICARE, MEDICAID, SELFPAY | PROVIDERS: PCP Physician Assistant; Visit Provider Physician Assistant | DX: U07.1 COVID-19 (principal) | CPT/HCPCS: 99212 ==

== ENCOUNTER → 2025-05-27 09:19 | Outpatient (REF) | payer MEDICARE, MEDICAID, SELFPAY ==
--- NOTE | ~2025-05-27 | NM_ITS ---
EXERCISE MYOCARDIAL PERFUSION STUDY INDICATION: Shortness of breath, chest pain TECHNIQUE: The patient was brought in for an exercise perfusion study on 05/27/2025. Patient performed exercise as per Bennie protocol and was injected 25 mCi of sestamibi once target heart rate was achieved. Images were obtained using the SPECT gamma camera interlaced with the gating device. Images were obtained in supine position. Resting perfusion study was performed on 05/31/2025. Patient was administered 25 mCi of sestamibi intravenously at rest. Images were then obtained in supine position. Total DLP 77 mGy-cm. Images were processed with the software and compared side to side in short axis, horizontal long axis and vertical long axis views. FINDINGS: Raw aquisition reviewed. The stress perfusion study showed no significant perfusion abnormality. Both uncorrected as well as CT attenuation corrected images were reviewed. The gated study shows normal LV systolic function with calculated LVEF of > 70%. LV cavity is normal in size. The gated study shows normal wall thickening and contraction of segments. Resting study shows no significant perfusion abnormality. Gating at rest reveals normal wall motion with ejection fraction at 69%. The findings are consistent with no clear reversible or fixed perfusion abnormality. NM/NM cardiolite stress test IMPRESSION: 1. Myocardial perfusion imaging study shows normal myocardial perfusion. 2. Gated LVEF is > 70% during stress; 69% during rest. 3. Transient ischemic dilatation not present. EKG component of the test reported separately. Electronically signed by: Ronnell Spence MD 06/01/2025 11:32 AM [facility]
--- NOTE | 2025-05-27 09:22 | CA_ITS ---
Acquisition Time: 2025-05-27 10:31:48 Total Exercise Time: 00:07:45 Test Indications: Dyspnea CP Medications: SEE H&P Protocol: SANKET Max HR: 146 BPM 83% of Pred: 175 BPM Max BP: 184/90 mmHG Max Work Load: 7.6 METS Exercise stress test with exercise 7 mins 45 secs of Sanket Protocol held at Stage 2 with increased incline to 14%, achieving 84% MPHR, with reports of 6/10 left chest tightness and pressure, with SOB and dizziness, without any arrythmias, with normotensive response to exercise. Without any EKG changes meeting criteria for ischemia. In recovery, chest discomfort improved and pt feeling back to baseline. Nuclear images pending. Test reviewed with Dr. Houston. Referred By: Bettie Day Electronically Signed By: Luis Fernando Willett
--- OUTSIDE RECORDS SUMMARY | 2025-05-27 10:38 | XMS_ITS | Encounter Summary ---
Author Organization [facility] Address [address] [place] [address] Care Team Providers Care Audit Lead Name Role Phone Esme Valdivia MD Primary Care Provider [phone] Encounter Details Date Type Department Care Team (Latest Contact Info) Description 08/12/2024 Lab Requisition [facility] - Main Lab 299 [facility] [place] [address] Mary Nunez MD 299 [facility] [address] [place] [id number] Encounter for gynecological examination (general) (routine) without [...] test could not be imaged utilizing the [employer] Imaging System and required a manual review. The Pap test is a screening test which carries an inherent false negative rate. These test results should be correlated with the patient's clinical findings and history. This Pap test was processed using an automated screening system. Technical cytopathology services provided by [facility], at [address] [place] [address] (CLIA # [id number]/Melissa Reeves MD, Accounting Systems Manager.) 08/17/2024 11:08 AM [facility] Console Pap Interpretation Reported 08/17/2024 11:08 AM [facility] Brushing/Spatula Vaginal structure / Unknown 08/11/2024 08/12/2024 6:44 AM EST us Mary Nunez MD LAB CYTOLOGY ORDERABLES Final Result [facility]) [facility] [address] [place] [address], documented in this encounter Visit Diagnoses Diagnosis Encounter for gynecological examination (general) (routine) without abnormal findings documented in this encounter Care Teams Audit Lead Relationship Specialty Start Date End Date Esme Valdivia MD [address] [place] [address] PCP - General Internal Medicine 08/17/15 documented as of this encounter
--- OUTSIDE RECORDS SUMMARY | 2025-05-27 10:38 | XMS_ITS | Clinical Summary ---
Author Organization Patient Business [facility] Address [address] [place] [phone] Care Team Providers Care Office Support Assistant Name Role Phone Esme Valdivia MD Primary Care Provider [phone] Allergies Active Allergy Reactions Criticality Noted Date [...] type 2 peg betes mellitus with neuropathy ([facility] V24, [facility] V28) 06/13/2016 Noncompliance 06/12/2016 Obesity (BMI 30-39.9) 06/12/2016 Poorly controlled type 2 peg betes mellitus ([facility] V24, [facility] V28) 04/28/2013 Fatty liver [...] COMMENT: times 3 OTHER SURGICAL HISTORY PROCEDURE: [place] DILATION & CURETTAGE DX&/THER NONOBSTETRIC CERVICAL BIOPSY W/ LOOP ELECTRODE EXCISION PROCEDURE: [place] CONIZATION CERVIX W/WO D&C RPR ELTRD EXC; COMMENT: LEEP TUBAL LIGATION PROCEDURE: HISTORICAL TUBAL LIGATION WISDOM TOOTH EXTRACTION PROCEDURE: HISTORICAL WISDOM TEETH EXTRACTION Medical History Medical History Date Comments Hypothyroid 05/19/2009 DX:Hypothyroid Diabetes mellitus type II, c ontrolled ([facility] V24, [facility] V28) 05/19/2009 DX:Diabetes mellitus [...] or malignancy 08/17/2024 11:08 AM EST RADHA [facility] ([facility]) [facility] General Categorization Negative 08/17/2024 11:08 AM [facility] Other Findings Shift in brenton suggestive of bacterial vaginosis Keratotic cellular changes, hyperkeratosis 08/17/2024 11:08 AM [facility] Specimen Adequacy Satisfactory for evaluation 08/17/2024 11:08 AM [facility] Pap Methodology Liquid Based Pap Test 08/17/2024 11:08 AM [facility] Disclaimer Note: This pap test could not be imaged utilizing the [employer] Imaging System and required a manual review. The Pap test is a screening test which carries an inherent false negative rate. These test results should be correlated with the patient's clinical findings and history. This Pap test was processed using an automated screening system. Technical cytopathology services provided by [facility], at [address] [place] [id number] (CLIA # [id number]/Melissa Reeves MD, Driver License Reviewing Officer.) 08/17/2024 11:08 AM [facility] Console Pap Interpretation Reported 08/17/2024 11:08 AM [facility] Brushing/Spatula Vaginal structure / Unknown 08/11/2024 08/12/2024 6:44 AM EST Mary Nunez MD LAB CYTOLOGY ORDERABLES Final Result [facility] [address] [place] [address], * Urine Albumin Creatinine Ratio (06/12/2016) Pathologist [facility] Urine Albumin Creatinine Ratio Abstracted Historical Provider HEALTH MAINTENANCE Final Result * Annual BMP Blood Test (06/12/2016) Pathologist [facility] Annual BMP Blood Test Abstracted Historical Provider HEALTH MAINTENANCE Final Result * (ABNORMAL) Hemoglobin A1c (06/12/2016) Pathologist [facility] Hemoglobin A1C 10.4(A) 4.0 - 6.0 % Blood Venous blood specimen / Unknown Result [facility] Provider LAB BLOOD ORDERABLES Mariel l Result * Lipid panel (11/09/2014) [facility] LDL/HDL Ratio 3 0 - 4 Triglycerides 146 0 - 150 mg/dL Cholesterol 161 0 - 200 mg/dL HDL 52 >=40 mg/dL LDL Cholesterol 80 0 - 100 mg/dL Blood Venous blood specimen / Unknown [facility] Provider LAB BLOOD ORDERABLES Mariel l Result * HIV Screening (04/28/2013) [facility] HIV Screening Abstracted [facility] Provider HEALTH MAINTENANCE Final Result * Hepatitis C Screening (11/24/2009) [facility] Hepatitis C Screening Abstracted [facility] Provider HEALTH MAINTENANCE Final Result from Last 3 Months or Most Recently Relevant to Health Maintenance Insurance [place] Care Teams Office Support Assistant Relationship Specialty Start Date End Date Esme Valdivia MD [address] [place] [address] PCP - General Internal Medicine 08/17/15
== END ==
LOC: HO.CARD 09:19
PROVIDERS: PCP Physician Assistant; Visit Provider Physician Assistant
DX: I11.9 Hypertensive heart disease without heart failure (principal); I43 Cardiomyopathy in diseases classified elsewhere; R07.9 Chest pain, unspecified
CPT/HCPCS: 78452; 93017; A9500; J0280; J2785

== ENCOUNTER → 2025-05-27 09:22 | Outpatient (BNV) | payer MEDICARE, MEDICAID, SELFPAY | PROVIDERS: PCP Physician Assistant | DX: R07.89 Other chest pain (principal); R06.02 Shortness of breath; R42 Dizziness and giddiness | CPT/HCPCS: 78452; 93016; 93018 ==

== ENCOUNTER 2025-06-06 16:01 | Emergency (ER) | payer MEDICARE, MEDICAID, SELFPAY ==
--- NOTE | 2025-06-06 16:02 | ECG_ITS ---
Test Reason : chest pain Blood Pressure : */* mmHG Vent. Rate : 85 BPM Atrial Rate : 85 BPM P-R Int : 108 ms QRS Dur : 74 ms QT Int : 384 ms P-R-T Axes : 53 7 19 degrees QTcB Int : 456 ms Sinus rhythm with short PA Minimal voltage criteria for LVH, may be normal variant ( R in aVL ) Borderline ECG When compared with ECG of 24-Feb-2025 09:46, No significant change was found Referred By: Generic ED Physician Electronically Signed By: Jasbir Benítez
[2025-06-06 16:30] VITALS: BP 180/84; PULSE 79; RESP 18; TEMP 36.6; O2SAT 98; BMI 31.7
--- NOTE | 2025-06-06 16:33 | ED.CHESTPAIN ---
HPI - Chest Pain General Chief Complaint: Chest Pain Stated Complaint: CP Related Data Home Medications ?Medication ?Instructions ?Recorded ?Confirmed accu-check compact lancets 10/28/23 05/06/25 epinephrine 0.3 mg/0.3 mL IM 10/28/23 05/06/25 injection, auto-injector freestyle lancets 10/28/23 05/06/25 freestyle monitor 10/28/23 05/06/25 freestyle test strips 10/28/23 05/06/25 estradiol 0.01% (0.1 mg/gram) vaginal 09/10/24 05/06/25 vaginal cream estradiol 0.05 mg/24 hr semiweekly transdermal 09/10/24 05/06/25 transdermal patch Previous Rx's ?Medication ?Instructions ?Recorded blood-glucose meter (OneTouch #1 ea 02/06/24 Ultra2 Meter) glucose 4 gram chewable tablet 16 g (4 x 4 gram) PO Q15M PRN 02/06/24 hypoglycemia #30 tabs magnesium oxide 400 mg (241.3 mg 400 mg PO BEDTIME 30 days #30 tabs 02/07/24 magnesium) tablet ubrogepant 100 mg tablet (Ubrelvy) 50 - 100 mg (0.5 - 1 x 100 mg) PO 04/04/24 ONCE PRN migraine headache 30 days #16 tabs galcanezumab-gnlm 120 mg/mL 240 mg (2 mL) subcut ONCE 30 days 04/08/24 subcutaneous pen injector #2 mL (Emgality Pen) atorvastatin 40 mg tablet 40 mg PO QPM 90 days #90 tabs 04/23/24 blood-glucose sensor (FreeStyle #2 ea 04/23/24 Sam 3 Sensor device) diclofenac sodium 1 % topical gel 4 g topical QID #100 grams 04/23/24 (Voltaren Arthritis Pain) duloxetine 60 mg capsule,delayed 60 mg PO DAILY #90 caps 04/23/24 release hydroxyzine HCl 50 mg tablet 50 mg PO DAILY #90 tabs 04/23/24 levothyroxine 50 mcg tablet 50 mcg PO DAILY #90 tabs 04/23/24 meloxicam 7.5 mg tablet 7.5 mg PO DAILY #90 tabs 04/23/24 metoprolol tartrate 25 mg tablet 25 mg PO BID 90 days #180 tabs 04/23/24 pen needle, diabetic 32 gauge x #100 ea 04/23/24 (BD Haleigh 2nd Gen Pen Needle) pregabalin 200 mg capsule 200 mg PO BID 30 days #60 caps 04/23/24 fluticasone propionate 50 1 spray intranasal BID #48 mL 05/15/24 mcg/actuation nasal spray,suspension albuterol sulfate 2.5 mg/3 mL 2.5 mg (3 mL) inhalation Q4-6H PRN 07/17/24 (0.083 %) solution for nebulization shortness of breath or wheezing #90 mL nebulizer accessories #1 ea 07/17/24 fluticasone furoate 100 1 inh inhalation Q24H #60 ea 08/26/24 mcg-vilanterol 25 mcg/dose inhalation powder (Breo Ellipta) buspirone 15 mg tablet 15 mg PO BID #180 tabs 09/10/24 compressor, for nebulizer #1 ea 09/16/24 folic acid 400 mcg tablet 400 mcg PO DAILY 30 days #30 tabs 12/02/24 lisinopril 40 mg tablet 40 mg PO DAILY #90 tabs 01/11/25 oxybutynin chloride 10 mg 10 mg PO DAILY 30 days #30 tabs 01/11/25 tablet,extended release 24 hr tirzepatide 7.5 mg/0.5 mL 7.5 mg (0.5 mL) subcut QWEEK #2 mL 02/04/25 subcutaneous pen injector (Gene) albuterol sulfate 90 mcg/actuation 2 puff inhalation Q8H PRN 04/12/25 aerosol inhaler (Ventolin HFA) shortness of breath or wheezing #8.5 grams tramadol 50 mg tablet 50 mg PO Q12H PRN pain 30 days #60 04/12/25 tabs riboflavin (vitamin B2) 400 mg 400 mg PO DAILY 30 days #90 tabs 05/03/25 tablet amlodipine 10 mg tablet 10 mg PO DAILY #90 tabs 05/06/25 benzonatate 100 mg capsule 100 mg PO TID PRN cough #30 caps 05/06/25 nebulizer accessories (Doron #1 ea 05/06/25 Choice Nebulizer Kit-Adult) nirmatrelvir 300 mg (150 mg See Rx Instructions PO .COMPLEX 05/14/25 x2)-ritonavir 100 mg tablet,dose #30 ea pack (Paxlovid) lorazepam 0.5 mg tablet 0.5 mg PO DAILY PRN anxiety 30 05/17/25 days #30 tabs omeprazole 20 mg capsule,delayed 20 mg PO DAILY #90 caps 06/03/25 release cyanocobalamin (vitamin B-12) 500 500 mcg PO DAILY 90 days #90 tabs 06/04/25 mcg tablet Allergies Allergy/AdvReac Type Severity Reaction Status Date / Time peanuts Allergy Mild itch in Uncoded 06/06/25 16:32 throat shell fish Allergy Mild itch in Uncoded 06/06/25 16:32 throat PMFSH Past Medical History Medical History Elevated bilirubin Renal cyst, left Hypothyroidism Claudication of both lower extremities GERD with esophagitis Major depression, recurrent, chronic Insomnia Fibromyalgia Hyperlipidemia Fatty liver Poorly controlled type 2 diabetes mellitus with peripheral neuropathy Mild intellectual disability Bilateral hearing loss HTN (hypertension), benign Migraines Chronic low back pain with bilateral sciatica Chronic neck pain Mild persistent asthma in adult without complication Generalized anxiety disorder with panic attacks Family History Family History Mother HTN (hypertension) Diabetes Father HTN (hypertension) Hypercholesteremia Diabetes Cardiovascular disease Maternal Grandmother Cardiovascular disease Skin cancer Anxiety Depression Maternal Grandmother Lung cancer Other FHx: mental illness Social History Social History (Updated 05/06/25 @ 13:47 by Saqib Baugh CMA) Housing: Apartment Alcohol intake: never Patient Tobacco Use Status: Never used Tobacco e-Cigarette/Vaping Use: Never Used Second Hand Smoke Exposure: No Advance Directives: No Advance Directives Information Provided: No service: No Current occupational status: disabled Cognitive needs: No Hearing needs: Yes Vision needs: No Physical Exam Vital Signs: Vital Signs: Last Vital Signs Temp 97.9 F 06/06/25 16:30 Pulse 79 06/06/25 16:30 Resp 18 06/06/25 16:30 BP 180/84 H 06/06/25 16:30 Pulse Ox 98 06/06/25 16:30 O2 Del Method Room Air 06/06/25 16:30 BMI result Body Mass Index 31.7 Course Course Course Narrative: Rapid medical examination performed in triage by Cecy Gonzalez PA-C: Patient is a 45 year old assigned female at presenting to the emergency department with chest pain. Detailed physical exam and review of systems are deferred to the intermodal customer service. EKG, labs, imaging, swabs ordered. Patient placed back in the waiting room pending room availability and results. Patient left the department without completing treatment. Patient left the department before myself or any of the other emergency department clinicians could explain to or review with the patient; physical exam findings, test results, need or lack there of for additional testing, need or lack there of for a procedure to be performed, need or lack there of for hospital admission / transfer, need or lack there of for prescription medication, treatment options, or a treatment plan. Patient's limited physical exam performed in triage showed a non-toxic individual with appropriate breathing, alert and oriented, and ambulating without assistance. Discharge Plan Discharge Clinical Impression: Chest pain Patient Disposition: Left W/O Completing Treatment Prescriptions: No Action Ubrelvy 100 mg tablet 50 - 100 mg PO ONCE PRN (Reason: migraine headache) 30 Days Qty: 16 3RF Rx Instructions: take at onset of migraine, may repeat in 2hrs (may take w/ Tylenol) Emgality Pen 120 mg/mL pen injector 240 mg subcut ONCE 30 Days Qty: 2 0RF Rx Instructions: Loading dose: 120 mg subcu injection x2 in alternate sites (total 240 mg). To be followed by maintenance dose of 120 mg subcu q.month. fluticasone propionate 50 mcg/actuation spray,suspension 1 spray intranasal BID Qty: 48 1RF (DME) nebulizer accessories Misc See Rx Instructions .Route Qty: 1 0RF Rx Instructions: use As directed albuterol sulfate 2.5 mg /3 mL (0.083 %) solution for nebulization 2.5 mg inhalation Q4-6H PRN (Reason: shortness of breath or wheezing) Qty: 90 0RF fluticasone furoate-vilanterol [Breo Ellipta] 100-25 mcg/dose blister with device 1 inh inhalation Q24H Qty: 60 2RF (DME) compressor, for nebulizer Device See Rx Instructions .Route Qty: 1 0RF Rx Instructions: use As directed folic acid 400 mcg tablet 400 mcg PO DAILY 30 Days Qty: 30 6RF oxybutynin chloride 10 mg tablet extended release 24hr 10 mg PO DAILY 30 Days Qty: 30 3RF lisinopril 40 mg tablet 40 mg PO DAILY Qty: 90 1RF Mounjaro 7.5 mg/0.5 mL pen injector 7.5 mg subcut QWEEK Qty: 2 4RF albuterol sulfate [Ventolin HFA] 90 mcg/actuation HFA aerosol inhaler 2 puff inhalation Q8H PRN (Reason: shortness of breath or wheezing) Qty: 8.5 2RF tramadol 50 mg tablet 50 mg PO Q12H PRN (Reason: pain) 30 Days Qty: 60 0RF riboflavin (vitamin B2) 400 mg tablet 400 mg PO DAILY 30 Days Qty: 90 3RF lorazepam 0.5 mg tablet 0.5 mg PO DAILY PRN (Reason: anxiety) 30 Days Qty: 30 0RF omeprazole 20 mg capsule,delayed release(DR/EC) 20 mg PO DAILY Qty: 90 0RF cyanocobalamin (vitamin B-12) 500 mcg tablet 500 mcg PO DAILY 90 Days Qty: 90 3RF (DME) blood-glucose meter [[employer]Touch Ultra2 Meter] Misc See Rx Instructions .Route Qty: 1 0RF Rx Instructions: As directed glucose 4 gram tablet,chewable 16 g PO Q15M PRN (Reason: hypoglycemia) Qty: 30 3RF Rx Instructions: until symptoms of low blood sugar are controlled epinephrine 0.3 mg/0.3 mL auto-injector IM (DME) freestyle monitor 0 .Route .MEDSUPPLY (DME) freestyle lancets 0 .Route .MEDSUPPLY (DME) accu-check compact lancets 0 .Route .MEDSUPPLY (DME) freestyle test strips 0 .Route .MEDSUPPLY magnesium oxide 400 mg (241.3 mg magnesium) tablet 400 mg PO BEDTIME 30 Days Qty: 30 6RF Rx Instructions: may hold for loose stools (DME) FreeStyle Sam 3 Sensor Device See Rx Instructions .ROUTE .MEDSUPPLY Qty: 2 11RF Rx Instructions: Apply every 14 days As directed to monitor blood glucose atorvastatin 40 mg tablet 40 mg PO QPM 90 Days Qty: 90 3RF diclofenac sodium [Voltaren Arthritis Pain] 1 % gel 4 g topical QID Qty: 100 3RF Rx Instructions: apply to single knee, ankle, foot; for foot includes sole/toes/top of foot duloxetine 60 mg capsule,delayed release(DR/EC) 60 mg PO DAILY Qty: 90 3RF hydroxyzine HCl 50 mg tablet 50 mg PO DAILY Qty: 90 3RF (DME) pen needle, diabetic [BD Haleigh 2nd Gen Pen Needle] 32 gauge x 5/32 needle See Rx Instructions .Route Qty: 100 3RF Rx Instructions: use daily As directed levothyroxine 50 mcg tablet 50 mcg PO DAILY Qty: 90 3RF meloxicam 7.5 mg tablet 7.5 mg PO DAILY Qty: 90 3RF metoprolol tartrate 25 mg tablet 25 mg PO BID 90 Days Qty: 180 3RF pregabalin 200 mg capsule 200 mg PO BID 30 Days Qty: 60 2RF benzonatate 100 mg capsule 100 mg PO TID PRN (Reason: cough) Qty: 30 0RF (DME) [employer] Choice Neb Kit-Adult Misc See Rx Instructions .Route Qty: 1 0RF Rx Instructions: Nebulizer to use As directed every 6 hrs prn wheezing, sob, cough amlodipine 10 mg tablet 10 mg PO DAILY Qty: 90 0RF Paxlovid 300 mg (150 mg x 2)-100 mg tablets,dose pack See Rx Instructions PO .COMPLEX Qty: 30 0RF Rx Instructions: take TWO 150 mg tablets of nirmatrelvir with ONE 100 mg tablet of ritonavir twice daily for 5 days PO estradiol 0.01 % (0.1 mg/gram) cream vaginal estradiol 0.05 mg/24 hr patch semiweekly transdermal buspirone 15 mg tablet 15 mg PO BID Qty: 180 3RF Discharge Date/Time: 06/06/25 19:40
--- OUTSIDE RECORDS SUMMARY | 2025-06-06 19:40 | XMS_ITS | Clinical Summary ---
Author Organization Patient Business [facility] Address [address] [place] [id number] Care Team Providers Care Candy Waffle Assembler Name Role Phone Esme Valdivia MD Primary Care Provider [phone] Allergies Active Allergy Reactions Criticality Noted Date [...] with neuropathy ([facility] V24, [facility] V28) 06/13/2016 Noncompliance 06/12/2016 Obesity (BMI 30-39.9) 06/12/2016 Poorly controlled type 2 peg betes mellitus ([facility] V24, [facility] V28) 04/28/2013 Fatty liver 09/14/2010 Tension headache 11/24/2009 Hypertension 05/19/2009 Asthma 05/19/2009 Unspecified abnormal cytolog ical findings in specimens from cervix uteri 05/19/2009 Overview (06/30/2024): Melani ISNGLETON. Patient follow with Dr Anthony Velazquez 05/19/2009 [...] c ontrolled ([facility] V24, [facility] V28) 05/19/2009 DX:Diabetes mellitus type I I, controlled ([facility]) Asthma 05/19/2009 DX:Asthma Migraines 05/19/2009 [...] or malignancy 08/17/2024 11:08 AM EST [facility]) [facility] General Categorization Negative 08/17/2024 11:08 [...] test could not be imaged utilizing the [employer] System and required a manual review. The Pap test is a screening test which carries an inherent false negative rate. These test results should be correlated with the patient's clinical findings and history. This Pap test was processed using an automated screening system. Technical cytopathology services provided by [facility], at [address] [place] [id number] (CLIA # [id number]/Melissa Reeves MD, Ob/Gyn Physician.) 08/17/2024 11:08 AM [facility] Console Pap Interpretation Reported 08/17/2024 11:08 AM [facility] Brushing/Spatula Vaginal structure / Unknown 08/11/2024 08/12/2024 6:44 AM EST Mary Nunez MD LAB CYTOLOGY ORDERABLES Final Result [facility] [address] [place] [id number], * Urine Albumin Creatinine Ratio (06/12/2016) Pathologist [facility] Urine Albumin Creatinine Ratio Abstracted Historical Provider HEALTH MAINTENANCE Final Result * Annual BMP Blood Test (06/12/2016) Pathologist [facility] Annual BMP Blood Test Abstracted Historical Provider HEALTH MAINTENANCE Final Result * (ABNORMAL) Hemoglobin A1c (06/12/2016) Pathologist [facility] Hemoglobin A1C 10.4(A) 4.0 - 6.0 % Blood Venous blood specimen / Unknown Result [facility] Provider LAB BLOOD ORDERABLES Mariel l Result * Lipid panel (11/09/2014) [facility] LDL/HDL Ratio 3 0 - 4 Triglycerides 146 0 - 150 mg/dL Cholesterol 161 0 - 200 mg/dL HDL 52 >=40 mg/dL LDL Cholesterol 80 0 - 100 mg/dL Blood Venous blood specimen / Unknown [facility] Provider LAB BLOOD ORDERABLES Mariel l Result * HIV Screening (04/28/2013) [facility] HIV Screening Abstracted [facility] Provider HEALTH MAINTENANCE Final Result * Hepatitis C Screening (11/24/2009) [facility] Hepatitis C Screening Abstracted [facility] Provider HEALTH MAINTENANCE Final Result from Last 3 Months or Most Recently Relevant to Health Maintenance Insurance MEDICAID - [place] MEDICARE Care Teams Candy Waffle Assembler Relationship Specialty Start Date End Date Esme Valdivia MD [address] [place] [address] PCP - General Internal Medicine 08/17/15
--- OUTSIDE RECORDS SUMMARY | 2025-06-06 19:40 | XMS_ITS | Encounter Summary ---
Author Organization [facility] Address [address] [place] [address] Care Team Providers Care Internal Salesperson Name Role Phone Esme Valdivia MD Primary Care Provider [phone] Encounter Details Date Type Department Care Team (Latest Contact Info) Description 08/12/2024 Lab Requisition [facility] [address] [facility] [place] [address] Mary Nunez MD [address] [facility] [address] [place] [phone] Encounter for gynecological examination (general) (routine) without [...] intraepithelial lesion or malignancy 08/17/2024 11:08 AM [facility] General Categorization Negative 08/17/2024 [...] test could not be imaged utilizing the [employer] Imaging System and required a manual review. The Pap test is a screening test which carries an inherent false negative rate. These test results should be correlated with the patient's clinical findings and history. This Pap test was processed using an automated screening system. Technical cytopathology services provided by [facility], at [address] [place] [address] (CLIA # [id number]/Melissa Reeves MD, General Contractor.) 08/17/2024 11:08 AM [facility] Console Pap Interpretation Reported 08/17/2024 11:08 AM [facility] Brushing/Spatula Vaginal structure / Unknown 08/11/2024 08/12/2024 6:44 AM EST us Mary Nunez MD LAB CYTOLOGY ORDERABLES Final Result [facility]) [facility] [address] [place] [address], documented in this encounter Visit Diagnoses Diagnosis Encounter for gynecological examination (general) (routine) without abnormal findings documented in this encounter Care Teams Internal Salesperson Relationship Specialty Start Date End Date Esme Valdivia MD [address] [place] [phone] PCP - General Internal Medicine 08/17/15 documented as of this encounter
== END 2025-06-06 19:40 | disposition left against medical advice (07) ==
PROVIDERS: Emergency Provider Emergency Medicine; PCP Physician Assistant
DX: R07.9 Chest pain, unspecified (principal); I10 Essential (primary) hypertension; Z91.010 Allergy to peanuts; Z91.013 Allergy to seafood
CPT/HCPCS: 93005; 99283

== ENCOUNTER → 2025-06-06 16:02 | Outpatient (BNV) | payer MEDICARE, MEDICAID, SELFPAY | PROVIDERS: Emergency Provider Emergency Medicine; PCP Physician Assistant; Visit Provider Internal Medicine Cardiovascular Disease | DX: R07.9 Chest pain, unspecified (principal) | CPT/HCPCS: 93010 ==